=== PATIENT | female | born 1960 | race Caucasian/White ===

== ENCOUNTER → 2017-02-22 | Outpatient (CLI) | payer BC, OTHER ==
--- NOTE | 2017-02-22 11:42 | MR ---
MR brain HISTORY: Stroke Correlation to prior MRI brain 05/04/2016, 11 July 2016 Multiplanar multisequence imaging through the brain There is no restricted diffusion. The scattered and confluent periventricular white matter hyperinten sities on inversion recovery and T2-weighted sequences are again noted and are too numerous to count. There is no hemorrhage or hydrocephalus. There are normal vascular flow voids. Cerebellopontine angl es, corpus callosum, pituitary, cervical medullary junction are within normal limits. The karla shows multiple areas of probable encephalomalacia. The orbits show symmetric appearance. Focal encephalomal acia also present at the site of patient's prior infarct in the left parietal lobe. IMPRESSION: Findings may be due to chronic small vessel ischemia. Consider vasculitis, hypertension, migraine headaches, multiple sclerosis in the appropriate clinical setting.
== END | disposition home or self-care (01) ==
LOC: RADMRIMAIN 10:12
PROVIDERS: ATTEND Psychiatry & Neurology Neurology
DX: G81.91 Hemiplegia, unspecified affecting right dominant side (principal); Z86.73 Personal history of transient ischemic attack (TIA), and cerebral infarction without residual deficits
CPT/HCPCS: 70551

== ENCOUNTER 2018-11-10 18:10 | Emergency (ER) | payer BC, OTHER ==
--- NOTE | 2018-11-10 18:26 | ED ---
General Adult HPI - General Chief complaint: Recheck/Abnormal Lab/Rx Stated complaint: hypoglycemia Time Seen by Provider: 11/10/18 18:12 Source: patient, family, RN notes reviewed, old records reviewed Mode of arrival: EMS Limitations: no limitations - History of Present Illness Initial comments: 52 sexual female with history type 1 diabetes, currently on insulin pump presents for evaluation of hypoglycemia. Patient felt her blood sugar was dropping, attempted to consume oral glucose and a granola bar. Sugar persisted to drop and patient became quite symptomatically, diaphoretic, and altered. Her family members who are with her did stop at urgent care, they checked blood sugar at that time it was 38. EMS was called, IV was established and 1 amp of IV dextrose was administered. Patient's mental status improved, alert and oriented 4. She was transported to the emergency department for further evaluation. She has been dealing with episodes of hypoglycemia, her maintenance mechanic has been adjusting her insulin pump. Patient did eat today, no preceding symptoms, no nausea vomiting, no diarrhea. She does have history of renal failure status post transplant. She's had no known worsening kidney function. - Related Data Home Medications Medication Instructions Recorded Confirmed Metoprolol Succinate (ER) [Toprol 50 mg PO DAILY 12/12/14 11/10/18 XL] Mycophenolate Mofetil [Cellcept] 500 mg PO BID 12/12/14 11/10/18 amLODIPine [Norvasc] 10 mg PO DAILY 12/12/14 11/10/18 Gabapentin [Neurontin] 300 mg PO HS 10/23/15 11/10/18 Omeprazole [PriLOSEC] 40 mg PO AC-BRKFST 10/23/15 11/10/18 Tacrolimus [Prograf] 1 mg PO HS 06/06/16 11/10/18 Tacrolimus [Prograf] 2 mg PO QAM 06/06/16 11/10/18 DULoxetine HCL [Cymbalta] 20 mg PO DAILY 11/10/18 11/10/18 INSULIN LISPRO (For Pump) [humaLOG 0.01 units SQ-PUMP CONTINUOUS 11/10/18 (For Pump)] Previous Rx's Medication Instructions Recorded Atorvastatin [Lipitor] 80 mg PO HS #30 tab 12/15/14 Clopidogrel [Plavix] 75 mg PO DAILY #30 tab 12/15/14 Nitroglycerin Sl Tabs [Nitrostat] 0.4 mg SUBLINGUAL Q5M PRN #25 tab 12/15/14 Allergies Allergy/AdvReac Type Severity Reaction Status Date / Time Milk Containing Products Allergy Diarrhea Verified 11/10/18 18:40 [Dairy] Penicillins Allergy Rash/Hives Verified 11/10/18 18:40 trandolapril [From Tarka] Allergy SEVERE Verified 11/10/18 18:40 HYPOTENSION verapamil HCl [From Tarka] Allergy SEVERE Verified 11/10/18 18:40 HYPOTENSION Review of Systems ROS Statement: Those systems with pertinent positive or pertinent negative responses have been documented in the HPI. ROS Other: All systems not noted in ROS Statement are negative. Past Medical History Past Medical History: Blood Disorder, Cancer, CVA/TIA, Diabetes Mellitus, Dialysis, GERD/Reflux, Myocardial Infarction (non Q-wave), Pneumonia, Pulmonary Embolus (PE), Renal Disease, Sleep Apnea/CPAP/BIPAP, Thyroid Disorder Additional Past Medical History / Comment(s): SEE DR LONGO H&P, Leiden Factor V, basal cell carcinoma, Vulvar cancer,CVA 2015, CVA 2013, CVA approx 2011, DIAlysis 2001 for 2 months, enlarged thyroid with nodules Last Myocardial Infarction Date:: 2014 History of Any Multi-Drug Resistant Organisms: None Reported Past Surgical History: Section, Cholecystectomy, Heart Catheterization , Heart Catheterization With Stent, Tonsillectomy, Tubal Ligation Additional Past Surgical History / Comment(s): oophrectomy, kidney transplant, surgery to remove cancer Past Anesthesia/Blood Transfusion Reactions: No Reported Reaction Date of Last Stent Placement:: 2014 Past Psychological History: Depression Smoking Status: Former smoker - Past Family History Father Family Medical History: Myocardial Infarction ([place]) Mother Family Medical History: Pulmonary Embolus Additional Family Medical History / Comment(s): Occluded carotid artery, carotid endartectomy Son(s) Family Medical History: Diabetes Mellitus Additional Family Medical History / Comment(s): DM type 1 General Exam Limitations: no limitations General appearance: alert, in no apparent distress Head exam: Present: atraumatic, normocephalic Eye exam: Present: normal appearance, PERRL ENT exam: Present: normal exam Neck exam: Present: normal inspection. Absent: tenderness Respiratory exam: Present: normal lung sounds bilaterally. Absent: respiratory distress, wheezes Cardiovascular Exam: Present: regular rate, normal rhythm GI/Abdominal exam: Present: soft. Absent: distended, tenderness, guarding Extremities exam: Present: normal inspection, full ROM, normal capillary refill Neurological exam: Present: alert, oriented X3, CN II-XII intact. Absent: motor sensory deficit Psychiatric exam: Present: normal affect, normal mood Skin exam: Present: warm, dry, intact. Absent: cyanosis, diaphoretic Course Vital Signs 11/10/18 11/10/18 11/10/18 18:18 19:20 20:11 Temperature 97.6 F 98.1 F Pulse Rate 80 76 77 Respiratory 16 16 20 Rate Blood Pressure 170/90 148/81 149/65 O2 Sat by Pulse 99 97 100 Oximetry Medical Decision Making - Medical Decision Making 58-year-old female history of type 1 diabetes, history of renal failure status post transplant presents for evaluation of episode of hypoglycemia. Patient's blood sugar was 38 according to EMS. She was given both oral and IV glucose prior to arrival. Blood sugar remained stable, she is observed in the emergency department with mildly elevated blood sugars, no hypoglycemia, she is asymptomatic with stable vitals. Laboratory studies do reveal mild elevation in creatinine 1.41, patient is informed of this and will follow with her manager exchange. She will decrease dose of insulin infusion. She will closely monitor her blood glucose at home. - Lab Data Result diagrams: 11/10/18 18:37 11/10/18 18:37 Lab Results 11/10/18 11/10/18 11/10/18 Range/Units 18:30 18:37 18:37 WBC 7.5 (3.8-10.6) k/uL RBC 4.82 (3.80-5.40) m/uL Hgb 14.6 (11.4-16.0) gm/dL Hct 44.5 (34.0-46.0) % MCV 92.4 (80.0-100.0) fL MCH 30.3 (25.0-35.0) pg MCHC 32.8 (31.0-37.0) g/dL RDW 12.9 (11.5-15.5) % Plt Count 156 (150-450) k/uL Neutrophils % 70 % Lymphocytes % 20 % Monocytes % 5 % Eosinophils % 3 % Basophils % 1 % Neutrophils # 5.2 (1.3-7.7) k/uL Lymphocytes # 1.5 (1.0-4.8) k/uL Monocytes # 0.3 (0-1.0) k/uL Eosinophils # 0.3 (0-0.7) k/uL Basophils # 0.1 (0-0.2) k/uL Sodium 140 (137-145) mmol/L Potassium 4.5 (3.5-5.1) mmol/L Chloride 106 (98-107) mmol/L Carbon Dioxide 27 (22-30) mmol/L Anion Gap 7 mmol/L BUN 18 H (7-17) mg/dL Creatinine 1.41 H (0.52-1.04) mg/dL Est GFR (CKD-EPI)AfAm 48 (>60 ml/min/1.73 sqM) Est GFR (CKD-EPI)NonAf 42 (>60 ml/min/1.73 sqM) Glucose 254 H (74-99) mg/dL POC Glucose (mg/dL) 235 H (75-99) mg/dL POC Glu Dressmaker Or Tailor ID December Calcium 9.7 (8.4-10.2) mg/dL Total Bilirubin 1.6 H (0.2-1.3) mg/dL AST 28 (14-36) U/L ALT 40 (9-52) U/L Alkaline Phosphatase 99 (38-126) U/L Total Protein 6.9 (6.3-8.2) g/dL Albumin 3.8 (3.5-5.0) g/dL 11/10/18 11/10/18 Range/Units 19:25 20:10 WBC (3.8-10.6) k/uL RBC (3.80-5.40) m/uL Hgb (11.4-16.0) gm/dL Hct (34.0-46.0) % MCV (80.0-100.0) fL MCH (25.0-35.0) pg MCHC (31.0-37.0) g/dL RDW (11.5-15.5) % Plt Count (150-450) k/uL Neutrophils % % Lymphocytes % % Monocytes % % Eosinophils % % Basophils % % Neutrophils # (1.3-7.7) k/uL Lymphocytes # (1.0-4.8) k/uL Monocytes # (0-1.0) k/uL Eosinophils # (0-0.7) k/uL Basophils # (0-0.2) k/uL Sodium (137-145) mmol/L Potassium (3.5-5.1) mmol/L Chloride (98-107) mmol/L Carbon Dioxide (22-30) mmol/L Anion Gap mmol/L BUN (7-17) mg/dL Creatinine (0.52-1.04) mg/dL Est GFR (CKD-EPI)AfAm (>60 ml/min/1.73 sqM) Est GFR (CKD-EPI)NonAf (>60 ml/min/1.73 sqM) Glucose (74-99) mg/dL POC Glucose (mg/dL) 229 H 256 H (75-99) mg/dL POC Glu Dressmaker Or Tailor [place] Matthew Calcium (8.4-10.2) mg/dL Total Bilirubin (0.2-1.3) mg/dL AST (14-36) U/L ALT (9-52) U/L Alkaline Phosphatase (38-126) U/L Total Protein (6.3-8.2) g/dL Albumin (3.5-5.0) g/dL Disposition Clinical Impression: Hypoglycemia Disposition: HOME SELF-CARE Condition: Good Instructions (If sedation given, give patient instructions): Hypoglycemia in a Person with Diabetes (ED) Is patient prescribed a controlled substance at d/c from ED?: No Referrals: Katina Benson MD [Primary Care Provider] - 1-2 days Tracee Tilley MD [STAFF PHYSICIAN] - 1-2 days Time of Disposition: 20:47
[2018-11-10 18:36] LABS: Glucose,Whole Blood 235 mg/dL (75-99)
[2018-11-10 18:51] LABS: Basophils # (A) 0.1 k/uL (0-0.2); Basophils % (A) 1 %; Eosinophils # (A) 0.3 k/uL (0-0.7); Eosinophils % (A) 3 %; HCT 44.5 % (34.0-46.0); HGB 14.6 gm/dL (11.4-16.0); Lymphocytes # (A) 1.5 k/uL (1.0-4.8); Lymphocytes % (A) 20 %; MCH 30.3 pg (25.0-35.0); MCHC 32.8 g/dL (31.0-37.0); MCV 92.4 fL (80.0-100.0); Mean Platelet Volume 8.8; Monocytes # (A) 0.3 k/uL (0-1.0); Monocytes % (A) 5 %; Neutrophils # (A) 5.2 k/uL (1.3-7.7); Neutrophils % (A) 70 %; Platelet Count 156 k/uL (150-450); RBC 4.82 m/uL (3.80-5.40); RDW 12.9 % (11.5-15.5); WBC 7.5 k/uL (3.8-10.6)
[2018-11-10 19:00] LABS: Albumin 3.8 g/dL (3.5-5.0); Calcium 9.7 mg/dL (8.4-10.2); Potassium 4.5 mmol/L (3.5-5.1); Total Bilirubin 1.6 mg/dL (0.2-1.3); Total Protein 6.9 g/dL (6.3-8.2)
[2018-11-10 19:37] LABS: Glucose,Whole Blood 229 mg/dL (75-99)
[2018-11-10 20:12] LABS: Glucose,Whole Blood 256 mg/dL (75-99)
[2018-11-10 20:58] VITALS: BP 143/73; PULSE 76; RESP 18; TEMP 97
== END 2018-11-10 20:57 | disposition home or self-care (01) ==
LOC: EC 18:10
DX: E10.649 Type 1 diabetes mellitus with hypoglycemia without coma (principal); R79.89 Other specified abnormal findings of blood chemistry; N19 Unspecified kidney failure; K21.9 Gastro-esophageal reflux disease without esophagitis; G47.30 Sleep apnea, unspecified; I25.2 Old myocardial infarction; F32.9 Major depressive disorder, single episode, unspecified; Z87.891 Personal history of nicotine dependence; Z88.0 Allergy status to penicillin; Z88.8 Allergy status to other drugs, medicaments and biological substances; Z91.011 Allergy to milk products; Z79.4 Long term (current) use of insulin; Z79.899 Other long term (current) drug therapy; Z96.41 Presence of insulin pump (external) (internal); Z86.73 Personal history of transient ischemic attack (TIA), and cerebral infarction without residual deficits; Z86.711 Personal history of pulmonary embolism; Z85.828 Personal history of other malignant neoplasm of skin; Z85.44 Personal history of malignant neoplasm of other female genital organs; Z99.2 Dependence on renal dialysis; Z94.0 Kidney transplant status; Z99.89 Dependence on other enabling machines and devices; Z98.890 Other specified postprocedural states; Z95.5 Presence of coronary angioplasty implant and graft; Z83.3 Family history of diabetes mellitus
CPT/HCPCS: 36415; 80053; 85025; 99285

== ENCOUNTER 2019-09-05 18:00 | Emergency (ER) | payer MEDICARE ==
[2019-09-05 18:10] LABS: Glucose,Whole Blood 75 mg/dL (75-99)
[2019-09-05 18:25] LABS: Glucose,Whole Blood 111 mg/dL (75-99)
--- NOTE | 2019-09-05 18:39 | ED ---
General Adult HPI - General Chief complaint: Recheck/Abnormal Lab/Rx Stated complaint: Low blood sugar Time Seen by Provider: 09/05/19 18:11 Source: patient, RN notes reviewed, old records reviewed Mode of arrival: ambulatory Limitations: no limitations - History of Present Illness Initial comments: 58-year-old female patient past history significant for type 1 diabetes on insulin pump presents to ED for chief complaint of hypoglycemia. Patient reports that she ate a small meal approximately one hour ago. One piece of toast with butter on it. Patient reports that she then dosed herself 8 units of insulin. Afterward she became somewhat confused and disoriented. Patient was unable to check her blood sugar due to being at her mother's house not having her glucometer on her. Patient then took a few tabs of oral glucose and presented to the emergency department. Upon evaluation patient states that she is feeling much better. Denies any pain or discomfort, currently or when symptoms were being experienced. Denies any facial droop. Denies ever experiencing any pain. Denies any other complaints at this time. Systemic: Pt denies fatigue, fever/chills, rash. Pt denies weakness, night sweats, weight loss. Neuro: Pt denies headache, visual disturbances, syncope or pre-syncope. HEENT: Pt denies ocular discharge or irritation, otalgia, rhinorrhea, pharyngitis or notable lymphadenopathy. Cardiopulmonary: Pt denies chest pain, SOB, heart palpitations, dyspnea on exertion. Abdominal/GI: Pt denies abdominal pain, n/v/d. : Pt denies dysuria, burning w/ urination, frequency/urgency. Denies new onset urinary or bowel incontinence. MSK: Pt denies myalgia, loss of strength or function in extremities. Neuro: Pt denies new onset weakness, paresthesias. - Related Data Home Medications Medication Instructions Recorded Confirmed Metoprolol Succinate (ER) [Toprol 50 mg PO DAILY 12/12/14 11/10/18 XL] Mycophenolate Mofetil [Cellcept] 500 mg PO BID 12/12/14 11/10/18 amLODIPine [Norvasc] 10 mg PO DAILY 12/12/14 11/10/18 Gabapentin [Neurontin] 300 mg PO HS 10/23/15 11/10/18 Omeprazole [PriLOSEC] 40 mg PO AC-BRKFST 10/23/15 11/10/18 Tacrolimus [Prograf] 1 mg PO HS 06/06/16 11/10/18 Tacrolimus [Prograf] 2 mg PO QAM 06/06/16 11/10/18 DULoxetine HCL [Cymbalta] 20 mg PO DAILY 11/10/18 11/10/18 INSULIN LISPRO (For Pump) [humaLOG 0.01 units SQ-PUMP CONTINUOUS 11/10/18 11/10/18 (For Pump)] Previous Rx's Medication Instructions Recorded Atorvastatin [Lipitor] 80 mg PO HS #30 tab 12/15/14 Clopidogrel [Plavix] 75 mg PO DAILY #30 tab 12/15/14 Nitroglycerin Sl Tabs [Nitrostat] 0.4 mg SUBLINGUAL Q5M PRN #25 tab 12/15/14 Allergies Allergy/AdvReac Type Severity Reaction Status Date / Time Milk Containing Products Allergy Diarrhea Verified 09/05/19 18:09 [Dairy] Penicillins Allergy Rash/Hives Verified 09/05/19 18:09 trandolapril [From Tarka] Allergy SEVERE Verified 09/05/19 18:09 HYPOTENSION verapamil HCl [From Tarka] Allergy SEVERE Verified 09/05/19 18:09 HYPOTENSION Review of Systems ROS Statement: Those systems with pertinent positive or pertinent negative responses have been documented in the HPI. ROS Other: All systems not noted in ROS Statement are negative. Past Medical History Past Medical History: Blood Disorder, Cancer, CVA/TIA, Diabetes Mellitus, Dialysis, GERD/Reflux, Myocardial Infarction (non Q-wave), Pneumonia, Pulmonary Embolus (PE), Renal Disease, Sleep Apnea/CPAP/BIPAP, Thyroid Disorder Additional Past Medical History / Comment(s): SEE DR LONGO H&P, Leiden Factor V, basal cell carcinoma, Vulvar cancer,CVA 2015, CVA 2013, CVA approx 2011, DIAlysis 2001 for 2 months, enlarged thyroid with nodules Last Myocardial Infarction Date:: 2014 History of Any Multi-Drug Resistant Organisms: None Reported Past Surgical History: Section, Cholecystectomy, Heart Catheterization, Heart Catheterization With Stent, Tonsillectomy, Tubal Ligation Additional Past Surgical History / Comment(s): oophrectomy, kidney transplant, surgery to remove cancer Past Anesthesia/Blood Transfusion Reactions: No Reported Reaction Date of Last Stent Placement:: 2014 Past Psychological History: Depression Smoking Status: Former smoker Past Alcohol Use History: None Reported Past Drug Use History: None Reported - Past Family History Father Family Medical History: Myocardial Infarction ([place]) Mother Family Medical History: Pulmonary Embolus Additional Family Medical History / Comment(s): Occluded carotid artery, carotid endartectomy Son(s) Family Medical History: Diabetes Mellitus Additional Family Medical History / Comment(s): DM type 1 General Exam - General Exam Comments Initial Comments: Constitutional: NAD, AOX3, Pt has pleasant affect. HEENT: NC/AT, trachea midline, neck supple, no lymphadenopathy. Posterior pharynx non erythematous, without exudates. External ears appear normal, without discharge. Mucous membranes moist. Eyes PERRLA, EOM intact. There is no scleral icterus. No pallor noted. Cardiopulmonary: RRR, no murmurs, rubs or gallops, no JVD noted. Lungs CTAB in anterior and posterior corral. No peripheral edema. Abdominal exam: Abdomen soft and non-distended. Abdomen non-tender to palpation in all 4 quadrants. Bowel sounds active in LLQ. No hepatosplenomegaly. No ecchymosis Neuro: CN II-XII intact. No nuchal rigidity. No raccon eyes, no cardenas sign, no hemotympanum. No cervical spinal tenderness. MSK: No posterior calf tenderness bilaterally, homans sign negative bilaterally. Posterior tibialis and radial pulse +2 bilaterally. Sensation intact in upper and lower extremities. Full active ROM in upper and lower extremities, 5/5 stregnth. Limitations: no limitations Course Vital Signs 09/05/19 18:07 Temperature 96.8 F L Pulse Rate 81 Respiratory 20 Rate Blood Pressure 132/67 O2 Sat by Pulse 99 Oximetry Medical Decision Making - Medical Decision Making 58 old female patient type I diabetic presents to ED for chief complaint of likely hypoglycemia after dosing her insulin. Patient states that she had not eaten much all day in a small piece of toast, gave himself 8 units of insulin from her pump and then begin to feel strange, disoriented. Patient is given oral glucose tolerating oral intake here. Feeling much better. Patient drinking orange juice, turkey sandwich. Patient blood sugar 137 she was requesting discharge. Physical exam did not display acute pathology. Neurologic exam wnl. patient will monitor her sugar at home. Case discussed with Dr. Roskopp. - Lab Data Lab Results 09/05/19 09/05/19 09/05/19 Range/Units 18:09 18:24 19:02 POC Glucose (mg/dL) 75 111 H 90 (75-99) mg/dL POC Glu Sanitation Superintendent OLIVIA KevinMounaJo-AnnChantale Segura Brittany Disposition Clinical Impression: Hypoglycemia Disposition: HOME SELF-CARE Condition: Stable Instructions (If sedation given, give patient instructions): Hypoglycemia in a Person with Diabetes (ED) Additional Instructions: follow up with primary care provider tomorrow. Continue to closely monitor sugar at home. Return to ER if condition worsens in any way. Is patient prescribed a controlled substance at d/c from ED?: No Referrals: Katina Benson MD [Primary Care Provider] - 1-2 days
[2019-09-05 19:03] LABS: Glucose,Whole Blood 90 mg/dL (75-99)
[2019-09-05 19:46] LABS: Glucose,Whole Blood 137 mg/dL (75-99)
[2019-09-05 19:56] VITALS: BP 119/75; PULSE 78; RESP 18; TEMP 97.6
== END 2019-09-05 19:59 | disposition home or self-care (01) ==
LOC: EC 18:00
DX: E10.649 Type 1 diabetes mellitus with hypoglycemia without coma (principal); K21.9 Gastro-esophageal reflux disease without esophagitis; I25.2 Old myocardial infarction; G47.30 Sleep apnea, unspecified; F32.9 Major depressive disorder, single episode, unspecified; Z87.891 Personal history of nicotine dependence; Z88.0 Allergy status to penicillin; Z88.8 Allergy status to other drugs, medicaments and biological substances; Z91.011 Allergy to milk products; Z79.4 Long term (current) use of insulin; Z79.899 Other long term (current) drug therapy; Z85.828 Personal history of other malignant neoplasm of skin; Z85.44 Personal history of malignant neoplasm of other female genital organs; Z98.890 Other specified postprocedural states; Z96.41 Presence of insulin pump (external) (internal); Z94.0 Kidney transplant status; Z99.89 Dependence on other enabling machines and devices; Z83.3 Family history of diabetes mellitus
CPT/HCPCS: 36415; 99285

== ENCOUNTER → 2019-10-10 | Outpatient (CLI) | payer MEDICARE ==
[2019-10-10 16:10] VITALS: BP 137/84; PULSE 67; RESP 16; TEMP 98.7; BMI 40.9
[2019-10-10 18:03] LABS: HCT 45.4 % (34.0-46.0); HGB 14.5 gm/dL (11.4-16.0); MCV 93.7 fL (80.0-100.0); Platelet Count 152 k/uL (150-450); RBC 4.84 m/uL (3.80-5.40); RDW 12.5 % (11.5-15.5); WBC 7.7 k/uL (3.8-10.6)
--- NOTE | 2019-10-10 18:40 | P.HPBAR ---
Bariatric H&P - History & Physicial H&P Date: 10/10/19 History & Physicial: Visit/CC: Initial Patient initial contact: Initial weight: 90.407 kg Initial weight in pounds: 199.31 Height: 4 ft 10.5 in Initial BMI: 40.9 Last weight: Current weight: 90.407 kg Current weight in pounds: 199.31 Current BMI: 40.9 [place] body weight (based on NIH guidelines): 41.957 kg Excess body weight loss: 0.0% The patient is a 59 year-old F who presents for Bariatric Assessment. Patient here today for evaluation regarding bariatric surgical options. Patient has BMI of 40.9. Patient has multiple medical comorbidities. She is a history of previous kidney transplant. Her transplant was a living related from her sister. It is going on 17 years at this time. Maintained on Prograf and CellCept. History of ME, CVA, A. fib, hypertension, diabetes, PE, vulvar carcinoma, GERD, gastroparesis. Patient on Plavix and eloquis at this time. No recent EGD. History of laparoscopic cholecystectomy, transplant, tubal ligation. Denies dysphagia. Review of Systems The patient denies any acute changes in vision or hearing, no dysphagia or odynophagia, no chest pain or shortness of breath, no dysuria or hematuria, no headache, no runny nose, no rectal bleeding or melena, no unexplained weight loss Past Medical History Past Medical History: Blood Disorder, Cancer, CVA/TIA, Diabetes Mellitus, Dialysis, GERD/Reflux, Myocardial Infarction (non Q-wave), Pneumonia, Pulmonary Embolus ([place]), Renal Disease, Sleep Apnea/CPAP/BIPAP, Thyroid Disorder Additional Past Medical History / Comment(s): SEE DR LONGO H&P, Leiden Factor V, basal cell carcinoma, Vulvar cancer,CVA 2016, CVA 2014, CVA approx 2011, DI Alysis 2002 for 2 months, enlarged thyroid with nodules Last Myocardial Infarction Date:: 2014 History of Any Multi-Drug Resistant Organisms: None Reported Past Surgical History: Section, Cholecystectomy, Heart Catheterization, Heart Catheterization With Stent, Tonsillectomy, Tubal Ligation Additional Past Surgical History / Comment(s): oophrectomy, kidney transplant, surgery to remove cancer Past Anesthesia/Blood Transfusion Reactions: No Reported Reaction Date of Last Stent Placement:: 2014 Past Psychological History: Depression Smoking Status: Former smoker Past Alcohol Use History: None Reported Additional Past Alcohol Use History / Comment(s): QUIT SMOKING 1998, SMOKED FOR 15YRS 1PPD Past Drug Use History: None Reported - Past Family History Father Family Medical History: Myocardial Infarction ([place]) Mother Family Medical History: Pulmonary Embolus Additional Family Medical History / Comment(s): Occluded carotid artery, carotid endartectomy Son(s) Family Medical History: Diabetes Mellitus Additional Family Medical History / Comment(s): DM type 1 Surgical - Exam Vital Signs Temp Pulse Resp BP 98.7 F 67 16 137/84 10/10/19 16:07 10/10/19 16:07 10/10/19 16:07 10/10/19 16:07 Physical exam: General: Well-developed, well-nourished HEENT: Normocephalic, sclerae nonicteric Abdomen: Nontender, nondistended Extremities: No edema Neuro: Alert and oriented Results - Labs 10/10/19 17:39 Bariatric Assessment & Plan (1) Morbid obesity Narrative/Plan: 59-year-old female with morbid obesity and associated comorbidities. Bariatric surgical options and their risk benefit profile discussed in detail. Patient remains interested in sleeve gastrectomy at this time. We'll tentatively plan EGD in the near future. Await psychiatric, cardiac, nephrology and medical clearance. Status: Acute Bariatric Checklist Checklist: Plan: Checklist: EGD: 1. Hiatal hernia: 2. H. Pylori: HgbA1c: Vitamin D: Smoking: Former smoker Primary care physician referral: Kelley Psychiatry clearance: Cardiology clearance: Sleep study: Diet journal: VTE risk score: VTE risk level: Rehab needs at discharge:
[2019-10-11 00:09] LABS: African American GFR (CKD) 58.1 (60.0-200.0); Albumin/Globulin Ratio 1.82 (1.60-3.17); Anion Gap 10.7 mmol/L (4.00-12.00); BUN/Creat Ratio 16.67 Ratio (12.00-20.00); Calcium 9.4 mg/dL (8.7-10.3); Carbon Dioxide 25.3 mmol/L (21.6-31.8); Globulin 2.2 g/dL (1.6-3.3); Non-African American GFR(CKD) 50.1 (60.0-200.0); Potassium 4.5 mmol/L (3.5-5.5); Total Protein 6.2 g/dL (6.2-8.2)
[2019-10-11 00:35] LABS: Folate, Serum 15.5 ng/mL
== END | disposition home or self-care (01) ==
LOC: BARWHC3 15:04
PROVIDERS: ATTEND Surgery
DX: E66.01 Morbid (severe) obesity due to excess calories (principal); Z68.41 Body mass index [BMI] 40.0-44.9, adult; Z87.891 Personal history of nicotine dependence
CPT/HCPCS: 84425; 80053; 82607; 82746; 83540; 85027; 82306; 83036; G0463; 99211

== ENCOUNTER 2019-12-04 10:37 | Day surgery (SDC) | payer MEDICARE ==
[2019-11-04 12:06] VITALS: BMI 39.4
[~2019-12-04 10:37] MED LIST: LACTATED RINGERS 1,000 ML IV SCH; LIDOCAINE 1% (10MG/ML) FOR IV START INTRADERMA PRN
--- NOTE | 2019-12-04 11:17 | P.GSHP ---
History of Present Illness H&P Date: 12/04/19 Chief Complaint: GERD 59-year-old female here today for upper endoscopy. Patient recently seen in the bariatric center for sleeve gastrectomy. Patient with history of reflux. Denies dysphagia. Past Medical History Past Medical History: Blood Disorder, Cancer, CVA/TIA, Diabetes Mellitus, Dialysis, GERD/Reflux, Hypertension, Myocardial Infarction (non Q-wave), Pneumonia, Pulmonary Embolus ([place]), Renal Disease, Sleep Apnea/CPAP/BIPAP, Thyroid Disorder Additional Past Medical History / Comment(s): Leiden Factor V, basal cell carcinoma, Vulvar cancer, CVA 2015, CVA 2013, CVA 2017 est - sl weakness Lt side, Dialysis 2001 for 2 months, enlarged thyroid w/ nodules. PE 2011, Kidney transplant 2001. No tx for sleep apnea. Neuropathy in feet/legs. Last Myocardial Infarction Date:: 2014 History of Any Multi-Drug Resistant Organisms: None Reported Past Surgical History: Section, Cholecystectomy, Heart Catheterization, Heart Catheterization With Stent, Tonsillectomy, Tubal Ligation Additional Past Surgical History / Comment(s): jose oophrectomy, kidney transplant, surgery to remove CA. PTCA w/ Stent 2001, 2014. Colonoscopy, EGD. Past Anesthesia/Blood Transfusion Reactions: No Reported Reaction, Motion Sickness Date of Last Stent Placement:: 2014 Smoking Status: Former smoker - Past Family History Father Family Medical History: Myocardial Infarction ([place]) Mother Family Medical History: Pulmonary Embolus Additional Family Medical History / Comment(s): Occluded carotid artery, carotid endartectomy Son(s) Family Medical History: Diabetes Mellitus Additional Family Medical History / Comment(s): DM type 1 Medications and Allergies Home Medications Medication Instructions Recorded Confirmed Type Metoprolol Succinate (ER) [Toprol 50 mg PO HS 12/12/14 12/02/19 History XL] Mycophenolate Mofetil [Cellcept] 500 mg PO BID 12/12/14 12/02/19 History amLODIPine [Norvasc] 10 mg PO HS 12/12/14 12/02/19 History Atorvastatin [Lipitor] 80 mg PO HS #30 tab 12/15/14 12/02/19 Rx Nitroglycerin Sl Tabs [Nitrostat] 0.4 mg SUBLINGUAL Q5M PRN #25 tab 12/15/14 12/02/19 Rx Gabapentin [Neurontin] 300 mg PO HS 10/23/15 12/02/19 History Omeprazole [PriLOSEC] 40 mg PO HS 10/23/15 12/02/19 History Tacrolimus [Prograf] 1 mg PO BID 06/06/16 12/02/19 History DULoxetine HCL [Cymbalta] 20 mg PO HS 11/10/18 12/02/19 History INSULIN LISPRO (For Pump) [humaLOG 0.01 units SQ-PUMP CONTINUOUS 11/10/18 12/02/19 History (For Pump)] Apixaban [Eliquis] 5 mg PO BID 11/04/19 12/02/19 History Cholecalciferol [Vitamin D3 (25 2,000 unit PO DAILY 11/04/19 12/02/19 History Mcg = 1000 Iu)] Clopidogrel [Plavix] 75 mg PO HS 11/04/19 12/02/19 History Docusate Sodium [Dok] 200 mg PO DAILY 11/04/19 12/02/19 History Magnesium 250 mg PO DAILY 11/04/19 12/02/19 History Cannabidiol (Cbd) Extract 1 dose PO DAILY PRN 12/02/19 12/02/19 History [Epidiolex] Allergies Allergy/AdvReac Type Severity Reaction Status Date / Time Milk Containing Products Allergy Diarrhea Verified 12/04/19 11:09 [Dairy] Penicillins Allergy Rash/Hives Verified 12/04/19 11:09 trandolapril [From Tarka] Allergy SEVERE Verified 12/04/19 11:09 HYPOTENSION verapamil HCl [From Tarka] Allergy SEVERE Verified 12/04/19 11:09 HYPOTENSION Surgical - Exam Physical exam: General: Well-developed, well-nourished HEENT: Normocephalic, sclerae nonicteric Abdomen: Nontender, nondistended Extremities: No edema Neuro: Alert and oriented Assessment and Plan (1) GERD (gastroesophageal reflux disease) Narrative/Plan: Will proceed with upper endoscopy. Current Visit: Yes Status: Acute Code(s): K21.9 - GASTRO-ESOPHAGEAL REFLUX DISEASE WITHOUT ESOPHAGITIS SNOMED Code(s): 594477518
[2019-12-04 11:18] VITALS: RESP 16; TEMP 97.5
[2019-12-04 11:24] LABS: Glucose,Whole Blood 231 mg/dL (75-99)
[2019-12-04] MEDS ORDERED: PROPOFOL 10 MG/ML 20 ML VIAL IV ONE (11:25)
[2019-12-04] MEDS ORDERED: LIDOCAINE 1% INJ 10MG/ML (20 ML MDV) ONE (11:25)
--- NOTE | 2019-12-04 11:34 | P.PCN ---
Date of Procedure: 12/04/19 Procedure(s) Performed: Preoperative Dx: GERD, presurgical Postoperative Dx: Gastritis Procedure: EGD with Bx Anesthesia: Sedation Endoscopist: Dr. Crabtree Specimens: Antrum Endoscopic Procedure: The patient was on the endoscopy table in the left decubitus position. The Olympus gastroscope was inserted into the oropharynx and passed under direct visualization to the region of the third portion of the duodenum. From that point the scope was slowly withdrawn inspecting all surfaces carefully. There were no neoplastic inflammatory or polypoid lesions throughout the duodenum. The pylorus was widely patent. The stomach was carefully inspected. There was gastritis present. A biopsy of the antrum took place to rule out H. pylori. Retroflexion revealed a normal hiatus. The esophagus was then carefully examined. There were no neoplastic inflammatory or polypoid lesions throughout the visualized esophagus. The patient was then taken to the recovery room in stable condition per anesthesia guidelines. Recommendations: Await biopsy results. Patient notified me today that her recent cologuard was positive. Patient will require colonoscopy at some point prior to sleeve gastrectomy. She will contact me to schedule.
[2019-12-04 11:54] VITALS: BP 115/74; PULSE 62
== END 2019-12-04 12:11 | disposition home or self-care (01) ==
LOC: ORWHC2ENDO 10:37
PROVIDERS: ATTEND Surgery
DX: K29.50 Unspecified chronic gastritis without bleeding (principal); K21.9 Gastro-esophageal reflux disease without esophagitis; I10 Essential (primary) hypertension; I69.954 Hemiplegia and hemiparesis following unspecified cerebrovascular disease affecting left non-dominant side; I25.2 Old myocardial infarction; E11.42 Type 2 diabetes mellitus with diabetic polyneuropathy; G47.30 Sleep apnea, unspecified; E07.9 Disorder of thyroid, unspecified; D68.51 Activated protein C resistance; N19 Unspecified kidney failure; Z86.711 Personal history of pulmonary embolism; Z99.89 Dependence on other enabling machines and devices; Z85.828 Personal history of other malignant neoplasm of skin; Z85.44 Personal history of malignant neoplasm of other female genital organs; Z98.84 Bariatric surgery status; Z94.0 Kidney transplant status; Z90.49 Acquired absence of other specified parts of digestive tract; Z98.891 History of uterine scar from previous surgery; Z90.89 Acquired absence of other organs; Z98.51 Tubal ligation status; Z90.722 Acquired absence of ovaries, bilateral; Z95.5 Presence of coronary angioplasty implant and graft; Z98.890 Other specified postprocedural states; Z87.891 Personal history of nicotine dependence; Z82.49 Family history of ischemic heart disease and other diseases of the circulatory system; Z83.3 Family history of diabetes mellitus; Z79.01 Long term (current) use of anticoagulants; Z79.4 Long term (current) use of insulin; Z79.02 Long term (current) use of antithrombotics/antiplatelets; Z79.899 Other long term (current) drug therapy; Z88.0 Allergy status to penicillin; Z88.8 Allergy status to other drugs, medicaments and biological substances; Z91.011 Allergy to milk products; Z99.2 Dependence on renal dialysis; Z87.01 Personal history of pneumonia (recurrent)
CPT/HCPCS: 88305; 43239; J2001; J2704

== ENCOUNTER → 2020-03-02 | Outpatient (CLI) | payer MEDICARE ==
[2020-03-02 13:11] VITALS: BMI 41.9
== END | disposition home or self-care (01) ==
LOC: BARWHC3 08:40
PROVIDERS: ATTEND Surgery
DX: E66.01 Morbid (severe) obesity due to excess calories (principal); Z68.41 Body mass index [BMI] 40.0-44.9, adult
CPT/HCPCS: 97804

== ENCOUNTER → 2020-04-28 | Outpatient (CLI) | payer MEDICARE ==
[2020-04-28 12:32] VITALS: BP 127/65; PULSE 65; RESP 16; TEMP 98; BMI 41.1
--- NOTE | 2020-04-28 14:52 | P.BASOAP ---
Subjective Progress Note Date: 04/28/20 Principal diagnosis: Morbid obesity Patient here today for reevaluation after recent upper and lower endoscopy. Preoperatively being evaluated for sleeve gastrectomy. Patient remains interested in sleeve gastrectomy. She has obtained cardiac, nephrology, psych and primary care clearance for sleeve gastrectomy. No new changes to her previous history and physical. Objective - Vital Signs Vital signs: Vital Signs Temp 98 F 04/28/20 12:29 Pulse 65 04/28/20 12:29 Resp 16 04/28/20 12:29 BP 127/65 04/28/20 12:29 Pulse Ox Intake & Output 04/27/20 04/28/20 04/28/20 18:59 06:59 18:59 Weight 90.718 kg - Exam Abdomen: Soft, nontender, nondistended Assessment/Plan (1) Morbid obesity Narrative/Plan: Patient remains interested in sleeve gastrectomy. Our area trick quality and risk review results were reviewed with her. Risk of complication 12.6% and severe complication 5.6% with sleeve gastrectomy. These risks are even higher with gastric bypass. Her risk of VTE was 1.33%. Our surgical consent form and associated risks were again reviewed in detail. Patient remains interested in proceeding with surgery. I believe that the patient and we have done the best that we can in preparation for this procedure as it pertains to limiting risk. I am comfortable proceeding with sleeve gastrectomy. She will be maintained on anticoagulation postoperatively. Surgery is currently scheduled for 05/03. Patient will call me with any questions or concerns between now and then. Plan: Date: 04/28/20 Initial Weight: 90.407 kg Initial BMI: 40.9 Current Weight: 90.718 kg Current BMI: 41.1 Type of Surgery: Total Volume in Band: Previous Volume: Volume Removed: Volume Added: Band Size:
== END | disposition home or self-care (01) ==
LOC: BARWHC3 12:06
PROVIDERS: ATTEND Surgery
DX: E66.01 Morbid (severe) obesity due to excess calories (principal); Z68.41 Body mass index [BMI] 40.0-44.9, adult
CPT/HCPCS: 99211

== ENCOUNTER → 2020-04-28 | Outpatient (CLI) | payer MEDICARE ==
[2020-04-28 15:12] LABS: Basophils # (A) 0.1 k/uL (0-0.2); Basophils % (A) 1 %; Eosinophils # (A) 0.1 k/uL (0-0.7); Eosinophils % (A) 2 %; HCT 46.9 % (34.0-46.0); HGB 15.2 gm/dL (11.4-16.0); Lymphocytes # (A) 1.6 k/uL (1.0-4.8); Lymphocytes % (A) 19 %; MCH 29.6 pg (25.0-35.0); MCHC 32.4 g/dL (31.0-37.0); MCV 91.5 fL (80.0-100.0); Mean Platelet Volume 9.9; Monocytes # (A) 0.3 k/uL (0-1.0); Monocytes % (A) 4 %; Neutrophils # (A) 6.2 k/uL (1.3-7.7); Neutrophils % (A) 73 %; Platelet Count 158 k/uL (150-450); RBC 5.13 m/uL (3.80-5.40); RDW 12.8 % (11.5-15.5); WBC 8.4 k/uL (3.8-10.6)
[2020-04-28 15:20] LABS: Calcium 10.6 mg/dL (8.4-10.2); Potassium 4.4 mmol/L (3.5-5.1); Total Bilirubin 1.7 mg/dL (0.2-1.3); Total Protein 6.9 g/dL (6.3-8.2)
== END | disposition home or self-care (01) ==
LOC: LABPAT 13:25
PROVIDERS: ATTEND Surgery
DX: Z01.818 Encounter for other preprocedural examination (principal)
CPT/HCPCS: 80053; 85025

== ENCOUNTER 2020-05-04 07:45 | Inpatient (IN) | payer MEDICARE ==
[~2020-05-04 07:45] MED LIST changes: +DEXAMETHASONE SOD PHOSPHATE 10 MG/ML 1 ML VIAL IV ONE; -LACTATED RINGERS 1,000 ML IV SCH; +fentaNYL (PF) 50 MCG/ML 2 ML AMP IV PRN; +fentaNYL (PF) 50 MCG/ML 2 ML AMP IVP PRN
[2020-05-04] MEDS ORDERED: CHLORHEXIDINE GLUCONATE 15 ML CUP MUCOUS MEM ONE (10:29)
[2020-05-04] MEDS ORDERED: ENOXAPARIN 40 MG/0.4 ML SYRINGE SQ STA (10:29)
[2020-05-04] MEDS ORDERED: PANTOPRAZOLE 40 MG/10 ML VIAL IV STA (10:29)
[2020-05-04 10:38] LABS: Glucose,Whole Blood 172 mg/dL (75-99)
[2020-05-04] MEDS: LACTATED RINGERS 1,000 ML IV SCH ×2 (10:45→17:28)
[2020-05-04] MEDS ORDERED: ONDANSETRON 4 MG/2 ML VIAL ONE (10:46)
[2020-05-04] MEDS ORDERED: DEXAMETHASONE SOD PHOSPHATE 10 MG/ML 1 ML VIAL IV ONE (10:49)
[2020-05-04] MEDS ORDERED: SCOPOLAMINE 1.5MG/72HR PATCH TRANSDERM ONE (10:49)
--- NOTE | 2020-05-04 11:30 | P.GSHP ---
History of Present Illness H&P Date: 05/04/20 Chief Complaint: Morbid obesity 59-year-old female here today for elective sleeve gastrectomy. Patient has history of AL CVA A. fib hypertension diabetes PE vulvar carcinoma GERD gastroparesis. Patient underwent recent upper and lower endoscopy without any significant abnormalities found. Patient is maintained on anticoagulation in the form of Plavix and eloquis. Denies dysphagia. No changes since last seen 1 week ago. Past Medical History Past Medical History: Blood Disorder, Cancer, CVA/TIA, Diabetes Mellitus, Dialysis, GERD/Reflux, Hypertension, Myocardial Infarction (non Q-wave), Pneumonia, Pulmonary Embolus (PE), Renal Disease, Sleep Apnea/CPAP/BIPAP, Thyroid Disorder Additional Past Medical History / Comment(s): Leiden Factor V, basal cell carcinoma, Vulvar cancer, CVA 2015, CVA 2013, CVA 2016 est - sl weakness Lt side, Dialysis 2001 for 2 months, enlarged thyroid w/ nodules. PE 2011, Kidney transplant 2001. No tx for sleep apnea. Neuropathy in feet/legs. Last Myocardial Infarction Date:: 2014 History of Any Multi-Drug Resistant Organisms: None Reported Past Surgical History: Section, Cholecystectomy, Heart Catheterization, Heart Catheterization With Stent, Tonsillectomy, Tubal Ligation Additional Past Surgical History / Comment(s): jose oophrectomy, kidney transplant, surgery to remove CA. PTCA w/ Stent 2001, 2014. Colonoscopy, EGD. Past Anesthesia/Blood Transfusion Reactions: No Reported Reaction, Motion Sickness Additional Past Anesthesia/Blood Transfusion Reaction / Comment(s): no hx blood transfusion Date of Last Stent Placement:: 2014 Smoking Status: Former smoker - Past Family History Father Family Medical History: Myocardial Infarction ([place]) Mother Family Medical History: Pulmonary Embolus Additional Family Medical History / Comment(s): Occluded carotid artery, carotid endartectomy Son(s) Family Medical History: Diabetes Mellitus Additional Family Medical History / Comment(s): DM type 1 Medications and Allergies Home Medications Medication Instructions Recorded Confirmed Type Metoprolol Succinate (ER) [Toprol 50 mg PO HS 12/12/14 04/29/20 History XL] amLODIPine [Norvasc] 10 mg PO HS 12/12/14 04/29/20 History mycophenolate mofetiL [Cellcept] 500 mg PO BID 12/12/14 04/29/20 History Atorvastatin [Lipitor] 80 mg PO HS #30 tab 12/15/14 04/29/20 Rx Nitroglycerin Sl Tabs [Nitrostat] 0.4 mg SUBLINGUAL Q5M PRN #25 tab 12/15/14 04/29/20 Rx Gabapentin [Neurontin] 300 mg PO HS 10/23/15 04/29/20 History Omeprazole [PriLOSEC] 40 mg PO HS 10/23/15 04/29/20 History Tacrolimus [Prograf] 1 mg PO BID 06/06/16 04/29/20 History DULoxetine HCL [Cymbalta] 20 mg PO HS 11/10/18 04/29/20 History INSULIN LISPRO (For Pump) [humaLOG 0.01 units SQ-PUMP CONTINUOUS 11/10/18 04/29/20 History (For Pump)] Apixaban [Eliquis] 5 mg PO BID 11/04/19 04/29/20 History Cholecalciferol [Vitamin D3 (25 2,000 unit PO DAILY 11/04/19 04/29/20 History Mcg = 1000 Iu)] Clopidogrel [Plavix] 75 mg PO HS 11/04/19 04/29/20 History Docusate Sodium [Dok] 200 mg PO DAILY 11/04/19 04/29/20 History Magnesium 250 mg PO DAILY 11/04/19 04/29/20 History Cannabidiol (Cbd) [Epidiolex] 1 dose PO DAILY PRN 12/02/19 04/29/20 History Multivitamins, Thera [Multivitamin 1 tab PO DAILY 04/28/20 04/29/20 History (formulary)] Allergies Allergy/AdvReac Type Severity Reaction Status Date / Time Milk Containing Products Allergy Diarrhea Verified 05/04/20 10:30 [Dairy] Penicillins Allergy Rash/Hives Verified 05/04/20 10:30 trandolapril [From Tarka] Allergy SEVERE Verified 05/04/20 10:30 HYPOTENSION verapamil HCl [From Tarka] Allergy SEVERE Verified 05/04/20 10:30 HYPOTENSION Surgical - Exam Vital Signs Temp Pulse Resp BP Pulse Ox 98 F 74 16 134/64 97 05/04/20 10:38 05/04/20 10:38 05/04/20 10:38 05/04/20 10:38 05/04/20 10:38 Physical exam: General: Well-developed, well-nourished HEENT: Normocephalic, sclerae nonicteric Abdomen: Nontender, nondistended Extremities: No edema Neuro: Alert and oriented Results - Labs Abnormal Lab Results - Last 24 Hours (Table) 05/04/20 Range/Units 10:37 POC Glucose (mg/dL) 172 H (75-99) mg/dL Assessment and Plan (1) Morbid obesity Narrative/Plan: 59-year-old female here today for elective sleeve gastrectomy. Appropriate preoperative clearances have been obtained. Surgical risks have been reviewed in detail with the patient as recently as 1 week ago. The risks of bleeding, infection, stenosis, stricture, leak, abscess, fistula formation, peritonitis, poor weight loss, reflux, vomiting, conversion to an open procedure, aborting sleeve gastrectomy, AL, PE, DVT, and were discussed. The patient understands and wishes to proceed. Current Visit: No Status: Acute Code(s): E66.01 - MORBID (SEVERE) OBESITY DUE TO EXCESS CALORIES SNOMED Code(s): 192572072
[2020-05-04] MEDS ORDERED: NEOSTIGMINE 1 MG/ML 10 ML VIAL ONE (12:08)
[2020-05-04] MEDS ORDERED: HYDROmorphone (PF) 1 MG/ML ONE (12:08)
[2020-05-04] MEDS ORDERED: GLYCOPYRROLATE 0.2 MG/ML 2 ML VIAL ONE (12:08)
[2020-05-04] MEDS ORDERED: ROCURONIUM 10 MG/ML (5 ML VIAL) IV ONE (12:08)
[2020-05-04] MEDS ORDERED: SUCCINYLCHOLINE CHLORIDE 100 MG/5 ML SYR IV ONE (12:08)
[2020-05-04] MEDS ORDERED: MIDAZOLAM 2 MG/2 ML VIAL ONE (12:08)
[2020-05-04] MEDS ORDERED: LIDOCAINE 1% INJ 10MG/ML (20 ML MDV) ONE (12:08)
[2020-05-04] MEDS ORDERED: fentaNYL (PF) 50 MCG/ML 2 ML AMP ONE (12:08)
[2020-05-04] MEDS ORDERED: PROPOFOL 10 MG/ML 20 ML VIAL IV ONE (12:08)
[2020-05-04] MEDS ORDERED: BUPIVACAINE (PF) 0.25% 30 ML VIAL SQ ONE (13:11)
[2020-05-04] MEDS ORDERED: LACTATED RINGERS 1,000 ML IV ONE (13:54)
[2020-05-04] MEDS ORDERED: HYOSCYAMINE ORAL DROPS 1.875 MG/15 ML BOTTLE PO PRN (13:59)
[2020-05-04] MEDS ORDERED: SIMETHICONE 40 MG/0.6 ML DROPS 2,000 MG/30 ML BOTTLE PO PRN (13:59)
[2020-05-04] MEDS ORDERED: NALOXONE 0.4 MG/ML 1 ML VIAL IV PRN (13:59)
[2020-05-04] MEDS ORDERED: diphenhydrAMINE 50 MG/ML 1 ML VIAL IVP PRN (13:59)
--- NOTE | 2020-05-04 14:04 | P.OP ---
Date of Procedure: 05/04/20 Procedure(s) Performed: PREOPERATIVE DIAGNOSIS: Morbid obesity, hypertension, diabetes, coronary artery disease POSTOPERATIVE DIAGNOSIS: Same PROCEDURE: Laparoscopic sleeve gastrectomy SURGEON: Bro EBL: Minimal ANESTHESIA: General COMPLICATIONS: None OPERATIVE PROCEDURE: Patient was placed in the operating table in the supine position. She was placed under general anesthesia at that time. The abdomen was prepped and draped in sterile fashion after the patient was placed in lithotomy. A 5 mm optical trocar was used to enter the abdominal cavity in the left upper quadrant. Insufflation took place to 15 millimeters mercury. An additional right subxiphoid 5 mm trocar was then placed under direct visualization and then removed. 2 additional 5 mm trochars were placed in the right upper quadrant and left upper quadrant under direct visualization and a 15 mm trocar in the supraumbilical location. The liver was retracted using a medium Meredith liver retractor through the right subxiphoid trocar site. The hiatus was inspected. The patient had no visible hiatal hernia At that point I moved to the mid aspect of the greater curvature the stomach. The short gastric vasculature was divided using a LigaSure device proximally. I then switched and divided the short gastrics distally to a 3-4 cm from the pylorus. The dissection took place up to the left diaphragmatic crura at that point. The posterior short gastrics were likewise divided using the LigaSure device. Once the stomach was fully mobilized the blunt tipped 40-Cypriot bougie dilator was advanced into the stomach and advanced all the way to the prepyloric location. A black echelon 60 stapler was utilized and fired tangentially across the antrum taking care to avoid narrowing at the incisura angularis. Subsequent firings of the stapler took place. A total of 3 green echelon 60 staplers with seam guard took place proximally staying on the outer edge of our dilator. Once we reached the most proximal portion of the stomach a single firing of the gold echelon 60 stapler without seen guard took place. The oral gastric tube was reinserted. The stomach was insufflated with approximately 100 mL of methylene blue. No evidence of leak or obstruction was seen. The distal aspect of the sleeve was then reapproximated to the gastrosplenic and gastrocolic ligament using a short running 2-0 strata fix suture. This was done to prevent kinking or twisting of the sleeve. Tisseel fibrin glue was used along the length of the staple line at that time. The stomach remnant was removed from the 15 mm trocar site without difficulty. The fascia at the 15 more site was closed using interrupted 0 Vicryl sutures with the laparoscopic suture passer and Del Diogenes technique. The insufflation was evacuated. The skin at all 5 incisions were closed using 4-0 Monocryl sutures. Skin glue was then applied. DISPOSITION: Stable to recovery room
[2020-05-04] MEDS ORDERED: HYDROmorphone 1 MG/ML 1 ML SYRINGE IVP ONE ×2 (14:48→15:01)
[2020-05-04 16:52] LABS: Glucose,Whole Blood 296 mg/dL (75-99)
[2020-05-04] MEDS: 0.9% NACL WITH KCL 20 MEQ/L 1,000 ML IV SCH ×3 (17:28→23:14)
[2020-05-04] MEDS ORDERED: ACETAMINOPHEN IV (For NPO) 1,000 MG in EMPTY BAG 1 BAG IVPB ONE (17:30)
[2020-05-04] MEDS: ALBUTEROL NEBULIZED 2.5 MG/3 ML INHALATION SCH ×2 (19:37→20:04)
[2020-05-04] MEDS: HYDROmorphone 1 MG/ML 1 ML SYRINGE IVP PRN (20:08)
[2020-05-04 20:17] LABS: Glucose,Whole Blood 289 mg/dL (75-99)
[2020-05-04] MEDS: ENOXAPARIN 40 MG/0.4 ML SYRINGE SQ SCH (23:14)
[2020-05-05] MEDS: HYDROmorphone 1 MG/ML 1 ML SYRINGE IVP PRN ×4 (02:29→19:39)
[2020-05-05] MEDS: ONDANSETRON 4 MG/2 ML VIAL IVP PRN ×2 (02:33→19:43)
--- NOTE | 2020-05-05 03:18 | P.CONS ---
History of Present Illness - Reason for Consult Consult date: 05/04/20 Medical management Requesting physician: Gigi Crabtree - Chief Complaint Post sleeve gastrectomy. - History of Present Illness This is a 59 year old Cauc[place] female with a previous medical history significant for hypertension and hypertensive cardiovascular disease, hyperlipidemia, diabetes mellitus type 2 on insulin pump, CVA, CAd post PCI and stent placement, history of renal disease post renal transplant and also hitory of vulvar cancer post radiation treatment, patient has struggled with her weight for a long time and finally she decided to go for sleeve gastrectomy that was done successfully by and we were asked to see her for post operative medical management. Patient is lying down in bed in no acute distress, she denies any chest pain or shortness of breath, she has no abdominal pain, nausea or burping she has not passed any gas yet. Review of Systems Constitutional: Reports weakness, Denies anorexia, Denies chronic headaches, Denies lethargy Eyes: denies blurred vision, denies bulging eye, denies decreased vision Ears, nose, mouth and throat: Denies dysphagia, Denies sore throat Cardiovascular: Reports decreased exercise tolerance, Reports dyspnea on exertion, Denies chest pain, Denies lightheadedness, Denies rapid heart beat, Denies shortness of breath, Denies syncope Respiratory: Reports sleep apnea, Denies congestion, Denies cough, Denies cough with sputum, Denies home oxygen, Denies snoring, Denies wheezing Gastrointestinal: Reports abdominal pain, Denies bloating, Denies BRBPR, Denies excessive gas, Denies heartburn, Denies melena, Denies nausea, Denies vomiting Genitourinary: Denies dysuria, Denies nocturia Musculoskeletal: Denies myalgias Musculoskeletal: absent: ankle pain, ankle stiffness, ankle swelling, elbow pain, elbow stiffness, elbow swelling, foot pain, foot stiffness, foot swelling, hand pain, hand stiffness, hand swelling, hip pain, hip stiffness, hip swelling, knee pain, knee stiffness, knee swelling, shoulder pain, shoulder stiffness, shoulder swelling, wrist pain, wrist stiffness, wrist swelling Integumentary: Denies pruritus, Denies rash Neurological: Reports numbness, Denies weakness Psychiatric: Reports anxiety Endocrine: Denies fatigue, Denies weight change Past Medical History Past Medical History: Blood Disorder, Coronary Artery Disease (CAD), Cancer, CVA/TIA, Diabetes Mellitus, Dialysis, GERD/Reflux, Hyperlipidemia, Hypertension, Myocardial Infarction (non Q-wave), Osteoarthritis (OA), Pneumonia, Pulmonary Embolus (PE), Renal Disease, Sleep Apnea/CPAP/BIPAP, Thyroid Disorder Additional Past Medical History / Comment(s): Leiden Factor V, basal cell carcinoma, Vulvar cancer, CVA 2016, CVA 2014, CVA 2017 est - sl weakness Lt side, Dialysis 2001 for 2 months, enlarged thyroid w/ nodules. PE 2011, Kidney transplant 2001. No tx for sleep apnea. Neuropathy in feet/legs. Last Myocardial Infarction Date:: 2014 History of Any Multi-Drug Resistant Organisms: None Reported Past Surgical History: Section, Cholecystectomy, Heart Catheterization, Heart Catheterization With Stent, Tonsillectomy, Tubal Ligation Additional Past Surgical History / Comment(s): jose oophrectomy, kidney transplant, surgery to remove CA. PTCA w/ Stent 2001, 2014. Colonoscopy, EGD. Past Anesthesia/Blood Transfusion Reactions: No Reported Reaction, Motion Sickness Additional Past Anesthesia/Blood Transfusion Reaction / Comm: no hx blood tr ansfusion Date of Last Stent Placement:: 2014 Smoking Status: Former smoker - Past Family History Father Family Medical History: Myocardial Infarction ([place]) (Father from [place] Mother Family Medical History: Pulmonary Embolus (Mother is alive with history of pu lmonary embolism and hypercoagulable state, hypertension and hyperlipidemia and vascular dementia.) Additional Family Medical History / Comment(s): Occluded carotid artery, carotid endartectomy Son(s) Family Medical History: Diabetes Mellitus (one son with DM1.) Additional Family Medical History / Comment(s): DM type 1 Sister(s) Family Medical History: Hypertension (3 sisters one with hypertension and the othe one with hypertension and Fibromyalgia.) Medications and Allergies Home Medications Medication Instructions Recorded Confirmed Type Metoprolol Succinate (ER) [Toprol 50 mg PO HS 12/12/14 04/29/20 History XL] amLODIPine [Norvasc] 10 mg PO HS 12/12/14 04/29/20 History mycophenolate mofetiL [Cellcept] 500 mg PO BID 12/12/14 04/29/20 History Atorvastatin [Lipitor] 80 mg PO HS #30 tab 12/15/14 04/29/20 Rx Nitroglycerin Sl Tabs [Nitrostat] 0.4 mg SUBLINGUAL Q5M PRN #25 tab 12/15/14 04/29/20 Rx Gabapentin [Neurontin] 300 mg PO HS 10/23/15 04/29/20 History Omeprazole [PriLOSEC] 40 mg PO HS 10/23/15 04/29/20 History Tacrolimus [Prograf] 1 mg PO BID 06/06/16 04/29/20 History DULoxetine HCL [Cymbalta] 20 mg PO HS 11/10/18 04/29/20 History INSULIN LISPRO (For Pump) [humaLOG 0.01 units SQ-PUMP CONTINUOUS 11/10/18 05/04/20 History (For Pump)] Apixaban [Eliquis] 5 mg PO BID 11/04/19 04/29/20 History Cholecalciferol [Vitamin D3 (25 2,000 unit PO DAILY 11/04/19 04/29/20 History Mcg = 1000 Iu)] Clopidogrel [Plavix] 75 mg PO HS 11/04/19 04/29/20 History Docusate Sodium [Dok] 200 mg PO DAILY 11/04/19 04/29/20 History Magnesium 250 mg PO DAILY 11/04/19 04/29/20 History Cannabidiol (Cbd) [Epidiolex] 1 dose PO DAILY PRN 12/02/19 04/29/20 History Multivitamins, Thera [Multivitamin 1 tab PO DAILY 04/28/20 04/29/20 History (formulary)] Allergies Allergy/AdvReac Type Severity Reaction Status Date / Time Milk Containing Products Allergy Diarrhea Verified 05/04/20 10:30 [Dairy] Penicillins Allergy Rash/Hives Verified 05/04/20 10:30 trandolapril [From Tarka] Allergy SEVERE Verified 05/04/20 10:30 HYPOTENSION verapamil HCl [From Tarka] Allergy SEVERE Verified 05/04/20 10:30 HYPOTENSION Physical Exam Vitals: Vital Signs Temp Pulse Pulse Resp BP BP Pulse Ox 05/04/20 17:12 96 05/04/20 17:11 97.8 F 88 16 129/52 96 05/04/20 16:33 86 18 133/62 95 05/04/20 16:02 82 18 109/55 97 05/04/20 15:25 76 16 113/54 97 05/04/20 15:10 74 16 124/59 96 05/04/20 14:55 73 16 124/59 97 05/04/20 14:40 78 16 132/60 100 05/04/20 14:25 76 16 121/58 98 05/04/20 14:14 78 16 126/58 97 05/04/20 13:59 97.5 F L 91 14 133/58 94 L 05/04/20 10:38 98 F 74 16 134/64 97 Intake and Output 05/04/20 05/04/20 05/04/20 06:59 14:59 22:59 Intake Total 1550 Output Total 10 Balance 1540 Intake: IV 1550 Output: Estimated Blood Loss 10 Other: Weight 90.9 kg Physical examination: HEENT: head is atraumatic normocephalic pupils were equal round reactive to light and accommodations extra ocular muscle movements were intact, mucous membranes of the mouth are somewhat dry. Neck: supple no JVP. Chest: decrease breath sounds at the bases with no ronchi or expiratory wheezes. Heart : first heart sound is depressed, second heart sound is normal there is ISHA 2/6 located at the left sternal border. Abdomen: soft , mild tenderness, stab wounds appeared glued and there was no draiange or erythema, depressed bowel sounds. Extremities: there is no edema or calf tenderness, DP +1 bilaterally. Neurologic examinations; patient is awake alert and oriented X 3 CN II- XII are grossly intact muscle power 4/5 in upper and lower extremities bilaterally. Results Labs: Abnormal Lab Results - Last 24 Hours (Table) 05/04/20 05/04/20 Range/Units 10:37 16:51 POC Glucose (mg/dL) 172 H 296 H (75-99) mg/dL Assessment and Plan Assessment: Assessment and plan: 1. POD # 0 S/P Laparascopic Verical sleeve gastrectomy. we will continue with the use of incentive spirometer to reduce the incidence of atelectasis and health care associated pneumonia, we will continue with current pain management as outlined by general surgery, we will continue with DVT prophylaxis with Lovenox till she is able to transition to Xarelto, we will continue with NPO for now and we will reevaluate in the next 24 hours, we will continue with IVF . 2. Hypertension and hypertensive cardiovascular disease. we will continue with Metoprolol ER 50 mg orally at bedtime . 3. Mixed hyperlipidemia. we will continue with Lipitor 80 mg po daily. 4. Diabetes mellitus type 2 on insulin pump. we will contiue with same pump orders, we will check BGM more frequently. 5. history of CVA . she will need to go back on her plavix when OK with general surgery. 6. history of renal transplant. we will need to resume her Tacrolimus and cellcept. 7. Obstructive sleep apnea. we will continue with CPAP. 8. history of pulmonary embolism. we will need to transition into Xarelto 20 mg orally daily and off Lovenox in 24 hours. 9. History of CAD post PCI. we will continue with Metoprolol ER 50 mg orally daily and Lipitor 80 mg orally daily. 10. depressive disorder. we will continue with cynbalta 20 mg orally daily. 11. History of vulvar cancer post surgery. 12. diabetic polyneuropathy. we will continue with Gabapentin 300 mg orally at bedtime. 13. GERD with esophagitis. we will continue with PPI. 14. Thank you Dr. Crabtree for allowing me to participate in the care of your patient, we will follow along her medical care.
[2020-05-05] MEDS: 0.9% NACL WITH KCL 20 MEQ/L 1,000 ML IV SCH (06:17)
[2020-05-05 06:49] LABS: Glucose,Whole Blood 291 mg/dL (75-99)
[2020-05-05] MEDS: ALBUTEROL NEBULIZED 2.5 MG/3 ML INHALATION SCH ×4 (07:38→20:13)
--- NOTE | 2020-05-05 10:37 | FL ---
EXAMINATION TYPE: FL UGI DATE OF EXAM: 05/05/2020 COMPARISON: NONE HISTORY: Postop gastric sleeve TECHNIQUE: A single contrast UGI study is performed. 50 cc of Isovue-370. Fluoroscopy time of 0.22 m inutes and 6 images submitted. FINDINGS: Animal Care Attendant image of the abdomen shows no gross abnormality. The esophagus shows normal motility and emptying into the stomach. No evidence of obstruction or ext ravasation. Small amount of free intraperitoneal air likely postsurgical. Correlate clinically. There was moderate delay at the level of the GE junction. IMPRESSION: 1. Moderate delay at the GE junction with eventual complete passage of contrast. No evidence of extra vasation.
[2020-05-05 10:50] LABS: Basophils % (A) 0 %; Calcium 9.7 mg/dL (8.4-10.2); Eosinophils % (A) 0 %; HCT 43.5 % (34.0-46.0); HGB 13.7 gm/dL (11.4-16.0); Lymphocytes # (A) 1.4 k/uL (1.0-4.8); Lymphocytes % (A) 9 %; MCH 29.5 pg (25.0-35.0); MCHC 31.4 g/dL (31.0-37.0); MCV 93.8 fL (80.0-100.0); Magnesium 1.6 mg/dL (1.6-2.3); Mean Platelet Volume 10.7; Monocytes # (A) 0.7 k/uL (0-1.0); Monocytes % (A) 5 %; Neutrophils # (A) 13.1 k/uL (1.3-7.7); Neutrophils % (A) 85 %; Phosphorus 3.9 mg/dL (2.5-4.5); Platelet Count 166 k/uL (150-450); Potassium 5.2 mmol/L (3.5-5.1); RBC 4.63 m/uL (3.80-5.40); WBC 15.4 k/uL (3.8-10.6)
[2020-05-05] MEDS: PANTOPRAZOLE 40 MG/10 ML VIAL IV SCH (10:54)
[2020-05-05] MEDS: ENOXAPARIN 40 MG/0.4 ML SYRINGE SQ SCH ×2 (10:55→23:09)
[2020-05-05 11:10] VITALS: BMI 41.1
[2020-05-05 11:45] LABS: Glucose,Whole Blood 321 mg/dL (75-99)
[2020-05-05] MEDS ORDERED: NITROGLYCERIN SL TABS 0.4 MG TAB SUBLINGUAL PRN (12:55)
[2020-05-05] MEDS: TACROLIMUS 1 MG CAP PO SCH ×2 (13:35→20:00)
--- NOTE | 2020-05-05 13:43 | P.PN ---
Subjective Progress Note Date: 05/05/20 This is a 59 year old Cauc[place] female with a previous medical history significant for hypertension and hypertensive cardiovascular disease, hyperlipidemia, diabetes mellitus type 2 on insulin pump, CVA, CAd post PCI and stent placement, history of renal disease post renal transplant and also hitory of vulvar cancer post radiation treatment, patient has struggled with her weight for a long time and finally she decided to go for sleeve gastrectomy that was done successfully by and we were asked to see her for post operative medical management. Patient is lying down in bed in no acute distress, she denies any chest pain or shortness of breath, she has no abdominal pain, nausea or burping she has not passed any gas yet. 05/05: Patient is having difficulty managing her insulin pump as her took her glasses home and she is unable to read the pump. Dr. Benson assisted patient with her pump settings. Patient remains on Lovenox awaiting clearance from general surgery to resume eliquis and Plavix. Patient continues to have Hernandez catheter in place. She denies having any chest pain. She is complaining of abdominal discomfort. She is burping but no bowel movement. Patient complains of nausea intermittently without vomiting. She underwent upper GI this morning that showed moderate delay at the GE junction with eventual complete passage with contrast. No evidence of extravasation. Patient is been afebrile, heart rate 88, blood pressure 122/59, pulse ox 99% on 3 L nasal cannula. Patient was ambulated and ambulatory pulse ox was 95% on room air. No need for home oxygen therapy. 3 BC 15.4, hemoglobin 13.7. Potassium 5.2, BUN 27 and creatinine 1.17. Blood sugars are running between 52 and 321. She is currently on a bariatric clear diet. Discharge plan will be to home. Medication reconciliation reviewed. Patient has been resumed on her anti-rejection medications and etc. Objective - Vital Signs Vital signs: Vital Signs Temp 98.4 F 05/05/20 07:00 Pulse 88 05/05/20 11:24 Resp 17 05/05/20 07:45 BP 122/59 05/05/20 07:00 Pulse Ox 95 05/05/20 11:38 Intake & Output 05/04/20 05/05/20 05/05/20 18:59 06:59 18:59 Intake Total 1550 1650 Output Total 10 1020 510 Balance 1540 630 -510 Weight 90.9 kg 90.9 kg Intake: IV 1550 Intake, IV Titration 1650 Amount 0.9% NaCl with KCl 20 Meq 1650 /l 1,000 ml @ 150 mls/hr IV .Q6H40M [facility] Rx#: [id number] Output: Urine 1020 510 Uretheral (Hernandez) 510 Estimated Blood Loss 10 Other: # Voids 1 1 - Exam Review of Systems Constitutional: Reports weakness, Denies anorexia, Denies chronic headaches, Denies lethargy Eyes: denies blurred vision, denies bulging eye, denies decreased vision Ears, nose, mouth and throat: Denies dysphagia, Denies sore throat Cardiovascular: Reports decreased exercise tolerance, Reports dyspnea on exertion, Denies chest pain, Denies lightheadedness, Denies rapid heart beat, Denies shortness of breath, Denies syncope Respiratory: Reports sleep apnea, Denies congestion, Denies cough, Denies cough with sputum, Denies home oxygen, Denies snoring, Denies wheezing Gastrointestinal: Reports abdominal pain, Denies bloating, Denies BRBPR, Denies excessive gas, Denies heartburn, Denies melena, Denies nausea, Denies vomiting Genitourinary: Denies dysuria, Denies nocturia Musculoskeletal: Denies myalgias Musculoskeletal: absent: ankle pain, ankle stiffness, ankle swelling, elbow pain, elbow stiffness, elbow swelling, foot pain, foot stiffness, foot swelling, hand pain, hand stiffness, hand swelling, hip pain, hip stiffness, hip swelling, knee pain, knee stiffness, knee swelling, shoulder pain, shoulder stiffness, shoulder swelling, wrist pain, wrist stiffness, wrist swelling Integumentary: Denies pruritus, Denies rash Neurological: Reports numbness, Denies weakness Psychiatric: Reports anxiety Endocrine: Denies fatigue, Denies weight change, reports abnormal blood sugars Physical examination: GEN: This is a 59-year-old female. She is resting in recliner appears to be comfortable and in no acute distress. HEENT: head is atraumatic normocephalic pupils were equal round reactive to light and accommodations extra ocular muscle movements were intact, mucous membranes of the mouth are somewhat dry. Neck: supple no JVP. Chest: decrease breath sounds at the bases with no ronchi or expiratory wheezes. Heart : first heart sound is depressed, second heart sound is normal there is ISHA 2/6 located at the left sternal border. Abdomen: soft , mild tenderness, stab wounds appeared glued and there was no draiange or erythema, depressed bowel sounds. Extremities: there is no edema or calf tenderness, DP +1 bilaterally. Neurologic examinations; patient is awake alert and oriented X 3 CN II- XII are grossly intact muscle power 4/5 in upper and lower extremities bilaterally. - Labs CBC & Chem 7: 05/05/20 10:10 05/05/20 10:10 Labs: Abnormal Lab Results - Last 24 Hours (Table) 05/04/20 05/04/20 05/05/20 Range/Units 16:51 20:16 06:47 WBC (3.8-10.6) k/uL Neutrophils # (1.3-7.7) k/uL Potassium (3.5-5.1) mmol/L BUN (7-17) mg/dL Creatinine (0.52-1.04) mg/dL POC Glucose (mg/dL) 296 H 289 H 291 H (75-99) mg/dL 05/05/20 05/05/20 05/05/20 Range/Units 10:10 10:10 11:35 WBC 15.4 H (3.8-10.6) k/uL Neutrophils # 13.1 H (1.3-7.7) k/uL Potassium 5.2 H (3.5-5.1) mmol/L BUN 27 H (7-17) mg/dL Creatinine 1.17 H (0.52-1.04) mg/dL POC Glucose (mg/dL) 321 H (75-99) mg/dL Assessment and Plan Plan: 1. POD #1 S/P Laparascopic sleeve gastrectomy. Continue incentive spirometer to reduce the incidence of atelectasis and health care associated pneumonia, continue with current pain management as outlined by general surgery, we will continue with DVT prophylaxis with Lovenox till she is able to transition to Xarelto, patient is currently on a clear liquid bariatric diet. 2. Hypertension and hypertensive cardiovascular disease. we will continue with Metoprolol ER 50 mg orally at bedtime . 3. Mixed hyperlipidemia. Continue Lipitor 80 mg po daily. 4. Diabetes mellitus type 2 on insulin pump, uncontrolled with hyper and hypoglycemia. Adjustments made to pump settings. Check BGM more frequently. 5. history of CVA . she will need to go back on her plavix when OK with general surgery. 6. history of renal transplant. we will need to resume her Tacrolimus and cellcept. 7. Obstructive sleep apnea. we will continue with CPAP. 8. history of pulmonary embolism. we will need to transition into Xarelto 20 mg orally daily and off Lovenox in 24 hours. 9. History of CAD post PCI. we will continue with Metoprolol ER 50 mg orally daily and Lipitor 80 mg orally daily. 10. depressive disorder. we will continue with cynbalta 20 mg orally daily. 11. History of vulvar cancer post surgery. 12. diabetic polyneuropathy. we will continue with Gabapentin 300 mg orally at bedtime. 13. GERD with esophagitis. we will continue with PPI. 14. Thank you Dr. Crabtree for allowing me to participate in the care of your patient, we will follow along her medical care. Discharge plan: Home Impression and plan of care have been directed as dictated by the signing physician. Kamini Shay nurse practitioner acting as scribe for signing physician.
[2020-05-05] MEDS: LACTATED RINGERS 1,000 ML IV SCH (13:47)
[2020-05-05 17:06] LABS: Glucose,Whole Blood 335 mg/dL (75-99)
--- NOTE | 2020-05-05 18:35 | P.PN ---
Subjective Progress Note Date: 05/05/20 Principal diagnosis: Morbid obesity Patient doing fairly well today. She did require Hernandez catheter placement for urinary retention. Upper GI shows slight delay without obstruction. Patient tolerating liquids. No nausea or vomiting. Pain is fairly well controlled. White blood cell count slightly elevated. Objective - Vital Signs Vital signs: Vital Signs Temp 97.8 F 05/05/20 14:50 Pulse 86 05/05/20 15:56 Resp 20 05/05/20 14:50 BP 123/62 05/05/20 14:50 Pulse Ox 93 L 05/05/20 14:50 Intake & Output 05/04/20 05/05/20 05/05/20 18:59 06:59 18:59 Intake Total 1550 1650 925 Output Total 10 1020 1110 Balance 1540 630 -185 Weight 90.9 kg 90.9 kg Intake: IV 1550 Intake, IV Titration 1650 600 Amount 0.9% NaCl with KCl 20 Meq 600 /l 1,000 ml @ 100 mls/hr IV .BY DURATION [facility] Rx#: [id number] 0.9% NaCl with KCl 20 Meq 1650 /l 1,000 ml @ 150 mls/hr IV .Q6H40M [facility] Rx#: [id number] Oral 325 Output: Urine 1020 1110 Uretheral (Hernandez) 510 Estimated Blood Loss 10 Other: # Voids 1 1 - Exam Abdomen: Soft, nondistended, mild tenderness, incisions clean and dry - Labs CBC & Chem 7: 05/05/20 10:10 05/05/20 10:10 Labs: Abnormal Lab Results - Last 24 Hours (Table) 05/04/20 05/05/20 05/05/20 Range/Units 20:16 06:47 10:10 WBC 15.4 H (3.8-10.6) k/uL Neutrophils # 13.1 H (1.3-7.7) k/uL Potassium (3.5-5.1) mmol/L BUN (7-17) mg/dL Creatinine (0.52-1.04) mg/dL POC Glucose (mg/dL) 289 H 291 H (75-99) mg/dL 05/05/20 05/05/20 05/05/20 Range/Units 10:10 11:35 17:04 WBC (3.8-10.6) k/uL Neutrophils # (1.3-7.7) k/uL Potassium 5.2 H (3.5-5.1) mmol/L BUN 27 H (7-17) mg/dL Creatinine 1.17 H (0.52-1.04) mg/dL POC Glucose (mg/dL) 321 H 335 H (75-99) mg/dL Assessment and Plan (1) Morbid obesity Narrative/Plan: Patient overall doing fairly well. Begin bariatric clear liquids. Recheck CBC tomorrow. Ambulate. Remove Hernandez catheter tomorrow. Current Visit: No Status: Acute Code(s): E66.01 - MORBID (SEVERE) OBESITY DUE [facility]IES [facility] Code[facility]): 487262047
[2020-05-05] MEDS: DULoxetine HCL 20 MG CAPSULE.DR PO SCH (20:00)
[2020-05-05] MEDS: METOPROLOL SUCCINATE (ER) 50 MG TAB.ER.24H PO SCH (20:00)
[2020-05-05] MEDS: GABAPENTIN 300 MG CAP PO SCH (20:00)
[2020-05-05] MEDS: amLODIPine 10 MG TAB PO SCH (20:00)
[2020-05-05] MEDS: ATORVASTATIN 80 MG TAB PO SCH (20:00)
[2020-05-05 21:33] LABS: Glucose,Whole Blood 288 mg/dL (75-99)
[2020-05-06] MEDS: ALBUTEROL NEBULIZED 2.5 MG/3 ML INHALATION SCH ×4 (07:17→19:49)
[2020-05-06 07:28] LABS: Glucose,Whole Blood 187 mg/dL (75-99)
[2020-05-06] MEDS: INSULIN ASPART (NovoLOG) 100 UNIT/ML VIAL SQ SCH ×4 (07:30→21:03)
[2020-05-06] MEDS: TACROLIMUS 1 MG CAP PO SCH ×2 (08:36→21:03)
[2020-05-06] MEDS: PANTOPRAZOLE 40 MG/10 ML VIAL IV SCH (08:37)
[2020-05-06 11:37] LABS: Glucose,Whole Blood 194 mg/dL (75-99)
[2020-05-06 14:28] LABS: HCT 40.3 % (34.0-46.0); HGB 12.7 gm/dL (11.4-16.0); MCH 29.5 pg (25.0-35.0); MCHC 31.6 g/dL (31.0-37.0); MCV 93.4 fL (80.0-100.0); Mean Platelet Volume 10.7; Platelet Count 153 k/uL (150-450); RBC 4.32 m/uL (3.80-5.40); RDW 13.3 % (11.5-15.5); WBC 10.6 k/uL (3.8-10.6)
[2020-05-06 14:43] LABS: Albumin 3.4 g/dL (3.5-5.0); Calcium 9.1 mg/dL (8.4-10.2); Potassium 4.1 mmol/L (3.5-5.1); Total Bilirubin 1.1 mg/dL (0.2-1.3); Total Protein 6.2 g/dL (6.3-8.2)
--- NOTE | 2020-05-06 14:45 | XR ---
EXAMINATION TYPE: XR chest 1V portable DATE OF EXAM: 05/06/2020 Comparison: 11/06/2013 Clinical History: 59 year-old female shortness of breath, difficulty in breathing Findings: Loop recorder device projects over the base of the heart. Heart upper limits of normal in size. Patch y left basilar opacity. Mild interstitial prominence. Difficult to exclude trace effusions. Impression: 1. Interstitial density. Correlate for possible mild pulmonary vascular congestion, bronchitis, asthm a, or atypical pneumonias. 2. Difficult to exclude trace effusions. Some patchy atelectasis versus developing infiltrate at the left base.
[2020-05-06] MEDS: HYDROmorphone 1 MG/ML 1 ML SYRINGE IVP PRN ×2 (14:59→21:11)
[2020-05-06] MEDS: ENOXAPARIN 40 MG/0.4 ML SYRINGE SQ SCH ×2 (15:00→23:11)
--- NOTE | 2020-05-06 15:55 | P.PN ---
Subjective Progress Note Date: 05/06/20 This is a 59 year old Cauc[place] female with a previous medical history significant for hypertension and hypertensive cardiovascular disease, hyperlipidemia, diabetes mellitus type 2 on insulin pump, CVA, CAd post PCI and stent placement, history of renal disease post renal transplant and also hitory of vulvar cancer post radiation treatment, patient has struggled with her weight for a long time and finally she decided to go for sleeve gastrectomy that was done successfully by and we were asked to see her for post operative medical management. Patient is lying down in bed in no acute distress, she denies any chest pain or shortness of breath, she has no abdominal pain, nausea or burping she has not passed any gas yet. 05/05: Patient is having difficulty managing her insulin pump as her took her glasses home and she is unable to read the pump. Dr. Benson assisted patient with her pump settings. Patient remains on Lovenox awaiting clearance from general surgery to resume eliquis and Plavix. Patient continues to have Hernandez catheter in place. She denies having any chest pain. She is complaining of abdominal discomfort. She is burping but no bowel movement. Patient complains of nausea intermittently without vomiting. She underwent upper GI this morning that showed moderate delay at the GE junction with eventual complete passage with contrast. No evidence of extravasation. Patient is been afebrile, heart rate 88, blood pressure 122/59, pulse ox 99% on 3 L nasal cannula. Patient was ambulated and ambulatory pulse ox was 95% on room air. No need for home oxygen therapy. 3 BC 15.4, hemoglobin 13.7. Potassium 5.2, BUN 27 and creatinine 1.17. Blood sugars are running between 52 and 321. She is currently on a bariatric clear diet. Discharge plan will be to home. Medication reconciliation reviewed. Patient has been resumed on her anti-rejection medications and etc. 05/06: Patient is seen in follow-up today. She continued to have high blood sugars and insulin NovoLog scale added in addition to her pump. Plan was for Hernandez catheter to be removed today which is still in place. She is on a liquid diet only. She is complaining of left lateral abdominal pain. Pain is there when she deep breathes. She is currently on oxygen at 2 L. She denies any lower extremity edema or calf pain. She has been up been denies any dizziness. Heart rate 92, blood pressure 1 3479, pulse ox 95% on 2 L nasal cannula. Repeat blood work ordered which revealed a normal CBC, electrolytes and renal function normal. AST 53, ALT 61, alk phosphatase 98. Blood sugars are running today 180-194. Chest x-ray was also ordered for today which revealed interstitial de nsity. Correlate for possible mild pulmonary vascular congestion, bronchitis asthma or atypical pneumonias. Difficult to exclude trace effusions. Some patchy atelectasis versus developing infiltrate at the left base. Objective - Vital Signs Vital signs: Vital Signs Temp 98.0 F 05/06/20 02:55 Pulse 90 05/06/20 11:51 Resp 16 05/06/20 11:51 BP 146/61 05/06/20 02:55 Pulse Ox 95 05/06/20 07:18 Intake & Output 05/05/20 05/06/20 05/06/20 18:59 06:59 18:59 Intake Total 925 1311.2 Output Total 1110 475 800 Balance -185 836.2 -800 Weight 90.9 kg Intake: Intake, IV Titration 600 1311.2 Amount 0.9% NaCl with KCl 20 Meq 600 /l 1,000 ml @ 100 mls/hr IV .BY DURATION [facility] Rx#: [id number] Mvi, Adult No.4 with Vit 1311.2 K 10 ml Thiamine 100 mg Folic Acid 1 mg In 0.9% NaCl with KCl 20 Meq/l 1, 000 ml @ 100 mls/hr IV . BY DURATION [facility] Rx#: [id number] Oral 325 Output: Urine 1110 475 800 Other: Voiding Method Indwelling Catheter Indwelling Catheter Indwelling Catheter # Voids 1 - Exam Review of Systems Constitutional: Reports weakness, Denies anorexia, Denies chronic headaches, Denies lethargy. Denies fever, denies chills. Eyes: denies blurred vision, denies bulging eye, denies decreased vision Ears, nose, mouth and throat: Denies dysphagia, Denies sore throat Cardiovascular: Reports decreased exercise tolerance, Reports dyspnea on exertion, Denies chest pain, Denies lightheadedness, Denies rapid heart beat, Denies shortness of breath, Denies syncope Respiratory: Reports sleep apnea, Denies congestion, Denies cough, Denies cough with sputum, Denies home oxygen, Denies snoring, Denies wheezing Gastrointestinal: Reports abdominal pain, Denies bloating, Denies BRBPR, Denies excessive gas, Denies heartburn, Denies melena, Denies nausea, Denies vomiting Genitourinary: Denies dysuria, Denies nocturia Musculoskeletal: Denies myalgias Musculoskeletal: absent: ankle pain, ankle stiffness, ankle swelling, elbow pain, elbow stiffness, elbow swelling, foot pain, foot stiffness, foot swelling, hand pain, hand stiffness, hand swelling, hip pain, hip stiffness, hip swelling, knee pain, knee stiffness, knee swelling, shoulder pain, shoulder stiffness, shoulder swelling, wrist pain, wrist stiffness, wrist swelling Integumentary: Denies pruritus, Denies rash Neurological: Reports numbness, Denies weakness Psychiatric: Reports anxiety Endocrine: Denies fatigue, Denies weight change, reports abnormal blood sugars Physical examination: GEN: This is a 59-year-old female. She is resting in bed and in no acute distress. HEENT: head is atraumatic normocephalic pupils were equal round reactive to light and accommodations extra ocular muscle movements were intact, mucous membranes of the mouth are somewhat dry. Neck: supple no JVP. Chest: decrease breath sounds at the bases with no ronchi or expiratory wheezes. Heart : first heart sound is depressed, second heart sound is normal there is ISHA 2/6 located at the left sternal border. Abdomen: soft , left lateral tenderness tenderness, stab wounds appeared glued and there was no draiange or erythema, depressed bowel sounds. Hernandez catheter draining clear parker urine. Extremities: there is no edema or calf tenderness, DP +1 bilaterally. Neurologic examinations; patient is awake alert and oriented X 3 CN II- XII are grossly intact muscle power 4/5 in upper and lower extremities bilaterally. - Labs CBC & Chem 7: 05/06/20 14:05 05/06/20 14:05 Labs: Abnormal Lab Results - Last 24 Hours (Table) 05/05/20 05/05/20 05/06/20 Range/Units 17:04 21:30 07:27 POC Glucose (mg/dL) 335 H 288 H 187 H (75-99) mg/dL 05/06/20 Range/Units 11:35 POC Glucose (mg/dL) 194 H (75-99) mg/dL Assessment and Plan Plan: 1. POD #1 S/P Laparascopic sleeve gastrectomy. Continue incentive spirometer to reduce the incidence of atelectasis and health care associated pneumonia, contin ue with current pain management as outlined by general surgery, we will continue with DVT prophylaxis with Lovenox till she is able to transition to Xarelto, patient is currently on a clear liquid bariatric diet. Patient encouraged to use incentive spirometry and is sitting in a chair increase activity. 2. Hypertension and hypertensive cardiovascular disease. we will continue with Metoprolol ER 50 mg orally at bedtime . 3. Mixed hyperlipidemia. Continue Lipitor 80 mg po daily. 4. Diabetes mellitus type 2 on insulin pump, uncontrolled with hyper and hypoglycemia. Adjustments made to pump settings. Check BGM more frequently. 5. history of CVA . she will need to go back on her plavix when OK with general surgery. 6. history of renal transplant. we will need to resume her Tacrolimus and cellcept. 7. Obstructive sleep apnea. we will continue with CPAP. 8. history of pulmonary embolism. we will need to transition into Xarelto 20 mg orally daily and off Lovenox in 24 hours. Await clearance from surgery to his resume Xarelto. 9. History of CAD post PCI. we will continue with Metoprolol ER 50 mg orally daily and Lipitor 80 mg orally daily. 10. depressive disorder. we will continue with cynbalta 20 mg orally daily. 11. History of vulvar cancer post surgery. 12. diabetic polyneuropathy. we will continue with Gabapentin 300 mg orally at bedtime. 13. GERD with esophagitis. we will continue with PPI. 14. Thank you Dr. Crabtree for allowing me to participate in the care of your patient, we will follow along her medical care. Discharge plan: Home Impression and plan of care have been directed as dictated by the signing physician. Kamini Shay nurse practitioner acting as scribe for signing physician.
[2020-05-06] MEDS ORDERED: IPRATROPIUM-ALBUTEROL 3 ML NEB INHALATION PRN (15:57)
[2020-05-06] MEDS: IPRATROPIUM-ALBUTEROL 3 ML NEB INHALATION SCH ×2 (16:23→19:50)
[2020-05-06] MEDS ORDERED: AZTREONAM 1 GM in SODIUM CHLORIDE 0.9% 50 ML IVPB ONE (16:30)
[2020-05-06 16:45] LABS: Glucose,Whole Blood 151 mg/dL (75-99)
--- NOTE | 2020-05-06 19:53 | P.PN ---
Subjective Progress Note Date: 05/06/20 Principal diagnosis: Morbid obesity Patient still having left upper quadrant abdominal pain. She says it is about the same as yesterday. Pain was present evening of surgery she states. Tolerating about 20-25 ounces of liquids today. No nausea or vomiting. Labs reviewed. White blood cell count normalized. Hemoglobin is stable. She is afebrile with stable vitals. Objective - Vital Signs Vital signs: Vital Signs Temp 97.7 F 05/06/20 15:00 Pulse 82 05/06/20 19:51 Resp 18 05/06/20 16:00 BP 134/79 05/06/20 15:00 Pulse Ox 95 05/06/20 15:00 Intake & Output 05/06/20 05/06/20 05/07/20 06:59 18:59 06:59 Intake Total 1311.2 480 Output Total 475 800 Balance 836.2 -320 Intake: Intake, IV Titration 1311.2 Amount Mvi, Adult No.4 with Vit 1311.2 K 10 ml Thiamine 100 mg Folic Acid 1 mg In 0.9% NaCl with KCl 20 Meq/l 1, 000 ml @ 100 mls/hr IV . [facility] Rx#: [id number] Oral 480 Output: Urine 475 800 Other: Voiding Method Indwelling Catheter Indwelling Catheter # Voids 3 - Exam Abdomen: Soft, nondistended, mild left upper quadrant tenderness, no rebound or guarding, incisions clean and dry - Labs CBC & Chem 7: 05/06/20 14:05 05/06/20 14:05 Labs: Abnormal Lab Results - Last 24 Hours (Table) 05/05/20 05/06/20 05/06/20 Range/Units 21:30 07:27 11:35 Glucose (74-99) mg/dL POC Glucose (mg/dL) 288 H 187 H 194 H (75-99) mg/dL AST (14-36) U/L ALT (4-34) U/L Total Protein (6.3-8.2) g/dL Albumin (3.5-5.0) g/dL 05/06/20 05/06/20 Range/Units 14:05 16:43 Glucose 180 H (74-99) mg/dL POC Glucose (mg/dL) 151 H (75-99) mg/dL AST 53 H (14-36) U/L ALT 61 H (4-34) U/L Total Protein 6.2 L (6.3-8.2) g/dL Albumin 3.4 L (3.5-5.0) g/dL Assessment and Plan (1) Morbid obesity Narrative/Plan: Overall patient seems to be doing fairly well. Continue bariatric clear liquids. Remove Hernandez catheter. Ambulate. Monitor intake tomorrow possible discharge tomorrow if pain improved. Current Visit: No Status: Acute Code(s): E66.01 - MORBID (SEVERE) OBESITY DUE TO EXCESS CALORIES [facility] Code(s): 340106118
[2020-05-06 20:39] LABS: Glucose,Whole Blood 160 mg/dL (75-99)
[2020-05-06] MEDS: DULoxetine HCL 20 MG CAPSULE.DR PO SCH (21:03)
[2020-05-06] MEDS: LEVOFLOXACIN 250MG-D5W PMX 250 MG in DEXTROSE/WATER 1 50ML.BAG IVPB SCH (21:03)
[2020-05-06] MEDS: amLODIPine 10 MG TAB PO SCH (21:03)
[2020-05-06] MEDS: ATORVASTATIN 80 MG TAB PO SCH (21:03)
[2020-05-06] MEDS: GABAPENTIN 300 MG CAP PO SCH (21:05)
[2020-05-06] MEDS: METOPROLOL SUCCINATE (ER) 50 MG TAB.ER.24H PO SCH (21:05)
[2020-05-06] MEDS: LACTATED RINGERS 1,000 ML IV SCH (21:57)
[2020-05-07] MEDS: AZTREONAM 1 GM in SODIUM CHLORIDE 0.9% 50 ML IVPB SCH ×2 (03:10→15:26)
[2020-05-07 06:53] LABS: Glucose,Whole Blood 184 mg/dL (75-99)
[2020-05-07] MEDS: TACROLIMUS 1 MG CAP PO SCH ×2 (08:17→22:18)
[2020-05-07] MEDS: PANTOPRAZOLE 40 MG/10 ML VIAL IV SCH (08:18)
[2020-05-07] MEDS: INSULIN ASPART (NovoLOG) 100 UNIT/ML VIAL SQ SCH ×5 (08:18→20:40)
[2020-05-07] MEDS: HYDROmorphone 1 MG/ML 1 ML SYRINGE IVP PRN ×2 (08:27→19:33)
[2020-05-07] MEDS: IPRATROPIUM-ALBUTEROL 3 ML NEB INHALATION SCH ×4 (08:39→20:48)
[2020-05-07] MEDS: ALBUTEROL NEBULIZED 2.5 MG/3 ML INHALATION SCH ×2 (08:39→11:40)
[2020-05-07 08:58] LABS: Basophils % (A) 0 %; Eosinophils # (A) 0.2 k/uL (0-0.7); Eosinophils % (A) 1 %; HCT 41.8 % (34.0-46.0); HGB 13.6 gm/dL (11.4-16.0); Lymphocytes % (A) 9 %; MCH 29.6 pg (25.0-35.0); MCHC 32.5 g/dL (31.0-37.0); MCV 91.2 fL (80.0-100.0); Monocytes # (A) 0.5 k/uL (0-1.0); Monocytes % (A) 4 %; Neutrophils # (A) 10.1 k/uL (1.3-7.7); Neutrophils % (A) 85 %; Platelet Count 146 k/uL (150-450); RBC 4.59 m/uL (3.80-5.40); RDW 13.2 % (11.5-15.5); WBC 11.8 k/uL (3.8-10.6)
[2020-05-07 09:14] LABS: ALT 72 U/L (4-34); AST 55 U/L (14-36); African American GFR (CKD) >90 (>60 ml/min/1.73 sqM); Albumin 3.2 g/dL (3.5-5.0); Alkaline Phosphatase 105 U/L (38-126); Anion Gap 5 mmol/L; Blood Urea Nitrogen 13 mg/dL (7-17); Calcium 8.7 mg/dL (8.4-10.2); Carbon Dioxide 31 mmol/L (22-30); Chloride 103 mmol/L (98-107); Glucose 151 mg/dL (74-99); Non-African American GFR(CKD) 85 (>60 ml/min/1.73 sqM); Sodium 139 mmol/L (137-145); Total Bilirubin 1.5 mg/dL (0.2-1.3)
[2020-05-07 09:20] LABS: Potassium 4.3 mmol/L (3.5-5.1)
--- NOTE | 2020-05-07 11:45 | P.PN ---
Subjective Progress Note Date: 05/07/20 This is a 59 year old Caucasia female with a previous medical history significant for hypertension and hypertensive cardiovascular disease, hyperlipidemia, diabetes mellitus type 2 on insulin pump, CVA, CAd post PCI and stent placement, history of renal disease post renal transplant and also hitory of vulvar cancer post radiation treatment, patient has struggled with her weight for a long time and finally she decided to go for sleeve gastrectomy that was done successfully by and we were asked to see her for post operative medical management. Patient is lying down in bed in no acute distress, she denies any chest pain or shortness of breath, she has no abdominal pain, nausea or burping she has not passed any gas yet. 05/05: Patient is having difficulty managing her insulin pump as her took her glasses home and she is unable to read the pump. Dr. Benson assisted patient with her pump settings. Patient remains on Lovenox awaiting clearance from general surgery to resume eliquis and Plavix. Patient continues to have Hernandez catheter in place. She denies having any chest pain. She is complaining of abdominal discomfort. She is burping but no bowel movement. Patient complains of nausea intermittently without vomiting. She underwent upper GI this morning that showed moderate delay at the GE junction with eventual complete passage with contrast. No evidence of extravasation. Patient is been afebrile, heart rate 88, blood pressure 122/59, pulse ox 99% on 3 L nasal cannula. Patient was ambulated and ambulatory pulse ox was 95% on room air. No need for home oxygen therapy. 3 BC 15.4, hemoglobin 13.7. Potassium 5.2, BUN 27 and creatinine 1.17. Blood sugars are running between 52 and 321. She is currently on a bariatric clear diet. Discharge plan will be to home. Medication reconciliation reviewed. Patient has been resumed on her anti-rejection medications and etc. 05/06: Patient is seen in follow-up today. She continued to have high blood sugars and insulin NovoLog scale added in addition to her pump. Plan was for Hernandez catheter to be removed today which is still in place. She is on a liquid diet only. She is complaining of left lateral abdominal pain. Pain is there when she deep breathes. She is currently on oxygen at 2 L. She denies any lower extremity edema or calf pain. She has been up been denies any dizziness. Heart rate 92, blood pressure 1 3479, pulse ox 95% on 2 L nasal cannula. Repeat blood work ordered which revealed a normal CBC, electrolytes and renal function normal. AST 53, ALT 61, alk phosphatase 98. Blood sugars are running today 180-194. Chest x-ray was also ordered for today which revealed interstitial de nsity. Correlate for possible mild pulmonary vascular congestion, bronchitis asthma or atypical pneumonias. Difficult to exclude trace effusions. Some patchy atelectasis versus developing infiltrate at the left base. 05/07: Patient has been afebrile, heart rate 90, blood pressure 150/70, pulse ox 94% on room air. Repeat blood work reveals Carla BC 11.8, hemoglobin 13.6 and platelet count 146. CO2 31, creatinine 0.78. Blood sugar running between 85 and 184. Total bilirubin 1.5, AST 55, ALT 72, alkaline phosphatase 105. Pathology report reveals no H. pylori, benign gastric mucosa with minimal chronic gastritis. Pain is currently controlled. Patient has tolerated diet. She is currently on bariatric clear diet. Objective - Vital Signs Vital signs: Vital Signs Temp 98.3 F 05/07/20 07:00 Pulse 88 05/07/20 08:52 Resp 20 05/07/20 07:00 BP 158/78 05/07/20 07:00 Pulse Ox 95 05/07/20 08:39 Intake & Output 05/06/20 05/07/20 05/07/20 18:59 06:59 18:59 Intake Total 2491.2 1100 Output Total 800 1500 Balance 1691.2 -1500 1100 Intake: IV 100 Aztreonam 1 gm In Sodium 50 Chloride 0.9% 50 ml @ 16. 67 mls/hr IVPB Q12H [facility] Rx#:[id number] Levofloxacin 250Mg-D5w 50 Pmx 250 mg In Dextrose/ Water 1 50ml.bag @ 50 mls /hr IVPB Q24H [facility] Rx#: [id number] Intake, IV Titration 2010.2 1000 Amount 0.9% NaCl with KCl 20 Meq 1000 1000 /l 1,000 ml @ 100 mls/hr IV .BY DURATION [facility] Rx#: [id number] Mvi, Adult No.4 with Vit 1011.2 K 10 ml Thiamine 100 mg Folic Acid 1 mg In 0.9% NaCl with KCl 20 Meq/l 1, 000 ml @ 100 mls/hr IV . BY DURATION [facility] Rx#: [id number] Oral 480 Output: Urine 800 1500 Other: Voiding Method Indwelling Catheter Indwelling Catheter Indwelling Catheter # Voids 3 - Exam Review of Systems Constitutional: Denies weakness, Denies anorexia, Denies chronic headaches, Denies lethargy. Denies fever, denies chills. Eyes: denies blurred vision, denies bulging eye, denies decreased vision Ears, nose, mouth and throat: Denies dysphagia, Denies sore throat Cardiovascular: Reports decreased exercise tolerance, Reports dyspnea on exertion, Denies chest pain, Denies lightheadedness, Denies rapid heart beat, Denies shortness of breath, Denies syncope Respiratory: Reports sleep apnea, Denies congestion, Denies cough, Denies cough with sputum, Denies home oxygen, Denies snoring, Denies wheezing Gastrointestinal: Reports abdominal pain, Denies bloating, Denies BRBPR, Denies excessive gas, Denies heartburn, Denies melena, Denies nausea, Denies vomiting Genitourinary: Denies dysuria, Denies nocturia Musculoskeletal: Denies myalgias Musculoskeletal: absent: ankle pain, ankle stiffness, ankle swelling, elbow pain, elbow stiffness, elbow swelling, foot pain, foot stiffness, foot swelling, hand pain, hand stiffness, hand swelling, hip pain, hip stiffness, hip swelling, knee pain, knee stiffness, knee swelling, shoulder pain, shoulder stiffness, shoulder swelling, wrist pain, wrist stiffness, wrist swelling Integumentary: Denies pruritus, Denies rash Neurological: Reports numbness, Denies weakness Psychiatric: Reports anxiety Endocrine: Denies fatigue, Denies weight change, reports abnormal blood sugars Physical examination: GEN: This is a 59-year-old female. She is resting in bed. HEENT: head is atraumatic normocephalic pupils were equal round reactive to light and accommodations extra ocular muscle movements were intact, mucous membranes of the mouth are somewhat dry. Neck: supple no JVP. Chest: decrease breath sounds at the bases with no ronchi or expiratory wheezes. Heart : first heart sound is depressed, second heart sound is normal there is ISHA 2/6 located at the left sternal border. Abdomen: soft , left lateral tenderness tenderness, stab wounds appeared glued and there was no draiange or erythema, depressed bowel sounds. Hernandez catheter draining clear parker urine. Extremities: there is no edema or calf tenderness, DP +1 bilaterally. Neurologic examinations; patient is awake alert and oriented X 3 CN II- XII are grossly intact muscle power 4/5 in upper and lower extremities bilaterally. - Labs CBC & Chem 7: 05/07/20 08:23 05/07/20 08:23 Labs: Abnormal Lab Results - Last 24 Hours (Table) 05/06/20 05/06/20 05/06/20 Range/Units 14:05 16:43 20:35 WBC (3.8-10.6) k/uL Plt Count (150-450) k/uL Neutrophils # (1.3-7.7) k/uL Carbon Dioxide (22-30) mmol/L Glucose 180 H (74-99) mg/dL POC Glucose (mg/dL) 151 H 160 H (75-99) mg/dL Total Bilirubin (0.2-1.3) mg/dL AST 53 H (14-36) U/L ALT 61 H (4-34) U/L Total Protein 6.2 L (6.3-8.2) g/dL Albumin 3.4 L (3.5-5.0) g/dL 05/07/20 05/07/20 05/07/20 Range/Units 06:51 08:23 08:23 WBC 11.8 H (3.8-10.6) k/uL Plt Count 146 L (150-450) k/uL Neutrophils # 10.1 H (1.3-7.7) k/uL Carbon Dioxide 31 H (22-30) mmol/L Glucose 151 H (74-99) mg/dL POC Glucose (mg/dL) 184 H (75-99) mg/dL Total Bilirubin 1.5 H (0.2-1.3) mg/dL AST 55 H (14-36) U/L ALT 72 H (4-34) U/L Total Protein 6.0 L (6.3-8.2) g/dL Albumin 3.2 L (3.5-5.0) g/dL Assessment and Plan Plan: 1. POD #3 S/P Laparascopic sleeve gastrectomy. Continue incentive spirometer to reduce the incidence of atelectasis and health care associated pneumonia, continue with current pain management as outlined by general surgery, we will continue with DVT prophylaxis with Lovenox till she is able to transition to Xarelto, patient is currently on a clear liquid bariatric diet. Patient encouraged to use incentive spirometry and is sitting in a chair increase activity. 2. Hypertension and hypertensive cardiovascular disease. we will continue with Metoprolol ER 50 mg orally at bedtime . 3. Mixed hyperlipidemia. Continue Lipitor 80 mg po daily. 4. Diabetes mellitus type 2 on insulin pump, uncontrolled with hyper and hypoglycemia. Adjustments made to pump settings. Check BGM more frequently. NovoLog scale. 5. history of CVA . she will need to go back on her plavix when OK with general surgery. 6. history of renal transplant. we will need to resume her Tacrolimus and cellcept. 7. Obstructive sleep apnea. we will continue with CPAP. 8. history of pulmonary embolism. we will need to transition into Xarelto 20 mg orally daily and off Lovenox in 24 hours. Await clearance from surgery to his resume Xarelto. 9. History of CAD post PCI. we will continue with Metoprolol ER 50 mg orally daily and Lipitor 80 mg orally daily. 10. depressive disorder. we will continue with cynbalta 20 mg orally daily. 11. History of vulvar cancer post surgery. 12. diabetic polyneuropathy. we will continue with Gabapentin 300 mg orally at bedtime. 13. GERD with esophagitis. we will continue with PPI. 14. Thank you Dr. Crabtree for allowing me to participate in the care of your patient, we will follow along her medical care. Discharge plan: Home Impression and plan of care have been directed as dictated by the signing physician. Kamini Shay nurse practitioner acting as scribe for signing physician.
[2020-05-07 11:56] LABS: Glucose,Whole Blood 171 mg/dL (75-99)
[2020-05-07] MEDS: ENOXAPARIN 40 MG/0.4 ML SYRINGE SQ SCH ×2 (12:02→23:14)
[2020-05-07 17:00] LABS: Glucose,Whole Blood 141 mg/dL (75-99)
[2020-05-07] MEDS: LEVOFLOXACIN 250MG-D5W PMX 250 MG in DEXTROSE/WATER 1 50ML.BAG IVPB SCH (17:30)
[2020-05-07] MEDS ORDERED: IOPAMIDOL CONTRAST (ORAL USE) VIAL PO PRN (18:36)
--- NOTE | 2020-05-07 18:39 | P.PN ---
Subjective Progress Note Date: 05/07/20 Principal diagnosis: Morbid obesity Patient says her pain is improved. It does seem to come and go. When it is present it is as high as 7 out of 10. Tolerating some liquids. No dysphagia. No vomiting. White blood cell count normal. No fevers or tachycardia. Atelectasis versus pneumonia on recent chest x-ray. Objective - Vital Signs Vital signs: Vital Signs Temp 98.0 F 05/07/20 14:01 Pulse 98 05/07/20 17:02 Resp 16 05/07/20 14:01 BP 153/83 05/07/20 14:01 Pulse Ox 93 L 05/07/20 14:01 Intake & Output 05/06/20 05/07/20 05/07/20 18:59 06:59 18:59 Intake Total 2491.2 1100 Output Total 800 1500 250 Balance 1691.2 -1500 850 Intake: IV 100 Aztreonam 1 gm In Sodium 50 Chloride 0.9% 50 ml @ 16. 67 mls/hr IVPB Q12H [facility] Rx#:[id number] Levofloxacin 250Mg-D5w 50 Pmx 250 mg In Dextrose/ Water 1 50ml.bag @ 50 mls /hr IVPB Q24H [facility] Rx#: [id number] Intake, IV Titration 2010.2 1000 Amount 0.9% NaCl with KCl 20 Meq 1000 1000 /l 1,000 ml @ 100 mls/hr IV .BY DURATION [facility] Rx#: [id number] Mvi, Adult No.4 with Vit 1011.2 K 10 ml Thiamine 100 mg Folic Acid 1 mg In 0.9% NaCl with KCl 20 Meq/l 1, 000 ml @ 100 mls/hr IV . BY DURATION [facility] Rx#: [id number] Oral 480 Output: Urine 800 1500 250 Other: Voiding Method Indwelling Catheter Indwelling Catheter Indwelling Catheter # Voids 3 1 - Exam Abdomen: Soft, nondistended, mild to moderate left upper quadrant tenderness slightly increased from yesterday. Incisions clean and dry, no ecchymosis - Labs CBC & Chem 7: 05/07/20 08:23 05/07/20 08:23 Labs: Abnormal Lab Results - Last 24 Hours (Table) 05/06/20 05/07/20 05/07/20 Range/Units 20:35 06:51 08:23 WBC 11.8 H (3.8-10.6) k/uL Plt Count 146 L (150-450) k/uL Neutrophils # 10.1 H (1.3-7.7) k/uL Carbon Dioxide (22-30) mmol/L Glucose (74-99) mg/dL POC Glucose (mg/dL) 160 H 184 H (75-99) mg/dL Total Bilirubin (0.2-1.3) mg/dL AST (14-36) U/L ALT (4-34) U/L Total Protein (6.3-8.2) g/dL Albumin (3.5-5.0) g/dL 05/07/20 05/07/20 05/07/20 Range/Units 08:23 11:55 16:59 WBC (3.8-10.6) k/uL Plt Count (150-450) k/uL Neutrophils # (1.3-7.7) k/uL Carbon Dioxide 31 H (22-30) mmol/L Glucose 151 H (74-99) mg/dL POC Glucose (mg/dL) 171 H 141 H (75-99) mg/dL Total Bilirubin 1.5 H (0.2-1.3) mg/dL AST 55 H (14-36) U/L ALT 72 H (4-34) U/L Total Protein 6.0 L (6.3-8.2) g/dL Albumin 3.2 L (3.5-5.0) g/dL Assessment and Plan (1) Morbid obesity Narrative/Plan: Continue encouraging liquid intake. We'll order CT abdomen and pelvis given the patient's abdominal discomforts. She does states that it has improved gradually since yesterday and the day before. Recheck labs tomorrow. Ambulate. Continue incentive spirometry. Current Visit: No Status: Acute Code(s): E66.01 - MORBID (SEVERE) OBESITY DUE TO EXCESS CALORIES SNOMED Code(s): 591707271
[2020-05-07 20:34] LABS: Glucose,Whole Blood 155 mg/dL (75-99)
[2020-05-07] MEDS: DULoxetine HCL 20 MG CAPSULE.DR PO SCH (22:18)
[2020-05-07] MEDS: amLODIPine 10 MG TAB PO SCH (22:18)
[2020-05-07] MEDS: METOPROLOL SUCCINATE (ER) 50 MG TAB.ER.24H PO SCH (22:19)
[2020-05-07] MEDS: GABAPENTIN 300 MG CAP PO SCH (22:19)
[2020-05-07] MEDS: ATORVASTATIN 80 MG TAB PO SCH (22:19)
[2020-05-08] MEDS: AZTREONAM 1 GM in SODIUM CHLORIDE 0.9% 50 ML IVPB SCH ×2 (03:22→15:16)
[2020-05-08 06:47] LABS: Glucose,Whole Blood 189 mg/dL (75-99)
[2020-05-08] MEDS: IPRATROPIUM-ALBUTEROL 3 ML NEB INHALATION SCH ×4 (08:23→20:01)
[2020-05-08] MEDS: TACROLIMUS 1 MG CAP PO SCH ×2 (08:25→21:23)
[2020-05-08] MEDS: INSULIN ASPART (NovoLOG) 100 UNIT/ML VIAL SQ SCH ×4 (08:25→21:17)
[2020-05-08] MEDS: PANTOPRAZOLE 40 MG/10 ML VIAL IV SCH (08:26)
[2020-05-08 10:02] LABS: Basophils % (A) 1 %; Eosinophils # (A) 0.2 k/uL (0-0.7); Eosinophils % (A) 2 %; HCT 42.1 % (34.0-46.0); HGB 13.8 gm/dL (11.4-16.0); Lymphocytes # (A) 1.3 k/uL (1.0-4.8); Lymphocytes % (A) 15 %; MCH 29.8 pg (25.0-35.0); MCHC 32.7 g/dL (31.0-37.0); MCV 91.3 fL (80.0-100.0); Mean Platelet Volume 10.4; Monocytes # (A) 0.5 k/uL (0-1.0); Monocytes % (A) 5 %; Neutrophils # (A) 6.3 k/uL (1.3-7.7); Neutrophils % (A) 75 %; Platelet Count 132 k/uL (150-450); RBC 4.62 m/uL (3.80-5.40); RDW 13.2 % (11.5-15.5); WBC 8.4 k/uL (3.8-10.6)
[2020-05-08 10:15] LABS: African American GFR (CKD) >90 (>60 ml/min/1.73 sqM); Anion Gap 6 mmol/L; Blood Urea Nitrogen 13 mg/dL (7-17); Carbon Dioxide 29 mmol/L (22-30); Chloride 102 mmol/L (98-107); Glucose 166 mg/dL (74-99); Non-African American GFR(CKD) >90 (>60 ml/min/1.73 sqM); Potassium 4.2 mmol/L (3.5-5.1); Sodium 137 mmol/L (137-145)
[2020-05-08] MEDS: ENOXAPARIN 40 MG/0.4 ML SYRINGE SQ SCH (11:06)
[2020-05-08 11:10] LABS: Glucose,Whole Blood 212 mg/dL (75-99)
--- NOTE | 2020-05-08 12:57 | CT ---
EXAMINATION TYPE: CT abdomen pelvis wo con DATE OF EXAM: 05/08/2020 COMPARISON: Fluoroscopic upper GI examination 05/05/2020. HISTORY: Pain post gastric sleeve 05/04/2020 CT DLP: 988.7 mGycm Automated exposure control for dose reduction was used. TECHNIQUE: Helical acquisition of images was performed from the lung bases through the pelvis. CONTRAST: Performed with Oral Contrast and no intravenous contrast. FINDINGS: LUNG BASES: There is bibasilar atelectasis and trace left pleural effusion. A tiny area of tree-in-bu d like opacity within the right lower lobe is seen (204:8, 202:59). Cardiac size normal. Calcified co ronary artery disease. No pericardial effusion. LIVER: Normal attenuation and size. BILIARY SYSTEM: Status post cholecystectomy. No intrahepatic or extrahepatic biliary ductal dilatatio n. PANCREAS: No peripancreatic stranding. SPLEEN: Not enlarged. Calcified granuloma. ADRENALS: Normal. KIDNEYS: There is significant renal atrophy of the need of kidneys bilaterally. Left lower quadrant t ransplanted kidney demonstrates no evidence of hydronephrosis. BOWEL: Patient is status post gastric sleeve with no evidence of abnormal oral contrast extravasatio n. There is oral contrast seen within all of the visualized distal esophagus. There is mild haziness of the GE junction. A small hiatal hernia. No evidence of bowel obstruction. PERITONEUM: No free air is visualized. No free fluid. ADENOPATHY: No lymphadenopathy. PELVIS: Normal noncontrast examination. VASCULATURE: No abdominal aortic aneurysm. A Hernandez calcified atherosclerotic disease of the abdomina l aorta. MUSCULOSKELETAL: Subcutaneous emphysema of the anterior abdomen subcutaneous tissues and within the linear supraumbilical surgical site. Calcifications of the left buttock likely injection granulomas. No acute osseous abnormality. IMPRESSION: 1. No evidence of leak or perforation status post gastric sleeve surgery. There is oral contrast seen within all of the distal visualized esophagus, with mild haziness of the GE junction. Findings may r epresent residual postoperative edema. 2. Small hiatal hernia. 3. Small area of developing tree-in-bud airspace opacity versus atelectasis of the right lower lobe. Short-term follow-up CT chest can be considered for resolution.
--- NOTE | 2020-05-08 14:52 | P.PN ---
Subjective Progress Note Date: 05/08/20 This is a 59 year old Cauc[place] female with a previous medical history significant for hypertension and hypertensive cardiovascular disease, hyperlipidemia, diabetes mellitus type 2 on insulin pump, CVA, CAd post PCI and stent placement, history of renal disease post renal transplant and also hitory of vulvar cancer post radiation treatment, patient has struggled with her weight for a long time and finally she decided to go for sleeve gastrectomy that was done successfully by and we were asked to see her for post operative medical management. Patient is lying down in bed in no acute distress, she denies any chest pain or shortness of breath, she has no abdominal pain, nausea or burping she has not passed any gas yet. 05/05: Patient is having difficulty managing her insulin pump as her took her glasses home and she is unable to read the pump. Dr. Benson assisted patient with her pump settings. Patient remains on Lovenox awaiting clearance from general surgery to resume eliquis and Plavix. Patient continues to have Hernandez catheter in place. She denies having any chest pain. She is complaining of abdominal discomfort. She is burping but no bowel movement. Patient complains of nausea intermittently without vomiting. She underwent upper GI this morning that showed moderate delay at the GE junction with eventual complete passage with contrast. No evidence of extravasation. Patient is been afebrile, heart rate 88, blood pressure 122/59, pulse ox 99% on 3 L nasal cannula. Patient was ambulated and ambulatory pulse ox was 95% on room air. No need for home oxygen therapy. 3 BC 15.4, hemoglobin 13.7. Potassium 5.2, BUN 27 and creatinine 1.17. Blood sugars are running between 52 and 321. She is currently on a bariatric clear diet. Discharge plan will be to home. Medication reconciliation reviewed. Patient has been resumed on her anti-rejection medications and etc. 05/06: Patient is seen in follow-up today. She continued to have high blood sugars and insulin NovoLog scale added in addition to her pump. Plan was for Hernandez catheter to be removed today which is still in place. She is on a liquid diet only. She is complaining of left lateral abdominal pain. Pain is there when she deep breathes. She is currently on oxygen at 2 L. She denies any lower extremity edema or calf pain. She has been up been denies any dizziness. Heart rate 92, blood pressure 1 3479, pulse ox 95% on 2 L nasal cannula. Repeat blood work ordered which revealed a normal CBC, electrolytes and renal function normal. AST 53, ALT 61, alk phosphatase 98. Blood sugars are running today 180-194. Chest x-ray was also ordered for today which revealed interstitial de nsity. Correlate for possible mild pulmonary vascular congestion, bronchitis asthma or atypical pneumonias. Difficult to exclude trace effusions. Some patchy atelectasis versus developing infiltrate at the left base. 05/07: Patient has been afebrile, heart rate 90, blood pressure 150/70, pulse ox 94% on room air. Repeat blood work reveals Carla BC 11.8, hemoglobin 13.6 and platelet count 146. CO2 31, creatinine 0.78. Blood sugar running between 85 and 184. Total bilirubin 1.5, AST 55, ALT 72, alkaline phosphatase 105. Pathology report reveals no H. pylori, benign gastric mucosa with minimal chronic gastritis. Pain is currently controlled. Patient has tolerated diet. She is currently on bariatric clear diet. 05/08: CT of the abdomen and pelvis reveals no evidence of microperforation status post gastric sleeve surgery. There is oral contrast seen within all of the distal visualized esophagus with mild haziness of the GE junction. Findings may represent residual postop edema. Small hiatal hernia. Small area of developing tree-in-bud airspace opacities versus atelectasis of the right lung lobe. Short-term follow-up consideration. Patient states she is breathing much better today. Incentive spirometry was reaching 1500 mL. Pain is also improved today. We will resume patient on eliquis. Blood sugars are somewhat high with lunch at 212. Patient is doing self bolus on her insulin pump. PT and OT have evaluated and recommended home. Patient is currently on Levaquin and Azactam. Patient has been afebrile, heart rate 88, blood pressure 140/62, pulse ox 94% on room air. CBC reveals a 132, WBC 8.4, hemoglobin 13.8. Elective lites and renal function normal. Blood sugar running between 155 and 189. Anticipate possible discharge tomorrow. Objective - Vital Signs Vital signs: Vital Signs Temp 98.5 F 05/08/20 07:05 Pulse 88 05/08/20 08:36 Resp 16 05/08/20 07:05 BP 140/62 05/08/20 07:05 Pulse Ox 95 05/08/20 08:23 Intake & Output 05/07/20 05/08/20 05/08/20 18:59 06:59 18:59 Intake Total 3111.2 200 850 Output Total 250 Balance 2861.2 200 850 Intake: IV 100 850 0.9% NaCl with KCl 20 Meq 800 /l 1,000 ml @ 100 mls/hr IV .BY DURATION [facility] Rx#: [id number] Aztreonam 1 gm In Sodium 50 50 Chloride 0.9% 50 ml @ 16. 67 mls/hr IVPB Q12H [facility] Rx#:[id number] Levofloxacin 250Mg-D5w 50 Pmx 250 mg In Dextrose/ Water 1 50ml.bag @ 50 mls /hr IVPB Q24H [facility] Rx#: [id number] Intake, IV Titration 3011.2 Amount 0.9% NaCl with KCl 20 Meq 2000 /l 1,000 ml @ 100 mls/hr IV .BY DURATION [facility] Rx#: [id number] Mvi, Adult No.4 with Vit 1011.2 K 10 ml Thiamine 100 mg Folic Acid 1 mg In 0.9% NaCl with KCl 20 Meq/l 1, 000 ml @ 100 mls/hr IV . BY DURATION [facility] Rx#: [id number] Oral 200 Output: Urine 250 Other: Voiding Method Indwelling Catheter # Voids 1 2 - Exam Review of Systems Constitutional: Denies weakness, Denies anorexia, Denies chronic headaches, Maninder es lethargy. Denies fever, denies chills. Eyes: denies blurred vision, denies bulging eye, denies decreased vision Ears, nose, mouth and throat: Denies dysphagia, Denies sore throat Cardiovascular: Reports decreased exercise tolerance, denies dyspnea on exertion, Denies chest pain, Denies lightheadedness, Denies rapid heart beat, Denies shortness of breath, Denies syncope Respiratory: Reports sleep apnea, Denies congestion, Denies cough, Denies cough with sputum, Denies home oxygen, Denies snoring, Denies wheezing Gastrointestinal: Denies abdominal pain, Denies bloating, Denies BRBPR, Denies excessive gas, Denies heartburn, Denies melena, Denies nausea, Denies vomiting Genitourinary: Denies dysuria, Denies nocturia Musculoskeletal: Denies myalgias Musculoskeletal: absent: ankle pain, ankle stiffness, ankle swelling, elbow pain, elbow stiffness, elbow swelling, foot pain, foot stiffness, foot swelling, hand pain, hand stiffness, hand swelling, hip pain, hip stiffness, hip swelling, knee pain, knee stiffness, knee swelling, shoulder pain, shoulder stiffness, shoulder swelling, wrist pain, wrist stiffness, wrist swelling Integumentary: Denies pruritus, Denies rash Neurological: Reports numbness, Denies weakness Psychiatric: Reports anxiety Endocrine: Denies fatigue, Denies weight change, reports abnormal blood sugars Physical examination: GEN: This is a 59-year-old female. She is resting in bed. HEENT: head is atraumatic normocephalic pupils were equal round reactive to light and accommodations extra ocular muscle movements were intact, mucous membranes of the mouth are somewhat dry. Neck: supple no JVP. Chest: decrease breath sounds at the bases with no ronchi or expiratory wheezes. No egophony. Heart : first heart sound is depressed, second heart sound is normal there is ISHA 2/6 located at the left sternal border. Abdomen: soft , left lateral tenderness tenderness, stab wounds appeared glued and there was no draiange or erythema, depressed bowel sounds. Hernandez catheter draining clear parker urine. Extremities: there is no edema or calf tenderness, DP +1 bilaterally. Neurologic examinations; patient is awake alert and oriented X 3 CN II- XII are grossly intact muscle power 4/5 in upper and lower extremities bilaterally. - Labs CBC & Chem 7: 05/08/20 09:34 05/08/20 09:34 Labs: Abnormal Lab Results - Last 24 Hours (Table) 05/07/20 05/07/20 05/07/20 Range/Units 11:55 16:59 20:27 Plt Count (150-450) k/uL Glucose (74-99) mg/dL POC Glucose (mg/dL) 171 H 141 H 155 H (75-99) mg/dL 05/08/20 05/08/20 05/08/20 Range/Units 06:45 09:34 09:34 Plt Count 132 L (150-450) k/uL Glucose 166 H (74-99) mg/dL POC Glucose (mg/dL) 189 H (75-99) mg/dL Assessment and Plan Plan: 1. POD #3 S/P Laparascopic sleeve gastrectomy. Continue incentive spirometer to reduce the incidence of atelectasis and health care associated pneumonia, continue with current pain management as outlined by general surgery, we will continue with DVT prophylaxis with Lovenox which will be discontinued and patient started on eliquis, patient is currently on a clear liquid bariatric diet. Patient encouraged to use incentive spirometry and is sitting in a chair increase activity. 2. Hypertension and hypertensive cardiovascular disease. we will continue with Metoprolol ER 50 mg orally at bedtime . 3. Mixed hyperlipidemia. Continue Lipitor 80 mg po daily. 4. Diabetes mellitus type 2 on insulin pump, uncontrolled with hyper and hypoglycemia. Adjustments made to pump settings. Check BGM more frequently. 5. history of CVA . she will need to go back on her plavix when OK with general surgery. 6. history of renal transplant. we will need to resume her Tacrolimus and cellcept. 7. Obstructive sleep apnea. we will continue with CPAP. 8. history of pulmonary embolism. we will need to transition into Xarelto 20 mg orally daily and off Lovenox in 24 hours. Await clearance from surgery to his resume Xarelto. 9. History of CAD post PCI. we will continue with Metoprolol ER 50 mg orally daily and Lipitor 80 mg orally daily. 10. Recurrent depression. we will continue with cynbalta 20 mg orally daily. 11. History of vulvar cancer post surgery. 12. diabetic polyneuropathy. we will continue with Gabapentin 300 mg orally at bedtime. 13. GERD with esophagitis. we will continue with PPI. 14. Thank you Dr. Crabtree for allowing me to participate in the care of your patient, we will follow along her medical care. Discharge plan: Home on Monday Impression and plan of care have been directed as dictated by the signing physician. Kamini Shay nurse practitioner acting as scribe for signing physician.
--- NOTE | 2020-05-08 16:17 | P.PN ---
Subjective Progress Note Date: 05/08/20 Principal diagnosis: Morbid obesity Patient feeling better today. Pain is improved. CAT scan was reviewed. No evidence of postoperative bleeding or leak. Still not drinking much. Says she feels full at times. White blood cell count normal. Objective - Vital Signs Vital signs: Vital Signs Temp 98.0 F 05/08/20 14:18 Pulse 93 05/08/20 14:18 Resp 15 05/08/20 14:18 BP 150/80 05/08/20 14:18 Pulse Ox 96 05/08/20 14:18 Intake & Output 05/07/20 05/08/20 05/08/20 18:59 06:59 18:59 Intake Total 3111.2 200 850 Output Total 250 Balance 2861.2 200 850 Intake: IV 100 850 0.9% NaCl with KCl 20 Meq 800 /l 1,000 ml @ 100 mls/hr IV .BY DURATION [facility] Rx#: [id number] Aztreonam 1 gm In Sodium 50 50 Chloride 0.9% 50 ml @ 16. 67 mls/hr IVPB Q12H [facility] Rx#:[id number] Levofloxacin 250Mg-D5w 50 Pmx 250 mg In Dextrose/ Water 1 50ml.bag @ 50 mls /hr IVPB Q24H [facility] Rx#: [id number] Intake, IV Titration 3011.2 Amount 0.9% NaCl with KCl 20 Meq 2000 /l 1,000 ml @ 100 mls/hr IV .BY DURATION [facility] Rx#: [id number] Mvi, Adult No.4 with Vit 1011.2 K 10 ml Thiamine 100 mg Folic Acid 1 mg In 0.9% NaCl with KCl 20 Meq/l 1, 000 ml @ 100 mls/hr IV . BY DURATION [facility] Rx#: [id number] Oral 200 Output: Urine 250 Other: Voiding Method Indwelling Catheter # Voids 1 2 - Exam Abdomen: Soft, nondistended, incisions clean and dry, mild tenderness - Labs CBC & Chem 7: 05/08/20 09:34 05/08/20 09:34 Labs: Abnormal Lab Results - Last 24 Hours (Table) 05/07/20 05/07/20 05/08/20 Range/Units 16:59 20:27 06:45 Plt Count (150-450) k/uL Glucose (74-99) mg/dL POC Glucose (mg/dL) 141 H 155 H 189 H (75-99) mg/dL 05/08/20 05/08/20 05/08/20 Range/Units 09:34 09:34 11:08 Plt Count 132 L (150-450) k/uL Glucose 166 H (74-99) mg/dL POC Glucose (mg/dL) 212 H (75-99) mg/dL Assessment and Plan (1) Morbid obesity Narrative/Plan: Continue bariatric liquids. Once again encourage patient to monitor and record the amount of liquids that she is drinking. White anticipate discharge tomorrow if tolerating enough liquids. Current Visit: No Status: Acute Code(s): E66.01 - MORBID (SEVERE) OBESITY DUE TO EXCESS CALORIES OMED Code(s): 988034478
[2020-05-08 16:41] LABS: Glucose,Whole Blood 135 mg/dL (75-99)
[2020-05-08] MEDS: LEVOFLOXACIN 250MG-D5W PMX 250 MG in DEXTROSE/WATER 1 50ML.BAG IVPB SCH (17:48)
[2020-05-08] MEDS: ATORVASTATIN 80 MG TAB PO SCH (21:23)
[2020-05-08] MEDS: GABAPENTIN 300 MG CAP PO SCH (21:23)
[2020-05-08] MEDS: DULoxetine HCL 20 MG CAPSULE.DR PO SCH (21:23)
[2020-05-08] MEDS: amLODIPine 10 MG TAB PO SCH (21:23)
[2020-05-08] MEDS: APIXABAN 5 MG TAB PO SCH (21:23)
[2020-05-08] MEDS: METOPROLOL SUCCINATE (ER) 50 MG TAB.ER.24H PO SCH (21:25)
[2020-05-08 21:26] LABS: Glucose,Whole Blood 84 mg/dL (75-99)
[2020-05-08] MEDS: HYDROmorphone 1 MG/ML 1 ML SYRINGE IVP PRN (21:30)
[2020-05-08] MEDS: ONDANSETRON 4 MG/2 ML VIAL IVP PRN (21:30)
[2020-05-09] MEDS: AZTREONAM 1 GM in SODIUM CHLORIDE 0.9% 50 ML IVPB SCH ×2 (04:28→15:57)
[2020-05-09 07:26] LABS: Glucose,Whole Blood 87 mg/dL (75-99)
[2020-05-09] MEDS: INSULIN ASPART (NovoLOG) 100 UNIT/ML VIAL SQ SCH ×3 (07:27→16:46)
[2020-05-09] MEDS: PANTOPRAZOLE 40 MG/10 ML VIAL IV SCH (07:57)
[2020-05-09] MEDS: TACROLIMUS 1 MG CAP PO SCH ×2 (07:58→21:58)
[2020-05-09] MEDS: APIXABAN 5 MG TAB PO SCH ×2 (08:03→21:57)
[2020-05-09] MEDS: IPRATROPIUM-ALBUTEROL 3 ML NEB INHALATION SCH ×4 (08:10→18:54)
--- NOTE | 2020-05-09 09:50 | P.PN ---
Subjective Progress Note Date: 05/09/20 This is a 59 year old Cauc[place] female with a previous medical history significant for hypertension and hypertensive cardiovascular disease, hyperlipidemia, diabetes mellitus type 2 on insulin pump, CVA, CAd post PCI and stent placement, history of renal disease post renal transplant and also hitory of vulvar cancer post radiation treatment, patient has struggled with her weight for a long time and finally she decided to go for sleeve gastrectomy that was done successfully by and we were asked to see her for post operative medical management. Patient is lying down in bed in no acute distress, she denies any chest pain or shortness of breath, she has no abdominal pain, nausea or burping she has not passed any gas yet. 05/05: Patient is having difficulty managing her insulin pump as her took her glasses home and she is unable to read the pump. Dr. Benson assisted patient with her pump settings. Patient remains on Lovenox awaiting clearance from general surgery to resume eliquis and Plavix. Patient continues to have Hernandez catheter in place. She denies having any chest pain. She is complaining of abdominal discomfort. She is burping but no bowel movement. Patient complains of nausea intermittently without vomiting. She underwent upper GI this morning that showed moderate delay at the GE junction with eventual complete passage with contrast. No evidence of extravasation. Patient is been afebrile, heart rate 88, blood pressure 122/59, pulse ox 99% on 3 L nasal cannula. Patient was ambulated and ambulatory pulse ox was 95% on room air. No need for home oxygen therapy. 3 BC 15.4, hemoglobin 13.7. Potassium 5.2, BUN 27 and creatinine 1.17. Blood sugars are running between 52 and 321. She is currently on a bariatric clear diet. Discharge plan will be to home. Medication reconciliation reviewed. Patient has been resumed on her anti-rejection medications and etc. 05/06: Patient is seen in follow-up today. She continued to have high blood sugars and insulin NovoLog scale added in addition to her pump. Plan was for Hernandez catheter to be removed today which is still in place. She is on a liquid diet only. She is complaining of left lateral abdominal pain. Pain is there when she deep breathes. She is currently on oxygen at 2 L. She denies any lower extremity edema or calf pain. She has been up been denies any dizziness. Heart rate 92, blood pressure 1 3479, pulse ox 95% on 2 L nasal cannula. Repeat blood work ordered which revealed a normal CBC, electrolytes and renal function normal. AST 53, ALT 61, alk phosphatase 98. Blood sugars are running today 180-194. Chest x-ray was also ordered for today which revealed interstitial de nsity. Correlate for possible mild pulmonary vascular congestion, bronchitis asthma or atypical pneumonias. Difficult to exclude trace effusions. Some patchy atelectasis versus developing infiltrate at the left base. 05/07: Patient has been afebrile, heart rate 90, blood pressure 150/70, pulse ox 94% on room air. Repeat blood work reveals Carla BC 11.8, hemoglobin 13.6 and platelet count 146. CO2 31, creatinine 0.78. Blood sugar running between 85 and 184. Total bilirubin 1.5, AST 55, ALT 72, alkaline phosphatase 105. Pathology report reveals no H. pylori, benign gastric mucosa with minimal chronic gastritis. Pain is currently controlled. Patient has tolerated diet. She is currently on bariatric clear diet. 05/08: CT of the abdomen and pelvis reveals no evidence of microperforation status post gastric sleeve surgery. There is oral contrast seen within all of the distal visualized esophagus with mild haziness of the GE junction. Findings may represent residual postop edema. Small hiatal hernia. Small area of developing tree-in-bud airspace opacities versus atelectasis of the right lung lobe. Short-term follow-up consideration. Patient states she is breathing much better today. Incentive spirometry was reaching 1500 mL. Pain is also improved today. We will resume patient on eliquis. Blood sugars are somewhat high with lunch at 212. Patient is doing self bolus on her insulin pump. PT and OT have evaluated and recommended home. Patient is currently on Levaquin and Azactam. Patient has been afebrile, heart rate 88, blood pressure 140/62, pulse ox 94% on room air. CBC reveals a 132, WBC 8.4, hemoglobin 13.8. Elective lites and renal function normal. Blood sugar running between 155 and 189. Anticipate possible discharge tomorrow. 05/09: Patient is sitting up in bed in no apparent distress she denies any chest pain, shortness breath, she is using her incentive spirometer about her weight, she has no abdominal pain, no nausea or vomiting, reviewed her computed tomography scan yesterday and talked to her about staying in the hospital for another day for IV antibiotic and if she looked as good tomorrow she will be going home tomorrow morning. Patient denies any fever or chills at this time, she is ambulating very well using her walker and she is sitting up in a recliner. Objective - Vital Signs Vital signs: Vital Signs Temp 98.1 F 05/09/20 00:00 Pulse 76 05/09/20 08:21 Resp 18 05/09/20 00:00 BP 93/57 05/09/20 00:00 Pulse Ox 94 L 05/09/20 00:00 Intake & Output 05/08/20 05/09/20 05/09/20 18:59 06:59 18:59 Intake Total 1850 Balance 1850 Intake: IV 850 0.9% NaCl with KCl 20 Meq 800 /l 1,000 ml @ 100 mls/hr IV .[facility] Rx#: [id number] Aztreonam 1 gm In Sodium 50 Chloride 0.9% 50 ml @ 16. 67 mls/hr IVPB Q12H [facility] Rx#:[id number] Intake, IV Titration 1000 Amount 0.9% NaCl with KCl 20 Meq 1000 /l 1,000 ml @ 100 mls/hr IV [facility] Rx#: [id number] - Exam - Exam Review of Systems Constitutional: Denies weakness, Denies anorexia, Denies chronic headaches, Denies lethargy. Denies fever, denies chills. Eyes: denies blurred vision, denies bulging eye, denies decreased vision Ears, nose, mouth and throat: Denies dysphagia, Denies sore throat Cardiovascular: Reports decreased exercise tolerance, denies dyspnea on exertion, Denies chest pain, Denies lightheadedness, Denies rapid heart beat, Denies shortness of breath, Denies syncope Respiratory: Reports sleep apnea, Denies congestion, Denies cough, Denies cough with sputum, Denies home oxygen, Denies snoring, Denies wheezing Gastrointestinal: Denies abdominal pain, Denies bloating, Denies BRBPR, Denies excessive gas, Denies heartburn, Denies melena, Denies nausea, Denies vomiting Genitourinary: Denies dysuria, Denies nocturia Musculoskeletal: Denies myalgias Musculoskeletal: absent: ankle pain, ankle stiffness, ankle swelling, elbow pain, elbow stiffness, elbow swelling, foot pain, foot stiffness, foot swelling, hand pain, hand stiffness, hand swelling, hip pain, hip stiffness, hip swelling, knee pain, knee stiffness, knee swelling, shoulder pain, shoulder stiffness, shoulder swelling, wrist pain, wrist stiffness, wrist swelling Integumentary: Denies pruritus, Denies rash Neurological: Reports numbness, Denies weakness Psychiatric: Reports anxiety Endocrine: Denies fatigue, Denies weight change, reports abnormal blood sugars Physical examination: GEN: This is a 59-year-old female. She is resting in bed. HEENT: head is atraumatic normocephalic pupils were equal round reactive to light and accommodations extra ocular muscle movements were intact, mucous membranes of the mouth are somewhat dry. Neck: supple no JVP. Chest: decrease breath sounds at the bases with no ronchi or expiratory wheezes. No egophony. Heart : first heart sound is depressed, second heart sound is normal there is ISHA 2/6 located at the left sternal border. Abdomen: soft , left lateral tenderness tenderness, stab wounds appeared glued and there was no draiange or erythema, depressed bowel sounds. Hernandez catheter draining clear parker urine. Extremities: there is no edema or calf tenderness, DP +1 bilaterally. Neurologic examinations; patient is awake alert and oriented X 3 CN II- XII are grossly intact muscle power 4/5 in upper and lower extremities bilaterally. - Labs CBC & Chem 7: 05/08/20 09:34 05/08/20 09:34 Labs: Abnormal Lab Results - Last 24 Hours (Table) 05/08/20 05/08/20 05/08/20 Range/Units 09:34 09:34 11:08 Plt Count 132 L (150-450) k/uL Glucose 166 H (74-99) mg/dL POC Glucose (mg/dL) 212 H (75-99) mg/dL 05/08/20 Range/Units 16:41 Plt Count (150-450) k/uL Glucose (74-99) mg/dL POC Glucose (mg/dL) 135 H (75-99) mg/dL Assessment and Plan Assessment: Assessment and Plan Plan: 1. POD #4 S/P Laparascopic sleeve gastrectomy. Continue incentive spirometer to reduce the incidence of atelectasis and health care associated pneumonia, continue with current pain management as outlined by general surgery, we will continue with DVT prophylaxis with eliquis, patient is currently on a clear liquid bariatric diet. Patient encouraged to use incentive spirometry and is sitting in a chair increase activity. 2. Hypertension and hypertensive cardiovascular disease. we will continue with Metoprolol ER 50 mg orally at bedtime . 3. Mixed hyperlipidemia. Continue Lipitor 80 mg po daily. 4. Diabetes mellitus type 2 on insulin pump, uncontrolled with hyper and hypoglycemia. Adjustments made to pump settings. Check BGM more frequently. 5. history of CVA . she will need to go back on her plavix when OK with general surgery. 6. history of renal transplant. we will need to resume her Tacrolimus and ce llcept. 7. Obstructive sleep apnea. we will continue with CPAP. 8. history of pulmonary embolism. we will need to transition into Xarelto 20 mg orally daily and off Lovenox in 24 hours. Await clearance from surgery to his resume Xarelto. 9. History of CAD post PCI. we will continue with Metoprolol ER 50 mg orally daily and Lipitor 80 mg orally daily. 10. Recurrent depression. we will continue with cynbalta 20 mg orally daily. 11. History of vulvar cancer post surgery. 12. diabetic polyneuropathy. we will continue with Gabapentin 300 mg orally at bedtime. 13. GERD with esophagitis. we will continue with PPI. 14. Bibasilar infiltrate likely related to early pneumonia. Continue patient on Levaquin and Azactam, continue nebulization treatment, continue incentive spirometer, hopefully we will switch her antibiotic to or tomorrow morning and she can go home tomorrow.
--- NOTE | 2020-05-09 11:08 | P.PN ---
Progress Note - Text Progress Note Date: 05/09/20 The patient states she feels better. The patient states that Dr. Benson once her stay another day for IV antibiotics. On exam vital signs are stable. Abdomen soft. Incisions is clean and intact. Status post sleeve gastrectomy. Patient will receive IV antibiotics. Weight is a discharge home tomorrow.
--- NOTE | 2020-05-09 12:02 | XR ---
EXAMINATION TYPE: XR chest 2V DATE OF EXAM: 05/09/2020 COMPARISON: Chest x-ray 3 days ago. HISTORY: Abnormal x-ray progress study. TECHNIQUE: Frontal and lateral views of the chest are obtained. FINDINGS: There is chronic parenchymal change with persistent bibasilar opacities. The cardiac silh ouette size is stable and mildly enlarged with persistent small bilateral pleural effusions seen on l ateral view. Overlying loop recorder. The osseous structures are demineralized. IMPRESSION: Cardiomegaly with small bilateral pleural effusions, correlate for CHF exacerbation.. Th ere is associated by basilar opacity favoring atelectasis and/or scarring, this is correlated with ab dominal CT from yesterday.
[2020-05-09 12:05] LABS: Glucose,Whole Blood 126 mg/dL (75-99)
[2020-05-09 16:28] LABS: Glucose,Whole Blood 109 mg/dL (75-99)
[2020-05-09 20:51] LABS: Glucose,Whole Blood 120 mg/dL (75-99)
[2020-05-09] MEDS: LEVOFLOXACIN 250MG-D5W PMX 250 MG in DEXTROSE/WATER 1 50ML.BAG IVPB SCH (21:55)
[2020-05-09] MEDS: GABAPENTIN 300 MG CAP PO SCH (21:57)
[2020-05-09] MEDS: METOPROLOL SUCCINATE (ER) 50 MG TAB.ER.24H PO SCH (21:57)
[2020-05-09] MEDS: ATORVASTATIN 80 MG TAB PO SCH (21:57)
[2020-05-09] MEDS: amLODIPine 10 MG TAB PO SCH (21:57)
[2020-05-09] MEDS: DULoxetine HCL 20 MG CAPSULE.DR PO SCH (21:58)
[2020-05-09] MEDS: HYDROmorphone 1 MG/ML 1 ML SYRINGE IVP PRN (21:59)
[2020-05-10] MEDS: INSULIN ASPART (NovoLOG) 100 UNIT/ML VIAL SQ SCH ×5 (02:08→21:07)
[2020-05-10] MEDS: AZTREONAM 1 GM in SODIUM CHLORIDE 0.9% 50 ML IVPB SCH (04:11)
[2020-05-10 07:24] LABS: Basophils % (A) 1 %; Eosinophils # (A) 0.5 k/uL (0-0.7); Eosinophils % (A) 8 %; HGB 12.4 gm/dL (11.4-16.0); Lymphocytes # (A) 1.5 k/uL (1.0-4.8); Lymphocytes % (A) 23 %; MCH 29.1 pg (25.0-35.0); MCHC 31.8 g/dL (31.0-37.0); MCV 91.4 fL (80.0-100.0); Mean Platelet Volume 9.7; Monocytes # (A) 0.5 k/uL (0-1.0); Monocytes % (A) 8 %; Neutrophils # (A) 3.8 k/uL (1.3-7.7); Neutrophils % (A) 58 %; Platelet Count 154 k/uL (150-450); RBC 4.27 m/uL (3.80-5.40); RDW 13.2 % (11.5-15.5); WBC 6.5 k/uL (3.8-10.6)
[2020-05-10 07:33] LABS: ALT 48 U/L (4-34); AST 51 U/L (14-36); African American GFR (CKD) >90 (>60 ml/min/1.73 sqM); Albumin 2.7 g/dL (3.5-5.0); Alkaline Phosphatase 86 U/L (38-126); Anion Gap 3 mmol/L; Blood Urea Nitrogen 10 mg/dL (7-17); Calcium 8.6 mg/dL (8.4-10.2); Carbon Dioxide 29 mmol/L (22-30); Chloride 107 mmol/L (98-107); Non-African American GFR(CKD) 81 (>60 ml/min/1.73 sqM); Potassium 3.8 mmol/L (3.5-5.1); Sodium 139 mmol/L (137-145); Total Bilirubin 1.2 mg/dL (0.2-1.3); Total Protein 5.4 g/dL (6.3-8.2)
[2020-05-10 07:41] LABS: Glucose,Whole Blood 56 mg/dL (75-99)
[2020-05-10 07:54] LABS: Glucose 46 mg/dL (74-99)
[2020-05-10 08:00] LABS: Glucose,Whole Blood 74 mg/dL (75-99)
[2020-05-10] MEDS: PANTOPRAZOLE 40 MG/10 ML VIAL IV SCH (08:18)
[2020-05-10] MEDS: APIXABAN 5 MG TAB PO SCH ×2 (08:18→21:26)
[2020-05-10] MEDS: TACROLIMUS 1 MG CAP PO SCH ×2 (08:18→21:27)
[2020-05-10] MEDS: IPRATROPIUM-ALBUTEROL 3 ML NEB INHALATION SCH ×4 (08:26→20:07)
[2020-05-10] MEDS ORDERED: ACETAMINOPHEN TAB 325 MG TAB PO PRN (09:38)
--- NOTE | 2020-05-10 09:49 | P.PN ---
Subjective Progress Note Date: 05/10/20 This is a 59 year old Caucasia female with a previous medical history significant for hypertension and hypertensive cardiovascular disease, hyperlipidemia, diabetes mellitus type 2 on insulin pump, CVA, CAd post PCI and stent placement, history of renal disease post renal transplant and also hitory of vulvar cancer post radiation treatment, patient has struggled with her weight for a long time and finally she decided to go for sleeve gastrectomy that was done successfully by and we were asked to see her for post operative medical management. Patient is lying down in bed in no acute distress, she denies any chest pain or shortness of breath, she has no abdominal pain, nausea or burping she has not passed any gas yet. 05/05: Patient is having difficulty managing her insulin pump as her took her glasses home and she is unable to read the pump. Dr. Benson assisted patient with her pump settings. Patient remains on Lovenox awaiting clearance from general surgery to resume eliquis and Plavix. Patient continues to have Hernandez catheter in place. She denies having any chest pain. She is complaining of abdominal discomfort. She is burping but no bowel movement. Patient complains of nausea intermittently without vomiting. She underwent upper GI this morning that showed moderate delay at the GE junction with eventual complete passage with contrast. No evidence of extravasation. Patient is been afebrile, heart rate 88, blood pressure 122/59, pulse ox 99% on 3 L nasal cannula. Patient was ambulated and ambulatory pulse ox was 95% on room air. No need for home oxygen therapy. 3 BC 15.4, hemoglobin 13.7. Potassium 5.2, BUN 27 and creatinine 1.17. Blood sugars are running between 52 and 321. She is currently on a bariatric clear diet. Discharge plan will be to home. Medication reconciliation reviewed. Patient has been resumed on her anti-rejection medications and etc. 05/06: Patient is seen in follow-up today. She continued to have high blood sugars and insulin NovoLog scale added in addition to her pump. Plan was for Hernandez catheter to be removed today which is still in place. She is on a liquid diet only. She is complaining of left lateral abdominal pain. Pain is there when she deep breathes. She is currently on oxygen at 2 L. She denies any lower extremity edema or calf pain. She has been up been denies any dizziness. Heart rate 92, blood pressure 1 3479, pulse ox 95% on 2 L nasal cannula. Repeat blood work ordered which revealed a normal CBC, electrolytes and renal function normal. AST 53, ALT 61, alk phosphatase 98. Blood sugars are running today 180-194. Chest x-ray was also ordered for today which revealed interstitial de nsity. Correlate for possible mild pulmonary vascular congestion, bronchitis asthma or atypical pneumonias. Difficult to exclude trace effusions. Some patchy atelectasis versus developing infiltrate at the left base. 05/07: Patient has been afebrile, heart rate 90, blood pressure 150/70, pulse ox 94% on room air. Repeat blood work reveals Carla BC 11.8, hemoglobin 13.6 and platelet count 146. CO2 31, creatinine 0.78. Blood sugar running between 85 and 184. Total bilirubin 1.5, AST 55, ALT 72, alkaline phosphatase 105. Pathology report reveals no H. pylori, benign gastric mucosa with minimal chronic gastritis. Pain is currently controlled. Patient has tolerated diet. She is currently on bariatric clear diet. 05/08: CT of the abdomen and pelvis reveals no evidence of microperforation status post gastric sleeve surgery. There is oral contrast seen within all of the distal visualized esophagus with mild haziness of the GE junction. Findings may represent residual postop edema. Small hiatal hernia. Small area of developing tree-in-bud airspace opacities versus atelectasis of the right lung lobe. Short-term follow-up consideration. Patient states she is breathing much better today. Incentive spirometry was reaching 1500 mL. Pain is also improved today. We will resume patient on eliquis. Blood sugars are somewhat high with lunch at 212. Patient is doing self bolus on her insulin pump. PT and OT have evaluated and recommended home. Patient is currently on Levaquin and Azactam. Patient has been afebrile, heart rate 88, blood pressure 140/62, pulse ox 94% on room air. CBC reveals a 132, WBC 8.4, hemoglobin 13.8. Elective lites and renal function normal. Blood sugar running between 155 and 189. Anticipate possible discharge tomorrow. 05/09: Patient is sitting up in bed in no apparent distress she denies any chest pain, shortness breath, she is using her incentive spirometer about her weight, she has no abdominal pain, no nausea or vomiting, reviewed her computed tomography scan yesterday and talked to her about staying in the hospital for another day for IV antibiotic and if she looked as good tomorrow she will be going home tomorrow morning. Patient denies any fever or chills at this time, she is ambulating very well using her walker and she is sitting up in a recliner. 05/10: Patient sitting up in the chair she appears a bit short of breath, her chest x-ray from yesterday showed cardiomegaly with bilateral small pleural effusions, we'll Hep-Lock her IV, start the patient on Lasix 20 mg IV push every 24 hours along with potassium supplement, we will keep her in the hospital for another 24 hours hopefully she will be able to get out of here tomorrow morning I'll switch her IV antibiotic to oral Levaquin at this point in time. Objective - Vital Signs Vital signs: Vital Signs Temp 97.9 F 05/10/20 07:00 Pulse 88 05/10/20 08:37 Resp 16 05/10/20 08:37 BP 104/56 05/10/20 07:00 Pulse Ox 91 L 05/10/20 07:00 Intake & Output 05/09/20 05/10/20 05/10/20 18:59 06:59 18:59 Other: Voiding Method Indwelling Catheter # Voids 2 1 - Exam - Exam Review of Systems Constitutional: Denies weakness, Denies anorexia, Denies chronic headaches, Denies lethargy. Denies fever, denies chills. Eyes: denies blurred vision, denies bulging eye, denies decreased vision Ears, nose, mouth and throat: Denies dysphagia, Denies sore throat Cardiovascular: Reports decreased exercise tolerance, denies dyspnea on exertion, Denies chest pain, Denies lightheadedness, Denies rapid heart beat, Denies shortness of breath, Denies syncope Respiratory: Reports sleep apnea, Denies congestion, Denies cough, Denies cough with sputum, Denies home oxygen, Denies snoring, Denies wheezing Gastrointestinal: Denies abdominal pain, Denies bloating, Denies BRBPR, Denies excessive gas, Denies heartburn, Denies melena, Denies nausea, Denies vomiting Genitourinary: Denies dysuria, Denies nocturia Musculoskeletal: Denies myalgias Musculoskeletal: absent: ankle pain, ankle stiffness, ankle swelling, elbow pain, elbow stiffness, elbow swelling, foot pain, foot stiffness, foot swelling, hand pain, hand stiffness, hand swelling, hip pain, hip stiffness, hip swelling, knee pain, knee stiffness, knee swelling, shoulder pain, shoulder stiffness, shoulder swelling, wrist pain, wrist stiffness, wrist swelling Integumentary: Denies pruritus, Denies rash Neurological: Reports numbness, Denies weakness Psychiatric: Reports anxiety Endocrine: Denies fatigue, Denies weight change, reports abnormal blood sugars Physical examination: GEN: This is a 59-year-old female. She is resting in bed. HEENT: head is atraumatic normocephalic pupils were equal round reactive to light and accommodations extra ocular muscle movements were intact, mucous membr anes of the mouth are somewhat dry. Neck: supple no JVP. Chest: decrease breath sounds at the bases with no ronchi or expiratory wheezes. No egophony. Heart : first heart sound is depressed, second heart sound is normal there is ISHA 2/6 located at the left sternal border. Abdomen: soft , left lateral tenderness tenderness, stab wounds appeared glued and there was no draiange or erythema, depressed bowel sounds. Hernandez catheter draining clear parker urine. Extremities: there is no edema or calf tenderness, DP +1 bilaterally. Neurologic examinations; patient is awake alert and oriented X 3 CN II- XII are grossly intact muscle power 4/5 in upper and lower extremities bilaterally. - Labs CBC & Chem 7: 05/10/20 06:58 05/10/20 06:58 Labs: Abnormal Lab Results - Last 24 Hours (Table) 05/09/20 05/09/20 05/09/20 Range/Units 11:44 16:27 20:50 Glucose (74-99) mg/dL POC Glucose (mg/dL) 126 H 109 H 120 H (75-99) mg/dL AST (14-36) U/L ALT (4-34) U/L Total Protein (6.3-8.2) g/dL Albumin (3.5-5.0) g/dL 05/10/20 05/10/20 05/10/20 Range/Units 06:58 07:40 07:58 Glucose 46 L* (74-99) mg/dL POC Glucose (mg/dL) 56 L 74 L (75-99) mg/dL AST 51 H (14-36) U/L ALT 48 H (4-34) U/L Total Protein 5.4 L (6.3-8.2) g/dL Albumin 2.7 L (3.5-5.0) g/dL Assessment and Plan Assessment: Assessment and Plan Plan: 1. POD #5 S/P Laparascopic sleeve gastrectomy. Continue incentive spirometer to reduce the incidence of atelectasis and health care associated pneumonia, continue with current pain management as outlined by general surgery, we will continue with DVT prophylaxis with eliquis, patient is currently on a clear liquid bariatric diet. Patient encouraged to use incentive spirometry and is sitting in a chair increase activity. 2. Hypertension and hypertensive cardiovascular disease. we will continue with Metoprolol ER 50 mg orally at bedtime . 3. Mixed hyperlipidemia. Continue Lipitor 80 mg po daily. 4. Diabetes mellitus type 2 on insulin pump, uncontrolled with hyper and hypoglycemia. Adjustments made to pump settings. Check BGM more frequently. 5. history of CVA . she will need to go back on her plavix when OK with general surgery. 6. history of renal transplant. we will need to resume her Tacrolimus and cellcept. 7. Obstructive sleep apnea. we will continue with CPAP. 8. history of pulmonary embolism. we will need to transition into Xarelto 20 mg orally daily and off Lovenox in 24 hours. Await clearance from surgery to his resume Xarelto. 9. History of CAD post PCI. we will continue with Metoprolol ER 50 mg orally daily and Lipitor 80 mg orally daily. 10. Recurrent depression. we will continue with cynbalta 20 mg orally daily. 11. History of vulvar cancer post surgery. 12. diabetic polyneuropathy. we will continue with Gabapentin 300 mg orally at bedtime. 13. GERD with esophagitis. we will continue with PPI. 14. Bibasilar infiltrate likely related to early pneumonia. Continue patient on Levaquin and Azactam, continue nebulization treatment, continue incentive spirometer, hopefully we will switch her antibiotic to or tomorrow morning and she can go home tomorrow. 14. Mild diastolic heart failure with bilateral pleural effusion. Hep-Lock IV start Lasix 20 mg IV push every 24 hours along with potassium supplement. 15. Keep in hospital for another day.
[2020-05-10] MEDS: FUROSEMIDE 10 MG/ML 2 ML VIAL IV SCH (10:23)
[2020-05-10] MEDS: LEVOFLOXACIN 250 MG TAB PO SCH (10:23)
[2020-05-10] MEDS: POTASSIUM CHLORIDE ER 20 MEQ TAB.ER PO SCH (10:23)
[2020-05-10 11:36] LABS: Glucose,Whole Blood 139 mg/dL (75-99)
--- NOTE | 2020-05-10 11:58 | P.PN ---
Progress Note - Text Progress Note Date: 05/10/20 The patient feels better. She states she is not ready go home. On exam vital signs appear stable. Abdomen soft. Incision sites and intact. Patient will continue receive IV antibiotics. She'll be reevaluated in the a.m.
[2020-05-10 16:49] LABS: Glucose,Whole Blood 101 mg/dL (75-99)
[2020-05-10 20:50] LABS: Glucose,Whole Blood 66 mg/dL (75-99)
[2020-05-10 21:18] LABS: Glucose,Whole Blood 72 mg/dL (75-99)
[2020-05-10] MEDS: ATORVASTATIN 80 MG TAB PO SCH (21:27)
[2020-05-10] MEDS: METOPROLOL SUCCINATE (ER) 50 MG TAB.ER.24H PO SCH (21:27)
[2020-05-10] MEDS: GABAPENTIN 300 MG CAP PO SCH (21:27)
[2020-05-10] MEDS: amLODIPine 10 MG TAB PO SCH (21:27)
[2020-05-10] MEDS: DULoxetine HCL 20 MG CAPSULE.DR PO SCH (21:27)
[2020-05-11 00:50] LABS: Glucose,Whole Blood 66 mg/dL (75-99)
[2020-05-11 01:28] LABS: Glucose,Whole Blood 66 mg/dL (75-99)
[2020-05-11] MEDS ORDERED: DEXTROSE 50% SYRINGE 50 ML IVP STA (01:35)
[2020-05-11 03:30] LABS: Glucose,Whole Blood 153 mg/dL (75-99)
[2020-05-11 07:00] LABS: Glucose,Whole Blood 185 mg/dL (75-99)
[2020-05-11] MEDS: INSULIN ASPART (NovoLOG) 100 UNIT/ML VIAL SQ SCH ×2 (07:27→14:36)
[2020-05-11] MEDS: IPRATROPIUM-ALBUTEROL 3 ML NEB INHALATION SCH ×3 (08:42→15:55)
[2020-05-11] MEDS: LEVOFLOXACIN 250 MG TAB PO SCH (09:27)
[2020-05-11] MEDS: TACROLIMUS 1 MG CAP PO SCH (09:27)
[2020-05-11] MEDS: FUROSEMIDE 10 MG/ML 2 ML VIAL IV SCH (09:27)
[2020-05-11] MEDS: PANTOPRAZOLE 40 MG/10 ML VIAL IV SCH (09:27)
[2020-05-11] MEDS: APIXABAN 5 MG TAB PO SCH (09:27)
[2020-05-11] MEDS: POTASSIUM CHLORIDE ER 20 MEQ TAB.ER PO SCH (09:27)
[2020-05-11 11:34] LABS: Glucose,Whole Blood 169 mg/dL (75-99)
[2020-05-11 14:49] VITALS: BP 168/76; PULSE 69; RESP 16; TEMP 98.6
--- NOTE | 2020-05-11 14:50 | P.PN ---
Subjective Progress Note Date: 05/11/20 This is a 59 year old Cauc[place] female with a previous medical history significant for hypertension and hypertensive cardiovascular disease, hyperlipidemia, diabetes mellitus type 2 on insulin pump, CVA, CAd post PCI and stent placement, history of renal disease post renal transplant and also hitory of vulvar cancer post radiation treatment, patient has struggled with her weight for a long time and finally she decided to go for sleeve gastrectomy that was done successfully by and we were asked to see her for post operative medical management. Patient is lying down in bed in no acute distress, she denies any chest pain or shortness of breath, she has no abdominal pain, nausea or burping she has not passed any gas yet. 05/05: Patient is having difficulty managing her insulin pump as her took her glasses home and she is unable to read the pump. Dr. Benson assisted patient with her pump settings. Patient remains on Lovenox awaiting clearance from general surgery to resume eliquis and Plavix. Patient continues to have Hernandez catheter in place. She denies having any chest pain. She is complaining of abdominal discomfort. She is burping but no bowel movement. Patient complains of nausea intermittently without vomiting. She underwent upper GI this morning that showed moderate delay at the GE junction with eventual complete passage with contrast. No evidence of extravasation. Patient is been afebrile, heart rate 88, blood pressure 122/59, pulse ox 99% on 3 L nasal cannula. Patient was ambulated and ambulatory pulse ox was 95% on room air. No need for home oxygen therapy. 3 BC 15.4, hemoglobin 13.7. Potassium 5.2, BUN 27 and creatinine 1.17. Blood sugars are running between 52 and 321. She is currently on a bariatric clear diet. Discharge plan will be to home. Medication reconciliation reviewed. Patient has been resumed on her anti-rejection medications and etc. 05/06: Patient is seen in follow-up today. She continued to have high blood sugars and insulin NovoLog scale added in addition to her pump. Plan was for Hernandez catheter to be removed today which is still in place. She is on a liquid diet only. She is complaining of left lateral abdominal pain. Pain is there when she deep breathes. She is currently on oxygen at 2 L. She denies any lower extremity edema or calf pain. She has been up been denies any dizziness. Heart rate 92, blood pressure 1 3479, pulse ox 95% on 2 L nasal cannula. Repeat blood work ordered which revealed a normal CBC, electrolytes and renal function normal. AST 53, ALT 61, alk phosphatase 98. Blood sugars are running today 180-194. Chest x-ray was also ordered for today which revealed interstitial de nsity. Correlate for possible mild pulmonary vascular congestion, bronchitis asthma or atypical pneumonias. Difficult to exclude trace effusions. Some patchy atelectasis versus developing infiltrate at the left base. 05/07: Patient has been afebrile, heart rate 90, blood pressure 150/70, pulse ox 94% on room air. Repeat blood work reveals Carla BC 11.8, hemoglobin 13.6 and platelet count 146. CO2 31, creatinine 0.78. Blood sugar running between 85 and 184. Total bilirubin 1.5, AST 55, ALT 72, alkaline phosphatase 105. Pathology report reveals no H. pylori, benign gastric mucosa with minimal chronic gastritis. Pain is currently controlled. Patient has tolerated diet. She is currently on bariatric clear diet. 05/08: CT of the abdomen and pelvis reveals no evidence of microperforation status post gastric sleeve surgery. There is oral contrast seen within all of the distal visualized esophagus with mild haziness of the GE junction. Findings may represent residual postop edema. Small hiatal hernia. Small area of developing tree-in-bud airspace opacities versus atelectasis of the right lung lobe. Short-term follow-up consideration. Patient states she is breathing much better today. Incentive spirometry was reaching 1500 mL. Pain is also improved today. We will resume patient on eliquis. Blood sugars are somewhat high with lunch at 212. Patient is doing self bolus on her insulin pump. PT and OT have evaluated and recommended home. Patient is currently on Levaquin and Azactam. Patient has been afebrile, heart rate 88, blood pressure 140/62, pulse ox 94% on room air. CBC reveals a 132, WBC 8.4, hemoglobin 13.8. Elective lites and renal function normal. Blood sugar running between 155 and 189. Anticipate possible discharge tomorrow. 05/09: Patient is sitting up in bed in no apparent distress she denies any chest pain, shortness breath, she is using her incentive spirometer about her weight, she has no abdominal pain, no nausea or vomiting, reviewed her computed tomography scan yesterday and talked to her about staying in the hospital for another day for IV antibiotic and if she looked as good tomorrow she will be going home tomorrow morning. Patient denies any fever or chills at this time, she is ambulating very well using her walker and she is sitting up in a recliner. 05/10: Patient sitting up in the chair she appears a bit short of breath, her chest x-ray from yesterday showed cardiomegaly with bilateral small pleural effusions, we'll Hep-Lock her IV, start the patient on Lasix 20 mg IV push every 24 hours along with potassium supplement, we will keep her in the hospital for another 24 hours hopefully she will be able to get out of here tomorrow morning I'll switch her IV antibiotic to oral Levaquin at this point in time. 05/11: Patient has been afebrile, heart rate 83, blood pressure 137/69, pulse ox 93% on room air. Patient had a low blood sugar of 66 last night. Breakfast 185 and lunch 169. Patient is managing her own blood sugars on her insulin pump. Patient is feeling better in general. She denies any chest pain or shortness of breath. She is utilizing incentive spirometry. Lasix will be discontinued and patient will be discharged on Levaquin for 7 day course. Patient is cleared for medicine for discharge home today. Objective - Vital Signs Vital signs: Vital Signs Temp 98.5 F 05/11/20 07:00 Pulse 84 05/11/20 08:55 Resp 18 05/11/20 07:00 BP 137/69 05/11/20 07:00 Pulse Ox 93 L 05/11/20 07:00 Intake & Output 05/10/20 05/11/20 05/11/20 18:59 06:59 18:59 Other: Voiding Method Indwelling Catheter Indwelling Catheter # Voids 3 3 - Exam Review of Systems Constitutional: Denies weakness, Denies anorexia, Denies chronic headaches, Denies lethargy. Denies fever, denies chills. Eyes: denies blurred vision, denies bulging eye, denies decreased vision Ears, nose, mouth and throat: Denies dysphagia, Denies sore throat Cardiovascular: Reports decreased exercise tolerance, denies dyspnea on exertion, Denies chest pain, Denies lightheadedness, Denies rapid heart beat, Denies shortness of breath, Denies syncope Respiratory: Reports sleep apnea, Denies congestion, Denies cough, Denies cough with sputum, Denies home oxygen, Denies snoring, Denies wheezing Gastrointestinal: Denies abdominal pain, Denies bloating, Denies BRBPR, Denies excessive gas, Denies heartburn, Denies melena, Denies nausea, Denies vomiting Genitourinary: Denies dysuria, Denies nocturia Musculoskeletal: Denies myalgias Musculoskeletal: absent: ankle pain, ankle stiffness, ankle swelling, elbow pain, elbow stiffness, elbow swelling, foot pain, foot stiffness, foot swelling, hand pain, hand stiffness, hand swelling, hip pain, hip stiffness, hip swelling, knee pain, knee stiffness, knee swelling, shoulder pain, shoulder stiffness, shoulder swelling, wrist pain, wrist stiffness, wrist swelling Integumentary: Denies pruritus, Denies rash Neurological: Reports numbness, Denies weakness Psychiatric: Reports anxiety Endocrine: Denies fatigue, Denies weight change, reports low blood sugars Physical examination: GEN: This is a 59-year-old female. She is resting in bed and appears to be comfortable and in no acute distress. HEENT: head is atraumatic normocephalic pupils were equal round reactive to light and accommodations extra ocular muscle movements were intact, mucous membranes of the mouth are somewhat dry. Neck: supple no JVP. Chest: decrease breath sounds at the bases with no ronchi or expiratory wheezes. No egophony. Heart : first heart sound is depressed, second heart sound is normal there is ISHA 2/6 located at the left sternal border. Abdomen: soft , left lateral tenderness tenderness, stab wounds appeared glued and there was no draiange or erythema, depressed bowel sounds. Hernandez catheter draining clear parker urine. Extremities: there is no edema or calf tenderness, DP +1 bilaterally. Neurologic examinations; patient is awake alert and oriented X 3 CN II- XII are grossly intact muscle power 4/5 in upper and lower extremities bilaterally. - Labs CBC & Chem 7: 05/10/20 06:58 05/10/20 06:58 Labs: Abnormal Lab Results - Last 24 Hours (Table) 08/16/20 08/16/20 08/16/20 Range/Units 16:47 20:48 21:15 POC Glucose (mg/dL) 101 H 66 L 72 L (75-99) mg/dL 05/11/20 05/11/20 05/11/20 Range/Units 00:49 01:25 03:26 POC Glucose (mg/dL) 66 L 66 L 153 H (75-99) mg/dL 05/11/20 05/11/20 Range/Units 06:58 11:32 POC Glucose (mg/dL) 185 H 169 H (75-99) mg/dL Assessment and Plan Plan: 1. S/P Laparascopic sleeve gastrectomy. Continue incentive spirometer to reduce the incidence of atelectasis and health care associated pneumonia, continue with current pain management as outlined by general surgery, we will continue with DVT prophylaxis with eliquis, patient is currently on a clear liquid bariatric diet. Patient encouraged to use incentive spirometry and is sitting in a chair increase activity. 2. Hypertension and hypertensive cardiovascular disease. we will continue with Metoprolol ER 50 mg orally at bedtime . 3. Mixed hyperlipidemia. Continue Lipitor 80 mg po daily. 4. Diabetes mellitus type 2 on insulin pump, uncontrolled with hyper and hypoglycemia. Adjustments made to pump settings. Check BGM more frequently. 5. history of CVA . she will need to go back on her plavix when OK with general surgery. 6. history of renal transplant. we will need to resume her Tacrolimus and cellcept. 7. Obstructive sleep apnea. we will continue with CPAP. 8. history of pulmonary embolism. we will need to transition into Xarelto 20 mg orally daily and off Lovenox in 24 hours. Await clearance from surgery to his resume Xarelto. 9. History of CAD post PCI. we will continue with Metoprolol ER 50 mg orally daily and Lipitor 80 mg orally daily. 10. Recurrent depression. we will continue with cynbalta 20 mg orally daily. 11. History of vulvar cancer post surgery. 12. diabetic polyneuropathy. we will continue with Gabapentin 300 mg orally at bedtime. 13. GERD with esophagitis. we will continue with PPI. 14. Bibasilar infiltrate likely related to early pneumonia. Prescription for Levaquin sent to her pharmacy for seven-day course. 15. Mild diastolic heart failure with bilateral pleural effusion. Hep-Lock IV start Lasix 20 mg IV push every 24 hours along with potassium supplement. Subsequently, Lasix discontinued. No need for Lasix at home. Discharge plan: Home today. Patient is cleared medically for discharge home. Impression and plan of care have been directed as dictated by the signing physician. Kamini Shay nurse practitioner acting as scribe for signing physician.
--- NOTE | 2020-05-11 15:10 | P.DS ---
Providers Date of admission: 05/04/20 10:02 Expected date of discharge: 05/11/20 Attending physician: Gigi Crabtree Consults: 05/04/20 13:59 Consult Physician Routine Consulting Provider: Katina Benson Consult Reason/Comments: Medical management Do you want consulting provider notified?: Yes Primary care physician: Katina Kelley - Discharge Diagnosis(es) (1) Morbid obesity Patient underwent elective sleeve gastrectomy last Monday. Postoperatively the patient was having some shortness of breath. Chest x-ray showed atelectasis versus infiltrate. Patient was started on antibiotics per the hospitalist for a diagnosis of early pneumonia. Patient was having some abdominal pain. CAT scan performed which showed no evidence of leak or hematoma formation. Patient was then started on her home anticoagulation regimen. Remains on clear liquids. Tolerating 60-70 ounces of liquids per day currently. She would like to go home. We'll discharge home with plans for outpatient follow-up later this week. She will also need to follow-up with her primary care physician postdischarge. Current Visit: No Status: Acute Plan - Discharge Summary Discharge Rx Participant: No New Discharge Prescriptions: New bisacodyL [Dulcolax] 5 mg PO DAILY PRN #10 tablet.dr PRN Reason: Constipation Simethicone 40 mg/0.6 ml Drops [Mylicon Drops] 40 mg PO PCHS PRN #30 ml PRN Reason: Gas Hydrocodone/Acetaminophen [[place] 5-325] 1 tab PO Q6HR PRN 3 Days #10 tab PRN Reason: Pain Ondansetron Odt [Zofran Odt] 4 mg PO Q8HR PRN #9 tab PRN Reason: Nausea Levofloxacin [Levaquin] 250 mg PO DAILY #7 tab Continue amLODIPine [Norvasc] 10 mg PO HS Metoprolol Succinate (ER) [Toprol XL] 50 mg PO HS mycophenolate mofetiL [Cellcept] 500 mg PO BID Atorvastatin [Lipitor] 80 mg PO HS #30 tab Nitroglycerin Sl Tabs [Nitrostat] 0.4 mg SUBLINGUAL Q5M PRN #25 tab PRN Reason: Chest Pain Omeprazole [PriLOSEC] 40 mg PO HS Gabapentin [Neurontin] 300 mg PO HS Tacrolimus [Prograf] 1 mg PO BID DULoxetine HCL [Cymbalta] 20 mg PO HS INSULIN LISPRO (For Pump) [humaLOG (For Pump)] 0.01 units SQ-PUMP CONTINUOUS Magnesium 250 mg PO DAILY Cholecalciferol [Vitamin D3 (25 Mcg = 1000 Iu)] 2,000 unit PO DAILY Apixaban [Eliquis] 5 mg PO BID Docusate Sodium [Dok] 200 mg PO DAILY Clopidogrel [Plavix] 75 mg PO HS Cannabidiol (Cbd) [Epidiolex] 1 dose PO DAILY PRN PRN Reason: Pain Multivitamins, Thera [Multivitamin (formulary)] 1 tab PO DAILY Discharge Medication List Metoprolol Succinate (ER) [Toprol XL] 50 mg PO HS 12/12/14 [History] amLODIPine [Norvasc] 10 mg PO HS 12/12/14 [History] mycophenolate mofetiL [Cellcept] 500 mg PO BID 12/12/14 [History] Atorvastatin [Lipitor] 80 mg PO HS #30 tab 12/15/14 [Rx] Nitroglycerin Sl Tabs [Nitrostat] 0.4 mg SUBLINGUAL Q5M PRN #25 tab 12/15/14 [Rx] Gabapentin [Neurontin] 300 mg PO HS 10/23/15 [History] Omeprazole [PriLOSEC] 40 mg PO HS 10/23/15 [History] Tacrolimus [Prograf] 1 mg PO BID 06/06/16 [History] DULoxetine HCL [Cymbalta] 20 mg PO HS 11/10/18 [History] INSULIN LISPRO (For Pump) [humaLOG (For Pump)] 0.01 units SQ-PUMP CONTINUOUS 11/10/18 [History] Apixaban [Eliquis] 5 mg PO BID 11/04/19 [History] Cholecalciferol [Vitamin D3 (25 Mcg = 1000 Iu)] 2,000 unit PO DAILY 11/04/19 [History] Clopidogrel [Plavix] 75 mg PO HS 11/04/19 [History] Docusate Sodium [Dok] 200 mg PO DAILY 11/04/19 [History] Magnesium 250 mg PO DAILY 11/04/19 [History] Cannabidiol (Cbd) [Epidiolex] 1 dose PO DAILY PRN 12/02/19 [History] Multivitamins, Thera [Multivitamin (formulary)] 1 tab PO DAILY 04/28/20 [Hist ory] Hydrocodone/Acetaminophen [[place] 5-325] 1 tab PO Q6HR PRN 3 Days #10 tab 05/08/20 [Rx] Ondansetron Odt [Zofran Odt] 4 mg PO Q8HR PRN #9 tab 05/08/20 [Rx] Simethicone 40 mg/0.6 ml Drops [Mylicon Drops] 40 mg PO PCHS PRN #30 ml 05/08/20 [Rx] bisacodyL [Dulcolax] 5 mg PO DAILY PRN #10 tablet.dr 05/08/20 [Rx] Levofloxacin [Levaquin] 250 mg PO DAILY #7 tab 05/11/20 [Rx] Follow up Appointment(s)/Referral(s): Katina Benson MD [Primary Care Provider[facility] [place] - 05/12/20 Discharge Disposition: HOME SELF-CARE
== END 2020-05-11 16:51 | disposition home or self-care (01) | DRG 619 ==
LOC: 2ORMAIN 10:02 → 4SSUR 16:33
PROVIDERS: ADMIT Surgery; ATTEND Surgery
PROC: 0DB64Z3 Excision of Stomach, Percutaneous Endoscopic Approach, Vertical (ICD-10-PCS; principal; 2020-05-04 11:30)
DX: E66.01 Morbid (severe) obesity due to excess calories (principal); J18.9 Pneumonia, unspecified organism; F33.9 Major depressive disorder, recurrent, unspecified; Z94.0 Kidney transplant status; I50.30 Unspecified diastolic (congestive) heart failure; Z96.41 Presence of insulin pump (external) (internal); I25.10 Atherosclerotic heart disease of native coronary artery without angina pectoris; G47.33 Obstructive sleep apnea (adult) (pediatric); E78.2 Mixed hyperlipidemia; K21.9 Gastro-esophageal reflux disease without esophagitis; E11.42 Type 2 diabetes mellitus with diabetic polyneuropathy; K21.0 Gastro-esophageal reflux disease with esophagitis; Z79.4 Long term (current) use of insulin; E11.43 Type 2 diabetes mellitus with diabetic autonomic (poly)neuropathy; I48.91 Unspecified atrial fibrillation; K44.9 Diaphragmatic hernia without obstruction or gangrene; K31.84 Gastroparesis; I11.0 Hypertensive heart disease with heart failure; Z87.891 Personal history of nicotine dependence; Z95.5 Presence of coronary angioplasty implant and graft; Z99.81 Dependence on supplemental oxygen; Z86.73 Personal history of transient ischemic attack (TIA), and cerebral infarction without residual deficits; Z86.711 Personal history of pulmonary embolism; Z85.828 Personal history of other malignant neoplasm of skin; Z85.44 Personal history of malignant neoplasm of other female genital organs; Z83.3 Family history of diabetes mellitus; Z82.49 Family history of ischemic heart disease and other diseases of the circulatory system; Z79.899 Other long term (current) drug therapy; Z79.01 Long term (current) use of anticoagulants; I25.2 Old myocardial infarction; Z90.49 Acquired absence of other specified parts of digestive tract; Z98.891 History of uterine scar from previous surgery; Z98.51 Tubal ligation status; Z88.0 Allergy status to penicillin; Z88.8 Allergy status to other drugs, medicaments and biological substances; Z91.011 Allergy to milk products; Z87.01 Personal history of pneumonia (recurrent)
CPT/HCPCS: 71045; 71046; 74176; 74240; 80048; 80051; 80053; 82310; 82565; 83735; 84100; 84520; 85025; 85027; 88307; 94640; 94760; 94762

== ENCOUNTER → 2020-05-15 | Outpatient (CLI) | payer MEDICARE ==
[2020-05-15 10:23] VITALS: BP 108/73; PULSE 76; RESP 16; TEMP 97.7; BMI 39.0
--- NOTE | 2020-06-02 14:04 | P.BASOAP ---
Subjective Progress Note Date: 06/02/20 Principal diagnosis: Morbid obesity Patient returns after recent sleeve gastrectomy. Patient complaining of mild nausea. Tolerating liquids. No significant vomiting. No significant pain currently. Weight and vital signs reviewed. Objective - Vital Signs Vital signs: Vital Signs Temp 97.7 F 05/15/20 10:20 Pulse 76 05/15/20 10:20 Resp 16 05/15/20 10:20 BP 108/73 05/15/20 10:20 Pulse Ox - Exam Abdomen: Soft, nondistended, incisions clean and dry Assessment/Plan (1) Morbid obesity Narrative/Plan: Patient doing fairly well after recent sleep gastrectomy. Continues to monitor her fluid intake. Gradually increase activity level. Return visit 1-2 weeks. Plan: Date: 05/15/20 Initial Weight: 90.407 kg Initial BMI: 40.9 Current Weight: 86.183 kg Current BMI: 39.0 Type of Surgery: Total Volume in Band: Previous Volume: Volume Removed: Volume Added: Band Size:
== END | disposition home or self-care (01) ==
LOC: BARWHC3 10:04
PROVIDERS: ATTEND Surgery
DX: E66.01 Morbid (severe) obesity due to excess calories (principal); Z68.39 Body mass index [BMI] 39.0-39.9, adult; Z98.84 Bariatric surgery status
CPT/HCPCS: 99211

== ENCOUNTER → 2020-05-26 | Outpatient (CLI) | payer MEDICARE ==
[~2020-05-26] MED LIST changes: -DEXAMETHASONE SOD PHOSPHATE 10 MG/ML 1 ML VIAL IV ONE; -LIDOCAINE 1% (10MG/ML) FOR IV START INTRADERMA PRN; +SODIUM CHLORIDE 0.9% 1,000 ML IV ONE; -fentaNYL (PF) 50 MCG/ML 2 ML AMP IV PRN; -fentaNYL (PF) 50 MCG/ML 2 ML AMP IVP PRN
--- NOTE | 2020-05-26 16:06 | P.BASOAP ---
Subjective Progress Note Date: 05/26/20 Principal diagnosis: Morbid obesity Patient returns today for reevaluation. She feels weak at this time. She says she has been having intermittent problems getting enough liquids and protein in. Today she says she has had less than 10 ounces. Patient does have a history of kidney transplantation. Remains on her antihypertensives. Systolic blood pressure in the 1 teens today. Some fatigue. Urine was somewhat darker today. Feels nauseous and full after small amounts of liquids. Says she had outpatient labs 1 week ago. Objective - Exam Abdomen: Soft, nontender, nondistended, incisions clean and dry Assessment/Plan (1) Morbid obesity Narrative/Plan: Patient once again having issues with adequate self hydration. Patient seems to be somewhat confused about the amount of liquid she should be drinking and states she was still holding off on drinking after her meal time despite inadequate fluid intake. This was once again discussed in detail with the federico ramirez. At this time we'll send to our procedures for fluid hydration. 2 L will be provided. We'll check CBC and BMP. I encouraged the patient to contact her primary care physician to discuss decreasing her antihypertensive medications. We will also return to their office. Continue antiacid therapy. Follow-up 3 weeks. Plan: Date: Initial Weight: 90.407 kg Initial BMI: Current Weight: Current BMI: Type of Surgery: Total Volume in Band: Previous Volume: Volume Removed: Volume Added: Band Size:
[2020-05-26 16:31] VITALS: BP 116/79; PULSE 63; RESP 16; TEMP 97.7; BMI 38.2
[2020-05-26 17:10] LABS: Basophils # (A) 0.1 k/uL (0-0.2); Basophils % (A) 2 %; Eosinophils # (A) 0.2 k/uL (0-0.7); Eosinophils % (A) 4 %; HCT 49.1 % (34.0-46.0); HGB 15.3 gm/dL (11.4-16.0); Hypochromasia Slight; Lymphocytes # (A) 1.3 k/uL (1.0-4.8); Lymphocytes % (A) 26 %; MCH 28.9 pg (25.0-35.0); MCHC 31.1 g/dL (31.0-37.0); Mean Platelet Volume 10.3; Monocytes # (A) 0.3 k/uL (0-1.0); Monocytes % (A) 6 %; Neutrophils # (A) 2.9 k/uL (1.3-7.7); Neutrophils % (A) 60 %; Platelet Count 156 k/uL (150-450); RBC 5.28 m/uL (3.80-5.40); RDW 13.7 % (11.5-15.5); WBC 4.9 k/uL (3.8-10.6)
[2020-05-26 17:17] LABS: Calcium 9.6 mg/dL (8.4-10.2); Potassium 4.1 mmol/L (3.5-5.1)
== END | disposition home or self-care (01) ==
LOC: BARWHC3 15:05
PROVIDERS: ATTEND Surgery
DX: E86.0 Dehydration (principal); E66.01 Morbid (severe) obesity due to excess calories
CPT/HCPCS: 96360; 96361; 80048; 85025; G0463; 99211

== ENCOUNTER → 2020-06-10 | Outpatient (CLI) | payer MEDICARE ==
--- NOTE | 2020-06-10 13:52 | FL ---
EXAMINATION TYPE: FL barium swallow DATE OF EXAM: 06/10/2020 COMPARISON: 08/14/2020 HISTORY: Status post gastric sleeve, continued dysphasia TECHNIQUE: Single contrast technique is utilized to evaluate the distal esophagus and the stomach. FINDINGS: Esophagus dilates to normal caliber has normal contour to the gastroesophageal junction. Ga stroesophageal junction opens to normal caliber. Tertiary contractions are evident. There is slight h esitancy for complete passage of contrast. No extravasation of contrast is evident. Stomach appears well visualized. Significant hesitancy of dr rojas into the stomach is not evident. Ligament of Treitz is in normal position. Duodenum dilates to no rmal caliber. IMPRESSION: 1. Presbyesophagus with slight hesitancy of complete emptying of the distal esophagus and stomach.
== END | disposition home or self-care (01) ==
LOC: RADUSWWP 10:01
PROVIDERS: ATTEND Surgery
DX: K22.8 Other specified diseases of esophagus (principal); Z88.0 Allergy status to penicillin; Z91.011 Allergy to milk products
CPT/HCPCS: 74220

== ENCOUNTER → 2020-06-12 | Outpatient (CLI) | payer MEDICARE ==
[2020-06-12 12:25] LABS: Basophils # (A) 0.1 k/uL (0-0.2); Basophils % (A) 1 %; Eosinophils # (A) 0.2 k/uL (0-0.7); Eosinophils % (A) 4 %; HCT 47.1 % (34.0-46.0); HGB 14.7 gm/dL (11.4-16.0); Lymphocytes # (A) 1.1 k/uL (1.0-4.8); Lymphocytes % (A) 24 %; MCH 28.9 pg (25.0-35.0); MCHC 31.3 g/dL (31.0-37.0); MCV 92.5 fL (80.0-100.0); Mean Platelet Volume 10.1; Monocytes # (A) 0.3 k/uL (0-1.0); Monocytes % (A) 7 %; Neutrophils # (A) 2.8 k/uL (1.3-7.7); Neutrophils % (A) 62 %; Platelet Count 143 k/uL (150-450); RDW 13.7 % (11.5-15.5); WBC 4.5 k/uL (3.8-10.6)
[2020-06-12 12:33] LABS: Appearance,Urine Clear (Clear); Bilirubin,Urine Negative (Negative); Blood,Urine Negative (Negative); Color,Urine Yellow; Glucose,Urine (UA) 4+ (Negative); Ketones,Urine 1+ (Negative); Leukocyte Esterase,Urine Negative (Negative); Nitrite,Urine Negative (Negative); Protein,Urine Negative (Negative); Specific Gravity,Urine 1.021 (1.001-1.035); Urobilinogen,Urine <2.0 mg/dL (<2.0)
[2020-06-12 13:22] LABS: Protein/Creatinine Ratio,Urine 0.115
[2020-06-12 20:32] LABS: % Iron Saturation 30.13 (12.00-45.00); African American GFR (CKD) 64.5 (60.0-200.0); Albumin 3.2 g/dL (3.80-4.90); Calcium 9.1 mg/dL (8.7-10.3); Magnesium 1.5 mg/dL (1.5-2.4); Non-African American GFR(CKD) 55.7 (60.0-200.0); Phosphorus 2.7 mg/dL (2.4-5.1); Potassium 4.4 mmol/L (3.5-5.5); Uric Acid 6.1 mg/dL (2.9-7.7)
[2020-06-12 20:42] LABS: Ferritin 158.6 ng/mL (10.0-291.0)
== END | disposition home or self-care (01) ==
LOC: LABWHC1 10:49
PROVIDERS: ATTEND Nurse Practitioner Family
DX: E55.9 Vitamin D deficiency, unspecified (principal); N25.81 Secondary hyperparathyroidism of renal origin; Z94.0 Kidney transplant status; R80.9 Proteinuria, unspecified; N18.3 Chronic kidney disease, stage 3 (moderate); D63.1 Anemia in chronic kidney disease; N39.0 Urinary tract infection, site not specified; M10.9 Gout, unspecified
CPT/HCPCS: 36415; 80048; 80197; 81003; 82040; 82306; 82570; 82728; 83540; 83550; 83735; 83970; 84100; 84156; 84550; 85025

== ENCOUNTER → 2020-06-16 | Outpatient (CLI) | payer MEDICARE ==
[2020-06-16 15:36] VITALS: BP 113/77; PULSE 84; RESP 16; TEMP 97.7; BMI 37.8
--- NOTE | 2020-06-16 17:29 | P.BASOAP ---
Subjective Progress Note Date: 06/16/20 Principal diagnosis: Morbid obesity Patient returns to the clinic today. Her dysphagia, nausea, vomiting, reflux has improved. She did have an esophagram showing presbyesophagus without definite obstruction. Weight has stayed about the same. Taking an approximately 30 ounces of liquids per day and about 20 g of protein per day. She has been taking Reglan intermittently. Recent labs from her primary care physician reviewed. Objective - Vital Signs Vital signs: Vital Signs Temp 97.7 F 06/16/20 15:33 Pulse 84 06/16/20 15:33 Resp 16 06/16/20 15:33 BP 113/77 06/16/20 15:33 Pulse Ox Intake & Output 06/15/20 06/16/20 06/16/20 18:59 06:59 18:59 Weight 83.461 kg - Exam Abdomen: Soft, nontender, nondistended, incisions clean dry Assessment/Plan (1) Morbid obesity Narrative/Plan: Overall patient slowly improving. Continue to encourage increasing liquid and protein intake. Increase physical activity at this time as well. Plan recheck 4 weeks. Plan: Date: 06/16/20 Initial Weight: 90.407 kg Initial BMI: 40.9 Current Weight: 83.461 kg Current BMI: 37.8 Type of Surgery: Vertical Sleeve Gastrectomy Total Volume in Band: Previous Volume: Volume Removed: Volume Added: Band Size:
== END | disposition home or self-care (01) ==
LOC: BARWHC3 14:56
PROVIDERS: ATTEND Surgery
DX: E66.01 Morbid (severe) obesity due to excess calories (principal); Z68.37 Body mass index [BMI] 37.0-37.9, adult
CPT/HCPCS: 97803; G0463; 99211

== ENCOUNTER → 2020-08-04 | Outpatient (CLI) | payer MEDICARE ==
--- NOTE | 2020-08-04 15:44 | P.BASOAP ---
Subjective Progress Note Date: 08/04/20 Principal diagnosis: Morbid obesity Patient returns for reevaluation. Last seen 06/16. Doing better with her intake. 75-100 ounces of liquids. Approximately 50 g of protein per day. Still with intermittent episodes of nausea. Last episode of vomiting 2 weeks ago. Still taking Reglan once daily prior to dinner. States she used to take this for her gastroparesis. Still taking Prilosec and some [id number] Tums. She is here today with her sister. She has lost 7 pounds since her last visit. Her sister states her mobility has been somewhat decreased since her sleeve gastrectomy and some noticeable difference in her gait. Patient has seen a neurologist before for her previous CVAs. No recent neuro eval. Objective - Exam Abdomen: Soft, nontender, nondistended Assessment/Plan (1) Morbid obesity Narrative/Plan: Patient gradually improving from a sleeve gastrectomy point of view. Her protein and liquid intake Definitely improved. She still is fatigued. Per the sister there has been some noticeable gait issues. She would like to hold off on seeing neurology again at this time but is willing to see the neurologist if there is no improvement in the next several weeks. We will check three-month labs at this time. Follow-up 4-6 weeks. Patient declines dietary evaluation. Plan: Date: Initial Weight: 90.407 kg Initial BMI: Current Weight: Current BMI: Type of Surgery: Total Volume in Band: Previous Volume: Volume Removed: Volume Added: Band Size:
[2020-08-04 15:52] VITALS: BP 118/78; PULSE 79; TEMP 98; BMI 36.3
[2020-08-04 16:33] LABS: HCT 42.1 % (34.0-46.0); MCHC 33.2 g/dL (31.0-37.0); MCV 93.3 fL (80.0-100.0); Mean Platelet Volume 9.8; Platelet Count 136 k/uL (150-450); RBC 4.51 m/uL (3.80-5.40); RDW 13.5 % (11.5-15.5); WBC 4.8 k/uL (3.8-10.6)
[2020-08-05 02:54] LABS: African American GFR (CKD) 58.1 (60.0-200.0); Albumin 3.2 g/dL (3.80-4.90); Albumin/Globulin Ratio 1.39 (1.60-3.17); Anion Gap 7.8 mmol/L (4.00-12.00); BUN/Creat Ratio 13.33 Ratio (12.00-20.00); Calcium 9.3 mg/dL (8.7-10.3); Carbon Dioxide 28.2 mmol/L (21.6-31.8); Globulin 2.3 g/dL (1.6-3.3); Non-African American GFR(CKD) 50.1 (60.0-200.0); Potassium 3.9 mmol/L (3.5-5.5); Total Bilirubin 1.1 mg/dL (0.2-1.2); Total Protein 5.5 g/dL (6.2-8.2)
[2020-08-05 08:44] LABS: Folate, Serum 7.2 ng/mL
== END | disposition home or self-care (01) ==
LOC: BARWHC3 14:57
PROVIDERS: ATTEND Surgery
DX: E66.01 Morbid (severe) obesity due to excess calories (principal); Z68.36 Body mass index [BMI] 36.0-36.9, adult
CPT/HCPCS: 84425; 80053; 82607; 82746; 83540; 85027; 82306; G0463; 99211

== ENCOUNTER → 2020-09-15 | Outpatient (CLI) | payer MEDICARE ==
[2020-09-15 15:16] VITALS: PULSE 85; TEMP 98.2; BMI 34.9
[2020-09-15 15:20] VITALS: BP 129/84
--- NOTE | 2020-09-15 16:33 | P.BASOAP ---
Subjective Progress Note Date: 09/15/20 Principal diagnosis: Morbid obesity Patient returns today for recheck. Her sister was not able to make it today. She was last seen 08/04. Patient had lab work done at that time. Still having some issues with her gait. Had 1 episode of near syncope with a fall associated with dizziness a few weeks ago. Symptoms improved recently. She did stop one of her blood pressure medications recently. Patient is using a cane often now. Recent labs look good. Still has mild dysphagia at times. Mild retrosternal burning at times but frequency is decreasing. Objective - Vital Signs Vital signs: Vital Signs Temp 98.2 F 09/15/20 15:13 Pulse 85 09/15/20 15:13 Resp BP 129/84 09/15/20 15:13 Pulse Ox Intake & Output 09/14/20 09/15/20 09/15/20 18:59 06:59 18:59 Weight 75.75 kg - Exam Abdomen: Soft, nontender, nondistended Assessment/Plan (1) Morbid obesity Narrative/Plan: Patient overall doing well. Continue dietary and exercise regimen. Return visit 4-6 weeks. Continue to monitor mobility. Patient will reconsider appointment with neurology since her recent labs were normal including thiamine. Plan: Date: 09/15/20 Initial Weight: 90.407 kg Initial BMI: 41.6 Current Weight: 75.75 kg Current BMI: 34.9 Type of Surgery: Total Volume in Band: Previous Volume: Volume Removed: Volume Added: Band Size:
== END | disposition home or self-care (01) ==
LOC: BARWHC3 14:53
PROVIDERS: ATTEND Surgery
DX: E66.01 Morbid (severe) obesity due to excess calories (principal); Z68.34 Body mass index [BMI] 34.0-34.9, adult
CPT/HCPCS: 99211

== ENCOUNTER → 2020-10-01 | Outpatient (CLI) | payer MEDICARE ==
--- NOTE | 2020-10-05 09:30 | MM ---
Reason for exam: screening (asymptomatic). Last mammogram was performed 2 years and 10 months ago. History: Patient is postmenopausal and has history of other cancer at age 51. Family history of breast cancer in 4 paternal cousins. Physical Findings: A clinical breast exam by your physician is recommended on an annual basis and results should be correlated with mammographic findings. MG 3D Screening Mammo W/Cad Bilateral CC and MLO view(s) were taken. Prior study comparison: November 24, 2017, mammogram, performed at [facility]. The breast tissue is heterogeneously dense. This may lower the sensitivity of mammography. There are benign appearing round, linear, vascular calcifications bilaterally. There is no discrete abnormality. ASSESSMENT: Benign, BI-RAD 2 RECOMMENDATION: Routine screening mammogram of both breasts in 1 year.
== END | disposition home or self-care (01) ==
LOC: RADMAMWWP 15:19
PROVIDERS: ATTEND Internal Medicine Nephrology
DX: Z12.31 Encounter for screening mammogram for malignant neoplasm of breast (principal)
CPT/HCPCS: 77063; 77067

== ENCOUNTER → 2020-10-27 | Outpatient (CLI) | payer MEDICARE ==
--- NOTE | 2020-10-27 15:48 | P.BASOAP ---
Subjective Progress Note Date: 10/27/20 Principal diagnosis: Morbid obesity Patient returns for recheck. Has lost 8 pounds since August. Did not see her neurologist. Also hasn't seen her primary care physician for the last few months. Gait is stable. Still using a cane. Lately he has had some increased diarrhea. Still taking stool softeners intermittently however. No abdominal pain. No nausea or vomiting. Still taking antiacids. No reflux. Objective - Exam Abdomen: Soft, nontender, nondistended Assessment/Plan (1) Morbid obesity Narrative/Plan: Patient doing well at this time. Check 6 month labs. Continue antiacid therapy. Monitor stool habits. Consider intermittent Imodium use. Patient agrees that she will follow-up with her primary care physician to discuss her recent gait issues further. Follow-up 8 weeks. Plan: Date: Initial Weight: 90.407 kg Initial BMI: Current Weight: Current BMI: Type of Surgery: Total Volume in Band: Previous Volume: Volume Removed: Volume Added: Band Size:
[2020-10-27 15:52] VITALS: BP 164/97; PULSE 109; RESP 16; TEMP 98.4; BMI 32.6
== END | disposition home or self-care (01) ==
LOC: BARWHC3 15:02
PROVIDERS: ATTEND Surgery
DX: Z48.815 Encounter for surgical aftercare following surgery on the digestive system (principal); E66.01 Morbid (severe) obesity due to excess calories; Z68.32 Body mass index [BMI] 32.0-32.9, adult; Z98.84 Bariatric surgery status
CPT/HCPCS: 99211

== ENCOUNTER → 2021-01-05 | Outpatient (CLI) | payer MEDICARE ==
[2021-01-05 15:46] VITALS: BP 154/76; PULSE 70; TEMP 97.6; BMI 30.8
--- NOTE | 2021-01-05 16:24 | P.BASOAP ---
Subjective Progress Note Date: 01/05/21 Principal diagnosis: Morbid obesity Patient returns today. Was last seen in October. Has done well. She finally did see neurology. She is undergoing workup for her gait disturbance. She is now using a walker but states there has been no worsening of her symptoms. She has lost 9 pounds since her last visit. No significant diarrhea currently. Remains on antiacids. No reflux. She had her labs checked at [facility]. Objective - Vital Signs Vital signs: Vital Signs Temp 97.6 F 01/05/21 15:44 Pulse 70 01/05/21 15:44 Resp BP 154/76 01/05/21 15:44 Pulse Ox Intake & Output 01/04/21 01/05/21 01/05/21 18:59 06:59 18:59 Weight 68.039 kg - Exam Abdomen: Soft, nontender, nondistended Assessment/Plan (1) Morbid obesity Narrative/Plan: Patient overall doing well. Continue antiacid therapy. Continue neurology workup. We'll try to obtain labs from [facility]. Follow-up 3 months. Plan: Date: 01/05/21 Initial Weight: 90.407 kg Initial BMI: 40.9 Current Weight: 68.039 kg Current BMI: 30.8 Type of Surgery: Total Volume in Band: Previous Volume: Volume Removed: Volume Added: Band Size:
== END ==
LOC: BARWHC3 15:03
PROVIDERS: ATTEND Surgery
DX: E66.01 Morbid (severe) obesity due to excess calories (principal); Z68.30 Body mass index [BMI] 30.0-30.9, adult
CPT/HCPCS: 99211

== ENCOUNTER → 2021-06-01 | Outpatient (CLI) | payer MEDICARE ==
--- NOTE | 2021-06-02 07:25 | XR ---
EXAMINATION TYPE: XR lumbar spine 2 or 3V DATE OF EXAM: 06/01/2021 CLINICAL HISTORY: pain TECHNIQUE: Three views of the lumbar spine are submitted. COMPARISON: None. FINDINGS: There are 5 lumbar type vertebral bodies identified. There is mild loss of height involving the super ior endplate of L2 which is of uncertain age and/or etiology. Please note there appears to be a trans itional S1 vertebral segment. Mild scattered degenerative disc space narrowing and spondylosis. Facet joint arthropathy lower lumbar spine. The overlying soft tissue appears unremarkable. IMPRESSION: There is mild loss of height involving the superior endplate of L2 which is of uncertain age and/or e tiology.
== END | disposition home or self-care (01) ==
LOC: RADXRMAIN 17:26
PROVIDERS: ATTEND Internal Medicine
DX: M51.36 Other intervertebral disc degeneration, lumbar region (principal)
CPT/HCPCS: 72100

== ENCOUNTER → 2021-07-06 | Outpatient (CLI) | payer MEDICARE ==
[2021-07-06 15:42] VITALS: BP 112/73; PULSE 80; RESP 16; TEMP 97.5; BMI 26.4
--- NOTE | 2021-07-06 16:06 | P.BASOAP ---
Subjective Progress Note Date: 07/06/21 Principal diagnosis: Morbid obesity Patient returns for evaluation. Still having gait-related issues. Neurology apparently believes this is related to neuropathy causing an imbalance issue. Unfortunately the symptoms have progressed slightly. She is walking with a walker at this time. She has done well with her weight loss. She is due for 1 labs. Weight is down to 129 at this time. She has lost 21 pound since her last visit in December. Minimal reflux symptoms remains on antiacids. Patient does have some intermittent fecal incontinence with diarrhea at times. Objective - Vital Signs Vital signs: Vital Signs Temp 97.5 F L 07/06/21 15:38 Pulse 80 07/06/21 15:38 Resp 16 07/06/21 15:38 BP 112/73 07/06/21 15:38 Pulse Ox Intake & Output 07/05/21 07/06/21 07/06/21 18:59 06:59 18:59 Weight 58.513 kg - Exam Abdomen: Soft, nontender, nondistended Assessment/Plan (1) Morbid obesity Narrative/Plan: Overall patient is doing fairly well. Unfortunately her ambulation is inhibited by her balance issues. We'll check 1 labs at this time. Follow-up 6 months. Encourage patient's family to accompany her to her next urology appointment. Plan: Date: 07/06/21 Initial Weight: 90.407 kg Initial BMI: 40.9 Current Weight: 58.513 kg Current BMI: 26.4 Type of Surgery: Total Volume in Band: Previous Volume: Volume Removed: Volume Added: Band Size:
== END ==
LOC: BARWHC3 15:06
PROVIDERS: ATTEND Surgery
DX: E66.01 Morbid (severe) obesity due to excess calories (principal); R26.9 Unspecified abnormalities of gait and mobility; Z68.26 Body mass index [BMI] 26.0-26.9, adult; Z88.0 Allergy status to penicillin; Z88.1 Allergy status to other antibiotic agents; Z88.8 Allergy status to other drugs, medicaments and biological substances; Z91.011 Allergy to milk products; Z87.891 Personal history of nicotine dependence
CPT/HCPCS: 99211

== ENCOUNTER 2021-09-10 15:15 | Inpatient (IN) | payer MEDICARE ==
[2021-09-10] MEDS ORDERED: SODIUM CHLORIDE 0.9% 1,000 ML IV STA (15:20)
[2021-09-10] MEDS ORDERED: NALOXONE 0.4 MG/ML 1 ML VIAL IVP STA (15:22)
--- NOTE | 2021-09-10 15:32 | ED ---
General Adult HPI - General Chief complaint: Altered Mental Status Stated complaint: Unresponsive Time Seen by Provider: 09/10/21 15:19 Source: EMS Mode of arrival: EMS Limitations: altered mental status - History of Present Illness Initial comments: Patient brought to the ED by EMS for evaluation. Per EMS, the patient's found the patient unresponsive this afternoon. Per EMS, the patient's felt that the patient's blood sugar may have been low, so he gave the patient a dose of glucagon, but the patient's condition did not improve, so he called 911. Per EMS, the patient's blood glucose was in the 500s on their check. Per EMS, the patient was last seen normal at some point last night, but they are unaware of an exact time. Per EMS, the patient has been opening her eyes and moving her extremities, but she has not been verbally responsive. Patient is not responding to any of my questions at this time. No other history is available at this time. Code stroke was activated on the patient's arrival to the ED. - Related Data Home Medications Medication Instructions Recorded Confirmed amLODIPine [Norvasc] 10 mg PO DAILY 12/12/14 09/10/21 mycophenolate mofetiL [Cellcept] 500 mg PO BID 12/12/14 09/10/21 Gabapentin [Neurontin] 300 mg PO HS 10/23/15 09/10/21 Omeprazole [PriLOSEC] 40 mg PO AC-BRKFST 10/23/15 09/10/21 Tacrolimus [Prograf] 1 mg PO BID 06/06/16 09/10/21 DULoxetine HCL [Cymbalta] 20 mg PO DAILY 11/10/18 09/10/21 Apixaban [Eliquis] 5 mg PO BID 11/04/19 09/10/21 Clopidogrel [Plavix] 75 mg PO DAILY 11/04/19 09/10/21 Atorvastatin [Lipitor] 80 mg PO DAILY 09/10/21 09/10/21 Metoclopramide [Reglan] 5 mg PO DAILY 09/10/21 09/10/21 Metoprolol Succinate (ER) [Toprol 25 mg PO DAILY 09/10/21 09/10/21 Xl] Unknown Insulin (For Pump) 0.01 units SQ-PUMP CONTINUOUS 09/10/21 09/10/21 calcitrioL [Calcitriol] 0.5 mcg PO [facility] 09/10/21 09/10/21 calcitrioL [Calcitriol] 1 mcg PO MOWEFR 09/10/21 09/10/21 Previous Rx's Medication Instructions Recorded Nitroglycerin Sl Tabs [Nitrostat] 0.4 mg SUBLINGUAL Q5M PRN #25 tab 12/15/14 Allergies Allergy/AdvReac Type Severity Reaction Status Date / Time Milk Containing Products Allergy Diarrhea Verified 09/10/21 15:54 [Dairy] Penicillins Allergy Rash/Hives Verified 09/10/21 15:54 trandolapril [From [facility]] Allergy SEVERE Verified 09/10/21 15:54 HYPOTENSION verapamil HCl [From [facility]] Allergy SEVERE Verified 09/10/21 15:54 HYPOTENSION Review of Systems ROS Statement: Those systems with pertinent positive or pertinent negative responses have been documented in the HPI. ROS Other: All systems not noted in ROS Statement are negative. Limitations: ROS unobtainable due to patients medical condition Past Medical History Past Medical History: Blood Disorder, Coronary Artery Disease (CAD), Cancer, CVA/TIA, Diabetes Mellitus, Dialysis, GERD/Reflux, Hyperlipidemia, Hypertension, Myocardial Infarction (non Q-wave), Osteoarthritis (OA), Pneumonia, Pulmonary Embolus (PE), Renal Disease, Sleep Apnea/CPAP/BIPAP, Thyroid Disorder Additional Past Medical History / Comment(s): Leiden Factor V, basal cell carcinoma, Vulvar cancer, CVA 2016, CVA 2014, CVA 2017 est - sl weakness Lt side, Dialysis 2001 for 2 months, enlarged thyroid w/ nodules. PE 2011, Kidney transplant 2001. No tx for sleep apnea. Neuropathy in feet/legs. Last Myocardial Infarction Date:: 2014 History of Any Multi-Drug Resistant Organisms: None Reported Past Surgical History: Bariatric Surgery, Section, Cholecystectomy, Heart Catheterization, Heart Catheterization With Stent, Tonsillectomy, Tubal Ligation Additional Past Surgical History / Comment(s): jose oophrectomy, kidney transplant, surgery to remove CA. PTCA w/ Stent 2001, 2014. Colonoscopy, EGD.Gastric Sleeve 05/04/20. Past Anesthesia/Blood Transfusion Reactions: No Reported Reaction, Motion Sickness Additional Past Anesthesia/Blood Transfusion Reaction / Comment(s): no hx blood transfusion Date of Last Stent Placement:: 2014 Past Psychological History: Depression Smoking Status: Never smoker Past Alcohol Use History: None Reported Past Drug Use History: None Reported - Past Family History Sister(s) Family Medical History: Hypertension Father Family Medical History: Myocardial Infarction ([place]) Mother Family Medical History: Pulmonary Embolus Additional Family Medical History / Comment(s): Occluded carotid artery, carotid endartectomy Son(s) Family Medical History: Diabetes Mellitus Additional Family Medical History / Comment(s): DM type 1 General Exam Limitations: altered mental status General appearance: other (Patient's eyes are open, patient is moving all 4 extremities spontaneously, patient has no verbal response, GCS = 10) Head exam: Present: atraumatic, normocephalic Eye exam: Present: normal appearance, PERRL, other (Pupils are sluggishly reactive bilaterally) ENT exam: Present: mucous membranes dry, TM's normal bilaterally Neck exam: Present: other (Trachea is in midline). Absent: meningismus Respiratory exam: Present: normal lung sounds bilaterally. Absent: respiratory distress, wheezes, rales, rhonchi, stridor Cardiovascular Exam: Present: regular rate, normal rhythm, normal heart sounds, other (Normal radial pulses bilaterally) GI/Abdominal exam: Present: soft. Absent: distended, tenderness, guarding Extremities exam: Absent: pedal edema Back exam: Present: normal inspection Neurological exam: Present: other (Patient's eyes are open; patient is moving all 4 extremities spontaneously; patient localizes to pain in all 4 extremity; GCS = 10) Skin exam: Present: warm, dry, intact, normal color Course Vital Signs 09/10/21 09/10/21 09/10/21 15:20 15:25 15:30 Temperature Pulse Rate 98 98 100 Respiratory 18 18 16 Rate Blood Pressure 103/43 103/43 100/53 O2 Sat by Pulse 100 100 100 Oximetry 09/10/21 09/10/21 09/10/21 15:33 15:45 16:00 Temperature Pulse Rate 97 99 97 Respiratory 16 16 17 Rate Blood Pressure 103/53 114/44 85/35 O2 Sat by Pulse 99 100 100 Oximetry 09/10/21 09/10/21 09/10/21 16:15 16:38 16:45 Temperature 92.8 F L Pulse Rate 98 Respiratory 16 18 Rate Blood Pressure 92/64 91/37 O2 Sat by Pulse 100 100 Oximetry 09/10/21 09/10/21 09/10/21 16:46 17:00 17:15 Temperature 93.0 F L 93.0 F L Pulse Rate 98 98 99 Respiratory 16 18 17 Rate Blood Pressure 91/37 105/55 95/46 O2 Sat by Pulse 98 99 100 Oximetry 09/10/21 09/10/21 17:30 18:05 Temperature 93.7 F L Pulse Rate 100 98 Respiratory 17 15 Rate Blood Pressure 92/51 111/54 O2 Sat by Pulse 100 100 Oximetry - Reevaluation(s) Reevaluation #1: 09/10/21 15:28 Case, H&P and pending (code stroke) ED workup were discussed with Dr. Fry (neurointensivist). He states that he will follow-up on the patient's imaging studies. He agrees with ordering a CT angiogram head/neck given the patient's clinical findings/condition despite her history of renal transplantation. He has no further recommendations at this time. 09/10/21 18:01 Case, H&P, test results and ED management were discussed with Dr. Tapia (stone chimney mason). He agrees with ICU admission and agrees to see the patient in consultation. He has no further recommendations at this time. 09/10/21 18:25 Patient continues to have altered mental status and continues to be nonverbal. Family is aware the patient's test results and my discussion with Dr. Tapia as above, and they agree with hospital admission at this time. 09/10/21 18:46 Case, H&P, test results, ED management thus far and my discussion with Dr. Tapia as above were discussed with Dr. Benson. He accepts hospital admission. He recommends nephrology and cardiology consultations. He has no further recommendations at this time. EKG Findings - EKG Comments: EKG Findings:: Normal sinus rhythm, ventricular rate of 98 bpm, no ectopy, normal NM and QRS intervals, prolonged QTc interval of 510 ms, normal axis, no ST or T-wave abnormality Medical Decision Making - Medical Decision Making Patient has a nonfocal neurological exam. Patient's noncontrast head CT and CT angiogram head/neck are fairly unremarkable. I suspect that the patient's altered mental status is likely secondary to her hyperglycemia/DKA/renal i nsufficiency, and I do not think are secondary to CVA/TIA. Patient has been treated with IV fluids and an IV insulin drip in the ED. Given the patient's leukocytosis and mild hypothermia, patient was also empirically treated with 2 g of IV Rocephin, although I think that meningitis or another infectious etiology is much less likely given the other explanations for the patient's altered mental status (I do not think that a lumbar puncture is indicated at this time, particularly given the patient's current clinical condition). Patient is being externally warmed in the ED and her hypothermia is improving. Patient has a history of a renal transplantation a long time ago, and this was discussed with Dr. Tapia. Dr. Tapia feels that the patient can be admitted and treated here in our hospital. Will place nephrology and cardiology on consultation. Dr. Benson has accepted hospital admission. - Lab Data Result diagrams: 09/10/21 15:27 09/10/21 15:27 Lab Results 09/10/21 09/10/21 09/10/21 Range/Units 15:21 15:27 15:27 WBC 17.3 H (3.8-10.6) k/uL RBC 3.49 L (3.80-5.40) m/uL Hgb 11.2 L (11.4-16.0) gm/dL Hct 36.4 (34.0-46.0) % MCV 104.1 H (80.0-100.0) fL MCH 32.1 (25.0-35.0) pg MCHC 30.9 L (31.0-37.0) g/dL RDW 13.1 (11.5-15.5) % Plt Count 174 (150-450) k/uL MPV 10.8 Neutrophils % 87 % Lymphocytes % 9 % Monocytes % 3 % Eosinophils % 0 % Basophils % 0 % Neutrophils # 15.1 H (1.3-7.7) k/uL Lymphocytes # 1.6 (1.0-4.8) k/uL Monocytes # 0.5 (0-1.0) k/uL Eosinophils # 0.0 (0-0.7) k/uL Basophils # 0.0 (0-0.2) k/uL Hypochromasia Marked Macrocytosis Slight PT 12.2 H (9.0-12.0) sec INR 1.2 H (<1.2) APTT 22.0 (22.0-30.0) sec VBG pH (7.31-7.41) VBG pCO2 (37-51) mmHg VBG HCO3 (24-28) mmol/L Sodium (137-145) mmol/L Potassium (3.5-5.1) mmol/L Chloride (98-107) mmol/L Carbon Dioxide (22-30) mmol/L Anion Gap mmol/L BUN (7-17) mg/dL Creatinine (0.52-1.04) mg/dL Est GFR (CKD-EPI)AfAm (>60 ml/min/1.73 sqM) Est GFR (CKD-EPI)NonAf (>60 ml/min/1.73 sqM) Glucose (74-99) mg/dL POC Glucose (mg/dL) >600 H (75-99) mg/dL POC Glu Supervisor Prepress ID Indio Ferrari Lactic Ac Sepsis Rflx Plasma Lactic Acid Abel (0.7-2.0) mmol/L Calcium (8.4-10.2) mg/dL Magnesium (1.6-2.3) mg/dL Total Bilirubin (0.2-1.3) mg/dL AST (14-36) U/L ALT (4-34) U/L Alkaline Phosphatase (38-126) U/L Ammonia (<30) umol/L Troponin I (0.000-0.034) ng/mL NT-Pro-B Natriuret Pep pg/mL Total Protein (6.3-8.2) g/dL Albumin (3.5-5.0) g/dL TSH (0.465-4.680) mIU/L Urine Color Urine Appearance (Clear) Urine pH (5.0-8.0) Ur Specific [place] (1.001-1.035) Urine Protein (Negative) Urine Glucose (UA) (Negative) Urine Ketones (Negative) Urine Blood (Negative) Urine Nitrite (Negative) Urine Bilirubin (Negative) Urine Urobilinogen (<2.0) mg/dL Ur Leukocyte Esterase (Negative) Urine Opiates Screen (NotDetected) Ur Oxycodone Screen (NotDetected) Urine Methadone Screen (NotDetected) Ur Propoxyphene Screen (NotDetected) Ur Barbiturates Screen (NotDetected) U Tricyclic Antidepress (NotDetected) Ur Phencyclidine Scrn (NotDetected) Ur Amphetamines Screen (NotDetected) U Methamphetamines Scrn (NotDetected) U Benzodiazepines Scrn (NotDetected) Urine Cocaine Screen (NotDetected) U Marijuana (THC) Screen (NotDetected) Serum Alcohol mg/dL Acetone, Qual (Negative) Coronavirus (PCR) (Not Detectd) 09/10/21 09/10/21 09/10/21 Range/Units 15:27 15:27 15:27 WBC (3.8-10.6) k/uL RBC (3.80-5.40) m/uL Hgb (11.4-16.0) gm/dL Hct (34.0-46.0) % MCV (80.0-100.0) fL MCH (25.0-35.0) pg MCHC (31.0-37.0) g/dL RDW (11.5-15.5) % Plt Count (150-450) k/uL MPV Neutrophils % % Lymphocytes % % Monocytes % % Eosinophils % % Basophils % % Neutrophils # (1.3-7.7) k/uL Lymphocytes # (1.0-4.8) k/uL Monocytes # (0-1.0) k/uL Eosinophils # (0-0.7) k/uL Basophils # (0-0.2) k/uL Hypochromasia Macrocytosis PT (9.0-12.0) sec INR (<1.2) APTT (22.0-30.0) sec VBG pH (7.31-7.41) VBG pCO2 (37-51) mmHg VBG HCO3 (24-28) mmol/L Sodium 132 L (137-145) mmol/L Potassium 5.3 H (3.5-5.1) mmol/L Chloride 96 L (98-107) mmol/L Carbon Dioxide 8 L* (22-30) mmol/L Anion Gap 28 mmol/L BUN 44 H (7-17) mg/dL Creatinine 1.84 H (0.52-1.04) mg/dL Est GFR (CKD-EPI)AfAm 34 (>60 ml/min/1.73 sqM) Est GFR (CKD-EPI)NonAf 30 (>60 ml/min/1.73 sqM) Glucose 870 H* (74-99) mg/dL POC Glucose (mg/dL) (75-99) mg/dL POC Glu Supervisor Prepress ID Lactic Ac Sepsis Rflx Plasma Lactic Acid Abel 6.6 H* (0.7-2.0) mmol/L Calcium 9.1 (8.4-10.2) mg/dL Magnesium 2.2 (1.6-2.3) mg/dL Total Bilirubin 1.1 (0.2-1.3) mg/dL AST 34 (14-36) U/L ALT 51 H (4-34) U/L Alkaline Phosphatase 94 (38-126) U/L Ammonia 23 (<30) umol/L Troponin I 0.042 H* (0.000-0.034) ng/mL NT-Pro-B Natriuret Pep pg/mL Total Protein 5.0 L (6.3-8.2) g/dL Albumin 2.7 L (3.5-5.0) g/dL TSH 0.472 (0.465-4.680) mIU/L Urine Color Urine Appearance (Clear) Urine pH (5.0-8.0) Ur Specific [place] (1.001-1.035) Urine Protein (Negative) Urine Glucose (UA) (Negative) Urine Ketones (Negative) Urine Blood (Negative) Urine Nitrite (Negative) Urine Bilirubin (Negative) Urine Urobilinogen (<2.0) mg/dL Ur Leukocyte Esterase (Negative) Urine Opiates Screen (NotDetected) Ur Oxycodone Screen (NotDetected) Urine Methadone Screen (NotDetected) Ur Propoxyphene Screen (NotDetected) Ur Barbiturates Screen (NotDetected) U Tricyclic Antidepress (NotDetected) Ur Phencyclidine Scrn (NotDetected) Ur Amphetamines Screen (NotDetected) U Methamphetamines Scrn (NotDetected) U Benzodiazepines Scrn (NotDetected) Urine Cocaine Screen (NotDetected) U Marijuana (THC) Screen (NotDetected) Serum Alcohol <10 mg/dL Acetone, Qual (Negative) Coronavirus (PCR) (Not Detectd) 09/10/21 09/10/21 09/10/21 Range/Units 15:27 15:27 15:27 WBC (3.8-10.6) k/uL RBC (3.80-5.40) m/uL Hgb (11.4-16.0) gm/dL Hct (34.0-46.0) % MCV (80.0-100.0) fL MCH (25.0-35.0) pg MCHC (31.0-37.0) g/dL RDW (11.5-15.5) % Plt Count (150-450) k/uL MPV Neutrophils % % Lymphocytes % % Monocytes % % Eosinophils % % Basophils % % Neutrophils # (1.3-7.7) k/uL Lymphocytes # (1.0-4.8) k/uL Monocytes # (0-1.0) k/uL Eosinophils # (0-0.7) k/uL Basophils # (0-0.2) k/uL Hypochromasia Macrocytosis PT (9.0-12.0) sec INR (<1.2) APTT (22.0-30.0) sec VBG pH 7.22 L (7.31-7.41) VBG pCO2 21 L (37-51) mmHg VBG HCO3 8 L* (24-28) mmol/L Sodium (137-145) mmol/L Potassium (3.5-5.1) mmol/L Chloride (98-107) mmol/L Carbon Dioxide (22-30) mmol/L Anion Gap mmol/L BUN (7-17) mg/dL Creatinine (0.52-1.04) mg/dL Est GFR (CKD-EPI)AfAm (>60 ml/min/1.73 sqM) Est GFR (CKD-EPI)NonAf (>60 ml/min/1.73 sqM) Glucose (74-99) mg/dL POC Glucose (mg/dL) (75-99) mg/dL POC Glu Supervisor Prepress ID Lactic Ac Sepsis Rflx Plasma Lactic Acid Abel (0.7-2.0) mmol/L Calcium (8.4-10.2) mg/dL Magnesium (1.6-2.3) mg/dL Total Bilirubin (0.2-1.3) mg/dL AST (14-36) U/L ALT (4-34) U/L Alkaline Phosphatase (38-126) U/L Ammonia (<30) umol/L Troponin I (0.000-0.034) ng/mL NT-Pro-B Natriuret Pep 4130 pg/mL Total Protein (6.3-8.2) g/dL Albumin (3.5-5.0) g/dL TSH (0.465-4.680) mIU/L Urine Color Urine Appearance (Clear) Urine pH (5.0-8.0) Ur Specific [place] (1.001-1.035) Urine Protein (Negative) Urine Glucose (UA) (Negative) Urine Ketones (Negative) Urine Blood (Negative) Urine Nitrite (Negative) Urine Bilirubin (Negative) Urine Urobilinogen (<2.0) mg/dL Ur Leukocyte Esterase (Negative) Urine Opiates Screen (NotDetected) Ur Oxycodone Screen (NotDetected) Urine Methadone Screen (NotDetected) Ur Propoxyphene Screen (NotDetected) Ur Barbiturates Screen (NotDetected) U Tricyclic Antidepress (NotDetected) Ur Phencyclidine Scrn (NotDetected) Ur Amphetamines Screen (NotDetected) U Methamphetamines Scrn (NotDetected) U Benzodiazepines Scrn (NotDetected) Urine Cocaine Screen (NotDetected) U Marijuana (THC) Screen (NotDetected) Serum Alcohol mg/dL Acetone, Qual Positive (Negative) Coronavirus (PCR) (Not Detectd) 09/10/21 09/10/21 09/10/21 Range/Units 15:49 16:35 16:40 WBC (3.8-10.6) k/uL RBC (3.80-5.40) m/uL Hgb (11.4-16.0) gm/dL Hct (34.0-46.0) % MCV (80.0-100.0) fL MCH (25.0-35.0) pg MCHC (31.0-37.0) g/dL RDW (11.5-15.5) % Plt Count (150-450) k/uL MPV Neutrophils % % Lymphocytes % % Monocytes % % Eosinophils % % Basophils % % Neutrophils # (1.3-7.7) k/uL Lymphocytes # (1.0-4.8) k/uL Monocytes # (0-1.0) k/uL Eosinophils # (0-0.7) k/uL Basophils # (0-0.2) k/uL Hypochromasia Macrocytosis PT (9.0-12.0) sec INR (<1.2) APTT (22.0-30.0) sec VBG pH (7.31-7.41) VBG pCO2 (37-51) mmHg VBG HCO3 (24-28) mmol/L Sodium (137-145) mmol/L Potassium (3.5-5.1) mmol/L Chloride (98-107) mmol/L Carbon Dioxide (22-30) mmol/L Anion Gap mmol/L BUN (7-17) mg/dL Creatinine (0.52-1.04) mg/dL Est GFR (CKD-EPI)AfAm (>60 ml/min/1.73 sqM) Est GFR (CKD-EPI)NonAf (>60 ml/min/1.73 sqM) Glucose (74-99) mg/dL POC Glucose (mg/dL) >600 H (75-99) mg/dL POC Glu Supervisor Prepress ID Xiomara Reddy Lactic Ac Sepsis Rflx Y Plasma Lactic Acid Abel (0.7-2.0) mmol/L Calcium (8.4-10.2) mg/dL Magnesium (1.6-2.3) mg/dL Total Bilirubin (0.2-1.3) mg/dL AST (14-36) U/L ALT (4-34) U/L Alkaline Phosphatase (38-126) U/L Ammonia (<30) umol/L Troponin I (0.000-0.034) ng/mL NT-Pro-B Natriuret Pep pg/mL Total Protein (6.3-8.2) g/dL Albumin (3.5-5.0) g/dL TSH (0.465-4.680) mIU/L Urine Color Light Yellow Urine Appearance Clear (Clear) Urine pH 5.0 (5.0-8.0) Ur Specific [place] 1.018 (1.001-1.035) Urine Protein Negative (Negative) Urine Glucose (UA) 4+ H (Negative) Urine Ketones 2+ H (Negative) Urine Blood Negative (Negative) Urine Nitrite Negative (Negative) Urine Bilirubin Negative (Negative) Urine Urobilinogen <2.0 (<2.0) mg/dL Ur Leukocyte Esterase Negative (Negative) Urine Opiates Screen Not Detected (NotDetected) Ur Oxycodone Screen Not Detected (NotDetected) Urine Methadone Screen Not Detected (NotDetected) Ur Propoxyphene Screen Not Detected (NotDetected) Ur Barbiturates Screen Not Detected (NotDetected) U Tricyclic Antidepress Not Detected (NotDetected) Ur Phencyclidine Scrn Not Detected (NotDetected) Ur Amphetamines Screen Not Detected (NotDetected) U Methamphetamines Scrn Not Detected (NotDetected) U Benzodiazepines Scrn Not Detected (NotDetected) Urine Cocaine Screen Not Detected (NotDetected) U Marijuana (THC) Screen Not Detected (NotDetected) Serum Alcohol mg/dL Acetone, Qual (Negative) Coronavirus (PCR) (Not Detectd) 09/10/21 09/10/21 Range/Units 17:43 17:47 WBC (3.8-10.6) k/uL RBC (3.80-5.40) m/uL Hgb (11.4-16.0) gm/dL Hct (34.0-46.0) % MCV (80.0-100.0) fL MCH (25.0-35.0) pg MCHC (31.0-37.0) g/dL RDW (11.5-15.5) % Plt Count (150-450) k/uL MPV Neutrophils % % Lymphocytes % % Monocytes % % Eosinophils % % Basophils % % Neutrophils # (1.3-7.7) k/uL Lymphocytes # (1.0-4.8) k/uL Monocytes # (0-1.0) k/uL Eosinophils # (0-0.7) k/uL Basophils # (0-0.2) k/uL Hypochromasia Macrocytosis PT (9.0-12.0) sec INR (<1.2) APTT (22.0-30.0) sec VBG pH (7.31-7.41) VBG pCO2 (37-51) mmHg VBG HCO3 (24-28) mmol/L Sodium (137-145) mmol/L Potassium (3.5-5.1) mmol/L Chloride (98-107) mmol/L Carbon Dioxide (22-30) mmol/L Anion Gap mmol/L BUN (7-17) mg/dL Creatinine (0.52-1.04) mg/dL Est GFR (CKD-EPI)AfAm (>60 ml/min/1.73 sqM) Est GFR (CKD-EPI)NonAf (>60 ml/min/1.73 sqM) Glucose (74-99) mg/dL POC Glucose (mg/dL) >600 H (75-99) mg/dL POC Glu Supervisor Prepress ID Xiomara Reddy Lactic Ac Sepsis Rflx Plasma Lactic Acid Abel (0.7-2.0) mmol/L Calcium (8.4-10.2) mg/dL Magnesium (1.6-2.3) mg/dL Total Bilirubin (0.2-1.3) mg/dL AST (14-36) U/L ALT (4-34) U/L Alkaline Phosphatase (38-126) U/L Ammonia (<30) umol/L Troponin I (0.000-0.034) ng/mL NT-Pro-B Natriuret Pep pg/mL Total Protein (6.3-8.2) g/dL Albumin (3.5-5.0) g/dL TSH (0.465-4.680) mIU/L Urine Color Urine Appearance (Clear) Urine pH (5.0-8.0) Ur Specific [place] (1.001-1.035) Urine Protein (Negative) Urine Glucose (UA) (Negative) Urine Ketones (Negative) Urine Blood (Negative) Urine Nitrite (Negative) Urine Bilirubin (Negative) Urine Urobilinogen (<2.0) mg/dL Ur Leukocyte Esterase (Negative) Urine Opiates Screen (NotDetected) Ur Oxycodone Screen (NotDetected) Urine Methadone Screen (NotDetected) Ur Propoxyphene Screen (NotDetected) Ur Barbiturates Screen (NotDetected) U Tricyclic Antidepress (NotDetected) Ur Phencyclidine Scrn (NotDetected) Ur Amphetamines Screen (NotDetected) U Methamphetamines Scrn (NotDetected) U Benzodiazepines Scrn (NotDetected) Urine Cocaine Screen (NotDetected) U Marijuana (THC) Screen (NotDetected) Serum Alcohol mg/dL Acetone, Qual (Negative) Coronavirus (PCR) Not Detected (Not Detectd) - Radiology Data Radiology results: report reviewed (Chest x-ray: Congestive heart failure changes with cardiomegaly and mild pulmonary vascular congestion. Correlate with BNP.) Noncontrast head CT: No acute intracranial hemorrhage or midline shift. There is mild diffuse age- related cerebral atrophy and moderate to severe chronic small vessel ischemic change redemonstrated. Cannot exclude underlying normal pressure hydrocephalus however no significant change from [address] angiogram head/neck: No significant abnormality is seen within the cerebral or neck vasculature. Critical Care Time Critical Care Time: Yes Total Critical Care Time: 90 Disposition Clinical Impression: Altered mental status, Diabetic ketoacidosis, Elevated troponin, Hypothermia, CHF (congestive heart failure), Renal insufficiency Disposition: ADMITTED IP TO THIS HOSP Condition: Stable Is patient prescribed a controlled substance at d/c from ED?: No Time of Disposition: 18:52
[2021-09-10 15:37] LABS: Basophils % (A) 0 %; Eosinophils % (A) 0 %; HCT 36.4 % (34.0-46.0); HGB 11.2 gm/dL (11.4-16.0); Hypochromasia Marked; Lymphocytes # (A) 1.6 k/uL (1.0-4.8); Lymphocytes % (A) 9 %; MCH 32.1 pg (25.0-35.0); MCHC 30.9 g/dL (31.0-37.0); MCV 104.1 fL (80.0-100.0); Macrocytosis Slight; Mean Platelet Volume 10.8; Monocytes # (A) 0.5 k/uL (0-1.0); Monocytes % (A) 3 %; Neutrophils # (A) 15.1 k/uL (1.3-7.7); Neutrophils % (A) 87 %; Platelet Count 174 k/uL (150-450); RBC 3.49 m/uL (3.80-5.40); RDW 13.1 % (11.5-15.5); VBG PH 7.22 (7.31-7.41); WBC 17.3 k/uL (3.8-10.6)
[2021-09-10 15:42] LABS: Glucose,Whole Blood >600 mg/dL (75-99)
[2021-09-10 15:55] LABS: ALT 51 U/L (4-34); AST 34 U/L (14-36); African American GFR (CKD) 34 (>60 ml/min/1.73 sqM); Albumin 2.7 g/dL (3.5-5.0); Alcohol <10 mg/dL; Alkaline Phosphatase 94 U/L (38-126); Anion Gap 28 mmol/L; Blood Urea Nitrogen 44 mg/dL (7-17); Calcium 9.1 mg/dL (8.4-10.2); Chloride 96 mmol/L (98-107); Magnesium 2.2 mg/dL (1.6-2.3); Non-African American GFR(CKD) 30 (>60 ml/min/1.73 sqM); Potassium 5.3 mmol/L (3.5-5.1); Sodium 132 mmol/L (137-145); Total Bilirubin 1.1 mg/dL (0.2-1.3)
[2021-09-10 15:58] LABS: INR 1.2 (<1.2); Prothrombin Time 12.2 sec (9.0-12.0)
[2021-09-10 15:59] LABS: Glucose,Whole Blood >600 mg/dL (75-99)
--- NOTE | 2021-09-10 16:02 | CT ---
EXAMINATION TYPE: CT brain wo con DATE OF EXAM: 09/10/2021 HISTORY: Found unresponsive. Acute onset neuro deficit. CT DLP: 1110.8 mGycm. Automated Exposure Control for Dose Reduction was Utilized. TECHNIQUE: CT scan of the head is performed without contrast. COMPARISON: MRI brain February 22, 2017. FINDINGS: There is no acute intracranial hemorrhage or midline shift identified. There is mild diff use ventricular and sulcal prominence consistent with diffuse age-related cerebral atrophy. Degree of ventricular dilatation slightly out of proportion to degree of sulcal effacement but not significant ly changed from 2017 MRI. No fourth ventricular dilatation seen. There is moderate to severe low-atte nuation in the periventricular white matter favoring product of chronic small vessel ischemic change in patient of this age. The globes are intact and the visualized sinuses are clear. IMPRESSION: No acute intracranial hemorrhage or midline shift. There is mild diffuse age-related ce rebral atrophy and moderate to severe chronic small vessel ischemic change redemonstrated. Cannot ex clude underlying normal pressure hydrocephalus however no significant change from 2017 MRI.
--- NOTE | 2021-09-10 16:24 | CT ---
EXAMINATION TYPE: CT angio head neck DATE OF EXAM: 09/10/2021 HISTORY: Found unresponsive, altered mental status. COMPARISON: CT brain same date CT DLP: mGycm. Automated Exposure Control for Dose Reduction was Utilized. TECHNIQUE: CTA scan of the head and neck is performed with IV Contrast, patient injected with 65 mL of Isovue 370, axial images are obtained, coronal and sagittal reformatted images are reviewed. 3D re constructed images are created on an independent workstation and reviewed. FINDINGS: Carotid/Vascular Structures: The thoracic aorta, innominate, left and right common carotid, left and right vertebral, left and right subclavian arteries are patent. Internal and external carotid arterie s are patent, there is no evident dissection, vertebral arteries also patent. [place] anterior and posterior circulation is intact. There is no evidence of aneurysm, diss ection, stenosis, or embolus. There are cerebrovascular calcifications present. Other: Some anasarca changes are suspected. Lung apices are within normal limits. I question some eso phageal thickening. IMPRESSION: No significant abnormality is seen within the cerebral or neck vasculature. NASCET criteria was used in interpretation of this exam?
[2021-09-10 16:34] LABS: Carbon Dioxide 8 mmol/L (22-30); Glucose 870 mg/dL (74-99)
[2021-09-10 16:35] LABS: Lactic Acid, Venous 6.6 mmol/L (0.7-2.0)
[2021-09-10] MEDS ORDERED: INSULIN REGULAR BOLUS (FROM DRIP BAG) IV ONE (16:36)
[2021-09-10] MEDS ORDERED: Potassium Replacement Protocol 1 EACH MISC MISCELLANE PRN (16:36)
[2021-09-10] MEDS ORDERED: Magnesium Replacement Protocol 1 EACH MISC MISCELLANE PRN (16:36)
[2021-09-10] MEDS ORDERED: SODIUM CHLORIDE 0.9% 1,000 ML IV ONE (16:39)
[2021-09-10] MEDS ORDERED: ASPIRIN 300 MG SUPP RECTAL STA (16:46)
[2021-09-10 16:52] LABS: Appearance,Urine Clear (Clear); Bilirubin,Urine Negative (Negative); Blood,Urine Negative (Negative); Color,Urine Light Yellow; Glucose,Urine (UA) 4+ (Negative); Leukocyte Esterase,Urine Negative (Negative); Nitrite,Urine Negative (Negative); Protein,Urine Negative (Negative); Specific Gravity,Urine 1.018 (1.001-1.035); Urobilinogen,Urine <2.0 mg/dL (<2.0)
[2021-09-10 17:19] LABS: Amphetamine Screen,Urine Not Detected (NotDetected); Barbiturate Screen,Urine Not Detected (NotDetected); Benzodiazepines Screen,Urine Not Detected (NotDetected); Cocaine Screen,Urine Not Detected (NotDetected); Methadone Screen, Urine Not Detected (NotDetected); Opiate Screen,Urine Not Detected (NotDetected); Oxycodone Screen, Urine Not Detected (NotDetected); Phencyclidine Screen,Urine Not Detected (NotDetected); Tricyclic Antidepressant,Urine Not Detected (NotDetected); Urn Cannabinoid Scrn Not Detected (NotDetected)
[2021-09-10 17:31] LABS: Ketones,Urine 2+ (Negative)
--- NOTE | 2021-09-10 17:38 | XR ---
EXAMINATION TYPE: XR chest 1V portable DATE OF EXAM: 09/10/2021 5:11 PM COMPARISON:Chest radiographs from 2019 CLINICAL INDICATION:Female, 60 years old with history of altered mental status; TECHNIQUE: Frontal view of the chest. FINDINGS: Lungs/Pleura: There is no evidence of pleural effusion, focal consolidation, or pneumothorax. Pulmonary vascularity: Pulmonary vascular congestion. Heart/mediastinum: Cardiomediastinal silhouette is enlarged and stable. Musculoskeletal: No acute osseous pathology. Other findings: Loop recorder noted. IMPRESSION: Congestive heart failure changes with cardiomegaly and mild pulmonary vascular congestion. Correlate with BNP.
[2021-09-10 17:55] LABS: Glucose,Whole Blood >600 mg/dL (75-99)
[2021-09-10] MEDS: INSULIN REGULAR 100 UNIT in SODIUM CHLORIDE 0.9% 100 ML IV SCH (17:56)
[2021-09-10] MEDS: SODIUM CHLORIDE 0.9% 1,000 ML IV SCH ×2 (18:21→23:24)
[2021-09-10 19:09] LABS: Glucose,Whole Blood >600 mg/dL (75-99)
[2021-09-10 20:02] LABS: Glucose,Whole Blood >600 mg/dL (75-99)
[2021-09-10 20:13] LABS: African American GFR (CKD) 35 (>60 ml/min/1.73 sqM); Blood Urea Nitrogen 45 mg/dL (7-17); Chloride 105 mmol/L (98-107); Non-African American GFR(CKD) 30 (>60 ml/min/1.73 sqM); Potassium 4.7 mmol/L (3.5-5.1); Sodium 137 mmol/L (137-145)
[2021-09-10 20:36] LABS: Carbon Dioxide <5 mmol/L (22-30); Glucose 693 mg/dL (74-99)
[2021-09-10 21:08] LABS: Glucose,Whole Blood 577 mg/dL (75-99)
[2021-09-10 22:13] LABS: Glucose,Whole Blood 551 mg/dL (75-99)
[2021-09-10 23:44] LABS: Glucose,Whole Blood 512 mg/dL (75-99)
[2021-09-11 01:03] LABS: Glucose,Whole Blood 500 mg/dL (75-99)
[2021-09-11 02:04] LABS: Phosphorus 2.4 mg/dL (2.5-4.5); Potassium 3.7 mmol/L (3.5-5.1)
[2021-09-11 03:09] LABS: Glucose,Whole Blood 433 mg/dL (75-99)
[2021-09-11] MEDS: SODIUM CHLORIDE 0.9% 1,000 ML IV SCH ×4 (04:13→21:46)
[2021-09-11 05:19] LABS: Glucose,Whole Blood 322 mg/dL (75-99)
[2021-09-11 06:07] LABS: Glucose,Whole Blood 316 mg/dL (75-99)
[2021-09-11] MEDS: INSULIN REGULAR 100 UNIT in SODIUM CHLORIDE 0.9% 100 ML IV SCH (06:07)
[2021-09-11 06:08] LABS: Basophils % (A) 0 %; Eosinophils % (A) 0 %; HCT 33.4 % (34.0-46.0); HGB 10.9 gm/dL (11.4-16.0); Lymphocytes # (A) 1.7 k/uL (1.0-4.8); Lymphocytes % (A) 9 %; MCH 31.7 pg (25.0-35.0); MCHC 32.5 g/dL (31.0-37.0); Mean Platelet Volume 9.9; Monocytes # (A) 0.8 k/uL (0-1.0); Monocytes % (A) 4 %; Neutrophils # (A) 15.6 k/uL (1.3-7.7); Neutrophils % (A) 86 %; Platelet Count 151 k/uL (150-450); RBC 3.43 m/uL (3.80-5.40); RDW 14.1 % (11.5-15.5); WBC 18.2 k/uL (3.8-10.6)
[2021-09-11 06:19] LABS: Albumin 2.5 g/dL (3.5-5.0); Calcium 8.4 mg/dL (8.4-10.2); MCV 97.5 fL (80.0-100.0); Potassium 3.7 mmol/L (3.5-5.1); Total Bilirubin 0.4 mg/dL (0.2-1.3)
[2021-09-11 07:36] LABS: Glucose,Whole Blood 265 mg/dL (75-99)
[2021-09-11 09:21] LABS: Glucose,Whole Blood 227 mg/dL (75-99)
--- NOTE | 2021-09-11 09:59 | P.NPCON ---
History of Present Illness - Reason for Consult acute renal failure, chronic renal failure - History of Present Illness Reason for consultation: Acute kidney injury on chronic kidney disease; renal transplant management History of present illness: Patient is a 60-year-old female seen in consultation for renal fossa and management and acute allograft dysfunction. Patient has chronic kidney disease stage III with baseline creatinine near 1.1. Creatinine on admission was 1.84 and is 1.75 today. Patient has history of living related renal transplant performed in 2001. She is maintained on Prograf and CellCept outpatient. She presented to the hospital due to decreased responsiveness. Initially she was given glucagon as family thought her blood sugar was low. However on admission her blood glucose was 870. She's currently receiving normal saline as well as insulin drip. No edema. She's not responding to verbal commands. She also underwent CT angiogram on 09/10/2021 that showed no acute disease. She has a Hernandez catheter and is nonoliguric. Blood pressure stable. Vital signs are stable. General: Resting in bed. HEENT: Head exam is unremarkable. heart: Rate and Rhythm are regular. ABDOMEN: Soft, no distention. EXTREMITITES: No edema. Past Medical History Past Medical History: Blood Disorder, Coronary Artery Disease (CAD), Cancer, CVA/TIA, Diabetes Mellitus, Dialysis, GERD/Reflux, Hyperlipidemia, Hypertension, Myocardial Infarction (non Q-wave), Osteoarthritis (OA), Pneumonia, Pulmonary Embolus (PE), Renal Disease, Sleep Apnea/CPAP/BIPAP, Thyroid Disorder Additional Past Medical History / Comment(s): Leiden Factor V, basal cell carcinoma, Vulvar cancer, CVA 2015, CVA 2013, CVA 2017 est - sl weakness Lt si de, Dialysis 2001 for 2 months, enlarged thyroid w/ nodules. PE 2011, Kidney transplant 2001. No tx for sleep apnea. Neuropathy in feet/legs. Last Myocardial Infarction Date:: 2014 History of Any Multi-Drug Resistant Organisms: None Reported Past Surgical History: Bariatric Surgery, Section, Cholecystectomy, Heart Catheterization, Heart Catheterization With Stent, Tonsillectomy, Tubal Ligation Additional Past Surgical History / Comment(s): jose oophrectomy, kidney transplant, surgery to remove CA. PTCA w/ Stent 2001, 2014. Colonoscopy, EGD.Gastric Sleeve 05/04/20. Past Anesthesia/Blood Transfusion Reactions: No Reported Reaction, Motion Sickness Additional Past Anesthesia/Blood Transfusion Reaction / Comment(s): no hx blood transfusion Date of Last Stent Placement:: 2014 Past Psychological History: Depression Smoking Status: Never smoker Past Alcohol Use History: None Reported Past Drug Use History: None Reported - Past Family History Sister(s) Family Medical History: Hypertension Father Family Medical History: Myocardial Infarction ([place]) Mother Family Medical History: Pulmonary Embolus Additional Family Medical History / Comment(s): Occluded carotid artery, carotid endartectomy Son(s) Family Medical History: Diabetes Mellitus Additional Family Medical History / Comment(s): DM type 1 Medications and Allergies Home Medications Medication Instructions Recorded Confirmed Type amLODIPine [Norvasc] 10 mg PO DAILY 12/12/14 09/10/21 History mycophenolate mofetiL [Cellcept] 500 mg PO BID 12/12/14 09/10/21 History Nitroglycerin Sl Tabs [Nitrostat] 0.4 mg SUBLINGUAL Q5M PRN #25 tab 12/15/14 09/10/21 Rx Gabapentin [Neurontin] 300 mg PO HS 10/23/15 09/10/21 History Omeprazole [PriLOSEC] 40 mg PO AC-BRKFST 10/23/15 09/10/21 History Tacrolimus [Prograf] 1 mg PO BID 06/06/16 09/10/21 History DULoxetine HCL [Cymbalta] 20 mg PO DAILY 11/10/18 09/10/21 History Apixaban [Eliquis] 5 mg PO BID 11/04/19 09/10/21 History Clopidogrel [Plavix] 75 mg PO DAILY 11/04/19 09/10/21 History Atorvastatin [Lipitor] 80 mg PO DAILY 09/10/21 09/10/21 History Metoclopramide [Reglan] 5 mg PO DAILY 09/10/21 09/10/21 History Metoprolol Succinate (ER) [Toprol 25 mg PO DAILY 09/10/21 09/10/21 History Xl] Unknown Insulin (For Pump) 0.01 units SQ-PUMP CONTINUOUS 09/10/21 09/10/21 History calcitrioL [Calcitriol] 0.5 mcg PO SUTUTHSA 09/10/21 09/10/21 History calcitrioL [Calcitriol] 1 mcg PO MOWEFR 09/10/21 09/10/21 History Allergies Allergy/AdvReac Type Severity Reaction Status Date / Time Milk Containing Products Allergy Diarrhea Verified 09/10/21 15:54 [Dairy] Penicillins Allergy Rash/Hives Verified 09/10/21 15:54 trandolapril [From Tarka] Allergy SEVERE Verified 09/10/21 15:54 HYPOTENSION verapamil HCl [From Tarka] Allergy SEVERE Verified 09/10/21 15:54 HYPOTENSION Physical Exam Vitals: Vital Signs Temp Pulse Resp BP Pulse Ox 09/11/21 09:17 87 16 142/79 99 09/11/21 07:34 87 16 109/55 96 09/11/21 05:56 97.9 F 91 16 132/65 97 09/11/21 03:10 97.9 F 93 19 123/61 99 09/11/21 01:03 98.6 F 93 18 127/59 100 09/10/21 23:00 98.9 F 97 18 106/55 100 09/10/21 22:12 98.4 F 99 19 107/56 100 09/10/21 21:02 98 16 115/58 100 09/10/21 19:00 96.3 F L 104 H 16 119/63 100 09/10/21 18:30 95.2 F L 106 H 17 88/63 100 09/10/21 18:05 98 15 111/54 100 09/10/21 17:30 93.7 F L 100 17 92/51 100 09/10/21 17:15 99 17 95/46 100 09/10/21 17:00 93.0 F L 98 18 105/55 99 09/10/21 16:46 93.0 F L 98 16 91/37 98 09/10/21 16:45 18 91/37 100 09/10/21 16:38 16 09/10/21 16:15 92.8 F L 98 92/64 100 09/10/21 16:00 97 17 85/35 100 09/10/21 15:45 99 16 114/44 100 09/10/21 15:33 97 16 103/53 99 09/10/21 15:30 100 16 100/53 100 09/10/21 15:25 98 18 103/43 100 09/10/21 15:20 98 18 103/43 100 Intake and Output 09/10/21 09/11/21 09/11/21 22:59 06:59 14:59 Intake Total 66.984 Output Total 400 250 Balance -400 -183.016 Intake: Intake, IV Titration 66.984 Amount Insulin Regular 100 unit 66.984 In Sodium Chloride 0.9% 100 ml @ 0.1 UNITS/KG/HR 5.498 mls/hr IV .[id number] [facility] Rx#:[id number] Output: Urine 400 250 Other: Weight 54.431 kg Results - Lab Results Most recent lab results Calcium 8.4 mg/dL (8.4-10.2) 09/11/21 05:30 Phosphorus 2.4 mg/dL (2.5-4.5) L 09/11/21 01:34 Magnesium 2.2 mg/dL (1.6-2.3) 09/10/21 15:27 09/11/21 05:30 09/11/21 05:30 Assessment and Plan Plan: Assessment: 1. Acute allograft dysfunction secondary to ATN from hypovolemia due to DKA. Creatinine 1.84 on admission and is 1.75 today. Also received IV contrast dye on 09/10/2021. 2. Chronic kidney disease stage III with baseline creatinine near 1.1. 3. Status post living related renal allograft in 2001. 4. DKA maintained on IV fluids and insulin drip. 5. Metabolic acidosis secondary to DKA and acute kidney injury. Plan: Decrease rate of IV fluids to 150 mL an hour. Check Prograf level. CellCept and Prograf to be resumed once tolerating oral meds. Continue to monitor renal function and urine output. Monitor for contrast- induced acute kidney injury. Thank you for the consultation. I will continue to follow the patient with you during her hospital stay.
[2021-09-11 11:03] LABS: Glucose,Whole Blood 153 mg/dL (75-99)
--- NOTE | 2021-09-11 11:35 | P.CNPUL ---
History of Present Illness Consult date: 09/11/21 Requesting physician: Katina Benson Chief complaint: Mental status changes, DKA. History of present illness: Pulmonary/critical care consult dated 09/11/2021. 60-year-old female who presents to the emergency department on September 10, brought in by EMS, for mental status changes. She was apparently found by her to have acute mental status changes. The patient apparently received glucagon from her , and was sent to the emergency room to be further evaluated. Apparently EMS found her blood sugars to be in the 500s, and there were actually higher in the emergency department. I was called by the emergency room physician last night. The patient is seen this morning in the emergency department, room 5. She's on 2 L nasal cannula. The patient's getting an insulin drip at 5.5 units an hour, and saline at 200 mL an hour. Her most recent laboratory includes a sodium 136, potassium 3.7, chlorides 108, CO2 16, sugar of 342, and anion gap of 12. She apparently has a history of diabetes, hypertension, hyperlipidemia, CVA, CAD, and a prior kidney transplant. Today, when we are evaluating her, she was very lethargic and somnolent, and could barely open her eyes. She could not really answer questions at this time. The brain CT did not show anything acute suggest intracranial hemorrhage or midline shift. Angiography CT was also unremarkable. Chest x-ray showed some mild increased vascular changes. Review of Systems REVIEW OF SYSTEMS: CONSTITUTIONAL: Very somnolent/lethargic. NEUROLOGIC: Acute mental status changes. HEENT: [ Negative.] CARDIAC: [Negative.] PULMONARY: [Negative.] GI: [Negative.] : [Negative.] RHEUMATOLOGIC: [ Negative.] IMMUNOLOGIC: [ Negative.] ENDOCRINE: [Negative. ] DERMATOLOGIC: [Negative.] Past Medical History Past Medical History: Blood Disorder, Coronary Artery Disease (CAD), Cancer, CVA/TIA, Diabetes Mellitus, Dialysis, GERD/Reflux, Hyperlipidemia, Hypertension, Myocardial Infarction (non Q-wave), Osteoarthritis (OA), Pneumonia, Pulmonary Embolus (PE), Renal Disease, Sleep Apnea/CPAP/BIPAP, Thyroid Disorder Additional Past Medical History / Comment(s): Leiden Factor V, basal cell carcinoma, Vulvar cancer, CVA 2016, CVA 2013, CVA 2016 est - sl weakness Lt side, Dialysis 2001 for 2 months, enlarged thyroid w/ nodules. PE 2011, Kidney transplant 2001. No tx for sleep apnea. Neuropathy in feet/legs. Last Myocardial Infarction Date:: 2014 History of Any Multi-Drug Resistant Organisms: None Reported Past Surgical History: Bariatric Surgery, Section, Cholecystectomy, Heart Catheterization, Heart Catheterization With Stent, Tonsillectomy, Tubal Ligation Additional Past Surgical History / Comment(s): jose oophrectomy, kidney transpla nt, surgery to remove CA. PTCA w/ Stent 2001, 2014. Colonoscopy, EGD.Gastric Sleeve 05/04/20. Past Anesthesia/Blood Transfusion Reactions: No Reported Reaction, Motion Sickne ss Additional Past Anesthesia/Blood Transfusion Reaction / Comment(s): no hx blood transfusion Date of Last Stent Placement:: 2014 Past Psychological History: Depression Smoking Status: Never smoker Past Alcohol Use History: None Reported Past Drug Use History: None Reported - Past Family History Sister(s) Family Medical History: Hypertension Father Family Medical History: Myocardial Infarction ([place]) Mother Family Medical History: Pulmonary Embolus Additional Family Medical History / Comment(s): Occluded carotid artery, carotid endartectomy Son(s) Family Medical History: Diabetes Mellitus Additional Family Medical History / Comment(s): DM type 1 Medications and Allergies Home Medications Medication Instructions Recorded Confirmed Type amLODIPine [Norvasc] 10 mg PO DAILY 12/12/14 09/10/21 History mycophenolate mofetiL [Cellcept] 500 mg PO BID 12/12/14 09/10/21 History Nitroglycerin Sl Tabs [Nitrostat] 0.4 mg SUBLINGUAL Q5M PRN #25 tab 12/15/14 09/10/21 Rx Gabapentin [Neurontin] 300 mg PO HS 10/23/15 09/10/21 History Omeprazole [PriLOSEC] 40 mg PO AC-BRKFST 10/23/15 09/10/21 History Tacrolimus [Prograf] 1 mg PO BID 06/06/16 09/10/21 History DULoxetine HCL [Cymbalta] 20 mg PO DAILY 11/10/18 09/10/21 History Apixaban [Eliquis] 5 mg PO BID 11/04/19 09/10/21 History Clopidogrel [Plavix] 75 mg PO DAILY 11/04/19 09/10/21 History Atorvastatin [Lipitor] 80 mg PO DAILY 09/10/21 09/10/21 History Metoclopramide [Reglan] 5 mg PO DAILY 09/10/21 09/10/21 History Metoprolol Succinate (ER) [Toprol 25 mg PO DAILY 09/10/21 09/10/21 History Xl] Unknown Insulin (For Pump) 0.01 units SQ-PUMP CONTINUOUS 09/10/21 09/10/21 History calcitrioL [Calcitriol] 0.5 mcg PO SUTUTHSA 09/10/21 09/10/21 History calcitrioL [Calcitriol] 1 mcg PO MOWEFR 09/10/21 09/10/21 History Allergies Allergy/AdvReac Type Severity Reaction Status Date / Time Milk Containing Products Allergy Diarrhea Verified 09/10/21 15:54 [Dairy] Penicillins Allergy Rash/Hives Verified 09/10/21 15:54 trandolapril [From Tarka] Allergy SEVERE Verified 09/10/21 15:54 HYPOTENSION verapamil HCl [From Tarka] Allergy SEVERE Verified 09/10/21 15:54 HYPOTENSION Physical Exam Osteopathic Statement: *. No significant issues noted on an osteopathic structural exam other than those noted in the History and Physical/Consult. Vitals: Vital Signs Temp Pulse Resp BP Pulse Ox 09/11/21 11:00 90 16 165/81 99 09/11/21 09:17 87 16 142/79 99 09/11/21 07:34 87 16 109/55 96 09/11/21 05:56 97.9 F 91 16 132/65 97 09/11/21 03:10 97.9 F 93 19 123/61 99 09/11/21 01:03 98.6 F 93 18 127/59 100 09/10/21 23:00 98.9 F 97 18 106/55 100 09/10/21 22:12 98.4 F 99 19 107/56 100 09/10/21 21:02 98 16 115/58 100 09/10/21 19:00 96.3 F L 104 H 16 119/63 100 09/10/21 18:30 95.2 F L 106 H 17 88/63 100 09/10/21 18:05 98 15 111/54 100 09/10/21 17:30 93.7 F L 100 17 92/51 100 09/10/21 17:15 99 17 95/46 100 09/10/21 17:00 93.0 F L 98 18 105/55 99 09/10/21 16:46 93.0 F L 98 16 91/37 98 09/10/21 16:45 18 91/37 100 09/10/21 16:38 16 09/10/21 16:15 92.8 F L 98 92/64 100 09/10/21 16:00 97 17 85/35 100 09/10/21 15:45 99 16 114/44 100 09/10/21 15:33 97 16 103/53 99 09/10/21 15:30 100 16 100/53 100 09/10/21 15:25 98 18 103/43 100 09/10/21 15:20 98 18 103/43 100 Intake and Output 09/10/21 09/11/21 09/11/21 22:59 06:59 14:59 Intake Total 66.984 Output Total 400 250 Balance -400 -183.016 Intake: Intake, IV Titration 66.984 Amount Insulin Regular 100 unit 66.984 In Sodium Chloride 0.9% 100 ml @ 0.1 UNITS/KG/HR 5.498 mls/hr IV .[id number] [facility] Rx#:[id number] Output: Urine 400 250 Other: Weight 54.431 kg No acute distress, very somnolent/lethargic. Barely can open her eyes. Could not answer basic questions. HEENT examination is grossly unremarkable. Neck supple. Full range of motion. No adenopathy thyromegaly or neck vein distention. Cardiovascular examination reveals regular rhythm rate. S1-S2 normal. No S3 or S4. No discernible murmur noted. Heart rate 90 bpm. Lungs reveal mostly clear breath sounds. Mild scattered rhonchi. No wheezes or crackles. 2 L saturations are 99%. Abdomen soft bowel sounds are heard. No masses or tenderness. Extremities are intact. No cyanosis clubbing or edema. Skin is without rash or lesion. Neurologic examination was difficult to assess because the patient is to lethargic. Results - Laboratory Findings CBC and BMP: 09/11/21 05:30 09/11/21 05:30 PT/INR, D-dimer PT 12.2 sec (9.0-12.0) H 09/10/21 15:27 INR 1.2 (<1.2) H 09/10/21 15:27 Abnormal lab findings: Abnormal Labs 09/10/21 09/10/21 09/10/21 15:21 15:27 15:27 WBC 17.3 H RBC 3.49 L Hgb 11.2 L Hct MCV 104.1 H MCHC 30.9 L Neutrophils # 15.1 H PT 12.2 H INR 1.2 H VBG pH VBG pCO2 VBG HCO3 Sodium Potassium Chloride Carbon Dioxide BUN Creatinine Glucose POC Glucose (mg/dL) >600 H Plasma Lactic Acid Abel Phosphorus AST ALT Troponin I Total Protein Albumin Procalcitonin Urine Glucose (UA) Urine Ketones 09/10/21 09/10/21 09/10/21 15:27 15:27 15:27 WBC RBC Hgb Hct MCV MCHC Neutrophils # PT INR VBG pH VBG pCO2 VBG HCO3 Sodium 132 L Potassium 5.3 H Chloride 96 L Carbon Dioxide 8 L* BUN 44 H Creatinine 1.84 H Glucose 870 H* POC Glucose (mg/dL) Plasma Lactic Acid Abel 6.6 H* Phosphorus AST ALT 51 H Troponin I 0.042 H* Total Protein 5.0 L Albumin 2.7 L Procalcitonin Urine Glucose (UA) Urine Ketones 09/10/21 09/10/21 09/10/21 15:27 15:27 15:49 WBC RBC Hgb Hct MCV MCHC Neutrophils # PT INR VBG pH 7.22 L VBG pCO2 21 L VBG HCO3 8 L* Sodium Potassium Chloride Carbon Dioxide BUN Creatinine Glucose POC Glucose (mg/dL) >600 H Plasma Lactic Acid Abel Phosphorus AST ALT Troponin I Total Protein Albumin Procalcitonin 1.28 H Urine Glucose (UA) Urine Ketones 09/10/21 09/10/21 09/10/21 16:40 17:43 18:57 WBC RBC Hgb Hct MCV MCHC Neutrophils # PT INR VBG pH VBG pCO2 VBG HCO3 Sodium Potassium Chloride Carbon Dioxide BUN Creatinine Glucose POC Glucose (mg/dL) >600 H >600 H Plasma Lactic Acid Abel Phosphorus AST ALT Troponin I Total Protein Albumin Procalcitonin Urine Glucose (UA) 4+ H Urine Ketones 2+ H 09/10/21 09/10/21 09/10/21 19:39 19:39 19:39 WBC RBC Hgb Hct MCV MCHC Neutrophils # PT INR VBG pH VBG pCO2 VBG HCO3 Sodium Potassium Chloride Carbon Dioxide <5 L* BUN 45 H Creatinine 1.83 H Glucose 693 H* POC Glucose (mg/dL) Plasma Lactic Acid Abel 5.9 H* Phosphorus AST ALT Troponin I 0.231 H* Total Protein Albumin Procalcitonin Urine Glucose (UA) Urine Ketones 09/10/21 09/10/21 09/10/21 20:00 21:06 22:11 WBC RBC Hgb Hct MCV MCHC Neutrophils # PT INR VBG pH VBG pCO2 VBG HCO3 Sodium Potassium Chloride Carbon Dioxide BUN Creatinine Glucose POC Glucose (mg/dL) >600 H 577 H Plasma Lactic Acid Abel Phosphorus AST ALT Troponin I 0.902 H* Total Protein Albumin Procalcitonin Urine Glucose (UA) Urine Ketones 09/10/21 09/10/21 09/10/21 22:11 22:48 23:43 WBC RBC Hgb Hct MCV MCHC Neutrophils # PT INR VBG pH VBG pCO2 VBG HCO3 Sodium Potassium Chloride Carbon Dioxide BUN Creatinine Glucose POC Glucose (mg/dL) 551 H 512 H Plasma Lactic Acid Abel 3.3 H* Phosphorus AST ALT Troponin I Total Protein Albumin Procalcitonin Urine Glucose (UA) Urine Ketones 09/11/21 09/11/21 09/11/21 01:02 01:34 03:08 WBC RBC Hgb Hct MCV MCHC Neutrophils # PT INR VBG pH VBG pCO2 VBG HCO3 Sodium Potassium Chloride 108 H Carbon Dioxide 16 L BUN 49 H Creatinine 1.89 H Glucose 492 H POC Glucose (mg/dL) 500 H 433 H Plasma Lactic Acid Abel Phosphorus 2.4 L AST ALT Troponin I Total Protein Albumin Procalcitonin Urine Glucose (UA) Urine Ketones 09/11/21 09/11/21 09/11/21 05:18 05:30 05:30 WBC 18.2 H RBC 3.43 L Hgb 10.9 L Hct 33.4 L MCV MCHC Neutrophils # 15.6 H PT INR VBG pH VBG pCO2 VBG HCO3 Sodium 136 L Potassium Chloride 108 H Carbon Dioxide 16 L BUN 53 H Creatinine 1.75 H Glucose 342 H POC Glucose (mg/dL) 322 H Plasma Lactic Acid Abel Phosphorus AST 45 H ALT 48 H Troponin I Total Protein 5.0 L Albumin 2.5 L Procalcitonin Urine Glucose (UA) Urine Ketones 09/11/21 09/11/21 09/11/21 06:06 07:33 09:12 WBC RBC Hgb Hct MCV MCHC Neutrophils # PT INR VBG pH VBG pCO2 VBG HCO3 Sodium Potassium Chloride Carbon Dioxide BUN Creatinine Glucose POC Glucose (mg/dL) 316 H 265 H 227 H Plasma Lactic Acid Abel Phosphorus AST ALT Troponin I Total Protein Albumin Procalcitonin Urine Glucose (UA) Urine Ketones 09/11/21 11:00 WBC RBC Hgb Hct MCV MCHC Neutrophils # PT INR VBG pH VBG pCO2 VBG HCO3 Sodium Potassium Chloride Carbon Dioxide BUN Creatinine Glucose POC Glucose (mg/dL) 153 H Plasma Lactic Acid Abel Phosphorus AST ALT Troponin I Total Protein Albumin Procalcitonin Urine Glucose (UA) Urine Ketones - Diagnostic Findings Chest x-ray: image reviewed Assessment and Plan Assessment: Acute diabetic ketoacidosis. Acute mental status changes, with normal head CT and CT angiography. History of kidney transplant, 2001. History of CAD, with prior history of myocardial infarction. History of diabetes mellitus. Gastroesophageal reflux disease. History of hyperlipidemia. History of hypertension. History of sleep apnea syndrome. History of vulvar cancer. Plan: Plan dated 09/11/2021. Initially, I was called because the physician in the emergency room thought the patient needed an ICU bed. She still may. She is very lethargic and sleepy. We are hoping with some additional volume, insulin, and so forth, she can be downgraded to the general medical floor, or the telemetry floor. We will continue to follow make recommendations were appropriate. Prognosis is guarded. Labs, x-rays, and medications are reviewed. She was seen by nephrology. Her respiratory status is currently stable. Time with Patient: Greater than 30
[2021-09-11 11:54] LABS: Glucose,Whole Blood 113 mg/dL (75-99)
[2021-09-11] MEDS: D5-0.45% NACL WITH KCL 20MEQ/L 1,000 ML IV SCH ×2 (12:38→21:46)
[2021-09-11 13:07] LABS: Glucose,Whole Blood 168 mg/dL (75-99)
[2021-09-11 14:05] LABS: Glucose,Whole Blood 186 mg/dL (75-99)
[2021-09-11 14:22] LABS: Glucose,Whole Blood 175 mg/dL (75-99)
[2021-09-11 15:15] LABS: Glucose,Whole Blood 127 mg/dL (75-99)
--- NOTE | 2021-09-11 15:52 | CONS ---
CONSULTATION Mrs. Hoffman is a 60-year-old female who presented to the emergency room with change in mental status. She was noted to be in DKA. She is not able to answer questions at this time. According to the records, patient has a history of diabetes, hypertension, hyperlipidemia, history of stroke, CAD and renal transplant. She had diabetic ketoacidosis on presentation with acute change in mental status. Reviewing the old records, the patient underwent cardiac catheterization in 2015 and at that time had a patent stent of the mid LAD, mild disease in the RCA and the left circumflex. She underwent the stenting of the LAD in November of 2014 and received at that time a 2.5 x 23 mm stent. No other history could be obtained from the patient. Her medication at the time of admission included Eliquis 5 mg twice a day, Lipitor 80 mg daily, Plavix 75 mg daily, Celexa 10, Neurontin, Norvasc 10 mg daily, metoprolol succinate 25 mg daily, omeprazole, Prograf, CellCept, calcitriol and the insulin. Review of systems is not obtainable. PHYSICAL EXAMINATION: She is a 60-year-old female, not answering questions, opening eyes to verbal stimulation. Blood pressure running in the 150s with a heart rate in the 90s. HEAD: Normocephalic. EYES: Sclerae anicteric. NECK: Good carotid upstroke. No bruit. LUNGS: Clear to auscultation. HEART: Regular rate and rhythm. S1, S2. No S3, with a systolic murmur at the base. No diastolic murmur. ABDOMEN: Soft, nontender. EXTREMITIES: No edema. LAB DATA: On admission her white blood cell count was 17.3, hemoglobin of 11.2. Her bicarb was 8, potassium 5.3, BUN and creatinine 44 and 1.84, and her glucose was 870. Her troponin was 0.042 and NT proBNP of 4130. Her troponin is up to 0.9. Her creatinine this morning is 1.75 and her BUN is 53. Her bicarb has been corrected to 16. Her EKG shows a sinus mechanism, rate of 98, normal axis and intervals, poor R-wave progression. Her chest x-ray shows findings suggestive of fluid overload and congestion. Her brain CT revealed no acute bleeding. IMPRESSION: 1. Diabetic ketoacidosis. 2. Change in mental status, most likely due to the diabetic ketoacidosis. 3. Troponin elevation, most likely related to her presenting diabetic ketoacidosis. 4. Hypertension. 5. History of hyperlipidemia. 6. History of coronary artery disease with stenting of the LAD in 2015. 7. Elevated NT proBNP. 8. Renal failure. 9. Renal transplant. RECOMMENDATIONS: From the cardiac standpoint, I will resume her beta xiomara and her statin. It is unclear why the patient is on Eliquis. I will try to obtain those records. She is also maintained on Plavix, and if it is related to her prior stenting, she does not require it at this time unless she had further intervention since that time. Will obtain echocardiogram with Doppler to evaluate her left ventricular systolic function. Depending on her progress, further recommendations will be made. Thank you for this consult. Will follow with you. MARIBELL / SAL: [id number] /
[2021-09-11 16:04] LABS: Glucose,Whole Blood 151 mg/dL (75-99)
[2021-09-11] MEDS: METOPROLOL SUCCINATE (ER) 25 MG TAB.ER.24H PO SCH (16:30)
[2021-09-11] MEDS: ASPIRIN 81 MG PO SCH (16:30)
[2021-09-11 17:24] LABS: Glucose,Whole Blood 146 mg/dL (75-99)
--- NOTE | 2021-09-11 17:56 | HP ---
HISTORY AND PHYSICAL I am covering for Dr. Benson. CHIEF COMPLAINT: Change in mental status and EKG. HISTORY OF PRESENT ILLNESS: This 60-year-old woman with past medical history of CAD, history of CVA, TIA, diabetes, hemodialysis, GERD, hypertension, hyperlipidemia, being followed by Dr. Benson in the outpatient setting was found to be unresponsive. The found the patient unresponsive and blood sugars were more than 500. The patient had acute diabetic ketoacidosis. Insulin drip was initiated. Sensorium slightly improved, but the patient still continues to be acidotic and his creatinine was 1.75, and the patient is being closely monitored at this time. There is no history of fever, rigors. No history of headache, loss of consciousness, seizures and most of the history taken from my discussion with the and review of the chart at this time. Troponins found to be 0.092 and multiple consultants are following the patient closely. Covid [address] brain was done at the time of admission, which I reviewed personally which showed no acute abnormality. Mild diffuse age-related atrophy and chronic small skin ischemia and as well as underlying hydrocephalus not cannot be excluded was also part of the report. Neurology evaluation in progress. Multiple consultants are following the patient closely. PAST MEDICAL HISTORY: History of CAD, history of diabetes type 2, history hemodialysis, GERD, hypertension, hyperlipidemia, history of DJD. MEDICATIONS: Home medications are: Insulin, Reglan, calcitriol, CellCept, Prograf, Prilosec, Nitrostat, Norvasc, Neurontin, Cymbalta, other medications and doses reviewed. ALLERGIES: MILK CONTAINING PRODUCTS, PENICILLIN, TARKA. Family history, social history and review of systems could not be taken because the patient's change in mental status. History of myocardial infarction per chart. Vascular disease. PHYSICAL EXAMINATION: Patient is stuporous, barely arousable. Pulse 92, blood pressure 140/71, respiration 18, temperature 97 degrees, pulse ox 100 percent on 2 L. HEENT is conjunctivae normal. Oral mucosa moist. NECK is no jugular venous distention. No neck stiffness. CARDIOVASCULAR system: S1, S2. RESPIRATION: Breath sounds diminished in the bases. Few rhonchi. No crackles. ABDOMEN: Soft, nontender. No mass palpable. LEGS are no edema. No swelling. NERVOUS SYSTEM: The patient is unresponsive. SKIN no ulcer. No rash and no bleeding. JOINTS: No active deforming arthropathy. LABS: WBC 17.3, hemoglobin 11.2, 12.2, and VBG is 7.22, sodium 130, potassium 4.7. Glucose was 693 and troponin 0.192. ALT was 48. Procalcitonin 1.28. ASSESSMENT: 1. Acute diabetic ketosis, diabetes type 2 with hyperglycemia. 2. Change in mental status acute metabolic encephalopathy. 3. Rule out sepsis. 4. Increased WBC. 5. Anemia. 6. Acute metabolic acidosis secondary to diabetic ketoacidosis. 7. Increased creatinine with acute on chronic kidney disease with acute tubular necrosis. 8. History of chronic renal hemodialysis and living renal transplant 2001. 9. History of coronary artery disease. 10.History of cerebrovascular accident, transient ischemic attack. 11.Diabetes mellitus, type 2. 12.Gastroesophageal reflux disease. 13.Hypertension. 14.Hyperlipidemia. 15.History of myocardial infarction. 16.Degenerative joint disease. 17.History of pneumonia. 18.History of pulmonary embolism. 19.History of sleep apnea. 20.History of factor 5 Leiden. 21.History of basal cell carcinoma. 23.History of cerebrovascular accident. 24.Rule out hydrocephalus. 25.History of bariatric surgery. 26.History of section. 27.History of cholecystectomy. 28.History of coronary artery disease, stent. 29.History of bilateral oophorectomy. 30.Depression. 31.FULL CODE. RECOMMENDATIONS AND DISCUSSION: This 60-year-old woman who presented with multiple medical issues, at this time, I recommend to continue the current medications, symptomatic treatment. Otherwise at this time I would recommend monitor the blood sugars closely, DKA protocol. Closely follow with multiple consultants including Nephrology, monitor fluid and electrolytes balance closely. Otherwise, I would also recommend DVT prophylaxis, beta blockers have been initiated. I would also recommend empiric antibiotics and we will also obtain cultures and Infectious Disease evaluation. The CT has been noted and overall prognosis guarded because of multiple complex medical issues and further recommendations to follow. Discussed with the family who understands and agrees. A copy of this dictation being forwarded to Dr. Benson who is the primary physician. MMODL / TABATHAN: [id number] / RAMY
[2021-09-11 18:10] LABS: Glucose,Whole Blood 111 mg/dL (75-99)
[2021-09-11 19:27] LABS: Glucose,Whole Blood 127 mg/dL (75-99)
[2021-09-11 20:23] LABS: Glucose,Whole Blood 164 mg/dL (75-99)
[2021-09-11 21:27] LABS: Glucose,Whole Blood 164 mg/dL (75-99)
[2021-09-11 22:37] LABS: Glucose,Whole Blood 201 mg/dL (75-99)
[2021-09-11 23:34] LABS: Glucose,Whole Blood 225 mg/dL (75-99)
[2021-09-12 00:19] LABS: Glucose,Whole Blood 238 mg/dL (75-99)
[2021-09-12 01:25] LABS: Glucose,Whole Blood 230 mg/dL (75-99)
[2021-09-12 02:35] LABS: Glucose,Whole Blood 240 mg/dL (75-99)
[2021-09-12] MEDS: D5-0.45% NACL WITH KCL 20MEQ/L 1,000 ML IV SCH ×3 (03:39→19:46)
[2021-09-12] MEDS: SODIUM CHLORIDE 0.9% 1,000 ML IV SCH ×5 (03:40→23:05)
[2021-09-12 03:41] LABS: Glucose,Whole Blood 250 mg/dL (75-99)
[2021-09-12 03:49] LABS: Basophils % (A) 0 %; Eosinophils % (A) 0 %; HCT 33.3 % (34.0-46.0); HGB 10.7 gm/dL (11.4-16.0); Lymphocytes # (A) 0.8 k/uL (1.0-4.8); Lymphocytes % (A) 5 %; MCH 31.3 pg (25.0-35.0); MCHC 32.2 g/dL (31.0-37.0); MCV 97.2 fL (80.0-100.0); Mean Platelet Volume 11.3; Monocytes # (A) 0.6 k/uL (0-1.0); Monocytes % (A) 4 %; Neutrophils # (A) 13.3 k/uL (1.3-7.7); Neutrophils % (A) 90 %; Platelet Count 114 k/uL (150-450); RBC 3.42 m/uL (3.80-5.40); RDW 13.8 % (11.5-15.5); WBC 14.8 k/uL (3.8-10.6)
[2021-09-12 04:08] LABS: Albumin 2.4 g/dL (3.5-5.0); Calcium 9.1 mg/dL (8.4-10.2); Magnesium 1.9 mg/dL (1.6-2.3); Potassium 4.1 mmol/L (3.5-5.1); Total Bilirubin 0.4 mg/dL (0.2-1.3)
[2021-09-12 04:37] LABS: Glucose,Whole Blood 281 mg/dL (75-99)
[2021-09-12 05:43] LABS: Glucose,Whole Blood 317 mg/dL (75-99)
[2021-09-12 06:24] LABS: Glucose,Whole Blood 317 mg/dL (75-99)
[2021-09-12 07:48] LABS: Glucose,Whole Blood 323 mg/dL (75-99)
[2021-09-12 08:19] LABS: Glucose,Whole Blood 370 mg/dL (75-99)
[2021-09-12] MEDS: ATORVASTATIN 80 MG TAB PO SCH (08:46)
[2021-09-12] MEDS: METOPROLOL SUCCINATE (ER) 25 MG TAB.ER.24H PO SCH (08:46)
[2021-09-12] MEDS: ASPIRIN 81 MG PO SCH (08:46)
--- NOTE | 2021-09-12 09:07 | P.PN ---
Subjective Patient is seen in follow-up for acute allograft function. Renal function improving. More awake today. Currently on half-normal saline as well as insulin drip. Nonoliguric. Vital signs are stable. General: The patient appeared well nourished and normally developed. HEENT: Head exam is unremarkable. LUNGS: Breath sounds decreased. HEART: Rate and Rhythm are regular. ABDOMEN: Soft, no distention. EXTREMITITES: No edema. Objective - Vital Signs Vital signs: Vital Signs Temp 97.9 F 09/12/21 07:26 Pulse 80 09/12/21 08:19 Resp 16 09/12/21 08:19 BP 165/80 09/12/21 08:19 Pulse Ox 97 09/12/21 08:19 Intake & Output 09/11/21 09/12/21 09/12/21 18:59 06:59 18:59 Intake Total 64.241 11.793 8.013 Output Total 1100 1100 Balance 64.241 -1088.207 -1091.987 Intake: Intake, IV Titration 64.241 11.793 8.013 Amount Insulin Regular 100 unit 64.241 11.793 8.013 In Sodium Chloride 0.9% 100 ml @ 0.1 UNITS/KG/HR 5.498 mls/hr IV .[id number] [facility] Rx#:[id number] Output: Urine 1100 1100 - Labs CBC & Chem 7: 09/12/21 03:37 09/12/21 03:37 Labs: Abnormal Lab Results - Last 24 Hours (Table) 09/10/21 09/11/21 09/11/21 Range/Units 15:28 09:12 11:00 WBC (3.8-10.6) k/uL RBC (3.80-5.40) m/uL Hgb (11.4-16.0) gm/dL Hct (34.0-46.0) % Plt Count (150-450) k/uL Neutrophils # (1.3-7.7) k/uL Lymphocytes # (1.0-4.8) k/uL Chloride (98-107) mmol/L Carbon Dioxide (22-30) mmol/L BUN (7-17) mg/dL Creatinine (0.52-1.04) mg/dL Glucose (74-99) mg/dL POC Glucose (mg/dL) 227 H 153 H (75-99) mg/dL AST (14-36) U/L ALT (4-34) U/L Total Protein (6.3-8.2) g/dL Albumin (3.5-5.0) g/dL Tacrolimus 2.3 L (5.0-20.0) ng/mL 09/11/21 09/11/21 09/11/21 Range/Units 11:47 13:04 14:03 WBC (3.8-10.6) k/uL RBC (3.80-5.40) m/uL Hgb (11.4-16.0) gm/dL Hct (34.0-46.0) % Plt Count (150-450) k/uL Neutrophils # (1.3-7.7) k/uL Lymphocytes # (1.0-4.8) k/uL Chloride (98-107) mmol/L Carbon Dioxide (22-30) mmol/L BUN (7-17) mg/dL Creatinine (0.52-1.04) mg/dL Glucose (74-99) mg/dL POC Glucose (mg/dL) 113 H 168 H 186 H (75-99) mg/dL AST (14-36) U/L ALT (4-34) U/L Total Protein (6.3-8.2) g/dL Albumin (3.5-5.0) g/dL Tacrolimus (5.0-20.0) ng/mL 09/11/21 09/11/21 09/11/21 Range/Units 14:18 15:14 16:02 WBC (3.8-10.6) k/uL RBC (3.80-5.40) m/uL Hgb (11.4-16.0) gm/dL Hct (34.0-46.0) % Plt Count (150-450) k/uL Neutrophils # (1.3-7.7) k/uL Lymphocytes # (1.0-4.8) k/uL Chloride (98-107) mmol/L Carbon Dioxide (22-30) mmol/L BUN (7-17) mg/dL Creatinine (0.52-1.04) mg/dL Glucose (74-99) mg/dL POC Glucose (mg/dL) 175 H 127 H 151 H (75-99) mg/dL AST (14-36) U/L ALT (4-34) U/L Total Protein (6.3-8.2) g/dL Albumin (3.5-5.0) g/dL Tacrolimus (5.0-20.0) ng/mL 09/11/21 09/11/21 09/11/21 Range/Units 17:22 18:08 19:14 WBC (3.8-10.6) k/uL RBC (3.80-5.40) m/uL Hgb (11.4-16.0) gm/dL Hct (34.0-46.0) % Plt Count (150-450) k/uL Neutrophils # (1.3-7.7) k/uL Lymphocytes # (1.0-4.8) k/uL Chloride (98-107) mmol/L Carbon Dioxide (22-30) mmol/L BUN (7-17) mg/dL Creatinine (0.52-1.04) mg/dL Glucose (74-99) mg/dL POC Glucose (mg/dL) 146 H 111 H 127 H (75-99) mg/dL AST (14-36) U/L ALT (4-34) U/L Total Protein (6.3-8.2) g/dL Albumin (3.5-5.0) g/dL Tacrolimus (5.0-20.0) ng/mL 09/11/21 09/11/21 09/11/21 Range/Units 20:20 21:25 22:35 WBC (3.8-10.6) k/uL RBC (3.80-5.40) m/uL Hgb (11.4-16.0) gm/dL Hct (34.0-46.0) % Plt Count (150-450) k/uL Neutrophils # (1.3-7.7) k/uL Lymphocytes # (1.0-4.8) k/uL Chloride (98-107) mmol/L Carbon Dioxide (22-30) mmol/L BUN (7-17) mg/dL Creatinine (0.52-1.04) mg/dL Glucose (74-99) mg/dL POC Glucose (mg/dL) 164 H 164 H 201 H (75-99) mg/dL AST (14-36) U/L ALT (4-34) U/L Total Protein (6.3-8.2) g/dL Albumin (3.5-5.0) g/dL Tacrolimus (5.0-20.0) ng/mL 09/11/21 09/12/21 09/12/21 Range/Units 23:32 00:06 01:14 WBC (3.8-10.6) k/uL RBC (3.80-5.40) m/uL Hgb (11.4-16.0) gm/dL Hct (34.0-46.0) % Plt Count (150-450) k/uL Neutrophils # (1.3-7.7) k/uL Lymphocytes # (1.0-4.8) k/uL Chloride (98-107) mmol/L Carbon Dioxide (22-30) mmol/L BUN (7-17) mg/dL Creatinine (0.52-1.04) mg/dL Glucose (74-99) mg/dL POC Glucose (mg/dL) 225 H 238 H 230 H (75-99) mg/dL AST (14-36) U/L ALT (4-34) U/L Total Protein (6.3-8.2) g/dL Albumin (3.5-5.0) g/dL Tacrolimus (5.0-20.0) ng/mL 09/12/21 09/12/21 09/12/21 Range/Units 02:24 03:15 03:37 WBC (3.8-10.6) k/uL RBC (3.80-5.40) m/uL Hgb (11.4-16.0) gm/dL Hct (34.0-46.0) % Plt Count (150-450) k/uL Neutrophils # (1.3-7.7) k/uL Lymphocytes # (1.0-4.8) k/uL Chloride 113 H (98-107) mmol/L Carbon Dioxide 17 L (22-30) mmol/L BUN 39 H (7-17) mg/dL Creatinine 1.44 H (0.52-1.04) mg/dL Glucose 291 H (74-99) mg/dL POC Glucose (mg/dL) 240 H 250 H (75-99) mg/dL AST 149 H (14-36) U/L ALT 77 H (4-34) U/L Total Protein 5.0 L (6.3-8.2) g/dL Albumin 2.4 L (3.5-5.0) g/dL Tacrolimus (5.0-20.0) ng/mL 09/12/21 09/12/21 09/12/21 Range/Units 03:37 04:12 05:18 WBC 14.8 H (3.8-10.6) k/uL RBC 3.42 L (3.80-5.40) m/uL Hgb 10.7 L (11.4-16.0) gm/dL Hct 33.3 L (34.0-46.0) % Plt Count 114 L (150-450) k/uL Neutrophils # 13.3 H (1.3-7.7) k/uL Lymphocytes # 0.8 L (1.0-4.8) k/uL Chloride (98-107) mmol/L Carbon Dioxide (22-30) mmol/L BUN (7-17) mg/dL Creatinine (0.52-1.04) mg/dL Glucose (74-99) mg/dL POC Glucose (mg/dL) 281 H 317 H (75-99) mg/dL AST (14-36) U/L ALT (4-34) U/L Total Protein (6.3-8.2) g/dL Albumin (3.5-5.0) g/dL Tacrolimus (5.0-20.0) ng/mL 09/12/21 09/12/21 09/12/21 Range/Units 06:21 07:25 08:18 WBC (3.8-10.6) k/uL RBC (3.80-5.40) m/uL Hgb (11.4-16.0) gm/dL Hct (34.0-46.0) % Plt Count (150-450) k/uL Neutrophils # (1.3-7.7) k/uL Lymphocytes # (1.0-4.8) k/uL Chloride (98-107) mmol/L Carbon Dioxide (22-30) mmol/L BUN (7-17) mg/dL Creatinine (0.52-1.04) mg/dL Glucose (74-99) mg/dL POC Glucose (mg/dL) 317 H 323 H 370 H (75-99) mg/dL AST (14-36) U/L ALT (4-34) U/L Total Protein (6.3-8.2) g/dL Albumin (3.5-5.0) g/dL Tacrolimus (5.0-20.0) ng/mL Microbiology - Last 24 Hours (Table) 09/10/21 16:25 Blood Culture - Preliminary Blood No Growth after 24 hours Assessment and Plan Plan: Assessment: 1. Acute allograft dysfunction secondary to ATN from hypovolemia due to DKA. Creatinine 1.84 on admission and is 1.44 today. Also received IV contrast dye on 09/10/2021. 2. Chronic kidney disease stage III with baseline creatinine near 1.1. 3. Status post living related renal allograft in 2001. 4. DKA maintained on IV fluids and insulin drip. 5. Metabolic acidosis secondary to DKA and acute kidney injury. Improving. Plan: Maintain IV fluids. Prograf level 2.3 dated 09/10/2021. Trough level pending. CellCept and Prograf will be resumed. Continue to monitor renal function and urine output. Monitor for contrast- induced acute kidney injury.
[2021-09-12] MEDS: INSULIN REGULAR 100 UNIT in SODIUM CHLORIDE 0.9% 100 ML IV SCH (09:11)
[2021-09-12 09:19] LABS: Glucose,Whole Blood 361 mg/dL (75-99)
[2021-09-12 10:28] LABS: Glucose,Whole Blood 291 mg/dL (75-99)
--- NOTE | 2021-09-12 10:30 | P.PN ---
Subjective Progress Note Date: 09/12/21 Principal diagnosis: DKA Pulmonary/critical care consult dated 09/11/2021. 60-year-old female who presents to the emergency department on September 10, brought in by EMS, for mental status changes. She was apparently found by her to have acute mental status changes. The patient apparently received glucagon from her , and was sent to the emergency room to be further evaluated. Apparently EMS found her blood sugars to be in the 500s, and there were actually higher in the emergency department. I was called by the emergency room physician last night. The patient is seen this morning in the emergency department, room 5. She's on 2 L nasal cannula. The patient's getting an insulin drip at 5.5 units an hour, and saline at 200 mL an hour. Her most recent laboratory includes a sodium 136, potassium 3.7, chlorides 108, CO2 16, sugar of 342, and anion gap of 12. She apparently has a history of diabetes, hypertension, hyperlipidemia, CVA, CAD, and a prior kidney transplant. Today, when we are evaluating her, she was very lethargic and somnolent, and could barely open her eyes. She could not really answer questions at this time. The brain CT did not show anything acute suggest intracranial hemorrhage or midline shift. Angiography CT was also unremarkable. Chest x-ray showed some mild increased vascular changes. Progress note dated 09/12/2021. 60-year-old female seen yesterday in the emergency department. She was brought in because of mental status changes. The patient was found to have diabetic ketoacidosis. The patient is on insulin at 4.67 units an hour. She's getting D5 half-normal saline with 20 mg a potassium at 150 mL an hour, and she is on 2 L nasal cannula. The patient is much more awake and alert today than she was ye day. The CAT scan of the brain was negative. The CT angiogram was unremarkable. White count 14.8, heme him 10.7, hematocrit 33.3, platelet count 114,000. Sodium 138, potassium 4.1, chlorides 113, CO2 17, anion gap 8, BUN 39, with a creatinine of 1.44. Testing for grajeda virus was negative. Objective - Vital Signs Vital signs: Vital Signs Temp 97.9 F 09/12/21 07:26 Pulse 76 09/12/21 10:18 Resp 16 09/12/21 10:18 BP 160/88 09/12/21 10:18 Pulse Ox 99 09/12/21 10:18 Intake & Output 09/11/21 09/12/21 09/12/21 18:59 06:59 18:59 Intake Total 64.241 11.793 13.494 Output Total 1100 1440 Balance 64.241 -1088.207 -1426.506 Intake: Intake, IV Titration 64.241 11.793 13.494 Amount Insulin Regular 100 unit 64.241 11.793 13.494 In Sodium Chloride 0.9% 100 ml @ 0.1 UNITS/KG/HR 5.498 mls/hr IV .[id number] Rx#:[id number] Output: Urine 1100 1440 - Exam No acute distress, much more awake and alert today. Currently on 2 L nasal cannula. HEENT examination is grossly unremarkable. Neck supple. Full range of motion. No adenopathy thyromegaly or neck vein distention. Cardiovascular examination reveals regular rhythm rate. S1-S2 normal. No S3 or S4. No discernible murmur noted. Heart rate 76 bpm. Lungs reveal mostly clear breath sounds. Mild scattered rhonchi. No wheezes or crackles. 2 L saturations are 99%. Abdomen soft bowel sounds are heard. No masses or tenderness. Extremities are intact. No cyanosis clubbing or edema. Skin is without rash or lesion. Neurologic examination was brief but nonfocal. - Labs CBC & Chem 7: 09/12/21 03:37 09/12/21 03:37 Labs: Abnormal Lab Results - Last 24 Hours (Table) 09/10/21 09/11/21 09/11/21 Range/Units 15:28 11:00 11:47 WBC (3.8-10.6) k/uL RBC (3.80-5.40) m/uL Hgb (11.4-16.0) gm/dL Hct (34.0-46.0) % Plt Count (150-450) k/uL Neutrophils # (1.3-7.7) k/uL Lymphocytes # (1.0-4.8) k/uL Chloride (98-107) mmol/L Carbon Dioxide (22-30) mmol/L BUN (7-17) mg/dL Creatinine (0.52-1.04) mg/dL Glucose (74-99) mg/dL POC Glucose (mg/dL) 153 H 113 H (75-99) mg/dL AST (14-36) U/L ALT (4-34) U/L Total Protein (6.3-8.2) g/dL Albumin (3.5-5.0) g/dL Tacrolimus 2.3 L (5.0-20.0) ng/mL 09/11/21 09/11/21 09/11/21 Range/Units 13:04 14:03 14:18 WBC (3.8-10.6) k/uL RBC (3.80-5.40) m/uL Hgb (11.4-16.0) gm/dL Hct (34.0-46.0) % Plt Count (150-450) k/uL Neutrophils # (1.3-7.7) k/uL Lymphocytes # (1.0-4.8) k/uL Chloride (98-107) mmol/L Carbon Dioxide (22-30) mmol/L BUN (7-17) mg/dL Creatinine (0.52-1.04) mg/dL Glucose (74-99) mg/dL POC Glucose (mg/dL) 168 H 186 H 175 H (75-99) mg/dL AST (14-36) U/L ALT (4-34) U/L Total Protein (6.3-8.2) g/dL Albumin (3.5-5.0) g/dL Tacrolimus (5.0-20.0) ng/mL 09/11/21 09/11/21 09/11/21 Range/Units 15:14 16:02 17:22 WBC (3.8-10.6) k/uL RBC (3.80-5.40) m/uL Hgb (11.4-16.0) gm/dL Hct (34.0-46.0) % Plt Count (150-450) k/uL Neutrophils # (1.3-7.7) k/uL Lymphocytes # (1.0-4.8) k/uL Chloride (98-107) mmol/L Carbon Dioxide (22-30) mmol/L BUN (7-17) mg/dL Creatinine (0.52-1.04) mg/dL Glucose (74-99) mg/dL POC Glucose (mg/dL) 127 H 151 H 146 H (75-99) mg/dL AST (14-36) U/L ALT (4-34) U/L Total Protein (6.3-8.2) g/dL Albumin (3.5-5.0) g/dL Tacrolimus (5.0-20.0) ng/mL 09/11/21 09/11/21 09/11/21 Range/Units 18:08 19:14 20:20 WBC (3.8-10.6) k/uL RBC (3.80-5.40) m/uL Hgb (11.4-16.0) gm/dL Hct (34.0-46.0) % Plt Count (150-450) k/uL Neutrophils # (1.3-7.7) k/uL Lymphocytes # (1.0-4.8) k/uL Chloride (98-107) mmol/L Carbon Dioxide (22-30) mmol/L BUN (7-17) mg/dL Creatinine (0.52-1.04) mg/dL Glucose (74-99) mg/dL POC Glucose (mg/dL) 111 H 127 H 164 H (75-99) mg/dL AST (14-36) U/L ALT (4-34) U/L Total Protein (6.3-8.2) g/dL Albumin (3.5-5.0) g/dL Tacrolimus (5.0-20.0) ng/mL 09/11/21 09/11/21 09/11/21 Range/Units 21:25 22:35 23:32 WBC (3.8-10.6) k/uL RBC (3.80-5.40) m/uL Hgb (11.4-16.0) gm/dL Hct (34.0-46.0) % Plt Count (150-450) k/uL Neutrophils # (1.3-7.7) k/uL Lymphocytes # (1.0-4.8) k/uL Chloride (98-107) mmol/L Carbon Dioxide (22-30) mmol/L BUN (7-17) mg/dL Creatinine (0.52-1.04) mg/dL Glucose (74-99) mg/dL POC Glucose (mg/dL) 164 H 201 H 225 H (75-99) mg/dL AST (14-36) U/L ALT (4-34) U/L Total Protein (6.3-8.2) g/dL Albumin (3.5-5.0) g/dL Tacrolimus (5.0-20.0) ng/mL 09/12/21 09/12/21 09/12/21 Range/Units 00:06 01:14 02:24 WBC (3.8-10.6) k/uL RBC (3.80-5.40) m/uL Hgb (11.4-16.0) gm/dL Hct (34.0-46.0) % Plt Count (150-450) k/uL Neutrophils # (1.3-7.7) k/uL Lymphocytes # (1.0-4.8) k/uL Chloride (98-107) mmol/L Carbon Dioxide (22-30) mmol/L BUN (7-17) mg/dL Creatinine (0.52-1.04) mg/dL Glucose (74-99) mg/dL POC Glucose (mg/dL) 238 H 230 H 240 H (75-99) mg/dL AST (14-36) U/L ALT (4-34) U/L Total Protein (6.3-8.2) g/dL Albumin (3.5-5.0) g/dL Tacrolimus (5.0-20.0) ng/mL 09/12/21 09/12/21 09/12/21 Range/Units 03:15 03:37 03:37 WBC 14.8 H (3.8-10.6) k/uL RBC 3.42 L (3.80-5.40) m/uL Hgb 10.7 L (11.4-16.0) gm/dL Hct 33.3 L (34.0-46.0) % Plt Count 114 L (150-450) k/uL Neutrophils # 13.3 H (1.3-7.7) k/uL Lymphocytes # 0.8 L (1.0-4.8) k/uL Chloride 113 H (98-107) mmol/L Carbon Dioxide 17 L (22-30) mmol/L BUN 39 H (7-17) mg/dL Creatinine 1.44 H (0.52-1.04) mg/dL Glucose 291 H (74-99) mg/dL POC Glucose (mg/dL) 250 H (75-99) mg/dL AST 149 H (14-36) U/L ALT 77 H (4-34) U/L Total Protein 5.0 L (6.3-8.2) g/dL Albumin 2.4 L (3.5-5.0) g/dL Tacrolimus (5.0-20.0) ng/mL 09/12/21 09/12/21 09/12/21 Range/Units 04:12 05:18 06:21 WBC (3.8-10.6) k/uL RBC (3.80-5.40) m/uL Hgb (11.4-16.0) gm/dL Hct (34.0-46.0) % Plt Count (150-450) k/uL Neutrophils # (1.3-7.7) k/uL Lymphocytes # (1.0-4.8) k/uL Chloride (98-107) mmol/L Carbon Dioxide (22-30) mmol/L BUN (7-17) mg/dL Creatinine (0.52-1.04) mg/dL Glucose (74-99) mg/dL POC Glucose (mg/dL) 281 H 317 H 317 H (75-99) mg/dL AST (14-36) U/L ALT (4-34) U/L Total Protein (6.3-8.2) g/dL Albumin (3.5-5.0) g/dL Tacrolimus (5.0-20.0) ng/mL 09/12/21 09/12/21 09/12/21 Range/Units 07:25 08:18 09:18 WBC (3.8-10.6) k/uL RBC (3.80-5.40) m/uL Hgb (11.4-16.0) gm/dL Hct (34.0-46.0) % Plt Count (150-450) k/uL Neutrophils # (1.3-7.7) k/uL Lymphocytes # (1.0-4.8) k/uL Chloride (98-107) mmol/L Carbon Dioxide (22-30) mmol/L BUN (7-17) mg/dL Creatinine (0.52-1.04) mg/dL Glucose (74-99) mg/dL POC Glucose (mg/dL) 323 H 370 H 361 H (75-99) mg/dL AST (14-36) U/L ALT (4-34) U/L Total Protein (6.3-8.2) g/dL Albumin (3.5-5.0) g/dL Tacrolimus (5.0-20.0) ng/mL Microbiology - Last 24 Hours (Table) 09/10/21 16:25 Blood Culture - Preliminary Blood No Growth after 24 hours Assessment and Plan Assessment: Acute diabetic ketoacidosis. Acute mental status changes, with normal head CT and CT angiography. History of kidney transplant, 2001. History of CAD, with prior history of myocardial infarction. History of diabetes mellitus. Gastroesophageal reflux disease. History of hyperlipidemia. History of hypertension. History of sleep apnea syndrome. History of vulvar cancer. Plan: Plan dated 09/11/2021. Initially, I was called because the physician in the emergency room thought the patient needed an ICU bed. She still may. She is very lethargic and sleepy. We are hoping with some additional volume, insulin, and so forth, she can be downgraded to the general medical floor, or the telemetry floor. We will continue to follow make recommendations were appropriate. Prognosis is guarded. Labs, x-rays, and medications are reviewed. She was seen by nephrology. Her respiratory status is currently stable. Plan dated 09/12/2021. The patient remains on insulin at 4.67 units per hour. She's getting D5 half- normal saline with 20 mg a potassium at 150 mL an hour. Her saturations are 99% on 2 L. The patient's getting Rocephin, empirically. Her mental status is much improved. We will continue to follow make recommendations where appropriate. She is being followed by nephrology. Prognosis is guarded. I'm hoping that we can transition her to longer acting insulin, and down grade her. We currently do not have any beds available in the intensive care unit. Time with Patient: Greater than 30
[2021-09-12 11:40] LABS: Glucose,Whole Blood 275 mg/dL (75-99)
[2021-09-12 12:29] LABS: Glucose,Whole Blood 232 mg/dL (75-99)
[2021-09-12] MEDS: TACROLIMUS 1 MG CAP PO SCH ×2 (14:05→21:52)
[2021-09-12] MEDS: hydrALAZINE HCL 25 MG TAB PO SCH ×2 (14:06→21:53)
[2021-09-12 14:11] LABS: Glucose,Whole Blood 192 mg/dL (75-99)
--- NOTE | 2021-09-12 14:30 | P.CNNES ---
History of Present Illness Consult date: 09/12/21 Requesting physician: Martha Gonzalez Reason for Consult: Altered mental status History of Present Illness: This is a telemedicine neurology consultation performed today on 09/12/2021. Patient is a 60-year-old female came to the hospital by ambulance at 3:15 PM on 09/10/2021. Patient not able to provide any history. Family members were not available. As per EMS flow sheet when they arrived, patient was laying in bed. Patient's has mentioned that he checked on her around 12:30 PM and found her unresponsive in bed, but figured she was sleeping. checked on the patient again about one hour from 911 call and noticed she was still sleeping but he felt her blood sugar was low so he administered 1 unit of glucagon without checking her blood sugar. He then called 911 when she did not wake up after 1 hour. Patient was unresponsive, and is looking around the room but not purposeful looks. Patient's pupils were equal, but very sluggish. Patient's blood pressure was 110/50, pulse rate 104, respirations 16, her blood sugar 575. Vital signs on arrival blood pressure 103/43, pulse rate 98. Blood test shows WBC 17.3 hemoglobin 11.2, with elevated MCV 104.1. Platelets 174. PT/PTT normal. Sodium 132 potassium 5.3, BUN 44, creatinine 1.84. Her blood glucose was was 870, lactate 6.6 AST 34, ALT 51, ammonia 23. TSH normal. Troponin borderline 0.042. UA negative except for 4+ glucose and 2+ ketones. Urine drug screen negative. Acetone positive. Booker virus PCR negative. Patient was severely acidotic. Her most recent BUN 39, creatinine 1.44. Most recent blood sugar 370. Her last hemoglobin A1c 5.9 on 03/08/2021. Computed tomography scan of the head showed no acute intracranial hemorrhage or midline shift. There is mild diffuse age-related cerebral atrophy and moderate to severe chronic small vessel ischemic change. Cannot exclude underlying normal pressure hydrocephalus, however no significant change from 2017 MRI. CTA of head and neck showed no significant abnormality seen within the cerebral or neck vasculature. Chest x-ray shows congestive heart failure changes with cardiomegaly and mild pulmonary vascular congestion. EKG with normal sinus rhythm, prolonged QT. Patient had multiple MRI of the brain in the past. Patient has history of an acute stroke involving the left centrum semiovale near the frontoparietal junction on 05/04/2016. Patient at present continues to be encephalopathic, continues to keep her eyes closed. Patient has a fake eyelashes as well. Patient does open her eyes on repeated instructions, sometimes answers, slightly follows commands intermittently and then closes her eyes again. Patient admits to having no headache, or no pain anywhere. Patient's home medications include amlodipine, CellCept, gabapentin, tacrolimus, Cymbalta 20 mg, Eliquis 5 mg twice a day, Plavix 75 mg, metoprolol, Reglan, Lipitor 80 mg. Review of Systems Patient denies headache or any pain anywhere else. Rest could not be obtained. ROS unobtainable: due to mental status Past Medical History Past Medical History: Blood Disorder, Coronary Artery Disease (CAD), Cancer, CVA/TIA, Diabetes Mellitus, Dialysis, GERD/Reflux, Hyperlipidemia, Hypertension, Myocardial Infarction (non Q-wave), Osteoarthritis (OA), Pneumonia, Pulmonary Embolus (PE), Renal Disease, Sleep Apnea/CPAP/BIPAP, Thyroid Disorder Additional Past Medical History / Comment(s): Leiden Factor V, basal cell carcinoma, Vulvar cancer, CVA 2016, CVA 2013, CVA 2017 est - sl weakness Lt side, Dialysis 2001 for 2 months, enlarged thyroid w/ nodules. PE 2011, Kidney transplant 2001. No tx for sleep apnea. Neuropathy in feet/legs. Last Myocardial Infarction Date:: 2014 History of Any Multi-Drug Resistant Organisms: None Reported Past Surgical History: Bariatric Surgery, Section, Cholecystectomy, Heart Catheterization, Heart Catheterization With Stent, Tonsillectomy, Tubal L igation Additional Past Surgical History / Comment(s): jose oophrectomy, kidney transplant, surgery to remove CA. PTCA w/ Stent 2001, 2014. Colonoscopy, EGD.Gastric Sleeve 05/04/20. Past Anesthesia/Blood Transfusion Reactions: No Reported Reaction, Motion Sickness Additional Past Anesthesia/Blood Transfusion Reaction / Comment(s): no hx blood transfusion Date of Last Stent Placement:: 2014 Past Psychological History: Depression Smoking Status: Never smoker Past Alcohol Use History: None Reported Past Drug Use History: None Reported - Past Family History Sister(s) Family Medical History: Hypertension Father Family Medical History: Myocardial Infarction (GA) Mother Family Medical History: Pulmonary Embolus Additional Family Medical History / Comment(s): Occluded carotid artery, carotid endartectomy Son(s) Family Medical History: Diabetes Mellitus Additional Family Medical History / Comment(s): DM type 1 Medications and Allergies Home Medications Medication Instructions Recorded Confirmed Type amLODIPine [Norvasc] 10 mg PO DAILY 12/12/14 09/10/21 History mycophenolate mofetiL [Cellcept] 500 mg PO BID 12/12/14 09/10/21 History Nitroglycerin Sl Tabs [Nitrostat] 0.4 mg SUBLINGUAL Q5M PRN #25 tab 12/15/14 09/10/21 Rx Omeprazole [PriLOSEC] 40 mg PO AC-BRKFST 10/23/15 09/10/21 History Tacrolimus [Prograf] 1 mg PO BID 06/06/16 09/10/21 History DULoxetine HCL [Cymbalta] 20 mg PO DAILY 11/10/18 09/10/21 History Apixaban [Eliquis] 5 mg PO BID 11/04/19 09/10/21 History Clopidogrel [Plavix] 75 mg PO DAILY 11/04/19 09/10/21 History Atorvastatin [Lipitor] 80 mg PO DAILY 09/10/21 09/10/21 History Metoclopramide [Reglan] 5 mg PO DAILY 09/10/21 09/10/21 History Metoprolol Succinate (ER) [Toprol 25 mg PO DAILY 09/10/21 09/10/21 History XL] calcitrioL [Calcitriol] 0.5 mcg PO SUTUTHSA 09/10/21 09/10/21 History calcitrioL [Calcitriol] 1 mcg PO MOWEFR 09/10/21 09/10/21 History INSULIN LISPRO (For Pump) [humaLOG 0.01 units SQ-PUMP CONTINUOUS 09/13/21 09/13/21 History (For Pump)] Aspirin 81 mg PO DAILY tab 09/14/21 Rx Gabapentin [Neurontin] 300 mg PO HS #3 cap 09/14/21 Rx hydrALAZINE HCL [Apresoline] 50 mg PO TID #90 tab 09/14/21 Rx Allergies Allergy/AdvReac Type Severity Reaction Status Date / Time Milk Containing Products Allergy Diarrhea Verified 09/10/21 15:54 [Dairy] Penicillins Allergy Rash/Hives Verified 09/10/21 15:54 trandolapril [From [facility] [place]] Allergy SEVERE Verified 09/10/21 15:54 HYPOTENSION verapamil HCl [From [facility] [place]] Allergy SEVERE Verified 09/10/21 15:54 HYPOTENSION Physical Examination - Vital Signs Vital Signs: Vital Signs Temp Pulse Resp BP Pulse Ox 09/12/21 08:19 80 16 165/80 97 09/12/21 07:26 97.9 F 80 18 165/93 97 09/12/21 06:21 76 18 176/112 98 09/12/21 05:19 75 18 159/72 98 09/12/21 04:13 98.0 F 82 18 168/86 98 09/12/21 03:12 79 18 164/96 99 09/12/21 02:15 81 18 163/88 99 09/12/21 01:00 80 16 132/100 100 09/12/21 00:00 82 18 168/90 100 09/11/21 23:00 83 16 154/75 100 09/11/21 22:00 97.3 F L 88 18 135/64 99 09/11/21 20:00 149/73 09/11/21 19:00 82 16 156/86 100 09/11/21 18:00 86 18 145/73 100 09/11/21 17:00 85 18 160/84 100 09/11/21 16:00 93 16 150/81 100 09/11/21 15:00 92 18 145/71 100 09/11/21 14:00 93 15 155/82 98 09/11/21 13:00 95 14 156/65 100 09/11/21 12:00 97.0 F L 94 15 153/76 100 09/11/21 11:00 92 15 142/73 100 09/11/21 10:00 89 17 150/73 09/11/21 09:17 87 16 142/79 99 09/11/21 09:00 93 12 149/74 100 Intake and Output 09/11/21 09/12/21 09/12/21 22:59 06:59 14:59 Intake Total 65.636 10.398 8.013 Output Total 1100 Balance 65.636 -1089.602 8.013 Intake: Intake, IV Titration 65.636 10.398 8.013 Amount Insulin Regular 100 unit 65.636 10.398 8.013 In Sodium Chloride 0.9% 100 ml @ 0.1 UNITS/KG/HR 5.498 mls/hr IV .[id number] [facility] Rx#:[id number] Output: Urine 1100 Patient is a middle aged female, who appears older than her stated age. Patient is lethargic, groggy, keeps her eyes closed. She does open her eyes to calling her name repeatedly, follows some commands, but then closes it again. Patient not naming objects like when, but did name cup, and then would perseverate on the same word over and over for any other question asked. Patient able to tell her name, age 60 years, and that she is in [facility]. She could not tell the current month. She would not repeat phrases to check for repetition. Attention, concentration severely limited and fund of knowledge cannot be assessed. On cranial examination, pupils are round and reacting to light, gaze is in the midline. Patient does move her eyes to the sides inconsistently. Her visual corral could not be tested. Face is symmetric, she did protrude tongue to some extent, and was midline. No obvious signs of oral trauma noted on the tongue. Although she has questionable dried up blood on the left angle of the mouth. Palate and shoulders could not be tested. Hearing cannot be assessed reliably. On muscle strength testing, there is no obvious drift. Patient was able to lightly squeeze both hands equally. She did not cooperate with testing of upper extremities. She was able to wiggle her feet bilaterally. She was noted to move her both legs equally, flex her knees when she wanted to turn. She was t rying to pull herself up. Patient was noted to near constantly having repetitive left hand movement with flexion at the wrist and some rubbing movements of the thumb and forefinger of the left hand. Patient would stop this activity at times, but then continued most of the time of encounter. Does not appear ictal, but cannot entirely rule out based upon clinical examination. Deep tendon reflexes are 2 in the right upper limb, 2+ in the left upper limb. Knees are 3 and plantars are possibly upgoing bilaterally. Sensory to touch cannot be assessed although she does move to painful similar b ilaterally. Cerebellar function showed no ataxia for [id number] testing although she did not cooperate the best. Tone and bulk of muscles normal. Gait not able to be checked. On general examination, there is no carotid bruit or murmur, S1-S2 audible. Neck appears slightly stiff. Abdomen is soft nontender. Chest is clear. Peripheral pulses are present. No rash. Results - Laboratory Findings CBC and BMP: 09/14/21 07:29 09/14/21 07:29 Abnormal Lab Findings: Abnormal Labs 09/10/21 09/10/21 09/10/21 15:21 15:27 15:27 WBC 17.3 H RBC 3.49 L Hgb 11.2 L Hct MCV 104.1 H MCHC 30.9 L Plt Count Neutrophils # 15.1 H Lymphocytes # PT 12.2 H INR 1.2 H VBG pH VBG pCO2 VBG HCO3 Sodium Potassium Chloride Carbon Dioxide BUN Creatinine Glucose POC Glucose (mg/dL) >600 H Plasma Lactic Acid Abel Phosphorus AST ALT Troponin I Total Protein Albumin Procalcitonin Urine Glucose (UA) Urine Ketones Tacrolimus 09/10/21 09/10/21 09/10/21 15:27 15:27 15:27 WBC RBC Hgb Hct MCV MCHC Plt Count Neutrophils # Lymphocytes # PT INR VBG pH VBG pCO2 VBG HCO3 Sodium 132 L Potassium 5.3 H Chloride 96 L Carbon Dioxide 8 L* BUN 44 H Creatinine 1.84 H Glucose 870 H* POC Glucose (mg/dL) Plasma Lactic Acid Abel 6.6 H* Phosphorus AST ALT 51 H Troponin I 0.042 H* Total Protein 5.0 L Albumin 2.7 L Procalcitonin Urine Glucose (UA) Urine Ketones Tacrolimus 09/10/21 09/10/21 09/10/21 15:27 15:27 15:28 WBC RBC Hgb Hct MCV MCHC Plt Count Neutrophils # Lymphocytes # PT INR VBG pH 7.22 L VBG pCO2 21 L VBG HCO3 8 L* Sodium Potassium Chloride Carbon Dioxide BUN Creatinine Glucose POC Glucose (mg/dL) Plasma Lactic Acid Abel Phosphorus AST ALT Troponin I Total Protein Albumin Procalcitonin 1.28 H Urine Glucose (UA) Urine Ketones Tacrolimus 2.3 L 09/10/21 09/10/21 09/10/21 15:49 16:40 17:43 WBC RBC Hgb Hct MCV MCHC Plt Count Neutrophils # Lymphocytes # PT INR VBG pH VBG pCO2 VBG HCO3 Sodium Potassium Chloride Carbon Dioxide BUN Creatinine Glucose POC Glucose (mg/dL) >600 H >600 H Plasma Lactic Acid Abel Phosphorus AST ALT Troponin I Total Protein Albumin Procalcitonin Urine Glucose (UA) 4+ H Urine Ketones 2+ H Tacrolimus 09/10/21 09/10/21 09/10/21 18:57 19:39 19:39 WBC RBC Hgb Hct MCV MCHC Plt Count Neutrophils # Lymphocytes # PT INR VBG pH VBG pCO2 VBG HCO3 Sodium Potassium Chloride Carbon Dioxide <5 L* BUN 45 H Creatinine 1.83 H Glucose 693 H* POC Glucose (mg/dL) >600 H Plasma Lactic Acid Abel 5.9 H* Phosphorus AST ALT Troponin I Total Protein Albumin Procalcitonin Urine Glucose (UA) Urine Ketones Tacrolimus 09/10/21 09/10/21 09/10/21 19:39 20:00 21:06 WBC RBC Hgb Hct MCV MCHC Plt Count Neutrophils # Lymphocytes # PT INR VBG pH VBG pCO2 VBG HCO3 Sodium Potassium Chloride Carbon Dioxide BUN Creatinine Glucose POC Glucose (mg/dL) >600 H 577 H Plasma Lactic Acid Abel Phosphorus AST ALT Troponin I 0.231 H* Total Protein Albumin Procalcitonin Urine Glucose (UA) Urine Ketones Tacrolimus 09/10/21 09/10/21 09/10/21 22:11 22:11 22:48 WBC RBC Hgb Hct MCV MCHC Plt Count Neutrophils # Lymphocytes # PT INR VBG pH VBG pCO2 VBG HCO3 Sodium Potassium Chloride Carbon Dioxide BUN Creatinine Glucose POC Glucose (mg/dL) 551 H Plasma Lactic Acid Abel 3.3 H* Phosphorus AST ALT Troponin I 0.902 H* Total Protein Albumin Procalcitonin Urine Glucose (UA) Urine Ketones Tacrolimus 09/10/21 09/11/21 09/11/21 23:43 01:02 01:34 WBC RBC Hgb Hct MCV MCHC Plt Count Neutrophils # Lymphocytes # PT INR VBG pH VBG pCO2 VBG HCO3 Sodium Potassium Chloride 108 H Carbon Dioxide 16 L BUN 49 H Creatinine 1.89 H Glucose 492 H POC Glucose (mg/dL) 512 H 500 H Plasma Lactic Acid Abel Phosphorus 2.4 L AST ALT Troponin I Total Protein Albumin Procalcitonin Urine Glucose (UA) Urine Ketones Tacrolimus 09/11/21 09/11/21 09/11/21 03:08 05:18 05:30 WBC 18.2 H RBC 3.43 L Hgb 10.9 L Hct 33.4 L MCV MCHC Plt Count Neutrophils # 15.6 H Lymphocytes # PT INR VBG pH VBG pCO2 VBG HCO3 Sodium Potassium Chloride Carbon Dioxide BUN Creatinine Glucose POC Glucose (mg/dL) 433 H 322 H Plasma Lactic Acid Abel Phosphorus AST ALT Troponin I Total Protein Albumin Procalcitonin Urine Glucose (UA) Urine Ketones Tacrolimus 09/11/21 09/11/21 09/11/21 05:30 06:06 07:33 WBC RBC Hgb Hct MCV MCHC Plt Count Neutrophils # Lymphocytes # PT INR VBG pH VBG pCO2 VBG HCO3 Sodium 136 L Potassium Chloride 108 H Carbon Dioxide 16 L BUN 53 H Creatinine 1.75 H Glucose 342 H POC Glucose (mg/dL) 316 H 265 H Plasma Lactic Acid Abel Phosphorus AST 45 H ALT 48 H Troponin I Total Protein 5.0 L Albumin 2.5 L Procalcitonin Urine Glucose (UA) Urine Ketones Tacrolimus 09/11/21 09/11/21 09/11/21 09:12 11:00 11:47 WBC RBC Hgb Hct MCV MCHC Plt Count Neutrophils # Lymphocytes # PT INR VBG pH VBG pCO2 VBG HCO3 Sodium Potassium Chloride Carbon Dioxide BUN Creatinine Glucose POC Glucose (mg/dL) 227 H 153 H 113 H Plasma Lactic Acid Abel Phosphorus AST ALT Troponin I Total Protein Albumin Procalcitonin Urine Glucose (UA) Urine Ketones Tacrolimus 09/11/21 09/11/21 09/11/21 13:04 14:03 14:18 WBC RBC Hgb Hct MCV MCHC Plt Count Neutrophils # Lymphocytes # PT INR VBG pH VBG pCO2 VBG HCO3 Sodium Potassium Chloride Carbon Dioxide BUN Creatinine Glucose POC Glucose (mg/dL) 168 H 186 H 175 H Plasma Lactic Acid Abel Phosphorus AST ALT Troponin I Total Protein Albumin Procalcitonin Urine Glucose (UA) Urine Ketones Tacrolimus 09/11/21 09/11/21 09/11/21 15:14 16:02 17:22 WBC RBC Hgb Hct MCV MCHC Plt Count Neutrophils # Lymphocytes # PT INR VBG pH VBG pCO2 VBG HCO3 Sodium Potassium Chloride Carbon Dioxide BUN Creatinine Glucose POC Glucose (mg/dL) 127 H 151 H 146 H Plasma Lactic Acid Abel Phosphorus AST ALT Troponin I Total Protein Albumin Procalcitonin Urine Glucose (UA) Urine Ketones Tacrolimus 09/11/21 09/11/21 09/11/21 18:08 19:14 20:20 WBC RBC Hgb Hct MCV MCHC Plt Count Neutrophils # Lymphocytes # PT INR VBG pH VBG pCO2 VBG HCO3 Sodium Potassium Chloride Carbon Dioxide BUN Creatinine Glucose POC Glucose (mg/dL) 111 H 127 H 164 H Plasma Lactic Acid Abel Phosphorus AST ALT Troponin I Total Protein Albumin Procalcitonin Urine Glucose (UA) Urine Ketones Tacrolimus 09/11/21 09/11/21 09/11/21 21:25 22:35 23:32 WBC RBC Hgb Hct MCV MCHC Plt Count Neutrophils # Lymphocytes # PT INR VBG pH VBG pCO2 VBG HCO3 Sodium Potassium Chloride Carbon Dioxide BUN Creatinine Glucose POC Glucose (mg/dL) 164 H 201 H 225 H Plasma Lactic Acid Abel Phosphorus AST ALT Troponin I Total Protein Albumin Procalcitonin Urine Glucose (UA) Urine Ketones Tacrolimus 09/12/21 09/12/21 09/12/21 00:06 01:14 02:24 WBC RBC Hgb Hct MCV MCHC Plt Count Neutrophils # Lymphocytes # PT INR VBG pH VBG pCO2 VBG HCO3 Sodium Potassium Chloride Carbon Dioxide BUN Creatinine Glucose POC Glucose (mg/dL) 238 H 230 H 240 H Plasma Lactic Acid Abel Phosphorus AST ALT Troponin I Total Protein Albumin Procalcitonin Urine Glucose (UA) Urine Ketones Tacrolimus 09/12/21 09/12/21 09/12/21 03:15 03:37 03:37 WBC 14.8 H RBC 3.42 L Hgb 10.7 L Hct 33.3 L MCV MCHC Plt Count 114 L Neutrophils # 13.3 H Lymphocytes # 0.8 L PT INR VBG pH VBG pCO2 VBG HCO3 Sodium Potassium Chloride 113 H Carbon Dioxide 17 L BUN 39 H Creatinine 1.44 H Glucose 291 H POC Glucose (mg/dL) 250 H Plasma Lactic Acid Abel Phosphorus AST 149 H ALT 77 H Troponin I Total Protein 5.0 L Albumin 2.4 L Procalcitonin Urine Glucose (UA) Urine Ketones Tacrolimus 09/12/21 09/12/21 09/12/21 04:12 05:18 06:21 WBC RBC Hgb Hct MCV MCHC Plt Count Neutrophils # Lymphocytes # PT INR VBG pH VBG pCO2 VBG HCO3 Sodium Potassium Chloride Carbon Dioxide BUN Creatinine Glucose POC Glucose (mg/dL) 281 H 317 H 317 H Plasma Lactic Acid Abel Phosphorus AST ALT Troponin I Total Protein Albumin Procalcitonin Urine Glucose (UA) Urine Ketones Tacrolimus 09/12/21 09/12/21 07:25 08:18 WBC RBC Hgb Hct MCV MCHC Plt Count Neutrophils # Lymphocytes # PT INR VBG pH VBG pCO2 VBG HCO3 Sodium Potassium Chloride Carbon Dioxide BUN Creatinine Glucose POC Glucose (mg/dL) 323 H 370 H Plasma Lactic Acid Abel Phosphorus AST ALT Troponin I Total Protein Albumin Procalcitonin Urine Glucose (UA) Urine Ketones Tacrolimus Assessment and Plan Assessment: * Altered mental status, likely due to toxic metabolic encephalopathy. * Acute diabetic ketoacidosis. * History of kidney transplant 2001, on immune suppressive medication. * CAD, history of GA * History of diabetes * Hyperlipidemia * Hypertension Plan: * Stat EEG was ordered to rule out status epilepticus. It revealed background slowing of moderate to severe degree, with intermittent periods of generalized suppression for about 1 second. Some triphasic waves were seen. No epileptiform activity was seen. Overall, this pattern is consistent with severe toxic metabolic encephalopathy. * Treatment of DKA as per IM, critical care. * CTA of head and neck shows no significant intracranial or extracranial vascular stenosis, occlusion or aneurysm. * Patient's white cells are mildly elevated, but patient is afebrile. Patient is on ceftriaxone non-meningeal dose. * Follow clinically. If the mental status does not improve, consider lumbar puncture. * Dr. Stevie Tapia Will resume neurology service from the morning. Time with Patient: Greater than 30
[2021-09-12 15:28] LABS: Glucose,Whole Blood 192 mg/dL (75-99)
--- NOTE | 2021-09-12 16:09 | EEG ---
ELECTROENCEPHALOGRAM REPORT DATE OF SERVICE: 09/12/2021. PREAMBLE: This is a 60-year-old female with altered mental status. This study is performed to evaluate for any epileptiform activity. EEG FINDINGS: This is a 21-channel digital EEG recorded with video competent, utilizing 10/20 international system with referential and bipolar montages. Background consists of moderately well-developed, poorly regulated, mixed frequencies of moderate to high amplitude 2-3 hertz delta, with theta activity in 5-6 hertz seen in bihemispheric region. Intermittent periods of generalized suppression for one second were also seen periodically. Some eye blink artifact was frequently seen. Frontally predominant higher amplitude triphasic waves were also seen during this study. Different stages of sleep were not seen. Photic stimulation was not performed. No focal or generalized epileptiform activity was seen. EKG channel showed no arrhythmia. IMPRESSION: This is an abnormal EEG due to background slowing of moderate to severe degree, with periods of intermittent suppression lasting for one second and associated with some triphasic activity. This is suggestive of generalized cerebral dysfunction as can be seen with toxic metabolic encephalopathy or related to diffuse structural brain abnormality. No epileptiform activity was seen. MMODL / IJN: [id number] /
[2021-09-12 16:21] LABS: Glucose,Whole Blood 191 mg/dL (75-99)
--- NOTE | 2021-09-12 16:40 | US ---
EXAMINATION TYPE: US abdomen complete DATE OF EXAM: 09/12/2021 COMPARISON: CT CLINICAL HISTORY: elevated LFT. EC patient with alertness and awaiting ICU admission; histor y of renal transplant left pelvis; cholecystectomy EXAM MEASUREMENTS: Liver Length: 11.3 cm Gallbladder Wall: surgically removed per CT CBD: 0.86cm Spleen: not seen Right Kidney: not seen (atrophied kidneys per CT) Left Kidney: not seen Left renal transplant seen = 9.1 x 6.1 x 4.5cm Pancreas: tail obscured by bowel gas Liver: mildly heterogeneous Gallbladder: surgically removed Evidence for sonographic Carter's sign: no CBD: size wnl post cholecystectomy Spleen: not seen and may be due to limited body range of motion Right Kidney: not seen Left Kidney: not seen, transplant kidney seen in left lower abdomen: patent left renal artery and ve in with renal color flow seen to periphery and RI at arcuate artery = 0.76 (wnl). Upper IVC: wnl Abd Aorta: size is wnl IMPRESSION: Transplant kidney appears within normal limits. No dilated ducts. No focal liver defect.
[2021-09-12 17:21] LABS: Glucose,Whole Blood 170 mg/dL (75-99)
--- NOTE | 2021-09-12 17:24 | PN ---
PROGRESS NOTE Mrs. Hoffman is a 60-year-old female known history of diabetes, history of renal transplant, history of CAD and prior stenting in 2015 who presented with change in mental status was found to have DKA. She had, on presentation, elevation of the troponin. She appears to be a little bit more awake today. Her blood sugar is under better control. She denies any chest pain. She continues to be in sinus mechanism. No dizziness or palpitations. She is scheduled to undergo an EEG. She continues to be at this time on aspirin, Lipitor 80 mg daily, IV fluids, metoprolol succinate 25 mg daily. PHYSICAL EXAMINATION: Blood pressure running in the 150s to 170s with a heart rate in the 80s. LUNGS: Clear. HEART: Regular rate and rhythm S1, S2. No S3, with a systolic murmur. No diastolic murmur. ABDOMEN: Soft, nontender. EXTREMITIES: No edema. LAB DATA: Lab data revealed a BUN and creatinine of 39, 1.44, improved compared to yesterday. Her bicarb is 17. Hemoglobin of 10.7. Her ALT is 77. IMPRESSION: 1. Diabetic ketoacidosis with change in mental status improving. 2. Worsening renal function and renal transplant, stabilizing. 3. History of coronary artery disease with mild troponin elevation most likely related to the diabetic ketoacidosis and renal failure. 4. History of hypertension. 5. Hyperlipidemia. RECOMMENDATIONS: I would recommend to add hydralazine 25 mg twice a day to optimize her blood pressure control. She is scheduled to undergo an echocardiogram tomorrow. We will follow her renal function and her overall status and depending on that, further recommendations will be made. MMODL / IJN: [id number] /
--- NOTE | 2021-09-12 17:36 | PN ---
PROGRESS NOTE DATE OF SERVICE: 09/12/2021 REASON FOR FOLLOWUP: /sepsis. INTERVAL HISTORY: The patient is afebrile. The patient is more awake and alert today. The patient is aware that she is at [facility]. The patient denies having any headache. No URI symptoms. No chest pain, shortness of breath or cough. Currently on room air. No abdominal pain or diarrhea. PHYSICAL EXAMINATION: Blood pressure 102/74 with a pulse of 78, temperature 98. She is 94% on room air. General description is a middle-aged female lying in bed in no distress. Respiratory system: Unlabored breathing, decreased breath sounds at the base. No wheeze. Heart S1, S2. Regular rate and rhythm. Abdomen soft, no tenderness. Extremities no edema of the feet. LABS: BUN of 39, creatinine 1.44. Liver enzymes are mildly elevated. Procalcitonin is 1.28. Urine is negative. DIAGNOSTIC IMPRESSION AND PLAN: Patient presented to the hospital with an episode of unresponsiveness. Patient did have DKA. Patient was hypothermic. Did have elevated white count. Workup so far includes chest x-ray which has been congestive heart failure. Patient's UA has been negative. Liver enzymes are mildly elevated; could be related to her DKA. However, underlying abdomen source not entirely excluded. We will go ahead and check an ultrasound of the abdomen and pelvis. Continue with empiric Unasyn and monitor her clinical course closely. MMODL / IJN: [id number] /
[2021-09-12 17:46] LABS: Basophils % (A) 0 %; Eosinophils % (A) 0 %; HCT 32.7 % (34.0-46.0); HGB 10.9 gm/dL (11.4-16.0); Lymphocytes # (A) 0.9 k/uL (1.0-4.8); Lymphocytes % (A) 8 %; MCHC 33.4 g/dL (31.0-37.0); MCV 95.8 fL (80.0-100.0); Mean Platelet Volume 10.2; Monocytes # (A) 0.3 k/uL (0-1.0); Monocytes % (A) 3 %; Neutrophils # (A) 10.4 k/uL (1.3-7.7); Neutrophils % (A) 89 %; Platelet Count 110 k/uL (150-450); RBC 3.41 m/uL (3.80-5.40); RDW 13.9 % (11.5-15.5); WBC 11.7 k/uL (3.8-10.6)
[2021-09-12 17:55] LABS: Albumin 2.4 g/dL (3.5-5.0); Calcium 9.3 mg/dL (8.4-10.2); Potassium 3.4 mmol/L (3.5-5.1); Total Bilirubin 0.5 mg/dL (0.2-1.3); Total Protein 5.1 g/dL (6.3-8.2)
[2021-09-12 18:30] LABS: Glucose,Whole Blood 139 mg/dL (75-99)
--- NOTE | 2021-09-12 19:00 | PN ---
PROGRESS NOTE I am covering for Dr. Benson. DATE OF SERVICE: 09/12/2021. HISTORY OF PRESENT ILLNESS: This 60-year-old woman with a past medical history of multiple medical problems was admitted with acute diabetic ketoacidosis and change in mental status. The patient was barely responsive yesterday. The patient had extensive neurologic workup and diabetes better controlled. Today sugars are in the high 100s. The gap has been improving. Patient is still mildly acidotic as per the latest labs available. PAST MEDICAL HISTORY: Reviewed. REVIEW OF SYSTEMS: Cardiovascular: No angina. Respiration as mentioned earlier. GI as mentioned earlier. no dysuria. Nervous system: No numbness or weakness. CURRENT MEDICATIONS: Reviewed and include: Aspirin, Lipitor, Rocephin, Apresoline, Toprol-XL, magnesium oxide, CellCept. PHYSICAL EXAMINATION: Patient is alert, oriented x3. Pulse 78, blood pressure 150/70, respirations 16, temperature is normal. Pulse ox 94% on room air. HEENT: Conjunctivae normal. NECK: No JVD. CARDIOVASCULAR: S1, S2. RESPIRATION: Breath sounds diminished in the bases. A few scattered rhonchi and crackles. ABDOMEN: Soft, nontender. LEGS are no edema. No swelling. NERVOUS SYSTEM: Diffusely weak. LAB STUDIES: WBC 14.8, hemoglobin 10.2, platelets 114, and creatinine is 1.44. ASSESSMENT: 1. Acute diabetic ketosis with diabetes type 2, uncontrolled with hyperglycemia. 2. Change in mental status acute metabolic encephalopathy multifactorial. 3. Rule out sepsis. 4. Increased WBC. 5. Anemia. 6. Acute metabolic acidosis secondary to diabetic ketoacidosis. 7. Increased creatinine with acute on chronic kidney disease with acute tubular necrosis. 8. History of chronic renal hemodialysis and living renal transplant 2001. 9. History of coronary artery disease. 10.Immunosuppressed. 11.History of cerebrovascular accident/ transient ischemic attack. 12.Diabetes type 2. 13.Gastroesophageal reflux disease. 14.Hypertension. 15.History of myocardial infarction. 16.History of degenerative joint disease,. 17.History of pneumonia. 18.History of pulmonary embolism. 19.History of sleep apnea. 20.History of factor 5 Leiden deficiency. 21.History of basal cell carcinoma. 22.History of CVI. 23.Rule out hydrocephalus. 24.History of bariatric surgery. 25.History of section. 26.History of cholecystectomy. 27.History of coronary artery disease, stent. 28.History of bilateral oophorectomy. 29.Depression. 30.FULL CODE. RECOMMENDATIONS AND DISCUSSION: Recommend to continue current medications, management and symptomatic treatment. Recommend repeat labs and if labs are normalized, transition orders for insulin may be ordered. Otherwise, we will continue the current medications. The cultures are negative so far. I would recommend continue the empiric antibiotics and rest of the home medications and multiple consultants are following the patient closely. The patient also had abdominal ultrasound which showed normal transplanted kidney and prognosis guarded. Further recommendations to follow. MMODL / IJN: [id number] /
[2021-09-12 19:12] LABS: Glucose,Whole Blood 98 mg/dL (75-99)
[2021-09-12 21:06] LABS: Glucose,Whole Blood 103 mg/dL (75-99)
[2021-09-12] MEDS ORDERED: INSULIN DETEMIR (LEVEMIR) 100 UNIT/ML SYR SQ STA (21:23)
[2021-09-12 21:41] LABS: Glucose,Whole Blood 117 mg/dL (75-99)
[2021-09-13 01:54] LABS: Glucose,Whole Blood 86 mg/dL (75-99)
[2021-09-13] MEDS: hydrALAZINE HCL 25 MG TAB PO SCH ×4 (02:55→20:14)
[2021-09-13 04:55] LABS: Glucose,Whole Blood 42 mg/dL (75-99)
[2021-09-13 05:07] LABS: Basophils % (A) 0 %; Eosinophils # (A) 0.1 k/uL (0-0.7); Eosinophils % (A) 1 %; HCT 36.8 % (34.0-46.0); HGB 12.5 gm/dL (11.4-16.0); Lymphocytes # (A) 1.9 k/uL (1.0-4.8); Lymphocytes % (A) 19 %; MCH 31.7 pg (25.0-35.0); MCV 93.2 fL (80.0-100.0); Mean Platelet Volume 9.8; Monocytes # (A) 0.4 k/uL (0-1.0); Monocytes % (A) 4 %; Neutrophils # (A) 7.6 k/uL (1.3-7.7); Neutrophils % (A) 75 %; Platelet Count 108 k/uL (150-450); RBC 3.94 m/uL (3.80-5.40); RDW 13.7 % (11.5-15.5)
[2021-09-13 05:15] LABS: Glucose,Whole Blood 73 mg/dL (75-99)
[2021-09-13 05:21] LABS: Calcium 8.9 mg/dL (8.4-10.2); Magnesium 1.6 mg/dL (1.6-2.3); Potassium 3.2 mmol/L (3.5-5.1)
[2021-09-13] MEDS ORDERED: Potassium Replacement Protocol 1 EACH MISC MISCELLANE PRN (05:34)
[2021-09-13 06:16] LABS: Glucose,Whole Blood 142 mg/dL (75-99)
[2021-09-13 07:40] LABS: Glucose,Whole Blood 95 mg/dL (75-99)
[2021-09-13] MEDS: POTASSIUM CHLORIDE ER 20 MEQ TAB.ER PO SCH ×3 (07:51→10:11)
[2021-09-13] MEDS: MAGNESIUM SULFATE-D5W PMX 1 GM in DEXTROSE/WATER 1 100ML.BAG IVPB SCH ×2 (07:52→10:14)
[2021-09-13] MEDS ORDERED: NITROGLYCERIN SL TABS 0.4 MG TAB SUBLINGUAL PRN (07:59)
[2021-09-13] MEDS: INSULIN ASPART (NovoLOG) 100 UNIT/ML VIAL SQ SCH ×3 (08:22→17:35)
--- NOTE | 2021-09-13 08:47 | P.PN ---
Subjective Progress Note Date: 09/13/21 HISTORY OF PRESENT ILLNESS This is a 60-year-old Cauc[place] female with a previous medical history significa nt for hypertension and hypertensive cardiovascular disease, hyperlipidemia, diabetes mellitus type 2 on insulin pump, CVA, CAD post PCI and stent placement, history of renal disease post renal transplant, hitory of vulvar cancer post radiation treatment, obesity status post sleeve gastrectomy. Patient was admitted on September 10 due to mental status changes and found to have a blood sugar of 870. Patient remains in the emergency center waiting for a bed in the ICU on the DKA protocol and subsequently transitioned to Levemir 15 units at bedtime and NovoLog 5 units with meals. Patient has been seen and followed by overcoiler, cardiology, neurology and nephrology. Patient is seen today in the emergency center. She is awake and alert and oriented. She does not remember what happened that brought her into the hospital. Her blood pressure is high at 174/111. She's been afebrile, heart rate 70s, pulse ox 97% on room air. Blood sugar this morning was 42 and she is status post [place] juice and crackers, and now having breakfast. We will plan to discontinue Hernandez catheter and downgrade patient to cardiac stepdown unit. Levemir decreased to 10 units at bedtime. We will resume patient on her home medications including eliquis, Plavix, amlodipine. color television console monitor is a sinus rhythm. Echocardiogram is pending. Consults with PT and OT added EEG showed slowing of moderate to severe degree with periods of intermittent suppression lasting for one second associated with some triphasic activity suggestive generalized cerebral dysfunction seen with toxic metabolic encephalopathy. CTA of the head and neck showed no significant intracranial or extracranial vascular stenosis, occlusion or aneurysm. REVIEW OF SYSTEMS Constitutional: No fever, no chills, no night sweats. No weight change. Noted weakness, noted fatigue. No daytime sleepiness. EENT: No headache. No blurred vision or double vision, no loss of vision. No loss of Hearing, no ringing in the ears, no dizziness. No nasal drainage or congestion. No epistaxis. No sore throat. Lungs: No shortness of breath, cough, no sputum production. No wheezing. Cardiovascular: No chest pain, no lower extremity edema. No palpitations. No paroxysmal nocturnal dyspnea. No orthopnea. No lightheadedness or dizziness. No syncopal episodes. Abdominal: No abdominal pain. No nausea, vomiting. No diarrhea. No consti pation. No bloody or tarry stools. No loss of appetite. Genitourinary: No dysuria, increased frequency, urgency. No urinary retention. Musculoskeletal: No myalgias. No muscle weakness, no gait dysfunction, no frequent falls. No back pain. No neck pain. Integumentary: No wounds, no lesions. No rash or pruritus. No unusual bruising. No change in hair or nails. Neurologic: No aphasia. No facial droop. Mild change in mentation. No head injury. No headache. No paralysis. No paresthesia. Psychiatric: No depression. No anxiety. No mood swings. Endocrine: Noted abnormal blood sugars. No weight change. PHYSICAL EXAMINATION Gen: This is a 60-year-old thin female. She is resting on the ER bed and appears to be comfortable and in no acute distress. HEENT: Head is atraumatic, normocephalic. Pupils equal, round. Sclerae is anicteric. NECK: Supple. No JVD. No lymphadenopathy. No thyromegaly. LUNGS: Clear to auscultation. No wheezes or rhonchi. No intercostal retraction s. HEART: first heart sound is depressed, second heart sound is normal there is ISHA 2/6 located at the left sternal border.. ABDOMEN: Soft. Bowel sounds are present. No masses. No tenderness. EXTREMITIES: No pedal edema. No calf tenderness. NEUROLOGICAL: Patient is awake, alert and oriented x3, noted short-term memory deficit. Cranial nerves 2 through 12 are grossly intact. ASSESSMENT AND PLAN 1. Acute diabetic ketoacidosis. Patient is off insulin drip and transition to Levemir which will be decreased to 10 units at bedtime, NovoLog 5 units 3 times daily with meals 2. Toxid metabolic encephalopathy secondary to diabetic ketoacidosis. 3. Hypertension and hypertensive cardiovascular disease. Continue Metoprolol ER 25 mg orally at bedtime, hydralazine 25 mg twice daily, resume amlodipine 10 mg daily starting now. 3. Mixed hyperlipidemia. Continue Lipitor 80 mg po daily. 4. Diabetes mellitus type 2 on insulin pump. Continue as in #1 5. History of CVA. Plavix 75 mg daily will be resumed, continue Lipitor. 6. History of renal transplant. we will need to resume her Tacrolimus and cellcept, nephrology consult appreciated. 7. Obstructive sleep apnea. we will continue with CPAP. 8. History of pulmonary embolism. We will resume patient on eliquis 5 mg twice daily. 9. History of CAD post PCI. Continue Metoprolol ER 25 mg orally daily and Lipitor 80 mg orally daily. 10. Recurrent depression. Continue Cymbalta 20 mg orally daily. 11. History of vulvar cancer post surgery. 12. Diabetic polyneuropathy. We will resumerally at bedtime. 13. GERD with esophagitis. we will continue with PPI. 12. COVID-19 testing negative. Patient has been hospitalized during a pandemic. DISCHARGE PLAN Return home. PT and OT added. Impression and plan of care have been directed as dictated by the signing physician. Kamini Shay nurse practitioner acting as scribe for signing physician. Objective - Vital Signs Vital signs: Vital Signs Temp 98.0 F 09/12/21 21:51 Pulse 77 09/13/21 04:57 Resp 18 09/13/21 07:34 BP 174/96 09/13/21 04:57 Pulse Ox 95 09/13/21 04:57 Intake & Output 09/12/21 09/13/21 09/13/21 18:59 06:59 18:59 Intake Total 87.007 4.412 Output Total 2640 3000 Balance -2552.993 -2995.588 Intake: Intake, IV Titration 87.007 4.412 Amount Insulin Regular 100 unit 87.007 4.412 In Sodium Chloride 0.9% 100 ml @ 0.1 UNITS/KG/HR 5.498 mls/hr IV .[id number] [facility] Rx#:[id number] Output: Urine 2640 3000 - Labs CBC & Chem 7: 09/13/21 04:47 09/13/21 04:47 Labs: Abnormal Lab Results - Last 24 Hours (Table) 09/12/21 09/12/21 09/12/21 Range/Units 03:37 07:25 08:18 WBC (3.8-10.6) k/uL RBC (3.80-5.40) m/uL Hgb (11.4-16.0) gm/dL Hct (34.0-46.0) % Plt Count (150-450) k/uL Neutrophils # (1.3-7.7) k/uL Lymphocytes # (1.0-4.8) k/uL Potassium (3.5-5.1) mmol/L Chloride (98-107) mmol/L Carbon Dioxide (22-30) mmol/L BUN (7-17) mg/dL Creatinine (0.52-1.04) mg/dL Glucose (74-99) mg/dL POC Glucose (mg/dL) 323 H 370 H (75-99) mg/dL C-Peptide 0.03 L (0.81-3.85) ng/mL AST (14-36) U/L ALT (4-34) U/L Total Protein (6.3-8.2) g/dL Albumin (3.5-5.0) g/dL 09/12/21 09/12/21 09/12/21 Range/Units 09:18 10:16 11:30 WBC (3.8-10.6) k/uL RBC (3.80-5.40) m/uL Hgb (11.4-16.0) gm/dL Hct (34.0-46.0) % Plt Count (150-450) k/uL Neutrophils # (1.3-7.7) k/uL Lymphocytes # (1.0-4.8) k/uL Potassium (3.5-5.1) mmol/L Chloride (98-107) mmol/L Carbon Dioxide (22-30) mmol/L BUN (7-17) mg/dL Creatinine (0.52-1.04) mg/dL Glucose (74-99) mg/dL POC Glucose (mg/dL) 361 H 291 H 275 H (75-99) mg/dL C-Peptide (0.81-3.85) ng/mL AST (14-36) U/L ALT (4-34) U/L Total Protein (6.3-8.2) g/dL Albumin (3.5-5.0) g/dL 09/12/21 09/12/21 09/12/21 Range/Units 12:19 14:00 15:08 WBC (3.8-10.6) k/uL RBC (3.80-5.40) m/uL Hgb (11.4-16.0) gm/dL Hct (34.0-46.0) % Plt Count (150-450) k/uL Neutrophils # (1.3-7.7) k/uL Lymphocytes # (1.0-4.8) k/uL Potassium (3.5-5.1) mmol/L Chloride (98-107) mmol/L Carbon Dioxide (22-30) mmol/L BUN (7-17) mg/dL Creatinine (0.52-1.04) mg/dL Glucose (74-99) mg/dL POC Glucose (mg/dL) 232 H 192 H 192 H (75-99) mg/dL C-Peptide (0.81-3.85) ng/mL AST (14-36) U/L ALT (4-34) U/L Total Protein (6.3-8.2) g/dL Albumin (3.5-5.0) g/dL 09/12/21 09/12/21 09/12/21 Range/Units 16:10 17:09 17:19 WBC 11.7 H (3.8-10.6) k/uL RBC 3.41 L (3.80-5.40) m/uL Hgb 10.9 L (11.4-16.0) gm/dL Hct 32.7 L (34.0-46.0) % Plt Count 110 L (150-450) k/uL Neutrophils # 10.4 H (1.3-7.7) k/uL Lymphocytes # 0.9 L (1.0-4.8) k/uL Potassium (3.5-5.1) mmol/L Chloride (98-107) mmol/L Carbon Dioxide (22-30) mmol/L BUN (7-17) mg/dL Creatinine (0.52-1.04) mg/dL Glucose (74-99) mg/dL POC Glucose (mg/dL) 191 H 170 H (75-99) mg/dL C-Peptide (0.81-3.85) ng/mL AST (14-36) U/L ALT (4-34) U/L Total Protein (6.3-8.2) g/dL Albumin (3.5-5.0) g/dL 09/12/21 09/12/21 09/12/21 Range/Units 17:19 18:09 20:58 WBC (3.8-10.6) k/uL RBC (3.80-5.40) m/uL Hgb (11.4-16.0) gm/dL Hct (34.0-46.0) % Plt Count (150-450) k/uL Neutrophils # (1.3-7.7) k/uL Lymphocytes # (1.0-4.8) k/uL Potassium 3.4 L (3.5-5.1) mmol/L Chloride 110 H (98-107) mmol/L Carbon Dioxide 21 L (22-30) mmol/L BUN 29 H (7-17) mg/dL Creatinine 1.08 H (0.52-1.04) mg/dL Glucose 141 H (74-99) mg/dL POC Glucose (mg/dL) 139 H 103 H (75-99) mg/dL C-Peptide (0.81-3.85) ng/mL AST 201 H (14-36) U/L ALT 101 H (4-34) U/L Total Protein 5.1 L (6.3-8.2) g/dL Albumin 2.4 L (3.5-5.0) g/dL 09/12/21 09/13/21 09/13/21 Range/Units 21:39 04:47 04:47 WBC (3.8-10.6) k/uL RBC (3.80-5.40) m/uL Hgb (11.4-16.0) gm/dL Hct (34.0-46.0) % Plt Count 108 L (150-450) k/uL Neutrophils # (1.3-7.7) k/uL Lymphocytes # (1.0-4.8) k/uL Potassium 3.2 L (3.5-5.1) mmol/L Chloride (98-107) mmol/L Carbon Dioxide (22-30) mmol/L BUN 21 H (7-17) mg/dL Creatinine (0.52-1.04) mg/dL Glucose 42 L* (74-99) mg/dL POC Glucose (mg/dL) 117 H (75-99) mg/dL C-Peptide (0.81-3.85) ng/mL AST (14-36) U/L ALT (4-34) U/L Total Protein (6.3-8.2) g/dL Albumin (3.5-5.0) g/dL 09/13/21 09/13/21 09/13/21 Range/Units 04:49 05:14 06:14 WBC (3.8-10.6) k/uL RBC (3.80-5.40) m/uL Hgb (11.4-16.0) gm/dL Hct (34.0-46.0) % Plt Count (150-450) k/uL Neutrophils # (1.3-7.7) k/uL Lymphocytes # (1.0-4.8) k/uL Potassium (3.5-5.1) mmol/L Chloride (98-107) mmol/L Carbon Dioxide (22-30) mmol/L BUN (7-17) mg/dL Creatinine (0.52-1.04) mg/dL Glucose (74-99) mg/dL POC Glucose (mg/dL) 42 L 73 L 142 H (75-99) mg/dL C-Peptide (0.81-3.85) ng/mL AST (14-36) U/L ALT (4-34) U/L Total Protein (6.3-8.2) g/dL Albumin (3.5-5.0) g/dL Microbiology - Last 24 Hours (Table) 09/10/21 16:25 Blood Culture - Preliminary Blood No Growth after 48 hours
[2021-09-13] MEDS ORDERED: hydrALAZINE HCL 20 MG/ML 1 ML VIAL IVP PRN (09:01)
--- NOTE | 2021-09-13 09:02 | P.PN ---
Subjective Patient is seen in follow-up for acute allograft function. Renal function back to baseline. Denies chest pain or shortness of breath. Now on oral diet. Vital signs are stable. General: The patient appeared well nourished and normally developed. HEENT: Head exam is unremarkable. LUNGS: Breath sounds decreased. HEART: Rate and Rhythm are regular. ABDOMEN: Soft, no distention. EXTREMITITES: No edema. Objective - Vital Signs Vital signs: Vital Signs Temp 98.4 F 09/13/21 07:43 Pulse 74 09/13/21 07:43 Resp 18 09/13/21 07:43 BP 174/111 09/13/21 07:43 Pulse Ox 97 09/13/21 07:43 Intake & Output 09/12/21 09/13/21 09/13/21 18:59 06:59 18:59 Intake Total 87.007 4.412 Output Total 2640 3000 Balance -2552.993 -2995.588 Intake: Intake, IV Titration 87.007 4.412 Amount Insulin Regular 100 unit 87.007 4.412 In Sodium Chloride 0.9% 100 ml @ 0.1 UNITS/KG/HR 5.498 mls/hr IV .[id number] [facility] Rx#:[id number] Output: Urine 2640 3000 - Labs CBC & Chem 7: 09/13/21 04:47 09/13/21 04:47 Labs: Abnormal Lab Results - Last 24 Hours (Table) 09/12/21 09/12/21 09/12/21 Range/Units 03:37 03:37 09:18 WBC (3.8-10.6) k/uL RBC (3.80-5.40) m/uL Hgb (11.4-16.0) gm/dL Hct (34.0-46.0) % Plt Count (150-450) k/uL Neutrophils # (1.3-7.7) k/uL Lymphocytes # (1.0-4.8) k/uL Potassium (3.5-5.1) mmol/L Chloride (98-107) mmol/L Carbon Dioxide (22-30) mmol/L BUN (7-17) mg/dL Creatinine (0.52-1.04) mg/dL Glucose (74-99) mg/dL POC Glucose (mg/dL) 361 H (75-99) mg/dL C-Peptide 0.03 L (0.81-3.85) ng/mL AST (14-36) U/L ALT (4-34) U/L Total Protein (6.3-8.2) g/dL Albumin (3.5-5.0) g/dL Tacrolimus <1.5 L (5.0-20.0) ng/mL 09/12/21 09/12/21 09/12/21 Range/Units 10:16 11:30 12:19 WBC (3.8-10.6) k/uL RBC (3.80-5.40) m/uL Hgb (11.4-16.0) gm/dL Hct (34.0-46.0) % Plt Count (150-450) k/uL Neutrophils # (1.3-7.7) k/uL Lymphocytes # (1.0-4.8) k/uL Potassium (3.5-5.1) mmol/L Chloride (98-107) mmol/L Carbon Dioxide (22-30) mmol/L BUN (7-17) mg/dL Creatinine (0.52-1.04) mg/dL Glucose (74-99) mg/dL POC Glucose (mg/dL) 291 H 275 H 232 H (75-99) mg/dL C-Peptide (0.81-3.85) ng/mL AST (14-36) U/L ALT (4-34) U/L Total Protein (6.3-8.2) g/dL Albumin (3.5-5.0) g/dL Tacrolimus (5.0-20.0) ng/mL 09/12/21 09/12/21 09/12/21 Range/Units 14:00 15:08 16:10 WBC (3.8-10.6) k/uL RBC (3.80-5.40) m/uL Hgb (11.4-16.0) gm/dL Hct (34.0-46.0) % Plt Count (150-450) k/uL Neutrophils # (1.3-7.7) k/uL Lymphocytes # (1.0-4.8) k/uL Potassium (3.5-5.1) mmol/L Chloride (98-107) mmol/L Carbon Dioxide (22-30) mmol/L BUN (7-17) mg/dL Creatinine (0.52-1.04) mg/dL Glucose (74-99) mg/dL POC Glucose (mg/dL) 192 H 192 H 191 H (75-99) mg/dL C-Peptide (0.81-3.85) ng/mL AST (14-36) U/L ALT (4-34) U/L Total Protein (6.3-8.2) g/dL Albumin (3.5-5.0) g/dL Tacrolimus (5.0-20.0) ng/mL 09/12/21 09/12/21 09/12/21 Range/Units 17:09 17:19 17:19 WBC 11.7 H (3.8-10.6) k/uL RBC 3.41 L (3.80-5.40) m/uL Hgb 10.9 L (11.4-16.0) gm/dL Hct 32.7 L (34.0-46.0) % Plt Count 110 L (150-450) k/uL Neutrophils # 10.4 H (1.3-7.7) k/uL Lymphocytes # 0.9 L (1.0-4.8) k/uL Potassium 3.4 L (3.5-5.1) mmol/L Chloride 110 H (98-107) mmol/L Carbon Dioxide 21 L (22-30) mmol/L BUN 29 H (7-17) mg/dL Creatinine 1.08 H (0.52-1.04) mg/dL Glucose 141 H (74-99) mg/dL POC Glucose (mg/dL) 170 H (75-99) mg/dL C-Peptide (0.81-3.85) ng/mL AST 201 H (14-36) U/L ALT 101 H (4-34) U/L Total Protein 5.1 L (6.3-8.2) g/dL Albumin 2.4 L (3.5-5.0) g/dL Tacrolimus (5.0-20.0) ng/mL 09/12/21 09/12/21 09/12/21 Range/Units 18:09 20:58 21:39 WBC (3.8-10.6) k/uL RBC (3.80-5.40) m/uL Hgb (11.4-16.0) gm/dL Hct (34.0-46.0) % Plt Count (150-450) k/uL Neutrophils # (1.3-7.7) k/uL Lymphocytes # (1.0-4.8) k/uL Potassium (3.5-5.1) mmol/L Chloride (98-107) mmol/L Carbon Dioxide (22-30) mmol/L BUN (7-17) mg/dL Creatinine (0.52-1.04) mg/dL Glucose (74-99) mg/dL POC Glucose (mg/dL) 139 H 103 H 117 H (75-99) mg/dL C-Peptide (0.81-3.85) ng/mL AST (14-36) U/L ALT (4-34) U/L Total Protein (6.3-8.2) g/dL Albumin (3.5-5.0) g/dL Tacrolimus (5.0-20.0) ng/mL 09/13/21 09/13/21 09/13/21 Range/Units 04:47 04:47 04:49 WBC (3.8-10.6) k/uL RBC (3.80-5.40) m/uL Hgb (11.4-16.0) gm/dL Hct (34.0-46.0) % Plt Count 108 L (150-450) k/uL Neutrophils # (1.3-7.7) k/uL Lymphocytes # (1.0-4.8) k/uL Potassium 3.2 L (3.5-5.1) mmol/L Chloride (98-107) mmol/L Carbon Dioxide (22-30) mmol/L BUN 21 H (7-17) mg/dL Creatinine (0.52-1.04) mg/dL Glucose 42 L* (74-99) mg/dL POC Glucose (mg/dL) 42 L (75-99) mg/dL C-Peptide (0.81-3.85) ng/mL AST (14-36) U/L ALT (4-34) U/L Total Protein (6.3-8.2) g/dL Albumin (3.5-5.0) g/dL Tacrolimus (5.0-20.0) ng/mL 09/13/21 09/13/21 Range/Units 05:14 06:14 WBC (3.8-10.6) k/uL RBC (3.80-5.40) m/uL Hgb (11.4-16.0) gm/dL Hct (34.0-46.0) % Plt Count (150-450) k/uL Neutrophils # (1.3-7.7) k/uL Lymphocytes # (1.0-4.8) k/uL Potassium (3.5-5.1) mmol/L Chloride (98-107) mmol/L Carbon Dioxide (22-30) mmol/L BUN (7-17) mg/dL Creatinine (0.52-1.04) mg/dL Glucose (74-99) mg/dL POC Glucose (mg/dL) 73 L 142 H (75-99) mg/dL C-Peptide (0.81-3.85) ng/mL AST (14-36) U/L ALT (4-34) U/L Total Protein (6.3-8.2) g/dL Albumin (3.5-5.0) g/dL Tacrolimus (5.0-20.0) ng/mL Microbiology - Last 24 Hours (Table) 09/10/21 16:25 Blood Culture - Preliminary Blood No Growth after 48 hours Assessment and Plan Plan: Assessment: 1. Acute allograft dysfunction secondary to ATN from hypovolemia due to DKA. Creatinine 1.84 on admission and is 0.89 today. Also received IV contrast dye on 09/10/2021. 2. Chronic kidney disease stage III with baseline creatinine near 1-1.1. 3. Status post living related renal allograft in 2001. 4. DKA status post insulin drip. 5. Metabolic acidosis secondary to DKA and acute kidney injury. Improved. 6. Hypomagnesemia from poor intake. 7. Hypokalemia from poor intake and saline diuresis. 8. Chronic kidney disease mineral bone disease maintained on calcitriol. 9. Hypertension with chronic kidney disease. Blood pressure high. Plan: Maintain IV fluids - Hep-Lock later this evening if oral intake is good. Prograf level 2.3 dated 09/10/2021. Trough level less than 1.5 - patient was not able to take medications prior to admission due to vomiting and diarrhea. Home dose has been resumed. Maintain CellCept and Prograf. Replace potassium and magnesium. Repeat Prograf level tomorrow morning. Increase hydralazine to 25 mg 3 times daily. To be held for systolic blood p ressure less than 120.
[2021-09-13 10:07] LABS: Glucose,Whole Blood 113 mg/dL (75-99)
[2021-09-13] MEDS: amLODIPine 10 MG TAB PO SCH (10:09)
[2021-09-13] MEDS: CLOPIDOGREL 75 MG TAB PO SCH (10:09)
[2021-09-13] MEDS: APIXABAN 5 MG TAB PO SCH ×2 (10:09→20:15)
[2021-09-13] MEDS: PANTOPRAZOLE 40 MG TABLET PO SCH (10:09)
[2021-09-13] MEDS: ASPIRIN 81 MG PO SCH (10:09)
[2021-09-13] MEDS: METOPROLOL SUCCINATE (ER) 25 MG TAB.ER.24H PO SCH (10:10)
[2021-09-13] MEDS: ATORVASTATIN 80 MG TAB PO SCH (10:10)
--- NOTE | 2021-09-13 10:50 | ECHOF ---
Referral Reason:cad MEASUREMENTS -------- HEIGHT: 157.5 cm WEIGHT: 54.4 kg BP: IVSd: 1.1 cm (0.6 - 1.1) LVIDd: 4.3 cm (3.9 - 5.3) LVPWd: 1.4 cm (0.6 - 1.1) IVSs: 1.2 cm LVIDs: 3.2 cm LVPWs: 1.7 cm Ao Diam: 2.6 cm (2.0 - 3.7) AV Cusp: 1.7 cm (1.5 - 2.6) LA Diam: 3.5 cm (2.7 - 3.8) MV EXCURSION: 15.271 mm (> 18.000) MV EF SLOPE: 44 mm/s (70 - 150) EPSS: 0.8 cm MV E Alphonso: 0.51 m/s MV DecT: 290 ms MV A Alphonso: 0.79 m/s MV E/A Ratio: 0.65 RAP: 5.00 mmHg RVSP: 22.37 mmHg FINDINGS -------- Sinus rhythm. This was a technically adequate study. LV size, wall thickness and systolic function are normal, with an EF greater than 55%. The left mary jo tricular size is normal. The right ventricle is normal in size. The left atrial size is normal. The right atrial size is normal. The aortic valve is trileaflet, and appears structurally normal. No aortic stenosis or regurgitation. Mild mitral regurgitation is present. Mild tricuspid regurgitation present. Right ventricular systolic pressure is normal at < 35 mmHg. The pulmonic valve was not well visualized. There is a trivial pericardial effusion present. CONCLUSIONS -------- 1. LV size, wall thickness and systolic function are normal, with an EF greater than 55%. 2. The left ventricular size is normal. 3. The right ventricle is normal in size. 4. The left atrial size is normal. 5. The right atrial size is normal. 6. The aortic valve is trileaflet, and appears structurally normal. No aortic stenosis or regurgitati on. 7. Mild mitral regurgitation is present. 8. Mild tricuspid regurgitation present. 9. The pulmonic valve was not well visualized. 10. There is a trivial pericardial effusion present. MOLD DRESSER: Tanika Smith RDCS
[2021-09-13] MEDS: METOCLOPRAMIDE 5 MG TAB PO SCH (11:09)
[2021-09-13] MEDS: DULoxetine HCL 20 MG CAPSULE.DR PO SCH (11:10)
[2021-09-13] MEDS: TACROLIMUS 1 MG CAP PO SCH ×2 (11:10→20:14)
[2021-09-13 12:14] LABS: Glucose,Whole Blood 137 mg/dL (75-99)
[2021-09-13 15:01] VITALS: BMI 21.9
[2021-09-13 16:54] LABS: Glucose,Whole Blood 271 mg/dL (75-99)
[2021-09-13] MEDS: SODIUM CHLORIDE 0.9% 1,000 ML IV SCH (17:36)
[2021-09-13] MEDS ORDERED: POTASSIUM CHLORIDE ER 20 MEQ TAB.ER PO STA ×2 (18:14→19:37)
--- NOTE | 2021-09-13 18:24 | P.PN ---
Subjective Progress Note Date: 09/13/21 The patient is seen at bedside for first time during this admission. Please refer to Dr. Shrestha's note for further details. She feels she is doing drastically better. She was having her dinner upon seeing her. She denies of any headache, focal weakness, numbness, visual disturbance. Objective - Vital Signs Vital signs: Vital Signs Temp 98.1 F 09/13/21 16:34 Pulse 78 09/13/21 16:28 Resp 18 09/13/21 16:28 BP 178/101 09/13/21 16:28 Pulse Ox 99 09/13/21 16:28 Intake & Output 09/12/21 09/13/21 09/13/21 18:59 06:59 18:59 Intake Total 87.007 4.412 Output Total 2640 3000 Balance -2552.993 -2995.588 Weight 54.431 kg Intake: Intake, IV Titration 87.007 4.412 Amount Insulin Regular 100 unit 87.007 4.412 In Sodium Chloride 0.9% 100 ml @ 0.1 UNITS/KG/HR 5.498 mls/hr IV .[id number] [facility] Rx#:[id number] Output: Urine 2640 3000 - Exam GENERAL: The patient is lying in bed and is not in acute distress. NEUROLOGICAL: Higher mental function: The patient is awake, alert, oriented to self, place and time. Patient is following commands. No aphasia and no neglect. Cranial nerves: The pupils are round, equal and reactive to light and accommodation. Visual corral are full to confrontation throughout. Extraocular movement is intact no nystagmus is noted. Facial sensation is normal to touch throughout. The facial strength is normal throughout. Hearing is normal bilaterally to hand rub. Tongue is midline and moved [id number] without any difficulty. No dysarthria is noted. Shoulder shrug is normal bilaterally. Motor: The strength is moving bilateral upper and lower extremity above gravity. Normal tone and bulk. Cerebellum: Normal finger to nose bilaterally. Sensation: Sensation is normal to touch throughout. work-up: * Wbc 17.3--->10.0 * TSH: 0.472 * On presentation has serum glucose of 870 and had episode of glucose of 42 today. * Stat EEG was ordered to rule out status epilepticus. It revealed background slowing of moderate to severe degree, with intermittent periods of generalized suppression for about 1 second. Some triphasic waves were seen. No epilepti form activity was seen. Overall, this pattern is consistent with severe toxic metabolic encephalopathy. * CTA of head and neck shows no significant intracranial or extracranial vascular stenosis, occlusion or aneurysm. * Computed tomography scan of the head showed no acute intracranial hemorrhage or midline shift. There is mild diffuse age-related cerebral atrophy and moderate to severe chronic small vessel ischemic change. Cannot exclude underlying normal pressure hydrocephalus, however no significant change from 2017 MRI. - Labs CBC & Chem 7: 09/13/21 04:47 09/13/21 04:47 Labs: Abnormal Lab Results - Last 24 Hours (Table) 09/12/21 09/12/21 09/12/21 Range/Units 03:37 03:37 18:09 Plt Count (150-450) k/uL Potassium (3.5-5.1) mmol/L BUN (7-17) mg/dL Glucose (74-99) mg/dL POC Glucose (mg/dL) 139 H (75-99) mg/dL C-Peptide 0.03 L (0.81-3.85) ng/mL Tacrolimus <1.5 L (5.0-20.0) ng/mL 09/12/21 09/12/21 09/13/21 Range/Units 20:58 21:39 04:47 Plt Count 108 L (150-450) k/uL Potassium (3.5-5.1) mmol/L BUN (7-17) mg/dL Glucose (74-99) mg/dL POC Glucose (mg/dL) 103 H 117 H (75-99) mg/dL C-Peptide (0.81-3.85) ng/mL Tacrolimus (5.0-20.0) ng/mL 09/13/21 09/13/21 09/13/21 Range/Units 04:47 04:49 05:14 Plt Count (150-450) k/uL Potassium 3.2 L (3.5-5.1) mmol/L BUN 21 H (7-17) mg/dL Glucose 42 L* (74-99) mg/dL POC Glucose (mg/dL) 42 L 73 L (75-99) mg/dL C-Peptide (0.81-3.85) ng/mL Tacrolimus (5.0-20.0) ng/mL 09/13/21 09/13/21 09/13/21 Range/Units 06:14 10:05 12:06 Plt Count (150-450) k/uL Potassium (3.5-5.1) mmol/L BUN (7-17) mg/dL Glucose (74-99) mg/dL POC Glucose (mg/dL) 142 H 113 H 137 H (75-99) mg/dL C-Peptide (0.81-3.85) ng/mL Tacrolimus (5.0-20.0) ng/mL 09/13/21 Range/Units 16:53 Plt Count (150-450) k/uL Potassium (3.5-5.1) mmol/L BUN (7-17) mg/dL Glucose (74-99) mg/dL POC Glucose (mg/dL) 271 H (75-99) mg/dL C-Peptide (0.81-3.85) ng/mL Tacrolimus (5.0-20.0) ng/mL Microbiology - Last 24 Hours (Table) 09/10/21 16:25 Blood Culture - Preliminary Blood No Growth after 48 hours Assessment and Plan Assessment: * Altered mental status, likely due to toxic metabolic encephalopathy---improved * Acute diabetic ketoacidosis--resolved * Episode of hypoglycemia 42 (on 09/13/21) * History of kidney transplant 2001, on immune suppressive medication. * CAD, history of OR * History of diabetes * Hyperlipidemia * Hypertension Plan: * No further workup is needed from a neurological standpoint. A lumbar puncture is not needed since the patient's mentation is improved at. * We'll defer the rest of the medical management to the primary team. Please notify neurology if any further concerns. Stevie Tapia M.D. Neuro-hospitalist Time with Patient: Less than 30
--- NOTE | 2021-09-13 18:36 | P.PN ---
Subjective Progress Note Date: 09/13/21 On today's evaluation of 09/13/2021, the patient is being seen for a follow-up. The patient was initially hospitalized for DKA and subsequently the patient was treated for DKA and transitioned to Levemir insulin 15 units at bedtime and 5 units with meals. The patient was seen by several consultants during her current hospital stay. Earlier this morning, the patient had a bout of hypoglycemia and this was managed by the medical team and the Levemir insulin was decreased the dose of 10 units at bedtime. Otherwise, all of her outpatient medications have been resumed. The EEG was consistent with metabolic encephalopathy. CAT scan of the head and the neck showed no acute abnormalities. The patient is not having any significant respiratory distress at this point in time. The patient is afebrile. The patient is hemodynamically stable. Blood work from today shows a BUN of 21 with a creatinine of 0.8 and acute kidney injury has recovered. Anion gap results of 4 and a serum bicarbs of the 28th. Lactic acid level is also normalized. No active pulmonary critical care issue on this patient for the time being. Objective - Vital Signs Vital signs: Vital Signs Temp 98.1 F 09/13/21 16:34 Pulse 78 09/13/21 16:28 Resp 18 09/13/21 16:28 BP 178/101 09/13/21 16:28 Pulse Ox 99 09/13/21 16:28 Intake & Output 09/12/21 09/13/21 09/13/21 18:59 06:59 18:59 Intake Total 87.007 4.412 Output Total 2640 3000 Balance -2552.993 -2995.588 Weight 54.431 kg Intake: Intake, IV Titration 87.007 4.412 Amount Insulin Regular 100 unit 87.007 4.412 In Sodium Chloride 0.9% 100 ml @ 0.1 UNITS/KG/HR 5.498 mls/hr IV .[id number] [facility] Rx#:[id number] Output: Urine 2640 3000 - Exam Gen: This is a 60-year-old thin female. She is resting on the bed and appears to be comfortable and in no acute distress. HEENT: Head is atraumatic, normocephalic. Pupils equal, round. Sclerae is anicteric. NECK: Supple. No JVD. No lymphadenopathy. No thyromegaly. LUNGS: Clear to auscultation. No wheezes or rhonchi. No intercostal retractions. HEART: first heart sound is depressed, second heart sound is normal there is ISHA 2/6 located at the left sternal border.. ABDOMEN: Soft. Bowel sounds are present. No masses. No tenderness. EXTREMITIES: No pedal edema. No calf tenderness. NEUROLOGICAL: Patient is awake, alert and oriented x3, noted short-term memory deficit. Cranial nerves 2 through 12 are grossly intact. - Labs CBC & Chem 7: 09/13/21 04:47 09/13/21 04:47 Labs: Abnormal Lab Results - Last 24 Hours (Table) 09/12/21 09/12/21 09/12/21 Range/Units 03:37 20:58 21:39 Plt Count (150-450) k/uL Potassium (3.5-5.1) mmol/L BUN (7-17) mg/dL Glucose (74-99) mg/dL POC Glucose (mg/dL) 103 H 117 H (75-99) mg/dL Tacrolimus <1.5 L (5.0-20.0) ng/mL 09/13/21 09/13/21 09/13/21 Range/Units 04:47 04:47 04:49 Plt Count 108 L (150-450) k/uL Potassium 3.2 L (3.5-5.1) mmol/L BUN 21 H (7-17) mg/dL Glucose 42 L* (74-99) mg/dL POC Glucose (mg/dL) 42 L (75-99) mg/dL Tacrolimus (5.0-20.0) ng/mL 09/13/21 09/13/21 09/13/21 Range/Units 05:14 06:14 10:05 Plt Count (150-450) k/uL Potassium (3.5-5.1) mmol/L BUN (7-17) mg/dL Glucose (74-99) mg/dL POC Glucose (mg/dL) 73 L 142 H 113 H (75-99) mg/dL Tacrolimus (5.0-20.0) ng/mL 09/13/21 09/13/21 Range/Units 12:06 16:53 Plt Count (150-450) k/uL Potassium (3.5-5.1) mmol/L BUN (7-17) mg/dL Glucose (74-99) mg/dL POC Glucose (mg/dL) 137 H 271 H (75-99) mg/dL Tacrolimus (5.0-20.0) ng/mL Microbiology - Last 24 Hours (Table) 09/10/21 16:25 Blood Culture - Preliminary Blood No Growth after 48 hours Assessment and Plan Plan: Acute diabetic ketoacidosis recovered and the patient is transitioned to long-a cting insulin with Levemir 10 units along with a sinus Coverage.. Note that the patient has been on an insulin pump on outpatient basis. Acute kidney injury, recovered Acute mental status changes, with normal head CT and CT angiography. History of kidney transplant, 2001. History of CAD, with prior history of myocardial infarction. History of diabetes mellitus. Gastroesophageal reflux disease. History of hyperlipidemia. History of hypertension. History of sleep apnea syndrome. History of vulvar cancer. Plan: The patient has been downgraded to medical floor. No need for ICU admission at this point in time. Anion gap metabolic acidosis recovered and the patient's blood sugars being monitored by the medical team. Acute kidney injury is recovered. The patient is improving in terms of her mentation. Outpatient medication of been all resumed including her immunosuppressive medications. Pulmonary critical care services we'll sign off the case.
[2021-09-13 19:56] LABS: Glucose,Whole Blood 273 mg/dL (75-99)
[2021-09-13] MEDS ORDERED: GABAPENTIN 300 MG CAP PO SCH (21:00)
[2021-09-13] MEDS ORDERED: INSULIN DETEMIR (LEVEMIR) 100 UNIT/ML SYR SQ SCH ×2 (21:00)
--- NOTE | 2021-09-13 23:10 | PN ---
PROGRESS NOTE DATE OF SERVICE: 09/13/2021 REASON FOR FOLLOWUP: Leukocytosis and possible infection. INTERVAL HISTORY: The patient is afebrile. The patient is more awake and alert. The patient is breathing comfortably on room air. Denies having any chest pain, shortness of breath or cough. Some nausea. No vomiting. No abdominal pain or diarrhea. PHYSICAL EXAMINATION: Blood pressure 178/100 with a pulse of 78, temperature 96.5. She is 99% on room air. General description is a middle-aged female lying in bed in no distress. Respiratory system: Unlabored breathing, decreased intensity of breath sounds. No wheeze. Heart S1, S2. Regular rate and rhythm. Abdomen soft, no tenderness. No guarding or rigidity. Extremities no edema of the feet. LABS: Hemoglobin is 12.5, white count 10.0. Creatinine 0.89. Blood culture has been negative. Ultrasound of abdomen: No structural abnormality. DIAGNOSTIC IMPRESSION AND PLAN: Patient with in this patient who did have hypothermia, elevated white count; could be more likely related to the DKA. As far as infectious etiology, no obvious focus, and culture remains negative. Patient's white count has normalized on empiric Rocephin has been discontinued. Will monitor the patient closely off antibiotic therapy. negative cultures and continue with supportive care. MMODL / IJN: [id number] / RAMY
[2021-09-14 06:22] LABS: Glucose,Whole Blood 252 mg/dL (75-99)
[2021-09-14] MEDS: INSULIN ASPART (NovoLOG) 100 UNIT/ML VIAL SQ SCH ×4 (07:00→13:01)
[2021-09-14] MEDS: PANTOPRAZOLE 40 MG TABLET PO SCH (07:00)
[2021-09-14] MEDS: ATORVASTATIN 80 MG TAB PO SCH (08:00)
[2021-09-14] MEDS: METOPROLOL SUCCINATE (ER) 25 MG TAB.ER.24H PO SCH (08:00)
[2021-09-14] MEDS: APIXABAN 5 MG TAB PO SCH (08:01)
[2021-09-14] MEDS: DULoxetine HCL 20 MG CAPSULE.DR PO SCH (08:01)
[2021-09-14] MEDS: ASPIRIN 81 MG PO SCH (08:01)
[2021-09-14] MEDS: METOCLOPRAMIDE 5 MG TAB PO SCH (08:01)
[2021-09-14] MEDS: amLODIPine 10 MG TAB PO SCH (08:01)
[2021-09-14] MEDS: CLOPIDOGREL 75 MG TAB PO SCH (08:01)
[2021-09-14] MEDS: TACROLIMUS 1 MG CAP PO SCH (08:02)
[2021-09-14] MEDS: SODIUM CHLORIDE 0.9% 1,000 ML IV SCH (08:02)
[2021-09-14 08:04] LABS: Glucose,Whole Blood 218 mg/dL (75-99)
[2021-09-14 08:45] LABS: Basophils % (A) 0 %; Eosinophils # (A) 0.2 k/uL (0-0.7); Eosinophils % (A) 3 %; HCT 43.1 % (34.0-46.0); HGB 14.3 gm/dL (11.4-16.0); Lymphocytes # (A) 2.1 k/uL (1.0-4.8); Lymphocytes % (A) 34 %; MCH 31.3 pg (25.0-35.0); MCHC 33.2 g/dL (31.0-37.0); MCV 94.4 fL (80.0-100.0); Mean Platelet Volume 10.1; Monocytes # (A) 0.2 k/uL (0-1.0); Monocytes % (A) 4 %; Neutrophils # (A) 3.5 k/uL (1.3-7.7); Neutrophils % (A) 58 %; Platelet Count 119 k/uL (150-450); RBC 4.57 m/uL (3.80-5.40); RDW 13.6 % (11.5-15.5)
--- NOTE | 2021-09-14 08:53 | P.PN ---
Subjective Patient is seen in follow-up for acute allograft function. Renal function back to baseline. Denies chest pain or shortness of breath. Now on oral diet. No active complaints. Vital signs are stable. General: The patient appeared well nourished and normally developed. HEENT: Head exam is unremarkable. LUNGS: Breath sounds decreased. HEART: Rate and Rhythm are regular. ABDOMEN: Soft, no distention. EXTREMITITES: No edema. Objective - Vital Signs Vital signs: Vital Signs Temp 97.6 F 09/14/21 07:58 Pulse 85 09/14/21 07:58 Resp 16 09/14/21 07:58 BP 168/93 09/14/21 07:58 Pulse Ox 100 09/14/21 07:58 Intake & Output 09/13/21 09/14/21 09/14/21 18:59 06:59 18:59 Intake Total 180 Balance 180 Weight 54.431 kg 54.7 kg Intake: Oral 180 Other: Voiding Method External Catheter # Voids 2 - Labs CBC & Chem 7: 09/14/21 07:29 09/13/21 04:47 Labs: Abnormal Lab Results - Last 24 Hours (Table) 09/13/21 09/13/21 09/13/21 Range/Units 10:05 12:06 16:53 Plt Count (150-450) k/uL POC Glucose (mg/dL) 113 H 137 H 271 H (75-99) mg/dL 09/13/21 09/14/21 09/14/21 Range/Units 19:55 06:20 07:29 Plt Count 119 L (150-450) k/uL POC Glucose (mg/dL) 273 H 252 H (75-99) mg/dL 09/14/21 Range/Units 08:02 Plt Count (150-450) k/uL POC Glucose (mg/dL) 218 H (75-99) mg/dL Microbiology - Last 24 Hours (Table) 09/10/21 16:25 Blood Culture - Preliminary Blood No Growth after 72 hours Assessment and Plan Plan: Assessment: 1. Acute allograft dysfunction secondary to ATN from hypovolemia due to DKA. Creatinine 1.84 on admission and is 0.89 yesterday. Also received IV contrast dye on 09/10/2021. 2. Chronic kidney disease stage III with baseline creatinine near 1-1.1. 3. Status post living related renal allograft in 2001. 4. DKA status post insulin drip. 5. Metabolic acidosis secondary to DKA and acute kidney injury. Resolved. 6. Hypomagnesemia from poor intake. Replace. 7. Hypokalemia from poor intake and saline diuresis. Replace. 8. Chronic kidney disease mineral bone disease maintained on calcitriol. 9. Hypertension with chronic kidney disease. Blood pressure on the higher side. Plan: Hep-Lock IV fluids. Prograf level 2.3 dated 09/10/2021. Trough level less than 1.5 - patient was not able to take medications prior to admission due to vomiting and diarrhea. Home dose has been resumed. I will give her an extra 1 mg dose of Prograf today. Maintain CellCept and Prograf. Replace potassium and magnesium. Dose of hydralazine increased to 50 mg 3 times daily. To be held for systolic blood pressure less than 120. Follow-up repeat Prograf level.
[2021-09-14] MEDS ORDERED: hydrALAZINE HCL 50 MG TAB PO SCH (09:00)
[2021-09-14] MEDS ORDERED: TACROLIMUS 1 MG CAP PO ONE (09:00)
[2021-09-14 09:20] LABS: Calcium 8.9 mg/dL (8.4-10.2); Magnesium 1.9 mg/dL (1.6-2.3); Potassium 3.4 mmol/L (3.5-5.1); Total Bilirubin 1.3 mg/dL (0.2-1.3); Total Protein 6.1 g/dL (6.3-8.2)
[2021-09-14 11:54] LABS: Glucose,Whole Blood 181 mg/dL (75-99)
--- NOTE | 2021-09-14 11:57 | P.PN ---
Subjective Progress Note Date: 09/14/21 HISTORY OF PRESENT ILLNESS This is a 60-year-old Cauc[place] female with a previous medical history significa nt for hypertension and hypertensive cardiovascular disease, hyperlipidemia, diabetes mellitus type 2 on insulin pump, CVA, CAD post PCI and stent placement, history of renal disease post renal transplant, hitory of vulvar cancer post radiation treatment, obesity status post sleeve gastrectomy. Patient was admitted on September 10 due to mental status changes and found to have a blood sugar of 870. Patient remains in the emergency center waiting for a bed in the ICU on the DKA protocol and subsequently transitioned to Levemir 15 units at bedtime and NovoLog 5 units with meals. Patient has been seen and followed by non cdl driver, cardiology, neurology and nephrology. Patient is seen today in the emergency center. She is awake and alert and oriented. She does not remember what happened that brought her into the hospital. Her blood pressure is high at 174/111. She's been afebrile, heart rate 70s, pulse ox 97% on room air. Blood sugar this morning was 42 and she is status post Donley juice and crackers, and now having breakfast. We will plan to discontinue Hernandez catheter and downgrade patient to cardiac stepdown unit. Levemir decreased to 10 units at bedtime. We will resume patient on her home medications including eliquis, Plavix, amlodipine. gambling monitor is a sinus rhythm. Echocardiogram is pending. Consults with PT and OT added EEG showed slowing of moderate to severe degree with periods of intermittent suppression lasting for one second associated with some triphasic activity suggestive generalized cerebral dysfunction seen with toxic metabolic encephalopathy. CTA of the head and neck showed no significant intracranial or extracranial vascular stenosis, occlusion or aneurysm. Echocardiogram reveals EF greater than 55%, mild mitral regurgitation, mild tri cuspid regurgitation. 09/14: Blood glucose yesterday afternoon and this morning running in the mid 200s. She is currently on Levemir 10 units at bedtime and NovoLog 5 units with meals, and NovoLog scale will be added. Blood pressures are still running high and we have increased hydralazine to 50 mg 3 times daily. Neurology has signed off as altered mental status has improved. Cardiology and Pulmonary critical care services have also signed off. Patient seen and followed by nephrology with plan to maintain CellCept and Prograf, continue potassium and magnesium replacements and repeat Prograf level this morning. gambling monitor is sinus rhythm. Patient has been afebrile, heart rate 79, blood pressure 170/84, pulse ox 98% on room air. A has been evaluated by physical therapy with rec ommendations for subacute rehab. Social work has been updated and if all arrangements are completed, we will plan to discharge today. REVIEW OF SYSTEMS Constitutional: No fever, no chills, no night sweats. No weight change. Noted weakness, noted fatigue. No daytime sleepiness. EENT: No headache. No blurred vision or double vision, no loss of vision. No loss of Hearing, no ringing in the ears, no dizziness. No nasal drainage or congestion. No epistaxis. No sore throat. Lungs: No shortness of breath, cough, no sputum production. No wheezing. Cardiovascular: No chest pain, no lower extremity edema. No palpitations. No paroxysmal nocturnal dyspnea. No orthopnea. No lightheadedness or dizziness. No syncopal episodes. Abdominal: No abdominal pain. No nausea, vomiting. No diarrhea. No constipation. No bloody or tarry stools. No loss of appetite. Genitourinary: No dysuria, increased frequency, urgency. No urinary retention. Musculoskeletal: No myalgias. Noted generalized muscle weakness, no gait dysfunction, no frequent falls. No back pain. No neck pain. Integumentary: No wounds, no lesions. No rash or pruritus. No unusual bruising. No change in hair or nails. Neurologic: No aphasia. No facial droop. Mild change in mentation. No head injury. No headache. No paralysis. No paresthesia. Psychiatric: No depression. No anxiety. No mood swings. Endocrine: Noted abnormal blood sugars. No weight change. PHYSICAL EXAMINATION Gen: This is a 60-year-old thin female. She is resting in bed and appears to be comfortable and in no acute distress. HEENT: Head is atraumatic, normocephalic. Pupils equal, round. Sclerae is anicteric. NECK: Supple. No JVD. No lymphadenopathy. No thyromegaly. LUNGS: Clear to auscultation. No wheezes or rhonchi. No intercostal retractions. HEART: first heart sound is depressed, second heart sound is normal there is ISHA 2/6 located at the left sternal border. ABDOMEN: Soft. Bowel sounds are present. No masses. No tenderness. EXTREMITIES: No pedal edema. No calf tenderness. Dorsalis pedis palpable bilaterally. NEUROLOGICAL: Patient is awake, alert and oriented x3, noted short-term memory deficit. Cranial nerves 2 through 12 are grossly intact. ASSESSMENT AND PLAN 1. Acute diabetic ketoacidosis. Continue Levemir 10 units at bedtime, NovoLog 5 units with meals and scale. 2. Toxic metabolic encephalopathy secondary to diabetic ketoacidosis. 3. SIRS with hypothermia and leukocytosis secondary to DKA. Patient has been seen by Dr. Hook has not identified any infectious etiology and ceftriaxone was discontinued. and no infectious etiology is found. Recommends no antibiotics at this time and Rocephin has been discontinued. 4. Hypertension and hypertensive cardiovascular disease. Continue Metoprolol ER 25 mg orally at bedtime, hydralazine 50 mg 3 times daily, resume amlodipine 10 mg daily starting now. 5. Mixed hyperlipidemia. Continue Lipitor 80 mg po daily. 6. Diabetes mellitus type 2 on insulin pump. Continue as in #1 7. History of CVA. Plavix 75 mg daily will be resumed, continue Lipitor. 8. History of renal transplant. we will need to resume her Tacrolimus and cell cept, nephrology consult appreciated. 9. Obstructive sleep apnea. we will continue with CPAP. 10. History of pulmonary embolism. We will resume patient on eliquis 5 mg twice daily. 11. History of CAD post PCI. Continue Metoprolol ER 25 mg orally daily and Lipitor 80 mg orally daily. 12. Recurrent depression. Continue Cymbalta 20 mg orally daily. 13. History of vulvar cancer post surgery. 14. Diabetic polyneuropathy. We will resumerally at bedtime. 15. GERD with esophagitis. we will continue with PPI. 16. COVID-19 testing negative. Patient has been hospitalized during a santos demic. DISCHARGE PLAN Subacute rehab once arrangements are completed. Impression and plan of care have been directed as dictated by the signing physician. Kamini Shay nurse practitioner acting as scribe for signing physician. Objective - Vital Signs Vital signs: Vital Signs Temp 98.0 F 09/14/21 04:00 Pulse 79 09/14/21 04:00 Resp 18 09/14/21 04:00 BP 170/84 09/14/21 04:00 Pulse Ox 98 09/14/21 04:00 Intake & Output 09/13/21 09/14/21 09/14/21 18:59 06:59 18:59 Intake Total 180 Balance 180 Weight 54.431 kg 54.7 kg Intake: Oral 180 Other: Voiding Method External Catheter # Voids 2 - Labs CBC & Chem 7: 09/14/21 07:29 09/14/21 07:29 Labs: Abnormal Lab Results - Last 24 Hours (Table) 09/12/21 09/13/21 09/13/21 Range/Units 03:37 10:05 12:06 POC Glucose (mg/dL) 113 H 137 H (75-99) mg/dL Tacrolimus <1.5 L (5.0-20.0) ng/mL 09/13/21 09/13/21 09/14/21 Range/Units 16:53 19:55 06:20 POC Glucose (mg/dL) 271 H 273 H 252 H (75-99) mg/dL Tacrolimus (5.0-20.0) ng/mL Microbiology - Last 24 Hours (Table) 09/10/21 16:25 Blood Culture - Preliminary Blood No Growth after 72 hours
--- NOTE | 2021-09-14 12:10 | P.DS ---
Providers Date of admission: 09/10/21 18:49 Expected date of discharge: 09/14/21 Attending physician: Katina Benson Consults: 09/10/21 18:24 Consult Physician Urgent Consulting Provider: Librado Tapia Consult Reason/Comments: DKA, altered mental status, renal insufficiency Do you want consulting provider notified?: Already Contacted 09/10/21 18:28 Consult Physician Urgent Consulting Provider: Fran Frias Consult Reason/Comments: Renal insufficiency, history of renal transplant Do you want consulting provider notified?: Yes 09/11/21 15:20 Consult Physician Stat Consulting Provider: Sylvia Shrestha Consult Reason/Comments: Altered Mental Status Do you want consulting provider notified?: Yes 09/11/21 16:13 Consult Physician Routine Consulting Provider: Kelsi Hook Consult Reason/Comments: sepsis Do you want consulting provider notified?: Yes Primary care physician: Katina Benson Hospital Course: HISTORY OF PRESENT ILLNESS This is a 60-year-old Caucasia female with a previous medical history significant for hypertension and hypertensive cardiovascular disease, hyperlipidemia, diabetes mellitus type 2 on insulin pump, CVA, CAD post PCI and stent placement, history of renal disease post renal transplant, hitory of vulvar cancer post radiation treatment, obesity status post sleeve gastrectomy. Patient was admitted on September 10 due to mental status changes and found to have a blood sugar of 870. Patient remains in the emergency center waiting for a bed in the ICU on the DKA protocol and subsequently transitioned to Levemir 15 units at bedtime and NovoLog 5 units with meals. Patient has been seen and followed by dealer relationship manager, cardiology, neurology and nephrology. Patient is seen today in the emergency center. She is awake and alert and oriented. She does not remember what happened that brought her into the hospital. Her blood pressure is high at 174/111. She's been afebrile, heart rate 70s, pulse ox 97% on room air. Blood sugar this morning was 42 and she is status post [place] juice and crackers, and now having breakfast. We will plan to discontinue Hernandez catheter and downgrade patient to cardiac stepdown unit. Levemir decreased to 10 units at bedtime. We will resume patient on her home medications including eliquis, Plavix, amlodipine. hospital monitor is a sinus rhythm. Echocardiogram is pending. Consults with PT and OT added EEG showed slowing of moderate to severe degree with periods of intermittent suppression lasting for one second associated with some triphasic activity suggestive generalized cerebral dysfunction seen with toxic metabolic encephalopathy. CTA of the head and neck showed no significant intracranial or extracranial vascular stenosis, occlusion or aneurysm. Echocardiogram reveals EF greater than 55%, mild mitral regurgitation, mild tricuspid regurgitation. 09/14: Blood glucose yesterday afternoon and this morning running in the mid 200s. She is currently on Levemir 10 units at bedtime and NovoLog 5 units with meals, and NovoLog scale will be added. Blood pressures are still running high and we have increased hydralazine to 50 mg 3 times daily. Neurology has signed off as altered mental status has improved. Cardiology and Pulmonary critical care services have also signed off. Patient seen and followed by nephrology with plan to maintain CellCept and Prograf, continue potassium and magnesium replacements and repeat Prograf level this morning. hospital monitor is sinus rhythm. Patient has been afebrile, heart rate 79, blood pressure 170/84, pulse ox 98% on room air. A has been evaluated by physical therapy with recommendations for subacute rehab. Social work has been updated and if all arrangements are completed, we will plan to discharge today. Patient will be resumed back on insulin pump at discharge. Potassium has been replaced. DISCHARGE DIAGNOSES 1. Acute diabetic ketoacidosis. 2. Toxic metabolic encephalopathy secondary to diabetic ketoacidosis. 3. SIRS with hypothermia and leukocytosis secondary to DKA. 4. Hypertension and hypertensive cardiovascular disease. 5. Mixed hyperlipidemia. 6. Diabetes mellitus type 2 on insulin pump. 7. History of CVA. 8. History of renal transplant. 9. Obstructive sleep apnea. 10. History of pulmonary embolism. 11. History of CAD post PCI. 12. Recurrent depression. 13. History of vulvar cancer post surgery. 14. Diabetic polyneuropathy. 15. GERD with esophagitis. 16. COVID-19 testing negative. Patient has been hospitalized during a pandemic. DISCHARGE PLAN Subacute rehab once arrangements are completed. Greater than 35 minutes was utilized and coordinating patient's discharge. Impression and plan of care have been directed as dictated by the signing physician. Kamini Shay nurse practitioner acting as scribe for signing physician. Patient Condition at Discharge: Stable Plan - Discharge Summary New Discharge Prescriptions: New Aspirin 81 mg PO DAILY tab hydrALAZINE HCL [Apresoline] 50 mg PO TID #90 tab Gabapentin [Neurontin] 300 mg PO HS #3 cap Continue amLODIPine [Norvasc] 10 mg PO DAILY mycophenolate mofetiL [Cellcept] 500 mg PO BID Nitroglycerin Sl Tabs [Nitrostat] 0.4 mg SUBLINGUAL Q5M PRN #25 tab PRN Reason: Chest Pain Omeprazole [PriLOSEC] 40 mg PO AC-BRKFST Tacrolimus [Prograf] 1 mg PO BID DULoxetine HCL [Cymbalta] 20 mg PO DAILY Apixaban [Eliquis] 5 mg PO BID Clopidogrel [Plavix] 75 mg PO DAILY calcitrioL [Calcitriol] 0.5 mcg PO SUTUTHSA INSULIN LISPRO (For Pump) [humaLOG (For Pump)] 0.01 units SQ-PUMP CONTINUOUS Metoprolol Succinate (ER) [Toprol XL] 25 mg PO DAILY Atorvastatin [Lipitor] 80 mg PO DAILY calcitrioL [Calcitriol] 1 mcg PO MOWEFR Metoclopramide [Reglan] 5 mg PO DAILY Discontinued Gabapentin [Neurontin] 300 mg PO HS Discharge Medication List amLODIPine [Norvasc] 10 mg PO DAILY 12/12/14 [History] mycophenolate mofetiL [Cellcept] 500 mg PO BID 12/12/14 [History] Nitroglycerin Sl Tabs [Nitrostat] 0.4 mg SUBLINGUAL Q5M PRN #25 tab 12/15/14 [Rx] Omeprazole [PriLOSEC] 40 mg PO -KT 10/23/15 [History] Tacrolimus [Prograf] 1 mg PO BID 06/06/16 [History] DULoxetine HCL [Cymbalta] 20 mg PO DAILY 11/10/18 [History] Apixaban [Eliquis] 5 mg PO BID 11/04/19 [History] Clopidogrel [Plavix] 75 mg PO DAILY 11/04/19 [History] Atorvastatin [Lipitor] 80 mg PO DAILY 09/10/21 [History] Metoclopramide [Reglan] 5 mg PO DAILY 09/10/21 [History] Metoprolol Succinate (ER) [Toprol XL] 25 mg PO DAILY 09/10/21 [History] calcitrioL [Calcitriol] 0.5 mcg PO SUTUTHSA 09/10/21 [History] calcitrioL [Calcitriol] 1 mcg PO MOWEFR 09/10/21 [History] INSULIN LISPRO (For Pump) [humaLOG (For Pump)] 0.01 units SQ-PUMP CONTINUOUS 09/13/21 [History] Aspirin 81 mg PO DAILY tab 09/14/21 [Rx] Gabapentin [Neurontin] 300 mg PO HS #3 cap 09/14/21 [Rx] hydrALAZINE HCL [Apresoline] 50 mg PO TID #90 tab 09/14/21 [Rx] Follow up Appointment(s)/Referral(s): Katina Benson MD [Primary Care Provider] - 1 Week (AT REHAB ) Ambulatory/Diagnostic Orders: Complete Blood Count w/diff [LAB.AMB] Location: None Selected Comprehensive Metabolic Panel [LAB.AMB] Location: None Selected Miscellaneous Lab Order [LAB.AMB] Location: None Selected Discharge Disposition: TRANSFER TO SNF/ECF
[2021-09-14] MEDS ORDERED: POTASSIUM CHLORIDE ER 20 MEQ TAB.ER PO STA (12:15)
[2021-09-14 13:00] VITALS: BP 142/78; PULSE 86; RESP 18
[2021-09-14 13:05] VITALS: TEMP 97.9
--- NOTE | 2021-09-19 10:06 | P.CONS ---
History of Present Illness - Reason for Consult Consult date: 09/11/21 Past Medical History Past Medical History: Blood Disorder, Coronary Artery Disease (CAD), Cancer, CVA/TIA, Diabetes Mellitus, Dialysis, GERD/Reflux, Hyperlipidemia, Hypertension, Myocardial Infarction (non Q-wave), Osteoarthritis (OA), Pneumonia, Pulmonary Embolus (PE), Renal Disease, Sleep Apnea/CPAP/BIPAP, Thyroid Disorder Additional Past Medical History / Comment(s): Leiden Factor V, basal cell carcinoma, Vulvar cancer, CVA 2015, CVA 2013, CVA 2016 est - sl weakness Lt side, Dialysis 2001 for 2 months, enlarged thyroid w/ nodules. PE 2011, Kidney transplant 2001. No tx for sleep apnea. Neuropathy in feet/legs. Last Myocardial Infarction Date:: 2014 History of Any Multi-Drug Resistant Organisms: None Reported Past Surgical History: Bariatric Surgery, Section, Cholecystectomy, Heart Catheterization, Heart Catheterization With Stent, Tonsillectomy, Tubal Ligation Additional Past Surgical History / Comment(s): jose oophrectomy, kidney transplant, surgery to remove CA. PTCA w/ Stent 2001, 2014. Colonoscopy, EGD.Gastric Sleeve 05/04/20. Past Anesthesia/Blood Transfusion Reactions: No Reported Reaction, Motion Sickness Additional Past Anesthesia/Blood Transfusion Reaction / Comm: no hx blood transfusion Date of Last Stent Placement:: 2014 Past Psychological History: Depression Smoking Status: Never smoker Past Alcohol Use History: None Reported Past Drug Use History: None Reported - Past Family History Sister(s) Family Medical History: Hypertension Father Family Medical History: Myocardial Infarction (ME) Mother Family Medical History: Pulmonary Embolus Additional Family Medical History / Comment(s): Occluded carotid artery, carotid endartectomy Son(s) Family Medical History: Diabetes Mellitus Additional Family Medical History / Comment(s): DM type 1 Medications and Allergies Home Medications Medication Instructions Recorded Confirmed Type amLODIPine [Norvasc] 10 mg PO DAILY 12/12/14 09/10/21 History mycophenolate mofetiL [Cellcept] 500 mg PO BID 12/12/14 09/10/21 History Nitroglycerin Sl Tabs [Nitrostat] 0.4 mg SUBLINGUAL Q5M PRN #25 tab 12/15/14 09/10/21 Rx Gabapentin [Neurontin] 300 mg PO HS 10/23/15 09/10/21 History Omeprazole [PriLOSEC] 40 mg PO AC-BRKFST 10/23/15 09/10/21 History Tacrolimus [Prograf] 1 mg PO BID 06/06/16 09/10/21 History DULoxetine HCL [Cymbalta] 20 mg PO DAILY 11/10/18 09/10/21 History Apixaban [Eliquis] 5 mg PO BID 11/04/19 09/10/21 History Clopidogrel [Plavix] 75 mg PO DAILY 11/04/19 09/10/21 History Atorvastatin [Lipitor] 80 mg PO DAILY 09/10/21 09/10/21 History Metoclopramide [Reglan] 5 mg PO DAILY 09/10/21 09/10/21 History Metoprolol Succinate (ER) [Toprol 25 mg PO DAILY 09/10/21 09/10/21 History Xl] Unknown Insulin (For Pump) 0.01 units SQ-PUMP CONTINUOUS 09/10/21 09/10/21 History calcitrioL [Calcitriol] 0.5 mcg PO SUTUTHSA 09/10/21 09/10/21 History calcitrioL [Calcitriol] 1 mcg PO MOWEFR 09/10/21 09/10/21 History Allergies Allergy/AdvReac Type Severity Reaction Status Date / Time Milk Containing Products Allergy Diarrhea Verified 09/10/21 15:54 [Dairy] Penicillins Allergy Rash/Hives Verified 09/10/21 15:54 trandolapril [From Tarka] Allergy SEVERE Verified 09/10/21 15:54 HYPOTENSION verapamil HCl [From Tarka] Allergy SEVERE Verified 09/10/21 15:54 HYPOTENSION Physical Exam Vitals: Vital Signs Temp Pulse Resp BP Pulse Ox 09/11/21 15:00 92 18 145/71 100 09/11/21 14:00 93 15 155/82 98 09/11/21 13:00 95 14 156/65 100 09/11/21 12:00 97.0 F L 94 15 153/76 100 09/11/21 11:00 92 15 142/73 100 09/11/21 10:00 89 17 150/73 09/11/21 09:17 87 16 142/79 99 09/11/21 09:00 93 12 149/74 100 09/11/21 08:37 92 17 149/74 100 09/11/21 07:34 87 16 109/55 96 09/11/21 05:56 97.9 F 91 16 132/65 97 09/11/21 03:10 97.9 F 93 19 123/61 99 09/11/21 01:03 98.6 F 93 18 127/59 100 09/10/21 23:00 98.9 F 97 18 106/55 100 09/10/21 22:12 98.4 F 99 19 107/56 100 09/10/21 21:02 98 16 115/58 100 09/10/21 19:00 96.3 F L 104 H 16 119/63 100 09/10/21 18:30 95.2 F L 106 H 17 88/63 100 09/10/21 18:05 98 15 111/54 100 09/10/21 17:30 93.7 F L 100 17 92/51 100 09/10/21 17:15 99 17 95/46 100 09/10/21 17:00 93.0 F L 98 18 105/55 99 09/10/21 16:46 93.0 F L 98 16 91/37 98 09/10/21 16:45 18 91/37 100 09/10/21 16:38 16 Intake and Output 09/11/21 09/11/21 09/11/21 06:59 14:59 22:59 Intake Total 66.984 Output Total 250 Balance -183.016 Intake: Intake, IV Titration 66.984 Amount Insulin Regular 100 unit 66.984 In Sodium Chloride 0.9% 100 ml @ 0.1 UNITS/KG/HR 5.498 mls/hr IV .[id number] [facility] Rx#:[id number] Output: Urine 250 Results CBC & Chem 7: 09/11/21 05:30 09/11/21 05:30 Labs: Abnormal Lab Results - Last 24 Hours (Table) 09/10/21 09/10/21 09/10/21 Range/Units 15:27 15:27 15:27 WBC (3.8-10.6) k/uL RBC (3.80-5.40) m/uL Hgb (11.4-16.0) gm/dL Hct (34.0-46.0) % Neutrophils # (1.3-7.7) k/uL Sodium 132 L (137-145) mmol/L Potassium 5.3 H (3.5-5.1) mmol/L Chloride 96 L (98-107) mmol/L Carbon Dioxide 8 L* (22-30) mmol/L BUN 44 H (7-17) mg/dL Creatinine 1.84 H (0.52-1.04) mg/dL Glucose 870 H* (74-99) mg/dL POC Glucose (mg/dL) (75-99) mg/dL Plasma Lactic Acid Abel 6.6 H* (0.7-2.0) mmol/L Phosphorus (2.5-4.5) mg/dL AST (14-36) U/L ALT 51 H (4-34) U/L Troponin I 0.042 H* (0.000-0.034) ng/mL Total Protein 5.0 L (6.3-8.2) g/dL Albumin 2.7 L (3.5-5.0) g/dL Procalcitonin (0.02-0.09) ng/mL Urine Glucose (UA) (Negative) Urine Ketones (Negative) Tacrolimus (5.0-20.0) ng/mL 09/10/21 09/10/21 09/10/21 Range/Units 15:27 15:28 16:40 WBC (3.8-10.6) k/uL RBC (3.80-5.40) m/uL Hgb (11.4-16.0) gm/dL Hct (34.0-46.0) % Neutrophils # (1.3-7.7) k/uL Sodium (137-145) mmol/L Potassium (3.5-5.1) mmol/L Chloride (98-107) mmol/L Carbon Dioxide (22-30) mmol/L BUN (7-17) mg/dL Creatinine (0.52-1.04) mg/dL Glucose (74-99) mg/dL POC Glucose (mg/dL) (75-99) mg/dL Plasma Lactic Acid Abel (0.7-2.0) mmol/L Phosphorus (2.5-4.5) mg/dL AST (14-36) U/L ALT (4-34) U/L Troponin I (0.000-0.034) ng/mL Total Protein (6.3-8.2) g/dL Albumin (3.5-5.0) g/dL Procalcitonin 1.28 H (0.02-0.09) ng/mL Urine Glucose (UA) 4+ H (Negative) Urine Ketones 2+ H (Negative) Tacrolimus 2.3 L (5.0-20.0) ng/mL 09/10/21 09/10/21 09/10/21 Range/Units 17:43 18:57 19:39 WBC (3.8-10.6) k/uL RBC (3.80-5.40) m/uL Hgb (11.4-16.0) gm/dL Hct (34.0-46.0) % Neutrophils # (1.3-7.7) k/uL Sodium (137-145) mmol/L Potassium (3.5-5.1) mmol/L Chloride (98-107) mmol/L Carbon Dioxide <5 L* (22-30) mmol/L BUN 45 H (7-17) mg/dL Creatinine 1.83 H (0.52-1.04) mg/dL Glucose 693 H* (74-99) mg/dL POC Glucose (mg/dL) >600 H >600 H (75-99) mg/dL Plasma Lactic Acid Abel (0.7-2.0) mmol/L Phosphorus (2.5-4.5) mg/dL AST (14-36) U/L ALT (4-34) U/L Troponin I (0.000-0.034) ng/mL Total Protein (6.3-8.2) g/dL Albumin (3.5-5.0) g/dL Procalcitonin (0.02-0.09) ng/mL Urine Glucose (UA) (Negative) Urine Ketones (Negative) Tacrolimus (5.0-20.0) ng/mL 09/10/21 09/10/21 09/10/21 Range/Units 19:39 19:39 20:00 WBC (3.8-10.6) k/uL RBC (3.80-5.40) m/uL Hgb (11.4-16.0) gm/dL Hct (34.0-46.0) % Neutrophils # (1.3-7.7) k/uL Sodium (137-145) mmol/L Potassium (3.5-5.1) mmol/L Chloride (98-107) mmol/L Carbon Dioxide (22-30) mmol/L BUN (7-17) mg/dL Creatinine (0.52-1.04) mg/dL Glucose (74-99) mg/dL POC Glucose (mg/dL) >600 H (75-99) mg/dL Plasma Lactic Acid Abel 5.9 H* (0.7-2.0) mmol/L Phosphorus (2.5-4.5) mg/dL AST (14-36) U/L ALT (4-34) U/L Troponin I 0.231 H* (0.000-0.034) ng/mL Total Protein (6.3-8.2) g/dL Albumin (3.5-5.0) g/dL Procalcitonin (0.02-0.09) ng/mL Urine Glucose (UA) (Negative) Urine Ketones (Negative) Tacrolimus (5.0-20.0) ng/mL 09/10/21 09/10/21 09/10/21 Range/Units 21:06 22:11 22:11 WBC (3.8-10.6) k/uL RBC (3.80-5.40) m/uL Hgb (11.4-16.0) gm/dL Hct (34.0-46.0) % Neutrophils # (1.3-7.7) k/uL Sodium (137-145) mmol/L Potassium (3.5-5.1) mmol/L Chloride (98-107) mmol/L Carbon Dioxide (22-30) mmol/L BUN (7-17) mg/dL Creatinine (0.52-1.04) mg/dL Glucose (74-99) mg/dL POC Glucose (mg/dL) 577 H 551 H (75-99) mg/dL Plasma Lactic Acid Abel (0.7-2.0) mmol/L Phosphorus (2.5-4.5) mg/dL AST (14-36) U/L ALT (4-34) U/L Troponin I 0.902 H* (0.000-0.034) ng/mL Total Protein (6.3-8.2) g/dL Albumin (3.5-5.0) g/dL Procalcitonin (0.02-0.09) ng/mL Urine Glucose (UA) (Negative) Urine Ketones (Negative) Tacrolimus (5.0-20.0) ng/mL 09/10/21 09/10/21 09/11/21 Range/Units 22:48 23:43 01:02 WBC (3.8-10.6) k/uL RBC (3.80-5.40) m/uL Hgb (11.4-16.0) gm/dL Hct (34.0-46.0) % Neutrophils # (1.3-7.7) k/uL Sodium (137-145) mmol/L Potassium (3.5-5.1) mmol/L Chloride (98-107) mmol/L Carbon Dioxide (22-30) mmol/L BUN (7-17) mg/dL Creatinine (0.52-1.04) mg/dL Glucose (74-99) mg/dL POC Glucose (mg/dL) 512 H 500 H (75-99) mg/dL Plasma Lactic Acid Abel 3.3 H* (0.7-2.0) mmol/L Phosphorus (2.5-4.5) mg/dL AST (14-36) U/L ALT (4-34) U/L Troponin I (0.000-0.034) ng/mL Total Protein (6.3-8.2) g/dL Albumin (3.5-5.0) g/dL Procalcitonin (0.02-0.09) ng/mL Urine Glucose (UA) (Negative) Urine Ketones (Negative) Tacrolimus (5.0-20.0) ng/mL 09/11/21 09/11/21 09/11/21 Range/Units 01:34 03:08 05:18 WBC (3.8-10.6) k/uL RBC (3.80-5.40) m/uL Hgb (11.4-16.0) gm/dL Hct (34.0-46.0) % Neutrophils # (1.3-7.7) k/uL Sodium (137-145) mmol/L Potassium (3.5-5.1) mmol/L Chloride 108 H (98-107) mmol/L Carbon Dioxide 16 L (22-30) mmol/L BUN 49 H (7-17) mg/dL Creatinine 1.89 H (0.52-1.04) mg/dL Glucose 492 H (74-99) mg/dL POC Glucose (mg/dL) 433 H 322 H (75-99) mg/dL Plasma Lactic Acid Abel (0.7-2.0) mmol/L Phosphorus 2.4 L (2.5-4.5) mg/dL AST (14-36) U/L ALT (4-34) U/L Troponin I (0.000-0.034) ng/mL Total Protein (6.3-8.2) g/dL Albumin (3.5-5.0) g/dL Procalcitonin (0.02-0.09) ng/mL Urine Glucose (UA) (Negative) Urine Ketones (Negative) Tacrolimus (5.0-20.0) ng/mL 09/11/21 09/11/21 09/11/21 Range/Units 05:30 05:30 06:06 WBC 18.2 H (3.8-10.6) k/uL RBC 3.43 L (3.80-5.40) m/uL Hgb 10.9 L (11.4-16.0) gm/dL Hct 33.4 L (34.0-46.0) % Neutrophils # 15.6 H (1.3-7.7) k/uL Sodium 136 L (137-145) mmol/L Potassium (3.5-5.1) mmol/L Chloride 108 H (98-107) mmol/L Carbon Dioxide 16 L (22-30) mmol/L BUN 53 H (7-17) mg/dL Creatinine 1.75 H (0.52-1.04) mg/dL Glucose 342 H (74-99) mg/dL POC Glucose (mg/dL) 316 H (75-99) mg/dL Plasma Lactic Acid Abel (0.7-2.0) mmol/L Phosphorus (2.5-4.5) mg/dL AST 45 H (14-36) U/L ALT 48 H (4-34) U/L Troponin I (0.000-0.034) ng/mL Total Protein 5.0 L (6.3-8.2) g/dL Albumin 2.5 L (3.5-5.0) g/dL Procalcitonin (0.02-0.09) ng/mL Urine Glucose (UA) (Negative) Urine Ketones (Negative) Tacrolimus (5.0-20.0) ng/mL 09/11/21 09/11/21 09/11/21 Range/Units 07:33 09:12 11:00 WBC (3.8-10.6) k/uL RBC (3.80-5.40) m/uL Hgb (11.4-16.0) gm/dL Hct (34.0-46.0) % Neutrophils # (1.3-7.7) k/uL Sodium (137-145) mmol/L Potassium (3.5-5.1) mmol/L Chloride (98-107) mmol/L Carbon Dioxide (22-30) mmol/L BUN (7-17) mg/dL Creatinine (0.52-1.04) mg/dL Glucose (74-99) mg/dL POC Glucose (mg/dL) 265 H 227 H 153 H (75-99) mg/dL Plasma Lactic Acid Abel (0.7-2.0) mmol/L Phosphorus (2.5-4.5) mg/dL AST (14-36) U/L ALT (4-34) U/L Troponin I (0.000-0.034) ng/mL Total Protein (6.3-8.2) g/dL Albumin (3.5-5.0) g/dL Procalcitonin (0.02-0.09) ng/mL Urine Glucose (UA) (Negative) Urine Ketones (Negative) Tacrolimus (5.0-20.0) ng/mL 09/11/21 09/11/21 09/11/21 Range/Units 11:47 13:04 14:03 WBC (3.8-10.6) k/uL RBC (3.80-5.40) m/uL Hgb (11.4-16.0) gm/dL Hct (34.0-46.0) % Neutrophils # (1.3-7.7) k/uL Sodium (137-145) mmol/L Potassium (3.5-5.1) mmol/L Chloride (98-107) mmol/L Carbon Dioxide (22-30) mmol/L BUN (7-17) mg/dL Creatinine (0.52-1.04) mg/dL Glucose (74-99) mg/dL POC Glucose (mg/dL) 113 H 168 H 186 H (75-99) mg/dL Plasma Lactic Acid Abel (0.7-2.0) mmol/L Phosphorus (2.5-4.5) mg/dL AST (14-36) U/L ALT (4-34) U/L Troponin I (0.000-0.034) ng/mL Total Protein (6.3-8.2) g/dL Albumin (3.5-5.0) g/dL Procalcitonin (0.02-0.09) ng/mL Urine Glucose (UA) (Negative) Urine Ketones (Negative) Tacrolimus (5.0-20.0) ng/mL 09/11/21 09/11/21 09/11/21 Range/Units 14:18 15:14 16:02 WBC (3.8-10.6) k/uL RBC (3.80-5.40) m/uL Hgb (11.4-16.0) gm/dL Hct (34.0-46.0) % Neutrophils # (1.3-7.7) k/uL Sodium (137-145) mmol/L Potassium (3.5-5.1) mmol/L Chloride (98-107) mmol/L Carbon Dioxide (22-30) mmol/L BUN (7-17) mg/dL Creatinine (0.52-1.04) mg/dL Glucose (74-99) mg/dL POC Glucose (mg/dL) 175 H 127 H 151 H (75-99) mg/dL Plasma Lactic Acid Abel (0.7-2.0) mmol/L Phosphorus (2.5-4.5) mg/dL AST (14-36) U/L ALT (4-34) U/L Troponin I (0.000-0.034) ng/mL Total Protein (6.3-8.2) g/dL Albumin (3.5-5.0) g/dL Procalcitonin (0.02-0.09) ng/mL Urine Glucose (UA) (Negative) Urine Ketones (Negative) Tacrolimus (5.0-20.0) ng/mL
== END 2021-09-14 17:13 | DRG 637 ==
LOC: EC 15:15 → 2SICU 18:49 → 5NMEDONC 09-13 10:51 → 3SCARD 09-13 11:52
PROVIDERS: ADMIT Internal Medicine; ATTEND Internal Medicine
DX: E11.10 Type 2 diabetes mellitus with ketoacidosis without coma (principal); N17.0 Acute kidney failure with tubular necrosis; G92.8 Other toxic encephalopathy; I13.0 Hypertensive heart and chronic kidney disease with heart failure and stage 1 through stage 4 chronic kidney disease, or unspecified chronic kidney disease; T86.19 Other complication of kidney transplant; D84.9 Immunodeficiency, unspecified; D68.51 Activated protein C resistance; F33.9 Major depressive disorder, recurrent, unspecified; R65.10 Systemic inflammatory response syndrome (SIRS) of non-infectious origin without acute organ dysfunction; I50.9 Heart failure, unspecified; E86.1 Hypovolemia; E11.649 Type 2 diabetes mellitus with hypoglycemia without coma; E83.9 Disorder of mineral metabolism, unspecified; E11.22 Type 2 diabetes mellitus with diabetic chronic kidney disease; E11.42 Type 2 diabetes mellitus with diabetic polyneuropathy; N18.30 Chronic kidney disease, stage 3 unspecified; Z79.4 Long term (current) use of insulin; G31.9 Degenerative disease of nervous system, unspecified; Z20.822 Contact with and (suspected) exposure to COVID-19; E78.2 Mixed hyperlipidemia; D63.1 Anemia in chronic kidney disease; E87.6 Hypokalemia; E07.9 Disorder of thyroid, unspecified; R94.31 Abnormal electrocardiogram [ECG] [EKG]; G47.33 Obstructive sleep apnea (adult) (pediatric); I25.10 Atherosclerotic heart disease of native coronary artery without angina pectoris; I25.2 Old myocardial infarction; K21.00 Gastro-esophageal reflux disease with esophagitis, without bleeding; M19.90 Unspecified osteoarthritis, unspecified site; Z79.01 Long term (current) use of anticoagulants; Z79.02 Long term (current) use of antithrombotics/antiplatelets; Z79.899 Other long term (current) drug therapy; Z96.41 Presence of insulin pump (external) (internal); Z86.73 Personal history of transient ischemic attack (TIA), and cerebral infarction without residual deficits; Z95.5 Presence of coronary angioplasty implant and graft; Z87.01 Personal history of pneumonia (recurrent); Z98.84 Bariatric surgery status; Z90.49 Acquired absence of other specified parts of digestive tract; Z87.19 Personal history of other diseases of the digestive system; Z86.711 Personal history of pulmonary embolism; Z85.828 Personal history of other malignant neoplasm of skin; Z90.722 Acquired absence of ovaries, bilateral; Z90.89 Acquired absence of other organs; Z86.39 Personal history of other endocrine, nutritional and metabolic disease; Z98.51 Tubal ligation status; Z85.44 Personal history of malignant neoplasm of other female genital organs; Z98.891 History of uterine scar from previous surgery; Z98.890 Other specified postprocedural states; Y83.0 Surgical operation with transplant of whole organ as the cause of abnormal reaction of the patient, or of later complication, without mention of misadventure at the time of the procedure; Z88.0 Allergy status to penicillin; Z88.8 Allergy status to other drugs, medicaments and biological substances; Z91.011 Allergy to milk products; Z82.49 Family history of ischemic heart disease and other diseases of the circulatory system; Z83.3 Family history of diabetes mellitus; Z83.2 Family history of diseases of the blood and blood-forming organs and certain disorders involving the immune mechanism
CPT/HCPCS: 36415; 70450; 70496; 70498; 71045; 76700; 80048; 80051; 80053; 80197; 80306; 80320; 81003; 82009; 82140; 82565; 82803; 82947; 83519; 83605; 83735; 83880; 84100; 84145; 84443; 84484; 84520; 84681; 85025; 85610; 85730; 87040; 87635; 93005; 93306; 95816; 96361; 96365; 96375; 99291; 99292

== ENCOUNTER → 2022-03-05 | Outpatient (CLI) | payer MEDICARE ==
[2022-03-05 16:09] LABS: Basophils # (A) 0.06 X 10*3/uL (0.00-0.10); Eosinophils # (A) 0.17 X 10*3/uL (0.04-0.35); HCT 40.7 % (37.2-46.3); Immature Grans, Automated 0.2 %; Lymphocytes # (A) 1.24 X 10*3/uL (0.90-5.00); Lymphocytes % (A) 21.6 %; MCH 29.5 pg (27.0-32.0); MCHC 31.9 g/dL (32.0-37.0); MCV 92.5 fL (80.0-97.0); Mean Platelet Volume 12.7 fL (9.5-12.2); Monocytes # (A) 0.27 X 10*3/uL (0.20-1.00); Monocytes % (A) 4.7 %; NRBC Per 100 WBC 0 /100 WBCS (0.0-0.0); Neutrophils % (A) 69.5 %; Platelet Count 155 X 10*3/uL (140-440); WBC 5.75 X 10*3/uL (4.50-10.00)
[2022-03-05 18:00] LABS: Albumin 3.7 g/dL (3.8-4.9); Ferritin 94.3 ng/mL (10.0-291.0)
[2022-03-05 20:33] LABS: Magnesium 1.9 mg/dL (1.5-2.4); Phosphorus 3.3 mg/dL (2.4-5.1); Uric Acid 5.3 mg/dL (2.9-7.7)
[2022-03-05 20:41] LABS: % Iron Saturation 26.74 (12.00-45.00); African American GFR (CKD) 49.7 (60.0-200.0); Anion Gap 15.8 mmol/L (10.00-18.00); BUN/Creat Ratio 11.48 Ratio (12.00-20.00); Blood Urea Nitrogen 15.5 mg/dL (9.0-27.0); Calcium 9.7 mg/dL (8.7-10.3); Carbon Dioxide 24.5 mmol/L (20.0-27.5); Non-African American GFR(CKD) 42.9 (60.0-200.0); Potassium 4.4 mmol/L (3.5-5.5)
== END | disposition home or self-care (01) ==
LOC: LABWHC1 10:58
PROVIDERS: ATTEND Psychiatry & Neurology Neurology
DX: N25.81 Secondary hyperparathyroidism of renal origin (principal); M10.9 Gout, unspecified; N18.30 Chronic kidney disease, stage 3 unspecified; N39.0 Urinary tract infection, site not specified; D64.9 Anemia, unspecified; R80.9 Proteinuria, unspecified; E55.9 Vitamin D deficiency, unspecified; Z94.0 Kidney transplant status; R26.0 Ataxic gait; E11.40 Type 2 diabetes mellitus with diabetic neuropathy, unspecified; Z79.899 Other long term (current) drug therapy; E11.22 Type 2 diabetes mellitus with diabetic chronic kidney disease
CPT/HCPCS: 36415; 80048; 80197; 82040; 82306; 82728; 83540; 83550; 83735; 83970; 84100; 84550; 85025

== ENCOUNTER → 2022-04-13 | Outpatient (CLI) | payer MEDICARE ==
[2022-04-13 11:23] LABS: Creatinine,Urine Random 63.7 mg/dL; Protein/Creatinine Ratio,Urine 0.283
[2022-04-13 22:39] LABS: African American GFR (CKD) 48.4 (60.0-200.0); Albumin 3.6 g/dL (3.8-4.9); Albumin/Globulin Ratio 1.4 (1.60-3.17); Anion Gap 9.1 mmol/L (10.00-18.00); BUN/Creat Ratio 11.09 Ratio (12.00-20.00); Blood Urea Nitrogen 15.3 mg/dL (9.0-27.0); Calcium 9.6 mg/dL (8.7-10.3); Carbon Dioxide 27.7 mmol/L (20.0-27.5); Globulin 2.6 g/dL (1.6-3.3); Non-African American GFR(CKD) 41.7 (60.0-200.0); Potassium 4.2 mmol/L (3.5-5.5); Total Bilirubin 1.1 mg/dL (0.30-1.20); Total Protein 6.1 g/dL (6.2-8.2)
== END | disposition home or self-care (01) ==
LOC: LABWHC1 09:24
PROVIDERS: ATTEND Internal Medicine Nephrology
DX: Z94.0 Kidney transplant status (principal)
CPT/HCPCS: 36415; 80053; 80197; 82570; 84156

== ENCOUNTER → 2022-05-10 | Outpatient (CLI) | payer MEDICARE ==
[2022-05-10 19:00] LABS: African American GFR (CKD) 47.5 (60.0-200.0); Albumin 3.4 g/dL (3.8-4.9); Anion Gap 8.1 mmol/L (10.00-18.00); BUN/Creat Ratio 10.64 Ratio (12.00-20.00); Blood Urea Nitrogen 14.9 mg/dL (9.0-27.0); Calcium 9.2 mg/dL (8.7-10.3); Carbon Dioxide 28.9 mmol/L (20.0-27.5); Potassium 4.5 mmol/L (3.5-5.5)
[2022-05-11 14:06] LABS: BK Virus DNA PCR, Qualitative Not detected (Not detected); BKV DNA (PCR), Quant <125 Copies/mL (<125); LOG BKV Copies/mL <2.10 (<2.10)
== END | disposition home or self-care (01) ==
LOC: LABWHC1 13:17
DX: Z94.0 Kidney transplant status (principal)
CPT/HCPCS: 36415; 80069

== ENCOUNTER → 2022-05-10 | Outpatient (CLI) | payer MEDICARE ==
--- NOTE | 2022-05-10 13:53 | MM ---
Reason for Exam: Clinical finding. Last mammogram was performed 1 year(s) and 7 month(s) ago. Indicated Problems: Lump or thickening of the left side for 2 Month(s). Patient History: Menarche at age 14. First Full-Term at age 23. Left ovary removed at age 43. Right ovary removed at age 46. Postmenopausal. Other cancer, age 51. Paternal cousin had breast cancer. Paternal cousin had breast cancer. Paternal cousin had breast cancer. Paternal cousin had breast cancer. Risk Values: Taina 5 year model risk: 1.2%. NCI Lifetime model risk: 6.7%. Tissue Density: The breast tissue is heterogeneously dense. This may lower the sensitivity of mammography. Findings: There is a nodular density upper outer quadrant left breast zone A corresponding to the site of clinical concern. Ultrasound is recommended. Otherwise no nodules or masses seen. Benign calcifications seen bilaterally. Overall Assessment: Incomplete: need additional imaging evaluation, BI-RAD 0 Management: Diagnostic Breast Ultrasound of the left breast. A clinical breast exam by your physician is recommended on an annual basis and results should be correlated with mammographic findings. This exam should not preclude additional follow-up of suspicious palpable abnormalities. Results were given to the patient verbally at the time of exam. Electronically signed and approved by: Emilio Kirk M.D. Radiologis
--- NOTE | 2022-05-10 14:42 | USB ---
Patient History: Menarche at age 14. First Full-Term at age 23. Left ovary removed at age 43. Right ovary removed at age 46. Postmenopausal. Other cancer, age 51. Paternal cousin had breast cancer. Paternal cousin had breast cancer. Paternal cousin had breast cancer. Paternal cousin had breast cancer. Risk Values: Taina 5 year model risk: 1.2%. NCI Lifetime model risk: 6.7%. Prior Study Comparison: 01/29/2016 Bilateral Screening Mammogram, [facility]. 11/24/2017 Screening Mammogram, [facility]. 10/01/2020 Bilateral Screening Mammogram, [facility]. Findings: The upper outer quadrant of the left breast, the area of palpable concern of the left breast, the axilla of the left breast and the retroareolar of the left breast were scanned. Hypoechoic nodules with internal calcifications 3:00 2cfn 0.7 x 0.4 x 0.4cm, 3:00 7cfn 0.7 x 0.4 x 0.5cm. Overall Assessment: Probably benign, BI-RAD 3 Management: Diagnostic Breast Ultrasound of the left breast in 6 months. A clinical breast exam by your physician is recommended on an annual basis and results should be correlated with mammographic findings. Electronically signed and approved by: Emilio Kirk M.D. [employer]
== END | disposition home or self-care (01) ==
LOC: RADMAMWWP 13:11
PROVIDERS: ATTEND Internal Medicine
DX: N63.21 Unspecified lump in the left breast, upper outer quadrant (principal); Z78.0 Asymptomatic menopausal state; Z85.89 Personal history of malignant neoplasm of other organs and systems; Z80.3 Family history of malignant neoplasm of breast
CPT/HCPCS: 77066; 76642; G0279; 77062

== ENCOUNTER → 2022-06-07 | Outpatient (CLI) | payer MEDICARE ==
[2022-06-07 15:23] VITALS: BP 121/76; PULSE 68; RESP 16; TEMP 98; BMI 26.3
--- NOTE | 2022-06-07 16:03 | P.BASOAP ---
Subjective Progress Note Date: 06/07/22 Principal diagnosis: Morbid obesity Patient returns for recheck. She was last seen in December. Complaining of mild reflux which is unchanged. She has lost 4 pounds. No vomiting. No pain. She is no longer interested in plastic surgery evaluation for breast augmentation. Objective - Vital Signs Vital signs: Vital Signs Temp 98 F 06/07/22 15:21 Pulse 68 06/07/22 15:21 Resp 16 06/07/22 15:21 BP 121/76 06/07/22 15:21 Pulse Ox FiO2 Intake & Output 06/06/22 06/07/22 06/07/22 18:59 06:59 18:59 Weight 58.06 kg - Exam Abdomen: Soft, nontender, nondistended Assessment/Plan (1) Morbid obesity Narrative/Plan: Patient doing well at this time. Has maintained her weight loss. Continue antiacid therapy. Continue dietary and exercise regimen. Her recent labs looked good in February. Plan recheck 1 year. Plan: Date: 06/07/22 Initial Weight: 90.407 kg Initial BMI: 40.9 Current Weight: 58.06 kg Current BMI: 26.3 Type of Surgery: Vertical Sleeve Gastrectomy Total Volume in Band: Previous Volume: Volume Removed: Volume Added: Band Size:
== END ==
LOC: BARWHC3 14:58
PROVIDERS: ATTEND Surgery
DX: E66.01 Morbid (severe) obesity due to excess calories (principal); Z68.26 Body mass index [BMI] 26.0-26.9, adult; Z98.84 Bariatric surgery status; Z91.011 Allergy to milk products; Z88.0 Allergy status to penicillin; Z88.8 Allergy status to other drugs, medicaments and biological substances; Z87.891 Personal history of nicotine dependence
CPT/HCPCS: 99211

== ENCOUNTER 2022-06-20 18:35 | Inpatient (IN) | payer MEDICARE ==
[2022-06-20 18:53] LABS: Glucose,Whole Blood >600 mg/dL (70-110)
[2022-06-20] MEDS ORDERED: SODIUM CHLORIDE 0.9% 1,000 ML IV ONE (18:56)
--- NOTE | 2022-06-20 19:01 | ED ---
General Adult HPI - General Chief complaint: Recheck/Abnormal Lab/Rx Stated complaint: HYPERGLYCEMIA Time Seen by Provider: 06/20/22 18:51 Source: patient, EMS, RN notes reviewed, old records reviewed Mode of arrival: EMS Limitations: altered mental status - History of Present Illness Initial comments: 61-year-old female, poor historian presenting with nausea vomiting, elevated blood sugar. Patient does have a history of diabetes and has had some issues with a malfunctioning insulin pump. The blood sugar read high at home and on initial fingerstick in the emergency department. Patient states her nausea is improved with Zofran given by paramedics. She is a poor historian but does not have any complaints of chest pain or abdominal pain. No fever. - Related Data Home Medications Medication Instructions Recorded Confirmed amLODIPine [Norvasc] 10 mg PO DAILY 12/12/14 06/08/22 mycophenolate mofetiL [Cellcept] 500 mg PO BID 12/12/14 06/08/22 Omeprazole [PriLOSEC] 40 mg PO AC-BRKFST 10/23/15 06/08/22 Tacrolimus [Prograf] 1 mg PO BID 06/06/16 06/08/22 DULoxetine HCL [Cymbalta] 20 mg PO DAILY 11/10/18 06/08/22 Apixaban [Eliquis] 5 mg PO BID 11/04/19 06/08/22 Clopidogrel [Plavix] 75 mg PO DAILY 11/04/19 06/08/22 Atorvastatin [Lipitor] 80 mg PO DAILY 09/10/21 06/08/22 Metoclopramide [Reglan] 5 mg PO DAILY 09/10/21 06/08/22 Metoprolol Succinate (ER) [Toprol 25 mg PO DAILY 09/10/21 06/08/22 XL] calcitrioL [Calcitriol] 0.5 mcg PO SUTUTHSA 09/10/21 06/08/22 calcitrioL [Calcitriol] 1 mcg PO MOWEFR 09/10/21 06/08/22 INSULIN LISPRO (For Pump) [humaLOG 0.01 units SQ-PUMP CONTINUOUS 09/13/21 06/08/22 (For Pump)] Previous Rx's Medication Instructions Recorded Nitroglycerin Sl Tabs [Nitrostat] 0.4 mg SUBLINGUAL Q5M PRN #25 tab 12/15/14 Gabapentin [Neurontin] 300 mg PO HS #3 cap 09/14/21 Allergies Allergy/AdvReac Type Severity Reaction Status Date / Time Milk Containing Products Allergy Diarrhea Verified 06/20/22 18:46 [Dairy] Penicillins Allergy Rash/Hives Verified 06/20/22 18:46 trandolapril [From [facility]] Allergy SEVERE Verified 06/20/22 18:46 HYPOTENSION verapamil HCl [From [facility]] Allergy SEVERE Verified 06/20/22 18:46 HYPOTENSION Review of Systems ROS Statement: Those systems with pertinent positive or pertinent negative responses have been documented in the HPI. ROS Other: All systems not noted in ROS Statement are negative. Past Medical History Past Medical History: Blood Disorder, Coronary Artery Disease (CAD), Cancer, CVA/TIA, Diabetes Mellitus, Dialysis, GERD/Reflux, Hyperlipidemia, Hypertension, Myocardial Infarction (non Q-wave), Osteoarthritis (OA), Pneumonia, Pulmonary Embolus (PE), Renal Disease, Sleep Apnea/CPAP/BIPAP, Thyroid Disorder Additional Past Medical History / Comment(s): Leiden Factor V, basal cell carcinoma, Vulvar cancer, CVA 2015, CVA 2013, CVA 2016 est - sl weakness Lt side, Dialysis 2001 for 2 months, enlarged thyroid w/ nodules. PE 2011, Kidney transplant 2001. No tx for sleep apnea. Neuropathy in feet/legs. Last Myocardial Infarction Date:: 2014 History of Any Multi-Drug Resistant Organisms: None Reported Past Surgical History: Bariatric Surgery, Section, Cholecystectomy, Heart Catheterization, Heart Catheterization With Stent, Tonsillectomy, Tubal Ligation Additional Past Surgical History / Comment(s): jose oophrectomy, kidney transplant, surgery to remove CA. PTCA w/ Stent 2001, 2014. Colonoscopy, EGD.Gastric Sleeve 05/04/20. Past Anesthesia/Blood Transfusion Reactions: No Reported Reaction, Motion Sickness Additional Past Anesthesia/Blood Transfusion Reaction / Comment(s): no hx blood transfusion Date of Last Stent Placement:: 2014 Past Psychological History: Depression Smoking Status: Never smoker Past Alcohol Use History: None Reported Past Drug Use History: None Reported - Past Family History Sister(s) Family Medical History: Hypertension Father Family Medical History: Myocardial Infarction (ME) Mother Family Medical History: Pulmonary Embolus Additional Family Medical History / Comment(s): Occluded carotid artery, carotid endartectomy Son(s) Family Medical History: Diabetes Mellitus Additional Family Medical History / Comment(s): DM type 1 General Exam Limitations: altered mental status General appearance: lethargic Head exam: Present: atraumatic, normocephalic Eye exam: Present: normal appearance, PERRL ENT exam: Present: mucous membranes dry Neck exam: Present: normal inspection. Absent: tenderness, meningismus Respiratory exam: Present: normal lung sounds bilaterally. Absent: respiratory distress, wheezes Cardiovascular Exam: Present: regular rate, normal rhythm GI/Abdominal exam: Present: soft. Absent: distended, tenderness, guarding Extremities exam: Present: normal inspection, normal capillary refill. Absent: pedal edema Neurological exam: Present: alert. Absent: motor sensory deficit Skin exam: Present: warm, dry, intact. Absent: cyanosis, diaphoretic Course Vital Signs 06/20/22 06/20/22 18:37 19:46 Pulse Rate 96 96 Respiratory 18 18 Rate Blood Pressure 139/69 129/64 O2 Sat by Pulse 99 98 Oximetry EKG Findings - EKG Comments: EKG Findings:: EKG: Sinus rhythm rate of 91, TX interval 161, QRS duration 83, QTC 396, no ST segment changes. Medical Decision Making - Medical Decision Making 61-year-old female with insulin-dependent diabetes presenting with elevated blood sugar, nausea vomiting. Patient is a poor historian, initial vital signs are stable. She is mildly tachypneic. Workup was initiated including laboratory testing, EKG. fluid bolus initiated upon arrival, initial blood sugars reading high greater than 600. She has a normal CBC. She has a sodium of 135, potassium 5.6. She has a acute kidney injury with creatinine of 1.6. She has a anion gap metabolic acidosis with a anion gap of 28 and a CO2 of 12. Her blood sugar is 772. Both acetone and urinalysis are positive for ketosis. Patient's admitted to her primary care physician Dr. Benson, DKA protocol. Lactic acid is elevated likely from dehydration secondary to diabetic ketoacidosis, and hyperglycemia. Treated with IV fluids, level will be trended. - Lab Data Result diagrams: 06/20/22 18:58 06/20/22 18:56 Lab Results 06/20/22 06/20/22 06/20/22 Range/Units 18:50 18:56 18:58 WBC 10.3 (3.8-10.6) k/uL RBC 4.14 (3.80-5.40) m/uL Hgb 12.4 (11.4-16.0) gm/dL Hct 41.4 (34.0-46.0) % MCV 100.0 (80.0-100.0) fL MCH 30.0 (25.0-35.0) pg MCHC 30.0 L (31.0-37.0) g/dL RDW 12.7 (11.5-15.5) % Plt Count 234 (150-450) k/uL MPV 9.3 Neutrophils % 89 % Lymphocytes % 8 % Monocytes % 2 % Eosinophils % 0 % Basophils % 0 % Neutrophils # 9.2 H (1.3-7.7) k/uL Lymphocytes # 0.8 L (1.0-4.8) k/uL Monocytes # 0.2 (0-1.0) k/uL Eosinophils # 0.0 (0-0.7) k/uL Basophils # 0.0 (0-0.2) k/uL Hypochromasia Marked PT (9.0-12.0) sec INR (<1.2) APTT (22.0-30.0) sec Sodium 135 L (137-145) mmol/L Potassium 5.6 H (3.5-5.1) mmol/L Chloride 95 L (98-107) mmol/L Carbon Dioxide 12 L (22-30) mmol/L Anion Gap 28 mmol/L BUN 34 H (7-17) mg/dL Creatinine 1.61 H (0.52-1.04) mg/dL Est GFR (CKD-EPI)AfAm 40 (>60 ml/min/1.73 sqM) Est GFR (CKD-EPI)NonAf 35 (>60 ml/min/1.73 sqM) Glucose 772 H* (74-99) mg/dL POC Glucose (mg/dL) >600 H (70-110) mg/dL POC Glu Diet Consultant ID Roney Starks Plasma Lactic Acid Abel (0.7-2.0) mmol/L Calcium 9.4 (8.4-10.2) mg/dL Magnesium 1.8 (1.6-2.3) mg/dL Total Bilirubin 1.4 H (0.2-1.3) mg/dL AST 32 (14-36) U/L ALT 24 (4-34) U/L Alkaline Phosphatase 123 (38-126) U/L Total Protein 6.1 L (6.3-8.2) g/dL Albumin 3.5 (3.5-5.0) g/dL Urine Color Urine Appearance (Clear) Urine pH (5.0-8.0) Ur Specific [place] (1.001-1.035) Urine Protein (Negative) Urine Glucose (UA) (Negative) Urine Ketones (Negative) Urine Blood (Negative) Urine Nitrite (Negative) Urine Bilirubin (Negative) Urine Urobilinogen (<2.0) mg/dL Ur Leukocyte Esterase (Negative) Acetone, Qual Positive (Negative) 06/20/22 06/20/22 06/20/22 Range/Units 18:58 18:58 19:43 WBC (3.8-10.6) k/uL RBC (3.80-5.40) m/uL Hgb (11.4-16.0) gm/dL Hct (34.0-46.0) % MCV (80.0-100.0) fL MCH (25.0-35.0) pg MCHC (31.0-37.0) g/dL RDW (11.5-15.5) % Plt Count (150-450) k/uL MPV Neutrophils % % Lymphocytes % % Monocytes % % Eosinophils % % Basophils % % Neutrophils # (1.3-7.7) k/uL Lymphocytes # (1.0-4.8) k/uL Monocytes # (0-1.0) k/uL Eosinophils # (0-0.7) k/uL Basophils # (0-0.2) k/uL Hypochromasia PT 10.6 (9.0-12.0) sec INR 1.0 (<1.2) APTT 18.4 L (22.0-30.0) sec Sodium (137-145) mmol/L Potassium (3.5-5.1) mmol/L Chloride (98-107) mmol/L Carbon Dioxide (22-30) mmol/L Anion Gap mmol/L BUN (7-17) mg/dL Creatinine (0.52-1.04) mg/dL Est GFR (CKD-EPI)AfAm (>60 ml/min/1.73 sqM) Est GFR (CKD-EPI)NonAf (>60 ml/min/1.73 sqM) Glucose (74-99) mg/dL POC Glucose (mg/dL) (70-110) mg/dL POC Glu Diet Consultant ID Plasma Lactic Acid Abel 5.2 H* (0.7-2.0) mmol/L Calcium (8.4-10.2) mg/dL Magnesium (1.6-2.3) mg/dL Total Bilirubin (0.2-1.3) mg/dL AST (14-36) U/L ALT (4-34) U/L Alkaline Phosphatase (38-126) U/L Total Protein (6.3-8.2) g/dL Albumin (3.5-5.0) g/dL Urine Color Colorless Urine Appearance Clear (Clear) Urine pH 5.0 (5.0-8.0) Ur Specific [place] 1.017 (1.001-1.035) Urine Protein Negative (Negative) Urine Glucose (UA) 4+ H (Negative) Urine Ketones 3+ H (Negative) Urine Blood Negative (Negative) Urine Nitrite Negative (Negative) Urine Bilirubin Negative (Negative) Urine Urobilinogen <2.0 (<2.0) mg/dL Ur Leukocyte Esterase Negative (Negative) Acetone, Qual (Negative) Critical Care Time Critical Care Time: Yes Total Critical Care Time: 35 Disposition Clinical Impression: DKA (diabetic ketoacidosis) Disposition: ADMITTED IP TO THIS [facility] Condition: Serious Is patient prescribed a controlled substance at d/c from ED?: No Referrals: Katina Benson MD [Primary Care Provider] - 1-2 days Time of Disposition: 20:07
[2022-06-20 19:26] LABS: Basophils % (A) 0 %; Eosinophils % (A) 0 %; HCT 41.4 % (34.0-46.0); HGB 12.4 gm/dL (11.4-16.0); Hypochromasia Marked; Lymphocytes # (A) 0.8 k/uL (1.0-4.8); Lymphocytes % (A) 8 %; Mean Platelet Volume 9.3; Monocytes # (A) 0.2 k/uL (0-1.0); Monocytes % (A) 2 %; Neutrophils # (A) 9.2 k/uL (1.3-7.7); Neutrophils % (A) 89 %; Platelet Count 234 k/uL (150-450); RBC 4.14 m/uL (3.80-5.40); RDW 12.7 % (11.5-15.5); WBC 10.3 k/uL (3.8-10.6)
[2022-06-20 19:38] LABS: ALT 24 U/L (4-34); AST 32 U/L (14-36); African American GFR (CKD) 40 (>60 ml/min/1.73 sqM); Albumin 3.5 g/dL (3.5-5.0); Alkaline Phosphatase 123 U/L (38-126); Anion Gap 28 mmol/L; Blood Urea Nitrogen 34 mg/dL (7-17); Calcium 9.4 mg/dL (8.4-10.2); Carbon Dioxide 12 mmol/L (22-30); Chloride 95 mmol/L (98-107); Magnesium 1.8 mg/dL (1.6-2.3); Non-African American GFR(CKD) 35 (>60 ml/min/1.73 sqM); Potassium 5.6 mmol/L (3.5-5.1); Sodium 135 mmol/L (137-145); Total Bilirubin 1.4 mg/dL (0.2-1.3); Total Protein 6.1 g/dL (6.3-8.2)
[2022-06-20 19:42] LABS: Prothrombin Time 10.6 sec (9.0-12.0)
[2022-06-20 19:47] LABS: Partial Thromboplastin Time 18.4 sec (22.0-30.0)
[2022-06-20 19:50] LABS: Appearance,Urine Clear (Clear); Bilirubin,Urine Negative (Negative); Blood,Urine Negative (Negative); Color,Urine Colorless; Glucose,Urine (UA) 4+ (Negative); Leukocyte Esterase,Urine Negative (Negative); Nitrite,Urine Negative (Negative); Protein,Urine Negative (Negative); Specific Gravity,Urine 1.017 (1.001-1.035); Urobilinogen,Urine <2.0 mg/dL (<2.0)
[2022-06-20 19:52] LABS: Glucose 772 mg/dL (74-99)
[2022-06-20 19:55] LABS: Ketones,Urine 3+ (Negative)
[2022-06-20] MEDS ORDERED: SODIUM CHLORIDE 0.9% 500 ML 500 ML IV ONE (20:01)
[2022-06-20 21:01] LABS: Glucose,Whole Blood >600 mg/dL (70-110)
[2022-06-20] MEDS: SODIUM CHLORIDE 0.9% 1,000 ML IV SCH (21:07)
[2022-06-20] MEDS: INSULIN REGULAR 100 UNIT in SODIUM CHLORIDE 0.9% 100 ML IV SCH (21:08)
[2022-06-20 21:38] LABS: Potassium 6.2 mmol/L (3.5-5.1)
[2022-06-20 22:08] LABS: Glucose,Whole Blood 557 mg/dL (70-110)
[2022-06-20 23:00] LABS: Glucose,Whole Blood 511 mg/dL (70-110)
[2022-06-20 23:59] LABS: Glucose,Whole Blood 480 mg/dL (70-110)
[2022-06-21 00:26] LABS: Potassium 4.4 mmol/L (3.5-5.1)
[2022-06-21 00:59] LABS: Glucose,Whole Blood 430 mg/dL (70-110)
[2022-06-21 02:01] LABS: Glucose,Whole Blood 353 mg/dL (70-110)
[2022-06-21] MEDS: SODIUM CHLORIDE 0.9% 1,000 ML IV SCH ×4 (02:32→13:38)
[2022-06-21 03:00] LABS: Glucose,Whole Blood 330 mg/dL (70-110)
[2022-06-21 03:57] LABS: Glucose,Whole Blood 280 mg/dL (70-110)
[2022-06-21] MEDS: D5-0.45% NACL WITH KCL 20MEQ/L 1,000 ML IV SCH ×2 (04:10→11:15)
[2022-06-21 05:01] LABS: Glucose,Whole Blood 247 mg/dL (70-110)
[2022-06-21 06:02] LABS: Glucose,Whole Blood 224 mg/dL (70-110)
[2022-06-21 06:58] LABS: Glucose,Whole Blood 183 mg/dL (70-110)
[2022-06-21 08:05] LABS: Glucose,Whole Blood 142 mg/dL (70-110)
[2022-06-21] MEDS: INSULIN REGULAR 100 UNIT in SODIUM CHLORIDE 0.9% 100 ML IV SCH (08:11)
[2022-06-21 09:22] LABS: Glucose,Whole Blood 141 mg/dL (70-110)
[2022-06-21 10:29] LABS: Glucose,Whole Blood 135 mg/dL (70-110)
[2022-06-21 11:14] LABS: Glucose,Whole Blood 127 mg/dL (70-110)
[2022-06-21 11:53] LABS: Calcium 9.3 mg/dL (8.4-10.2); Potassium 4.3 mmol/L (3.5-5.1)
[2022-06-21 12:12] LABS: Glucose,Whole Blood 129 mg/dL (70-110)
[2022-06-21] MEDS ORDERED: NITROGLYCERIN SL TABS 0.4 MG TAB SUBLINGUAL PRN (12:34)
[2022-06-21] MEDS ORDERED: D5-0.45% NACL WITH KCL 20MEQ/L 1,000 ML IV SCH (12:45)
[2022-06-21] MEDS ORDERED: SODIUM CHLORIDE 0.9% 1,000 ML IV SCH (12:45)
--- NOTE | 2022-06-21 12:51 | P.HPIM ---
History of Present Illness H&P Date: 06/21/22 HISTORY OF PRESENT ILLNESS This is a 61-year-old female patient with past medical history of hypertension with hypertensive cardiovascular disease, hyperlipidemia, diabetes mellitus type 2 on insulin pump, CVA, coronary artery disease status post PCI and stent placement, history of renal disease status post renal transplant, vulvar cancer status post radiation treatment, obesity status post sleeve gastrectomy. Patient was last hospitalized in August 2021 for acute diabetic ketoacidosis and toxic metabolic encephalopathy secondary to DKA. Patient now presents to the hospital via EMS with nausea vomiting and elevated blood sugar. Apparently, there has been trouble with her insulin pump. Patient was found to be afebrile, heart rate 96, blood pressure 139/69, pulse ox 99%. EKG sinus rhythm with no acute ST changes. WBC 10.3, hemoglobin 12.4, platelet count 234. Sodium 135, potassium 5.6, chloride 95, CO2 12. BUN 34 creatinine 1.61. Blood sugar 772. Magnesium 1.8. Calcium 9.4. Total bilirubin 1.4. AST 32, ALT 24, alkaline phosphatase 123. Acetone positive. Lactic acid 5.2. Urinalysis clear, glucose 4+, ketones 3+. No sign of infection. Patient is seen in the emergency center waiting for a bed on the [facility] floor. Blood sugars are now running 142-247. Patient has been started on the DKA protocol. REVIEW OF SYSTEMS Constitutional: No fever, no chills, no night sweats. No weight change. Reported weakness, fatigue or lethargy. No daytime sleepiness. EENT: No headache. No blurred vision or double vision, no loss of vision. No loss of Hearing, no ringing in the ears, no dizziness. No nasal drainage or congestion. No epistaxis. No sore throat. Lungs: No shortness of breath, cough, no sputum production. No wheezing. Cardiovascular: No chest pain, no lower extremity edema. No palpitations. No paroxysmal nocturnal dyspnea. No orthopnea. No lightheadedness or dizziness. No syncopal episodes. Abdominal: Reported abdominal pain. Reported nausea, reported vomiting. No diarrhea. No constipation. No bloody or tarry stools. Reported loss of appetite. Genitourinary: No dysuria, increased frequency, urgency. No urinary retention. Musculoskeletal: No myalgias. Reported muscle weakness, no gait dysfunction, no frequent falls. No back pain. No neck pain. Integumentary: No wounds, no lesions. No rash or pruritus. No unusual bruising. No change in hair or nails. Neurologic: No aphasia. No facial droop. Reported change in mentation. No head injury. No headache. No paralysis. No paresthesia. Psychiatric: No depression. No anxiety. No mood swings. Endocrine: Noted abnormal blood sugars. No weight change. No excessive sweating or thirst. No cold intolerance. MEDICAL HISTORY Hypertension with hypertensive cardiovascular disease Hyperlipidemia Diabetes mellitus type 2 on insulin pump Diabetic peripheral neuropathy Coronary artery disease CVA Coronary artery disease status post PCI and stent placement Renal disease status post renal transplant Vulvar cancer status post radiation Obesity status post sleeve gastrectomy Gastroesophageal reflux disease Obstructive sleep apnea Latent factor V deficiency Chronic pulmonary embolism Basal cell carcinoma Recurrent depression SURGICAL HISTORY Cardiac catheterization and PCI and stent placement Renal transplant Sleeve gastrectomy Cholecystectomy Tonsillectomy Tubal ligation Colonoscopy ADD Bilateral oophorectomy SOCIAL HISTORY Patient was a smoker of one pack per day for 15 years and quit in 1998. Patient uses CBD cream. No illicit drug use. She lives at home with her FAMILY HISTORY Father at age 56 from myocardial infarction. Mother is alive at age 82 with history of hypertension, carotid artery disease, PE, factor V leiden, hyperlipidemia. Patient has 3 sisters one from renal failure and also had history of ureteral atresia, one sister with obesity status post sleeve gastrectomy and hypertension and hyperlipidemia. Patient has one son with diabetes mellitus type 1. PHYSICAL EXAMINATION Gen: This is a 61-year-old female. HEENT: head is atraumatic normocephalic pupils were equal round reactive to light and accommodations extra ocular muscle movements were intact, mucous membranes of the mouth are somewhat dry. Neck: supple no JVP. Chest: decrease breath sounds at the bases with no ronchi or expiratory wheezes. Heart : first heart sound is depressed, second heart sound is normal there is ISHA 2/6 located at the left sternal border. Abdomen: soft , mild tenderness, stab wounds appeared glued and there was no draiange or erythema, depressed bowel sounds. Extremities: there is no edema or calf tenderness, DP +1 bilaterally. Neurologic examinations; patient is awake alert and oriented X 3 CN II- XII are grossly intact muscle power 4/5 in upper and lower extremities bilaterally. ASSESSMENT AND PLAN 1. Diabetic ketoacidosis. Patient is currently on DKA protocol. Insulin pump on hold, continue insulin drip per protocol, IV fluids 0.9 normal saline will be decreased to 75 mL per hour, D5 0.45 decreased to 75 mL per hour. 2. Acute kidney injury. Continue IV fluids, monitor renal function, avoid nephrotoxic agents. 3. Hypertension and hypertensive cardiovascular disease. we will continue with Metoprolol ER 50 mg orally at bedtime, continue amlodipine 10 mg daily at bedtime with parameters. 4. Mixed hyperlipidemia. we will continue with Lipitor 80 mg po daily. 5. Diabetes mellitus type 2 on insulin pump. we will continue DKA protocol. 6. history of CVA . Continue Plavix, Lipitor. 7. history of renal transplant. we will need to resume her Tacrolimus and cellcept. 8. Obstructive sleep apnea. Patient does not have CPAP. 9. History of pulmonary embolism. Continue patient on eliquis 5 mg twice daily. 10. History of CAD post PCI. we will continue with Metoprolol ER 50 mg orally daily and Lipitor 80 mg orally daily. 11. Recurrent depression. We will continue with cynbalta 20 mg orally daily. 12. Diabetic neuropathy. Continue gabapentin 300 mg daily. 13. History of vulvar cancer post surgery. 14. GERD with esophagitis. we will continue with PPI. Patient will be admitted to the hospital for a minimum of 2 night stay. DISCHARGE PLAN To be determined. PT and OT consults added. Impression and plan of care have been directed as dictated by the signing physician. Kamini Shay nurse practitioner acting as scribe for signing physician. Past Medical History Past Medical History: Blood Disorder, Coronary Artery Disease (CAD), Cancer, CVA/TIA, Diabetes Mellitus, Dialysis, GERD/Reflux, Hyperlipidemia, Hypertension, Myocardial Infarction (non Q-wave), Osteoarthritis (OA), Pneumonia, Pulmonary Embolus (PE), Renal Disease, Sleep Apnea/CPAP/BIPAP, Thyroid Disorder Additional Past Medical History / Comment(s): Leiden Factor V, basal cell carcinoma, Vulvar cancer, CVA 2016, CVA 2013, CVA 2016 est - sl weakness Lt side, Dialysis 2001 for 2 months, enlarged thyroid w/ nodules. PE 2011, Kidney transplant 2001. No tx for sleep apnea. Neuropathy in feet/legs. Last Myocardial Infarction Date:: 2014 History of Any Multi-Drug Resistant Organisms: None Reported Past Surgical History: Bariatric Surgery, Section, Cholecystectomy, Heart Catheterization, Heart Catheterization With Stent, Tonsillectomy, Tubal Ligation Additional Past Surgical History / Comment(s): jose oophrectomy, kidney transplant, surgery to remove CA. PTCA w/ Stent 2001, 2014. Colonoscopy, EGD.Gastric Sleeve 05/04/20. Past Anesthesia/Blood Transfusion Reactions: No Reported Reaction, Motion Sickness Additional Past Anesthesia/Blood Transfusion Reaction / Comment(s): no hx blood transfusion Date of Last Stent Placement:: 2014 Past Psychological History: Depression Smoking Status: Never smoker Past Alcohol Use History: None Reported Past Drug Use History: None Reported - Past Family History Sister(s) Family Medical History: Hypertension Father Family Medical History: Myocardial Infarction ([place]) Mother Family Medical History: Pulmonary Embolus Additional Family Medical History / Comment(s): Occluded carotid artery, carotid endartectomy Son(s) Family Medical History: Diabetes Mellitus Additional Family Medical History / Comment(s): DM type 1 Medications and Allergies Home Medications Medication Instructions Recorded Confirmed Type amLODIPine [Norvasc] 10 mg PO DAILY@209912/12/14 06/20/22 History mycophenolate mofetiL [Cellcept] 500 mg PO BID@899,209912/12/14 06/20/22 History Nitroglycerin Sl Tabs [Nitrostat] 0.4 mg SUBLINGUAL Q5M PRN #25 tab 12/15/14 06/20/22 Rx Omeprazole [PriLOSEC] 40 mg PO DAILY@79910/23/15 06/20/22 History Tacrolimus [Prograf] 1 mg PO BID@899,209906/06/16 06/20/22 History DULoxetine HCL [Cymbalta] 20 mg PO DAILY@209911/10/18 06/20/22 History Apixaban [Eliquis] 5 mg PO BID@899,209911/04/19 06/20/22 History Clopidogrel [Plavix] 75 mg PO DAILY@209911/04/19 06/20/22 History Atorvastatin [Lipitor] 80 mg PO DAILY@209909/10/21 06/20/22 History Metoclopramide [Reglan] 5 mg PO DAILY@79909/10/21 06/20/22 History Metoprolol Succinate (ER) [Toprol 25 mg PO DAILY@209909/10/21 06/20/22 History XL] calcitrioL [Calcitriol] 0.5 mcg PO DAILY@209909/10/21 06/20/22 History INSULIN LISPRO (For Pump) [humaLOG 0.01 units SQ-PUMP CONTINUOUS 09/13/21 06/20/22 History (For Pump)] Gabapentin [Neurontin] 300 mg PO DAILY 06/20/22 06/21/22 History Allergies Allergy/AdvReac Type Severity Reaction Status Date / Time Milk Containing Products Allergy Diarrhea Verified 06/20/22 21:31 [Dairy] Penicillins Allergy Rash/Hives Verified 06/20/22 21:31 trandolapril [From [facility]a] Allergy SEVERE Verified 06/20/22 21:31 HYPOTENSION verapamil HCl [From [facility]arka] Allergy SEVERE Verified 06/20/22 21:31 HYPOTENSION Physical Exam Vitals: Vital Signs Pulse Resp BP Pulse Ox 06/21/22 06:00 76 16 111/65 97 06/21/22 05:00 79 16 99/53 97 06/21/22 00:06 84 16 105/55 98 06/20/22 23:03 89 16 118/49 98 06/20/22 19:46 96 18 129/64 98 06/20/22 18:37 96 18 139/69 99 Intake and Output 06/20/22 06/21/22 06/21/22 22:59 06:59 14:59 Intake Total 11.439 44.221 Balance 11.439 44.221 Intake: Intake, IV Titration 11.439 44.221 Amount Insulin Regular 100 unit 11.439 44.221 In Sodium Chloride 0.9% 100 ml @ 0.1 UNITS/KG/HR 5.727 mls/hr IV .[id number] [facility] Rx#:[id number] Other: Weight 56.699 kg Results CBC & Chem 7: 06/22/22 10:25 06/23/22 05:35 Labs: Abnormal Lab Results - Last 24 Hours (Table) 06/20/22 06/20/22 06/20/22 Range/Units 18:50 18:56 18:58 MCHC 30.0 L (31.0-37.0) g/dL Neutrophils # 9.2 H (1.3-7.7) k/uL Lymphocytes # 0.8 L (1.0-4.8) k/uL APTT (22.0-30.0) sec Sodium 135 L (137-145) mmol/L Potassium 5.6 H (3.5-5.1) mmol/L Chloride 95 L (98-107) mmol/L Carbon Dioxide 12 L (22-30) mmol/L BUN 34 H (7-17) mg/dL Creatinine 1.61 H (0.52-1.04) mg/dL Glucose 772 H* (74-99) mg/dL POC Glucose (mg/dL) >600 H (70-110) mg/dL Plasma Lactic Acid Abel (0.7-2.0) mmol/L Phosphorus (2.5-4.5) mg/dL Total Bilirubin 1.4 H (0.2-1.3) mg/dL Total Protein 6.1 L (6.3-8.2) g/dL Urine Glucose (UA) (Negative) Urine Ketones (Negative) 06/20/22 06/20/22 06/20/22 Range/Units 18:58 18:58 19:43 MCHC (31.0-37.0) g/dL Neutrophils # (1.3-7.7) k/uL Lymphocytes # (1.0-4.8) k/uL APTT 18.4 L (22.0-30.0) sec Sodium (137-145) mmol/L Potassium (3.5-5.1) mmol/L Chloride (98-107) mmol/L Carbon Dioxide (22-30) mmol/L BUN (7-17) mg/dL Creatinine (0.52-1.04) mg/dL Glucose (74-99) mg/dL POC Glucose (mg/dL) (70-110) mg/dL Plasma Lactic Acid Abel 5.2 H* (0.7-2.0) mmol/L Phosphorus (2.5-4.5) mg/dL Total Bilirubin (0.2-1.3) mg/dL Total Protein (6.3-8.2) g/dL Urine Glucose (UA) 4+ H (Negative) Urine Ketones 3+ H (Negative) 06/20/22 06/20/22 06/20/22 Range/Units 20:33 20:33 21:00 MCHC (31.0-37.0) g/dL Neutrophils # (1.3-7.7) k/uL Lymphocytes # (1.0-4.8) k/uL APTT (22.0-30.0) sec Sodium 135 L (137-145) mmol/L Potassium 6.2 H* (3.5-5.1) mmol/L Chloride (98-107) mmol/L Carbon Dioxide 11 L (22-30) mmol/L BUN 33 H (7-17) mg/dL Creatinine 1.50 H (0.52-1.04) mg/dL Glucose 708 H* (74-99) mg/dL POC Glucose (mg/dL) >600 H (70-110) mg/dL Plasma Lactic Acid Abel (0.7-2.0) mmol/L Phosphorus 5.4 H (2.5-4.5) mg/dL Total Bilirubin (0.2-1.3) mg/dL Total Protein (6.3-8.2) g/dL Urine Glucose (UA) (Negative) Urine Ketones (Negative) 06/20/22 06/20/22 06/20/22 Range/Units 22:06 22:34 22:58 MCHC (31.0-37.0) g/dL Neutrophils # (1.3-7.7) k/uL Lymphocytes # (1.0-4.8) k/uL APTT (22.0-30.0) sec Sodium (137-145) mmol/L Potassium (3.5-5.1) mmol/L Chloride (98-107) mmol/L Carbon Dioxide (22-30) mmol/L BUN (7-17) mg/dL Creatinine (0.52-1.04) mg/dL Glucose (74-99) mg/dL POC Glucose (mg/dL) 557 H 511 H (70-110) mg/dL Plasma Lactic Acid Abel 2.2 H* (0.7-2.0) mmol/L Phosphorus (2.5-4.5) mg/dL Total Bilirubin (0.2-1.3) mg/dL Total Protein (6.3-8.2) g/dL Urine Glucose (UA) (Negative) Urine Ketones (Negative) 06/20/22 06/21/22 06/21/22 Range/Units 23:58 00:02 00:02 MCHC (31.0-37.0) g/dL Neutrophils # (1.3-7.7) k/uL Lymphocytes # (1.0-4.8) k/uL APTT (22.0-30.0) sec Sodium 135 L (137-145) mmol/L Potassium (3.5-5.1) mmol/L Chloride (98-107) mmol/L Carbon Dioxide 14 L (22-30) mmol/L BUN 33 H (7-17) mg/dL Creatinine 1.45 H (0.52-1.04) mg/dL Glucose 520 H* (74-99) mg/dL POC Glucose (mg/dL) 480 H (70-110) mg/dL Plasma Lactic Acid Abel (0.7-2.0) mmol/L Phosphorus 2.3 L (2.5-4.5) mg/dL Total Bilirubin (0.2-1.3) mg/dL Total Protein (6.3-8.2) g/dL Urine Glucose (UA) (Negative) Urine Ketones (Negative) 06/21/22 06/21/22 06/21/22 Range/Units 00:57 02:00 02:58 MCHC (31.0-37.0) g/dL Neutrophils # (1.3-7.7) k/uL Lymphocytes # (1.0-4.8) k/uL APTT (22.0-30.0) sec Sodium (137-145) mmol/L Potassium (3.5-5.1) mmol/L Chloride (98-107) mmol/L Carbon Dioxide (22-30) mmol/L BUN (7-17) mg/dL Creatinine (0.52-1.04) mg/dL Glucose (74-99) mg/dL POC Glucose (mg/dL) 430 H 353 H 330 H (70-110) mg/dL Plasma Lactic Acid Abel (0.7-2.0) mmol/L Phosphorus (2.5-4.5) mg/dL Total Bilirubin (0.2-1.3) mg/dL Total Protein (6.3-8.2) g/dL Urine Glucose (UA) (Negative) Urine Ketones (Negative) 06/21/22 06/21/22 06/21/22 Range/Units 03:56 04:59 06:00 MCHC (31.0-37.0) g/dL Neutrophils # (1.3-7.7) k/uL Lymphocytes # (1.0-4.8) k/uL APTT (22.0-30.0) sec Sodium (137-145) mmol/L Potassium (3.5-5.1) mmol/L Chloride (98-107) mmol/L Carbon Dioxide (22-30) mmol/L BUN (7-17) mg/dL Creatinine (0.52-1.04) mg/dL Glucose (74-99) mg/dL POC Glucose (mg/dL) 280 H 247 H 224 H (70-110) mg/dL Plasma Lactic Acid Abel (0.7-2.0) mmol/L Phosphorus (2.5-4.5) mg/dL Total Bilirubin (0.2-1.3) mg/dL Total Protein (6.3-8.2) g/dL Urine Glucose (UA) (Negative) Urine Ketones (Negative) 06/21/22 Range/Units 06:57 MCHC (31.0-37.0) g/dL Neutrophils # (1.3-7.7) k/uL Lymphocytes # (1.0-4.8) k/uL APTT (22.0-30.0) sec Sodium (137-145) mmol/L Potassium (3.5-5.1) mmol/L Chloride (98-107) mmol/L Carbon Dioxide (22-30) mmol/L BUN (7-17) mg/dL Creatinine (0.52-1.04) mg/dL Glucose (74-99) mg/dL POC Glucose (mg/dL) 183 H (70-110) mg/dL Plasma Lactic Acid Abel (0.7-2.0) mmol/L Phosphorus (2.5-4.5) mg/dL Total Bilirubin (0.2-1.3) mg/dL Total Protein (6.3-8.2) g/dL Urine Glucose (UA) (Negative) Urine Ketones (Negative)
[2022-06-21 13:07] LABS: Glucose,Whole Blood 147 mg/dL (70-110)
[2022-06-21] MEDS: TACROLIMUS 1 MG CAP PO SCH ×2 (13:21→21:12)
[2022-06-21] MEDS: amLODIPine 10 MG TAB PO SCH (13:24)
[2022-06-21] MEDS: INSULIN DETEMIR (LEVEMIR) 100 UNIT/ML SYR SQ SCH ×2 (13:36→23:26)
[2022-06-21 14:16] LABS: Glucose,Whole Blood 184 mg/dL (70-110)
[2022-06-21 15:33] LABS: Glucose,Whole Blood 209 mg/dL (70-110)
[2022-06-21 16:53] LABS: Appearance,Urine Cloudy (Clear); Bacteria,Urine Many /hpf; Bilirubin,Urine Negative (Negative); Blood,Urine Trace (Negative); Color,Urine Light Yellow; Glucose,Urine (UA) 3+ (Negative); Ketones,Urine 1+ (Negative); Leukocyte Esterase,Urine Large (Negative); Mucus,Urine Rare /hpf; Nitrite,Urine Positive (Negative); Protein,Urine Negative (Negative); RBC,Urine 7 /hpf (0-5); Squamous Epithelial Cell,Urine <1 /hpf (0-4); Urobilinogen,Urine <2.0 mg/dL (<2.0); WBC,Urine >182 /hpf (0-5)
[2022-06-21 17:08] LABS: Glucose,Whole Blood 202 mg/dL (70-110)
[2022-06-21] MEDS: ONDANSETRON 4 MG/2 ML VIAL IVP PRN ×2 (17:56→23:26)
[2022-06-21] MEDS: INSULIN ASPART (NovoLOG) 100 UNIT/ML VIAL SQ SCH ×3 (17:57→21:18)
[2022-06-21 20:13] LABS: Glucose,Whole Blood 148 mg/dL (70-110)
[2022-06-21] MEDS: APIXABAN 5 MG TAB PO SCH (21:12)
[2022-06-21] MEDS: METOPROLOL SUCCINATE (ER) 25 MG TAB.ER.24H PO SCH (21:12)
[2022-06-21] MEDS: ATORVASTATIN 80 MG TAB PO SCH (21:12)
[2022-06-21] MEDS: CLOPIDOGREL 75 MG TAB PO SCH (21:12)
[2022-06-21] MEDS: DULoxetine HCL 20 MG CAPSULE.DR PO SCH (21:12)
[2022-06-22 01:55] LABS: Glucose,Whole Blood 90 mg/dL (70-110)
[2022-06-22] MEDS: INSULIN ASPART (NovoLOG) 100 UNIT/ML VIAL SQ SCH ×6 (03:39→21:57)
[2022-06-22 07:06] LABS: Glucose,Whole Blood 54 mg/dL (70-110)
[2022-06-22 07:15] LABS: Glucose,Whole Blood 71 mg/dL (70-110)
[2022-06-22] MEDS: ONDANSETRON 4 MG/2 ML VIAL IVP PRN (08:06)
[2022-06-22] MEDS: GABAPENTIN 300 MG CAP PO SCH (08:07)
[2022-06-22] MEDS: PANTOPRAZOLE 40 MG TABLET PO SCH (08:07)
[2022-06-22] MEDS: APIXABAN 5 MG TAB PO SCH ×2 (08:07→21:47)
--- NOTE | 2022-06-22 09:06 | P.PN ---
Subjective Progress Note Date: 06/22/22 HISTORY OF PRESENT ILLNESS This is a 61-year-old female patient with past medical history of hypertension with hypertensive cardiovascular disease, hyperlipidemia, diabetes mellitus type 2 on insulin pump, CVA, coronary artery disease status post PCI and stent placement, history of renal disease status post renal transplant, vulvar cancer status post radiation treatment, obesity status post sleeve gastrectomy. Patient was last hospitalized in August 2021 for acute diabetic ketoacidosis and toxic metabolic encephalopathy secondary to DKA. Patient now presents to the hospital via EMS with nausea vomiting and elevated blood sugar. Apparently, there has been trouble with her insulin pump. Patient was found to be afebrile, heart rate 96, blood pressure 139/69, pulse ox 99%. EKG sinus rhythm with no acute ST changes. WBC 10.3, hemoglobin 12.4, platelet count 234. Sodium 135, potassium 5.6, chloride 95, CO2 12. BUN 34 creatinine 1.61. Blood sugar 772. Magnesium 1.8. Calcium 9.4. Total bilirubin 1.4. AST 32, ALT 24, alkaline phosphatase 123. Acetone positive. Lactic acid 5.2. Urinalysis clear, glucose 4+, ketones 3+. No sign of infection. Patient is seen in the emergency center waiting for a bed on the [facility] floor. Blood sugars are now running 142-247. Patient has been started on the DKA protocol. 06/22: Patient is seen today on the medical unit. Blood sugar this morning was 64, repeat 71. Patient did not receive scheduled insulin yesterday which will be discontinued and Levemir will be decreased to 8 units, continue NovoLog scale. Repeat urinalysis done last evening revealed leukoesterase large, RBC 7, WBC greater then 182, WBC clumps many, bacteria many and patient was started on ceftriaxone, urine culture in process. Repeat blood work reveals Patient continues to have decreased appetite. No abdominal pain, no dysuria. Plan is to monitor patient overnight, continue IV fluids, adjust insulins and possible discharge in the next 24 hours. REVIEW OF SYSTEMS Constitutional: No fever, no chills, no night sweats. No weight change. Reported weakness, fatigue or lethargy. No daytime sleepiness. EENT: No headache. No blurred vision or double vision, no loss of vision. No loss of Hearing, no ringing in the ears, no dizziness. No nasal drainage or congestion. No epistaxis. No sore throat. Lungs: No shortness of breath, cough, no sputum production. No wheezing. Cardiovascular: No chest pain, no lower extremity edema. No palpitations. No paroxysmal nocturnal dyspnea. No orthopnea. No lightheadedness or dizziness. No syncopal episodes. Abdominal: Reported abdominal pain. Reported nausea, reported vomiting. No diarrhea. No constipation. No bloody or tarry stools. Reported loss of appetite. Genitourinary: No dysuria, increased frequency, urgency. No urinary retention. Musculoskeletal: No myalgias. Reported muscle weakness, no gait dysfunction, no frequent falls. No back pain. No neck pain. Integumentary: No wounds, no lesions. No rash or pruritus. No unusual bruising. No change in hair or nails. Neurologic: No aphasia. No facial droop. Reported change in mentation. No head injury. No headache. No paralysis. No paresthesia. Psychiatric: No depression. No anxiety. No mood swings. Endocrine: Noted abnormal blood sugars. No weight change. No excessive sweating or thirst. No cold intolerance. PHYSICAL EXAMINATION Gen: This is a 61-year-old female. HEENT: head is atraumatic normocephalic pupils were equal round reactive to light and accommodations extra ocular muscle movements were intact, mucous membranes of the mouth are somewhat dry. Neck: supple no JVP. Chest: decrease breath sounds at the bases with no ronchi or expiratory wheezes. Heart : first heart sound is depressed, second heart sound is normal there is ISHA 2/6 located at the left sternal border. Abdomen: soft , mild tenderness, stab wounds appeared glued and there was no draiange or erythema, depressed bowel sounds. Extremities: there is no edema or calf tenderness, DP +1 bilaterally. Neurologic examinations; patient is awake alert and oriented X 3 CN II- XII are grossly intact muscle power 4/5 in upper and lower extremities bilaterally. ASSESSMENT AND PLAN 1. Diabetic ketoacidosis. Levemir will be decreased to 8 units at bedtime due to hypoglycemia, discontinue scheduled NovoLog and continue NovoLog scale only.. 2. Acute kidney injury. Continue IV fluids, monitor renal function, avoid nephrotoxic agents. 3. Acute urinary tract infection. Patient started on ceftriaxone 1 g IV piggyback daily, urine culture in process. 4. Hypertension and hypertensive cardiovascular disease. we will continue with Metoprolol ER 50 mg orally at bedtime, continue amlodipine 10 mg daily at bedtime with parameters. 5. Mixed hyperlipidemia. we will continue with Lipitor 80 mg po daily. 6. Diabetes mellitus type 2 on insulin pump. we will continue DKA protocol. 7. history of CVA . Continue Plavix, Lipitor. 8. history of renal transplant. we will need to resume her Tacrolimus and cellcept. 9. Obstructive sleep apnea. Patient does not have CPAP. 10. History of pulmonary embolism. Continue patient on eliquis 5 mg twice daily. 11. History of CAD post PCI. we will continue with Metoprolol ER 50 mg orally daily and Lipitor 80 mg orally daily. 12. Recurrent depression. We will continue with cynbalta 20 mg orally daily. 13. Diabetic neuropathy. Continue gabapentin 300 mg daily. 14. History of vulvar cancer post surgery. 15. GERD with esophagitis. we will continue with PPI. DISCHARGE PLAN To be determined. PT and OT consults added. Impression and plan of care have been directed as dictated by the signing physician. Kamini Shay nurse practitioner acting as scribe for signing physician. Objective - Vital Signs Vital signs: Vital Signs Temp 98.6 F 06/22/22 07:22 Pulse 97 06/22/22 07:22 Resp 16 06/22/22 07:22 BP 164/78 06/22/22 07:22 Pulse Ox 97 06/22/22 07:22 FiO2 Intake & Output 06/21/22 06/22/22 06/22/22 18:59 06:59 18:59 Intake Total 58.775 Output Total 4 1 Balance 54.775 -1 Weight 56.699 kg 54.7 kg Intake: Intake, IV Titration 58.775 Amount Insulin Regular 100 unit 58.775 In Sodium Chloride 0.9% 100 ml @ 0.1 UNITS/KG/HR 5.727 mls/hr IV .[id number] Rx#:[id number] Output: Urine 4 1 Other: Voiding Method Toilet Diaper # Voids 2 # Bowel Movements 0 - Labs CBC & Chem 7: 06/20/22 18:58 06/21/22 11:24 Labs: Abnormal Lab Results - Last 24 Hours (Table) 06/21/22 06/21/22 06/21/22 Range/Units 08:03 09:19 10:27 Chloride (98-107) mmol/L BUN (7-17) mg/dL Creatinine (0.52-1.04) mg/dL Glucose (74-99) mg/dL POC Glucose (mg/dL) 142 H 141 H 135 H (70-110) mg/dL Urine Appearance (Clear) Urine Glucose (UA) (Negative) Urine Ketones (Negative) Urine Blood (Negative) Urine Nitrite (Negative) Ur Leukocyte Esterase (Negative) Urine RBC (0-5) /hpf Urine WBC (0-5) /hpf Urine WBC Clumps (None) /hpf Urine Bacteria (None) /hpf Urine Mucus (None) /hpf 06/21/22 06/21/22 06/21/22 Range/Units 11:13 11:24 12:10 Chloride 108 H (98-107) mmol/L BUN 29 H (7-17) mg/dL Creatinine 1.31 H (0.52-1.04) mg/dL Glucose 138 H (74-99) mg/dL POC Glucose (mg/dL) 127 H 129 H (70-110) mg/dL Urine Appearance (Clear) Urine Glucose (UA) (Negative) Urine Ketones (Negative) Urine Blood (Negative) Urine Nitrite (Negative) Ur Leukocyte Esterase (Negative) Urine RBC (0-5) /hpf Urine WBC (0-5) /hpf Urine WBC Clumps (None) /hpf Urine Bacteria (None) /hpf Urine Mucus (None) /hpf 06/21/22 06/21/22 06/21/22 Range/Units 13:06 14:14 15:31 Chloride (98-107) mmol/L BUN (7-17) mg/dL Creatinine (0.52-1.04) mg/dL Glucose (74-99) mg/dL POC Glucose (mg/dL) 147 H 184 H 209 H (70-110) mg/dL Urine Appearance (Clear) Urine Glucose (UA) (Negative) Urine Ketones (Negative) Urine Blood (Negative) Urine Nitrite (Negative) Ur Leukocyte Esterase (Negative) Urine RBC (0-5) /hpf Urine WBC (0-5) /hpf Urine WBC Clumps (None) /hpf Urine Bacteria (None) /hpf Urine Mucus (None) /hpf 06/21/22 06/21/22 06/21/22 Range/Units 16:00 17:06 20:10 Chloride (98-107) mmol/L BUN (7-17) mg/dL Creatinine (0.52-1.04) mg/dL Glucose (74-99) mg/dL POC Glucose (mg/dL) 202 H 148 H (70-110) mg/dL Urine Appearance Cloudy H (Clear) Urine Glucose (UA) 3+ H (Negative) Urine Ketones 1+ H (Negative) Urine Blood Trace H (Negative) Urine Nitrite Positive H (Negative) Ur Leukocyte Esterase Large H (Negative) Urine RBC 7 H (0-5) /hpf Urine WBC >182 H (0-5) /hpf Urine WBC Clumps Many H (None) /hpf Urine Bacteria Many H (None) /hpf Urine Mucus Rare H (None) /hpf 06/22/22 Range/Units 06:59 Chloride (98-107) mmol/L BUN (7-17) mg/dL Creatinine (0.52-1.04) mg/dL Glucose (74-99) mg/dL POC Glucose (mg/dL) 54 L (70-110) mg/dL Urine Appearance (Clear) Urine Glucose (UA) (Negative) Urine Ketones (Negative) Urine Blood (Negative) Urine Nitrite (Negative) Ur Leukocyte Esterase (Negative) Urine RBC (0-5) /hpf Urine WBC (0-5) /hpf Urine WBC Clumps (None) /hpf Urine Bacteria (None) /hpf Urine Mucus (None) /hpf Microbiology - Last 24 Hours (Table) 06/21/22 16:00 Urine Culture - Preliminary Urine,Voided
[2022-06-22 09:49] LABS: Glucose,Whole Blood 167 mg/dL (70-110)
[2022-06-22] MEDS: SODIUM CHLORIDE 0.9% 1,000 ML IV SCH (10:05)
[2022-06-22 10:43] LABS: HCT 38.4 % (34.0-46.0); HGB 12.5 gm/dL (11.4-16.0); MCH 29.9 pg (25.0-35.0); MCHC 32.6 g/dL (31.0-37.0); Mean Platelet Volume 9.2; Platelet Count 248 k/uL (150-450); RBC 4.18 m/uL (3.80-5.40); RDW 13.5 % (11.5-15.5); WBC 11.1 k/uL (3.8-10.6)
[2022-06-22 10:49] LABS: ALT 17 U/L (4-34); AST 25 U/L (14-36); African American GFR (CKD) 71 (>60 ml/min/1.73 sqM); Albumin 3.1 g/dL (3.5-5.0); Albumin/Globulin Ratio 1.1; Alkaline Phosphatase 89 U/L (38-126); Anion Gap 11 mmol/L; Blood Urea Nitrogen 17 mg/dL (7-17); Calcium 9.3 mg/dL (8.4-10.2); Carbon Dioxide 22 mmol/L (22-30); Chloride 104 mmol/L (98-107); Globulin 2.8 g/dL; Glucose 184 mg/dL (74-99); Non-African American GFR(CKD) 61 (>60 ml/min/1.73 sqM); Potassium 4.1 mmol/L (3.5-5.1); Sodium 137 mmol/L (137-145); Total Bilirubin 0.8 mg/dL (0.2-1.3); Total Protein 5.9 g/dL (6.3-8.2)
[2022-06-22 11:13] LABS: MCV 91.9 fL (80.0-100.0)
[2022-06-22 11:33] LABS: Glucose,Whole Blood 178 mg/dL (70-110)
[2022-06-22] MEDS: TACROLIMUS 1 MG CAP PO SCH ×2 (11:46→21:47)
[2022-06-22] MEDS: METOCLOPRAMIDE 5 MG TAB PO SCH (11:46)
[2022-06-22] MEDS ORDERED: INSULIN ASPART (NovoLOG) 100 UNIT/ML VIAL SQ SCH (12:30)
[2022-06-22 16:28] VITALS: BMI 24.3
[2022-06-22 17:07] LABS: Glucose,Whole Blood 336 mg/dL (70-110)
[2022-06-22 19:51] LABS: Glucose,Whole Blood 269 mg/dL (70-110)
[2022-06-22] MEDS: ATORVASTATIN 80 MG TAB PO SCH (21:46)
[2022-06-22] MEDS: amLODIPine 10 MG TAB PO SCH (21:47)
[2022-06-22] MEDS: CLOPIDOGREL 75 MG TAB PO SCH (21:47)
[2022-06-22] MEDS: METOPROLOL SUCCINATE (ER) 25 MG TAB.ER.24H PO SCH (21:47)
[2022-06-22] MEDS: DULoxetine HCL 20 MG CAPSULE.DR PO SCH (21:47)
[2022-06-22] MEDS: INSULIN DETEMIR (LEVEMIR) 100 UNIT/ML SYR SQ SCH (21:58)
[2022-06-23 02:06] LABS: Glucose,Whole Blood 109 mg/dL (70-110)
[2022-06-23] MEDS: INSULIN ASPART (NovoLOG) 100 UNIT/ML VIAL SQ SCH ×5 (02:17→20:33)
[2022-06-23 07:28] LABS: Glucose,Whole Blood 63 mg/dL (70-110)
[2022-06-23 07:57] LABS: Glucose,Whole Blood 105 mg/dL (70-110)
[2022-06-23] MEDS: SODIUM CHLORIDE 0.9% 1,000 ML IV SCH (08:00)
[2022-06-23] MEDS: GABAPENTIN 300 MG CAP PO SCH (08:01)
[2022-06-23] MEDS: PANTOPRAZOLE 40 MG TABLET PO SCH (08:01)
[2022-06-23] MEDS: METOCLOPRAMIDE 5 MG TAB PO SCH (08:01)
[2022-06-23] MEDS: APIXABAN 5 MG TAB PO SCH ×2 (08:01→20:34)
[2022-06-23] MEDS: TACROLIMUS 1 MG CAP PO SCH ×2 (08:01→20:35)
[2022-06-23 09:15] LABS: African American GFR (CKD) 63.6 (60.0-200.0); Albumin 3.1 g/dL (3.8-4.9); Albumin/Globulin Ratio 1.29 (1.60-3.17); Anion Gap 7.7 mmol/L (10.00-18.00); BUN/Creat Ratio 11.73 Ratio (12.00-20.00); Blood Urea Nitrogen 12.9 mg/dL (9.0-27.0); Carbon Dioxide 29.3 mmol/L (20.0-27.5); Globulin 2.4 g/dL (1.6-3.3); Non-African American GFR(CKD) 54.9 (60.0-200.0); Potassium 3.9 mmol/L (3.5-5.5); Total Bilirubin 0.8 mg/dL (0.30-1.20); Total Protein 5.5 g/dL (6.2-8.2)
[2022-06-23 12:07] LABS: Glucose,Whole Blood 217 mg/dL (70-110)
--- NOTE | 2022-06-23 14:06 | P.PN ---
Subjective Progress Note Date: 06/23/22 HISTORY OF PRESENT ILLNESS This is a 61-year-old female patient with past medical history of hypertension with hypertensive cardiovascular disease, hyperlipidemia, diabetes mellitus type 2 on insulin pump, CVA, coronary artery disease status post PCI and stent placement, history of renal disease status post renal transplant, vulvar cancer status post radiation treatment, obesity status post sleeve gastrectomy. Patient was last hospitalized in August 2021 for acute diabetic ketoacidosis and toxic metabolic encephalopathy secondary to DKA. Patient now presents to the hospital via EMS with nausea vomiting and elevated blood sugar. Apparently, there has been trouble with her insulin pump. Patient was found to be afebrile, heart rate 96, blood pressure 139/69, pulse ox 99%. EKG sinus rhythm with no acute ST changes. WBC 10.3, hemoglobin 12.4, platelet count 234. Sodium 135, potassium 5.6, chloride 95, CO2 12. BUN 34 creatinine 1.61. Blood sugar 772. Magnesium 1.8. Calcium 9.4. Total bilirubin 1.4. AST 32, ALT 24, alkaline phosphatase 123. Acetone positive. Lactic acid 5.2. Urinalysis clear, glucose 4+, ketones 3+. No sign of infection. Patient is seen in the emergency center waiting for a bed on the [facility] floor. Blood sugars are now running 142-247. Patient has been started on the DKA protocol. 06/22: Patient is seen today on the medical unit. Blood sugar this morning was 64, repeat 71. Patient did not receive scheduled insulin yesterday which will be discontinued and Levemir will be decreased to 8 units, continue NovoLog scale. Repeat urinalysis done last evening revealed leukoesterase large, RBC 7, WBC greater then 182, WBC clumps many, bacteria many and patient was started on ceftriaxone, urine culture in process. Repeat blood work reveals Patient continues to have decreased appetite. No abdominal pain, no dysuria. Plan is to monitor patient overnight, continue IV fluids, adjust insulins and possible discharge in the next 24 hours. 06/23: Patient is afebrile, heart rate 83, blood pressure 109/59, pulse ox 97% on room air. Repeat blood work reveals sodium 141, potassium 3.9, chloride 104, CO2 29, BUN 12 and creatinine 1.1. Blood sugar 56. Capillary blood glucoses morning was 63 repeat 105. Liver function tests were normal. Albumin 3.1. Urine culture is showing gram-negative bacilli. Patient remains on ceftriaxone. Patient has been seen by therapies with recommendations for home care or subacute rehab. Patient has declined any needs for home. Patient states that s he is eating a little bit better today. Anticipate discharge home tomorrow. REVIEW OF SYSTEMS Constitutional: No fever, no chills, no night sweats. No weight change. Reported weakness, fatigue or lethargy. No daytime sleepiness. EENT: No headache. No blurred vision or double vision, no loss of vision. No loss of Hearing, no ringing in the ears, no dizziness. No nasal drainage or congestion. No epistaxis. No sore throat. Lungs: No shortness of breath, cough, no sputum production. No wheezing. Cardiovascular: No chest pain, no lower extremity edema. No palpitations. No paroxysmal nocturnal dyspnea. No orthopnea. No lightheadedness or dizziness. No syncopal episodes. Abdominal: Reported abdominal pain. Reported nausea, reported vomiting. No diarrhea. No constipation. No bloody or tarry stools. Reported loss of appetite. Genitourinary: No dysuria, increased frequency, urgency. No urinary retention. Musculoskeletal: No myalgias. Reported muscle weakness, no gait dysfunction, no frequent falls. No back pain. No neck pain. Integumentary: No wounds, no lesions. No rash or pruritus. No unusual bruising. No change in hair or nails. Neurologic: No aphasia. No facial droop. Reported change in mentation. No head injury. No headache. No paralysis. No paresthesia. Psychiatric: No depression. No anxiety. No mood swings. Endocrine: Noted abnormal blood sugars. No weight change. No excessive sweating or thirst. No cold intolerance. PHYSICAL EXAMINATION Gen: This is a 61-year-old female. Patient is resting in bed and appears to be comfortable and in no acute distress. HEENT: head is atraumatic normocephalic pupils were equal round reactive to light and accommodations extra ocular muscle movements were intact, mucous membranes of the mouth are somewhat dry. Neck: supple no JVP. Chest: decrease breath sounds at the bases with no ronchi or expiratory wheezes. Heart : first heart sound is depressed, second heart sound is normal there is ISHA 2/6 located at the left sternal border. Abdomen: soft , mild tenderness, stab wounds appeared glued and there was no draiange or erythema, depressed bowel sounds. Extremities: there is no edema or calf tenderness, DP +1 bilaterally. Neurologic examinations; patient is awake alert and oriented X 3 CN II- XII are grossly intact muscle power 4/5 in upper and lower extremities bilaterally. ASSESSMENT AND PLAN 1. Diabetic ketoacidosis. Continue Levemir decreased dosing of 8 units at bedtime and continue NovoLog scale only.. 2. Acute kidney injury. Continue IV fluids, monitor renal function, avoid nephrotoxic agents. 3. Acute urinary tract infection. Patient started on ceftriaxone 1 g IV piggyback daily, urine culture in process. 4. Hypertension and hypertensive cardiovascular disease. we will continue with Metoprolol ER 50 mg orally at bedtime, continue amlodipine 10 mg daily at bedtime with parameters. 5. Mixed hyperlipidemia. we will continue with Lipitor 80 mg po daily. 6. Diabetes mellitus type 2 on insulin pump. we will continue DKA protocol. 7. history of CVA . Continue Plavix, Lipitor. 8. history of renal transplant. we will need to resume her Tacrolimus and cellcept. 9. Obstructive sleep apnea. Patient does not have CPAP. 10. History of pulmonary embolism. Continue patient on eliquis 5 mg twice daily. 11. History of CAD post PCI. we will continue with Metoprolol ER 50 mg orally daily and Lipitor 80 mg orally daily. 12. Recurrent depression. We will continue with cynbalta 20 mg orally daily. 13. Diabetic neuropathy. Continue gabapentin 300 mg daily. 14. History of vulvar cancer post surgery. 15. GERD with esophagitis. we will continue with PPI. DISCHARGE PLAN Home on Monday. Impression and plan of care have been directed as dictated by the signing physician. Kamini Shay nurse practitioner acting as scribe for signing physician. Objective - Vital Signs Vital signs: Vital Signs Temp 98.4 F 06/23/22 04:44 Pulse 83 06/23/22 04:44 Resp 16 06/23/22 04:44 BP 109/59 06/23/22 04:44 Pulse Ox 97 06/23/22 04:44 FiO2 Intake & Output 06/22/22 06/23/22 06/23/22 18:59 06:59 18:59 Output Total 4 Balance -4 Weight 54.7 kg 56 kg Output: Urine 4 Other: Voiding Method Toilet Toilet Diaper Diaper # Voids 1 1 2 # Bowel Movements 1 1 - Labs CBC & Chem 7: 06/22/22 10:25 06/23/22 05:35 Labs: Abnormal Lab Results - Last 24 Hours (Table) 06/22/22 06/22/22 06/22/22 Range/Units 10:24 10:25 11:32 WBC 11.1 H (3.8-10.6) k/uL Carbon Dioxide (20.0-27.5) mmol/L Anion Gap (10.00-18.00) mmol/L Est GFR (CKD-EPI)NonAf (60.0-200.0) BUN/Creatinine Ratio (12.00-20.00) Ratio Glucose 184 H (74-99) mg/dL POC Glucose (mg/dL) 178 H (70-110) mg/dL Total Protein 5.9 L (6.3-8.2) g/dL Albumin 3.1 L (3.5-5.0) g/dL Albumin/Globulin Ratio (1.60-3.17) g/dL 06/22/22 06/22/22 06/23/22 Range/Units 17:06 19:50 05:35 WBC (3.8-10.6) k/uL Carbon Dioxide 29.3 H (20.0-27.5) mmol/L Anion Gap 7.70 L (10.00-18.00) mmol/L Est GFR (CKD-EPI)NonAf 54.9 L (60.0-200.0) BUN/Creatinine Ratio 11.73 L (12.00-20.00) Ratio Glucose 56 L (74-99) mg/dL POC Glucose (mg/dL) 336 H 269 H (70-110) mg/dL Total Protein 5.5 L (6.3-8.2) g/dL Albumin 3.1 L (3.5-5.0) g/dL Albumin/Globulin Ratio 1.29 L (1.60-3.17) g/dL 06/23/22 Range/Units 07:26 WBC (3.8-10.6) k/uL Carbon Dioxide (20.0-27.5) mmol/L Anion Gap (10.00-18.00) mmol/L Est GFR (CKD-EPI)NonAf (60.0-200.0) BUN/Creatinine Ratio (12.00-20.00) Ratio Glucose (74-99) mg/dL POC Glucose (mg/dL) 63 L (70-110) mg/dL Total Protein (6.3-8.2) g/dL Albumin (3.5-5.0) g/dL Albumin/Globulin Ratio (1.60-3.17) g/dL Microbiology - Last 24 Hours (Table) 06/21/22 16:00 Urine Culture - Preliminary Urine,Voided Gram Neg Bacilli
[2022-06-23 17:35] LABS: Glucose,Whole Blood 231 mg/dL (70-110)
[2022-06-23 20:32] LABS: Glucose,Whole Blood 171 mg/dL (70-110)
[2022-06-23] MEDS: INSULIN DETEMIR (LEVEMIR) 100 UNIT/ML SYR SQ SCH (20:33)
[2022-06-23] MEDS: ATORVASTATIN 80 MG TAB PO SCH (20:34)
[2022-06-23] MEDS: CLOPIDOGREL 75 MG TAB PO SCH (20:34)
[2022-06-23] MEDS: amLODIPine 10 MG TAB PO SCH (20:34)
[2022-06-23] MEDS: METOPROLOL SUCCINATE (ER) 25 MG TAB.ER.24H PO SCH (20:34)
[2022-06-23] MEDS: DULoxetine HCL 20 MG CAPSULE.DR PO SCH (20:35)
[2022-06-24] MEDS: SODIUM CHLORIDE 0.9% 1,000 ML IV SCH (01:25)
[2022-06-24 02:25] LABS: Glucose,Whole Blood 113 mg/dL (70-110)
[2022-06-24] MEDS: INSULIN ASPART (NovoLOG) 100 UNIT/ML VIAL SQ SCH ×2 (02:59→07:25)
[2022-06-24 07:14] LABS: Glucose,Whole Blood 82 mg/dL (70-110)
[2022-06-24] MEDS: APIXABAN 5 MG TAB PO SCH (07:52)
[2022-06-24] MEDS: PANTOPRAZOLE 40 MG TABLET PO SCH (07:52)
[2022-06-24] MEDS: GABAPENTIN 300 MG CAP PO SCH (07:52)
[2022-06-24] MEDS: TACROLIMUS 1 MG CAP PO SCH (07:53)
[2022-06-24] MEDS: METOCLOPRAMIDE 5 MG TAB PO SCH (07:53)
--- NOTE | 2022-06-24 09:02 | P.DS ---
Providers Date of admission: 06/20/22 20:00 Expected date of discharge: 06/24/22 Attending physician: Katina Benson Primary care physician: Katina Benson Hospital Course: HISTORY OF PRESENT ILLNESS This is a 61-year-old female patient with past medical history of hypertension with hypertensive cardiovascular disease, hyperlipidemia, diabetes mellitus type 2 on insulin pump, CVA, coronary artery disease status post PCI and stent placement, history of renal disease status post renal transplant, vulvar cancer status post radiation treatment, obesity status post sleeve gastrectomy. Patient was last hospitalized in August 2021 for acute diabetic ketoacidosis and toxic metabolic encephalopathy secondary to DKA. Patient now presents to the hospital via EMS with nausea vomiting and elevated blood sugar. Apparently, there has been trouble with her insulin pump. Patient was found to be afebrile, heart rate 96, blood pressure 139/69, pulse ox 99%. EKG sinus rhythm with no acute ST changes. WBC 10.3, hemoglobin 12.4, platelet count 234. Sodium 135, potassium 5.6, chloride 95, CO2 12. BUN 34 creatinine 1.61. Blood sugar 772. Magnesium 1.8. Calcium 9.4. Total bilirubin 1.4. AST 32, ALT 24, alkaline phosphatase 123. Acetone positive. Lactic acid 5.2. Urinalysis clear, glucose 4+, ketones 3+. No sign of infection. Patient is seen in the emergency center waiting for a bed on the [facility] floor. Blood sugars are now running 142-247. Patient has been started on the DKA protocol. 06/22: Patient is seen today on the medical unit. Blood sugar this morning was 64, repeat 71. Patient did not receive scheduled insulin yesterday which will be discontinued and Levemir will be decreased to 8 units, continue NovoLog scale. Repeat urinalysis done last evening revealed leukoesterase large, RBC 7, WBC greater then 182, WBC clumps many, bacteria many and patient was started on ceftriaxone, urine culture in process. Repeat blood work reveals Patient continues to have decreased appetite. No abdominal pain, no dysuria. Plan is to monitor patient overnight, continue IV fluids, adjust insulins and possible discharge in the next 24 hours. 06/23: Patient is afebrile, heart rate 83, blood pressure 109/59, pulse ox 97% on room air. Repeat blood work reveals sodium 141, potassium 3.9, chloride 104, CO2 29, BUN 12 and creatinine 1.1. Blood sugar 56. Capillary blood glucoses morning was 63 repeat 105. Liver function tests were normal. Albumin 3.1. Urine culture is showing gram-negative bacilli. Patient remains on ceftriaxone. Patient has been seen by therapies with recommendations for home care or subacute rehab. Patient has declined any needs for home. Patient states that she is eating a little bit better today. Anticipate discharge home tomorrow. 06/24: Patient remains afebrile, heart rate 82, blood pressure 126/67, pulse ox 95% on room air. Blood sugar this morning was 82 and running between 113 and 231 through the night and afternoon yesterday. Patient states that she does have the part for her insulin pump and will be able to resume her insulin pump when she gets home. Patient states her appetite continues to improve slightly. No nausea or vomiting, no chest pain or shortness of breath. No diarrhea. Urine cultures positive for Klebsiella pneumoniae pansensitive. Patient will be discharged home on ciprofloxacin for 7 day course. Patient will have follow-up in the office in approximately one week. DISCHARGE DIAGNOSES 1. Diabetic ketoacidosis. 2. Acute kidney injury. 3. Acute urinary tract infection. 4. Hypertension and hypertensive cardiovascular disease. 5. Mixed hyperlipidemia. 6. Diabetes mellitus type 2 on insulin pump. 7. history of CVA. 8. history of renal transplant. 9. Obstructive sleep apnea. 10. History of pulmonary embolism. 11. History of CAD post PCI. 12. Recurrent depression. 13. Diabetic neuropathy. 14. History of vulvar cancer post surgery. 15. GERD with esophagitis. DISCHARGE PLAN Home Greater than 35 minutes was utilized and coordinating patient's discharge. Impression and plan of care have been directed as dictated by the signing physician. Kamini Shay nurse practitioner acting as scribe for signing physician. Patient Condition at Discharge: Good Plan - Discharge Summary Discharge Rx Participant: No New Discharge Prescriptions: New Ciprofloxacin HCl [Cipro] 250 mg PO BID 7 Days #14 tab Continue amLODIPine [Norvasc] 10 mg PO DAILY@2100 mycophenolate mofetiL [Cellcept] 500 mg PO BID@0900,2100 Nitroglycerin Sl Tabs [Nitrostat] 0.4 mg SUBLINGUAL Q5M PRN #25 tab PRN Reason: Chest Pain Omeprazole [PriLOSEC] 40 mg PO DAILY@08 Tacrolimus [Prograf] 1 mg PO BID@899,2099 DULoxetine HCL [Cymbalta] 20 mg PO DAILY@2099 Apixaban [Eliquis] 5 mg PO BID@899,2099 Clopidogrel [Plavix] 75 mg PO DAILY@2099 calcitrioL [Calcitriol] 0.5 mcg PO DAILY@2099 INSULIN LISPRO (For Pump) [humaLOG (For Pump)] 0.01 units SQ-PUMP CONTINUOUS Metoprolol Succinate (ER) [Toprol XL] 25 mg PO DAILY@2099 Atorvastatin [Lipitor] 80 mg PO DAILY@2099 Metoclopramide [Reglan] 5 mg PO DAILY@799 Gabapentin [Neurontin] 300 mg PO DAILY Discharge Medication List amLODIPine [Norvasc] 10 mg PO DAILY@209912/12/14 [History] mycophenolate mofetiL [Cellcept] 500 mg PO BID@899,209912/12/14 [History] Nitroglycerin Sl Tabs [Nitrostat] 0.4 mg SUBLINGUAL Q5M PRN #25 tab 12/15/14 [Rx] Omeprazole [PriLOSEC] 40 mg PO DAILY@0810/23/15 [History] Tacrolimus [Prograf] 1 mg PO BID@899,209906/06/16 [History] DULoxetine HCL [Cymbalta] 20 mg PO DAILY@209911/10/18 [History] Apixaban [Eliquis] 5 mg PO BID@0900,209911/04/19 [History] Clopidogrel [Plavix] 75 mg PO DAILY@209911/04/19 [History] Atorvastatin [Lipitor] 80 mg PO DAILY@209909/10/21 [History] Metoclopramide [Reglan] 5 mg PO DAILY@0809/10/21 [History] Metoprolol Succinate (ER) [Toprol XL] 25 mg PO DAILY@209909/10/21 [History] calcitrioL [Calcitriol] 0.5 mcg PO DAILY@209909/10/21 [History] INSULIN LISPRO (For Pump) [humaLOG (For Pump)] 0.01 units SQ-PUMP CONTINUOUS 09/13/21 [History] Gabapentin [Neurontin] 300 mg PO DAILY 06/20/22 [History] Ciprofloxacin HCl [Cipro] 250 mg PO BID 7 Days #14 tab 06/24/22 [Rx] Follow up Appointment(s)/Referral(s): Katina Benson MD [Primary Care Provider] - 1 Week Discharge Disposition: HOME SELF-CARE
[2022-06-24 09:06] VITALS: BP 126/67; PULSE 82; RESP 16; TEMP 97.6
== END 2022-06-24 11:49 | disposition home or self-care (01) | DRG 638 ==
LOC: EC 18:35 → 3SCARD 20:00 → 5NMEDONC 06-21 13:27
PROVIDERS: ADMIT Internal Medicine; ATTEND Internal Medicine
DX: E11.10 Type 2 diabetes mellitus with ketoacidosis without coma (principal); D68.51 Activated protein C resistance; F33.9 Major depressive disorder, recurrent, unspecified; N17.9 Acute kidney failure, unspecified; N39.0 Urinary tract infection, site not specified; Z94.0 Kidney transplant status; E11.649 Type 2 diabetes mellitus with hypoglycemia without coma; E11.40 Type 2 diabetes mellitus with diabetic neuropathy, unspecified; E78.2 Mixed hyperlipidemia; E86.0 Dehydration; G47.33 Obstructive sleep apnea (adult) (pediatric); Z71.3 Dietary counseling and surveillance; I11.9 Hypertensive heart disease without heart failure; I25.10 Atherosclerotic heart disease of native coronary artery without angina pectoris; I25.2 Old myocardial infarction; K21.00 Gastro-esophageal reflux disease with esophagitis, without bleeding; B96.1 Klebsiella pneumoniae [K. pneumoniae] as the cause of diseases classified elsewhere; Z79.01 Long term (current) use of anticoagulants; Z79.02 Long term (current) use of antithrombotics/antiplatelets; Z79.4 Long term (current) use of insulin; Z79.899 Other long term (current) drug therapy; Z82.49 Family history of ischemic heart disease and other diseases of the circulatory system; Z83.3 Family history of diabetes mellitus; Z85.44 Personal history of malignant neoplasm of other female genital organs; Z85.828 Personal history of other malignant neoplasm of skin; Z86.711 Personal history of pulmonary embolism; Z86.73 Personal history of transient ischemic attack (TIA), and cerebral infarction without residual deficits; Z87.891 Personal history of nicotine dependence; Z92.3 Personal history of irradiation; Z95.5 Presence of coronary angioplasty implant and graft; Z96.41 Presence of insulin pump (external) (internal); Z98.84 Bariatric surgery status
CPT/HCPCS: 36415; 80048; 80051; 80053; 81001; 81003; 82009; 82565; 82947; 83605; 83735; 84100; 84520; 85025; 85027; 85610; 85730; 87077; 87086; 87186; 93005; 96361; 96365; 96366; 99291

== ENCOUNTER → 2023-11-06 | Outpatient (CLI) | payer MEDICARE ==
--- NOTE | 2023-11-06 09:29 | MM ---
Reason for Exam: Follow-up at short interval from prior study. Last mammogram was performed 1 year(s) and 6 month(s) ago. Patient History: Menarche at age 14. First Full-Term at age 23. Left ovary removed at age 43. Right ovary removed at age 46. Postmenopausal. Other cancer, age 51. Paternal cousin had breast cancer. Paternal cousin had breast cancer. Paternal cousin had breast cancer. Paternal cousin had breast cancer. Risk Values: Taina 5 year model risk: 1.3%. NCI Lifetime model risk: 6.4%. Prior Study Comparison: 07/15/2014 Bilateral Screening Mammogram, [facility]. 01/29/2016 Bilateral Screening Mammogram, [facility]. 11/24/2017 Screening Mammogram, [facility]. 10/01/2020 Bilateral Screening Mammogram, [facility]. 05/10/2022 Bilateral MG 3D diag mammo w/cad DULCE, [facility]. 05/10/2022 Left US breast limited , [facility]. Tissue Density: The breast tissue is heterogeneously dense. This may lower the sensitivity of mammography. Findings: Analyzed By CAD. Numerous benign bilateral secretory calcifications. No coarse internal calcifications along the lateral aspect of both breasts have developed in the interval. Similar grouped calcifications lateral anteriorly on the left redemonstrated. Benign vascular calcifications. No significant change from prior exams. Overall Assessment: Incomplete: need additional imaging evaluation, BI-RAD 0 Management: Diagnostic Breast Ultrasound of the left breast. As ordered. Electronically signed and approved by: Amalia Hernandez M.D. Radiologist
--- NOTE | 2023-11-06 09:46 | USB ---
Reason for Exam: Additional evaluation requested from abnormal screening. Patient History: Menarche at age 14. First Full-Term at age 23. Left ovary removed at age 43. Right ovary removed at age 46. Postmenopausal. Other cancer, age 51. Paternal cousin had breast cancer. Paternal cousin had breast cancer. Paternal cousin had breast cancer. Paternal cousin had breast cancer. Risk Values: Taina 5 year model risk: 1.3%. NCI Lifetime model risk: 6.4%. Technique: Method: Whole Breast Handheld. Prior Study Comparison: 11/24/2017 Screening Mammogram, [facility]. 10/01/2020 Bilateral Screening Mammogram, [facility]. 05/10/2022 Bilateral MG 3D diag mammo w/cad DULCE, [facility]. Findings: The whole breast of both breasts, the axilla of both breasts and the retroareolar of both breasts were scanned. A complete US of all four quadrants of the bilateral breast, and retro-areolar region were reviewed. No solid or cystic masses are identified. Some scattered dense tissue is present bilaterally. No axillary adenopathy. Overall Assessment: Benign, BI-RAD 2 Management: Screening Mammogram of both breasts in 1 year. A clinical breast exam by your physician is recommended on an annual basis and results should be correlated with mammographic findings. This exam should not preclude additional follow-up of suspicious palpable abnormalities. Results were given to the patient verbally at the time of exam. Electronically signed and approved by: Amalia Hernandez M.D. Radiologist
--- NOTE | 2023-11-06 18:18 | BD ---
EXAMINATION TYPE: Axial Bone Density DATE OF EXAM: 11/06/2023 CLINICAL HISTORY: 63 years old Female. ICD-10 CODE: M81.0 AGE RELATED OSTEOPOROSIS UNSPECIFIED PATHO LOGICAL FRACTURE Height: Weight: 120.5 FRAX RISK QUESTIONS: Alcohol (3 or more units per day): no Family History (Parent hip fracture): no Glucocorticoids (More than 3mos): no (Ex: prednisone, prednisolone, methylprednisolone, dexamethasone, and hydrocortisone). History of Fracture in Adulthood: yes Secondary Osteoporosis: 1. Type 1 Diabetes: yes 2. Hyperthyroidism: no 3. Menopause before 45: yes 4. Malnutrition: no 5. Chronic liver disease: no Rheumatoid Arthritis: no Current Tobacco Use: no RISK FACTORS HISTORY OF: Spine Fracture: lumbar spine When: 2022 Surgery to Spine/Hip(right/left)/Wrist (right/left): no MEDICATIONS: EXAM MEASUREMENTS: Bone mineral densitometry was performed using the [employer]. Bone mineral density about the R hip (g/cm2): 0.575 Bone mineral density about the L hip (g/cm2): 0.615 T Score values are as follows: -----R Neck: -2.2 -----L Neck: -1.9 -----R Total: -3.4 -----L Total: -3.1 Z Score values are as follows: -----R Neck: -1.8 -----L Neck: -1.8 -----R Total: -3.3 -----L Total: -3.3 Bone mineral density has: decreased -25.1 % since study of: 2016 Bone mineral density about the L Wrist (g/cm2): 0.468 T Score values are as follows: -----Dist. R+U: -4.2 -----Prox. R+U: -2.7 -----Radius total: -3.4 Z Score values are as follows: -----Dist. R+U: -3.2 -----Prox. R+U: -1.7 -----Radius total: -2.4 Bone mineral density : baseline FRAX%s: The graph provided illustrates a 28.3% chance for a major osteoporotic fx and a 9.9% chance f or the hips probability for fx in 10 years time. IMPRESSION: Osteoporosis (T Score less than -2.5). There is increased fracture risk and therapy is usually indicated based on age. Re-Screen 1-2 years. NOTE: T-SCORE=SD OF THE YOUNG ADULT MEAN.
== END | disposition home or self-care (01) ==
LOC: RADBDWWP 08:44
PROVIDERS: ATTEND Internal Medicine
DX: M81.0 Age-related osteoporosis without current pathological fracture (principal); M85.89 Other specified disorders of bone density and structure, multiple sites; R92.333 Mammographic heterogeneous density, bilateral breasts; Z78.0 Asymptomatic menopausal state; Z80.3 Family history of malignant neoplasm of breast
CPT/HCPCS: 77080; 77066; 76641; G0279; 77062

== ENCOUNTER → 2023-11-21 | Outpatient (CLI) | payer MEDICARE ==
[2023-11-21 14:03] VITALS: BP 115/64; PULSE 68; RESP 16; TEMP 97.9; BMI 25.0
--- NOTE | 2023-11-21 14:47 | P.BASOAP ---
Subjective Progress Note Date: 11/21/23 Principal diagnosis: Morbid obesity Patient returns for recheck. She was last seen June 16. Doing well. She has lost 6 pounds since that time. Balance is still an issue. No recent falls. Has episodes of dysphagia and vomiting approximately twice per month. Remains on omeprazole and Reglan. These control her symptoms fairly well she says. Objective - Vital Signs Vital signs: Vital Signs Temp 97.9 F 11/21/23 13:45 Pulse 68 11/21/23 13:45 Resp 16 11/21/23 13:45 BP 115/64 11/21/23 13:45 Pulse Ox FiO2 Intake & Output 11/20/23 11/21/23 11/21/23 18:59 06:59 18:59 Weight 55.338 kg - Exam Abdomen: Soft, nontender, nondistended Assessment/Plan (1) Morbid obesity Narrative/Plan: Patient doing well after previously gastrectomy. Continue dietary and exercise regimen. Patient was given annual lab sheet. She will take this to her primary care physician at her next appointment. Plan follow-up June 19. Plan: Date: 11/21/23 Initial Weight: 90.407 kg Initial BMI: 40.9 Current Weight: 55.338 kg Current BMI: 25.0 Type of Surgery: Vertical Sleeve Gastrectomy Total Volume in Band: Previous Volume: Volume Removed: Volume Added: Band Size:
== END ==
LOC: BARWHC3 13:27
PROVIDERS: ATTEND Surgery
DX: E66.01 Morbid (severe) obesity due to excess calories (principal); R13.10 Dysphagia, unspecified; R11.10 Vomiting, unspecified; F12.90 Cannabis use, unspecified, uncomplicated; Z98.84 Bariatric surgery status; Z91.011 Allergy to milk products; Z88.0 Allergy status to penicillin; Z88.8 Allergy status to other drugs, medicaments and biological substances; Z87.891 Personal history of nicotine dependence; Z68.25 Body mass index [BMI] 25.0-25.9, adult; Z71.3 Dietary counseling and surveillance
CPT/HCPCS: 99211

== ENCOUNTER 2023-11-23 14:17 | Inpatient (IN) | payer MEDICARE ==
[2023-11-23 14:25] LABS: Glucose,Whole Blood 369 mg/dL (70-110)
--- NOTE | 2023-11-23 14:44 | ED ---
Recheck HPI - General Chief Complaint: Recheck/Abnormal Lab/Rx Stated Complaint: HYPOGLYCEMIA Time Seen by Provider: 11/23/23 14:26 Source: patient, EMS, RN notes reviewed, old records reviewed, Caregiver Mode of arrival: EMS Limitations: altered mental status, physical limitation - History of Present Illness Initial Comments: This is a 63-year-old female who initially presented for low blood sugar and altered mental status blood sugar readings from family were noted to be low unsure of the appetite., Patient comes to the ER today for evaluation in regards to low blood sugar and altered mental status which was found on EMS arrival to the patient's house. Patient does appear to be significantly confused and presents confused here in the emergency department MD Complaint: other (Low blood sugar and altered mental status) -: unknown Returns Today for: Called Because of Abnormal Lab/Test, other (Altered mental state) Symptoms Since Prior Visit: no new symptoms Context: planned re-check, called for abnormal lab result Associated Symptoms: none Treatments Prior to Arrival: other (Patient was given food) - Related Data Home Medications Medication Instructions Recorded Confirmed mycophenolate mofetiL [Cellcept] 500 mg PO BID 12/12/14 11/23/23 Tacrolimus [Prograf] 2 mg PO DAILY 06/06/16 11/23/23 DULoxetine HCL [Cymbalta] 20 mg PO DAILY 11/10/18 11/23/23 Apixaban [Eliquis] 5 mg PO BID 11/04/19 11/23/23 Clopidogrel [Plavix] 75 mg PO DAILY 11/04/19 11/23/23 Atorvastatin [Lipitor] 80 mg PO HS 09/10/21 11/23/23 Metoclopramide [Reglan] 5 mg PO DAILY 09/10/21 11/23/23 Metoprolol Succinate (ER) [Toprol 25 mg PO DAILY 09/10/21 11/23/23 XL] calcitrioL 0.5 mcg PO DAILY 09/10/21 11/23/23 Omeprazole [PriLOSEC] 20 mg PO DAILY 04/12/23 11/23/23 Tacrolimus [Prograf] 1 mg PO HS 04/12/23 11/23/23 Previous Rx's Medication Instructions Recorded Acetaminophen Tab [Tylenol] 650 mg PO Q6HR PRN tab 11/28/23 Gabapentin [Neurontin] 300 mg PO HS #3 cap 11/28/23 INSULIN ASPART (NovoLOG) [NovoLOG 4 unit SQ AC-TID each 11/28/23 (formulary)] Insulin Detemir (Levemir) [Levemir] 8 unit SQ HS #10 ml 11/28/23 Insulin Detemir (Levemir) [Levemir] 12 unit SQ 0700 each 11/28/23 amLODIPine [Norvasc] 10 mg PO DAILY #30 tab 11/28/23 Allergies Allergy/AdvReac Type Severity Reaction Status Date / Time Milk Containing Products Allergy Diarrhea Verified 11/23/23 16:12 (Dairy) [Dairy] Penicillins Allergy Rash/Hives Verified 11/23/23 16:12 trandolapril [From Tarka] Allergy SEVERE Verified 11/23/23 16:12 HYPOTENSION verapamil HCl [From Tarka] Allergy SEVERE Verified 11/23/23 16:12 HYPOTENSION Review of Systems ROS Statement: Those systems with pertinent positive or pertinent negative responses have been documented in the HPI. ROS Other: All systems not noted in ROS Statement are negative. Past Medical History Past Medical History: Blood Disorder, Coronary Artery Disease (CAD), Cancer, CVA/TIA, Diabetes Mellitus, Dialysis, GERD/Reflux, Hyperlipidemia, Hypertension, Myocardial Infarction (non Q-wave), Osteoarthritis (OA), Pneumonia, Pulmonary Embolus (PE), Renal Disease, Sleep Apnea/CPAP/BIPAP, Thyroid Disorder Additional Past Medical History / Comment(s): Leiden Factor V, basal cell carcinoma, Vulvar cancer, CVA 2016, CVA 2014, CVA 2017 est - sl weakness Lt side , Dialysis 2001 for 2 months, enlarged thyroid w/ nodules. PE 2011, Kidney transplant 2001. No tx for sleep apnea. Neuropathy in feet/legs. Last Myocardial Infarction Date:: 2014 History of Any Multi-Drug Resistant Organisms: None Reported Past Surgical History: Bariatric Surgery, Section, Cholecystectomy, Heart Catheterization, Heart Catheterization With Stent, Tonsillectomy, Tubal Ligation Additional Past Surgical History / Comment(s): jose oophrectomy, kidney transplant, surgery to remove CA. PTCA w/ Stent 2001, 2014. Colonoscopy, EGD.Gastric Sleeve 05/04/20. Past Anesthesia/Blood Transfusion Reactions: No Reported Reaction, Motion Sickness Additional Past Anesthesia/Blood Transfusion Reaction / Comment(s): no hx blood transfusion Date of Last Stent Placement:: 2014 Past Psychological History: Depression Smoking Status: Never smoker Past Alcohol Use History: None Reported Past Drug Use History: None Reported - Past Family History Sister(s) Family Medical History: Hypertension Father Family Medical History: Myocardial Infarction ([place]) Mother Family Medical History: Pulmonary Embolus Additional Family Medical History / Comment(s): Occluded carotid artery, carotid endartectomy Son(s) Family Medical History: Diabetes Mellitus Additional Family Medical History / Comment(s): DM type 1 General Exam Limitations: altered mental status, physical limitation General appearance: alert, anxious, in distress Head exam: Present: atraumatic, normocephalic, normal inspection Eye exam: Present: normal appearance, PERRL, EOMI. Absent: scleral icterus, conjunctival injection, periorbital swelling ENT exam: Present: normal exam, mucous membranes moist Neck exam: Present: normal inspection. Absent: tenderness, meningismus, lymphadenopathy Respiratory exam: Present: normal lung sounds bilaterally. Absent: respiratory distress, wheezes, rales, rhonchi, stridor Cardiovascular Exam: Present: regular rate, normal rhythm, normal heart sounds. Absent: systolic murmur, diastolic murmur, rubs, gallop, clicks GI/Abdominal exam: Present: soft, normal bowel sounds. Absent: distended, tenderness, guarding, rebound, rigid Extremities exam: Present: normal inspection, full ROM, normal capillary refill. Absent: tenderness, pedal edema, joint swelling, calf tenderness Back exam: Present: normal inspection Neurological exam: Present: alert, oriented X3, CN II-XII intact Psychiatric exam: Present: normal affect, normal mood Skin exam: Present: warm, dry, intact, normal color. Absent: rash Course Vital Signs 11/23/23 11/23/23 11/23/23 14:20 16:43 17:03 Temperature 96.9 F L Pulse Rate 115 H 122 H 128 H Respiratory 18 20 130 H Rate Blood Pressure 189/111 172/81 152/63 O2 Sat by Pulse 100 100 99 Oximetry 11/23/23 11/23/23 11/24/23 18:11 23:00 01:00 Temperature Pulse Rate 128 H 122 H 109 H Respiratory 24 22 18 Rate Blood Pressure 149/77 144/81 130/61 O2 Sat by Pulse 100 99 99 Oximetry 11/24/23 11/24/23 11/24/23 04:00 08:00 12:21 Temperature Pulse Rate 102 H 103 H 100 Respiratory 13 18 18 Rate Blood Pressure 151/77 176/91 O2 Sat by Pulse 95 99 96 Oximetry 11/24/23 16:51 Temperature Pulse Rate 89 Respiratory 18 Rate Blood Pressure 186/96 O2 Sat by Pulse 100 Oximetry - Reevaluation(s) Reevaluation #1: 11/23/23 19:40 Medical records reviewed Reevaluation #2: 11/23/23 19:40 Patient symptoms improving Reevaluation #3: 11/23/23 19:40 Patient informed of results and questions answered Reevaluation #4: Was pt. sent in by a medical professional or institution (, JALEN, CLOTH NAPPING SUPERVISOR, urgent care, hospital, or prison...) When possible be specific @ -no Did you speak to anyone other than the patient for history (EMS, parent, family, police, friend...)? What history was obtained from this source @ -no Did you review nursing and triage notes (agree or disagree)? Why? @ -agree Are old charts reviewed (outside hosp., previous admission, EMS record, old EKG, old radiological studies, urgent care reports/EKG's, prison records)? Report findings @ -yes Differential Diagnosis (chest pain, altered mental status, abdominal pain women, abdominal pain men, vaginal bleeding, weakness, fever, dyspnea, syncope, headache, dizziness, GI bleed, back pain, seizure, CVA, palpatations, mental health, musculoskeletal)? @ -prior EKG interpreted by me (3pts min.). @ -yes X-rays interpreted by me (1pt min.). @ -no CT interpreted by me (1pt min.). @ -no U/S interpreted by me (1pt. min.). @ -no What testing was considered but not performed or refused? (CT, X-rays, U/S, labs)? Why? @ -none What meds were considered but not given or refused? Why? @ -none Did you discuss the management of the patient with other professionals (professionals i.e. JALEN Hylton, CLOTH NAPPING SUPERVISOR, lab, RT, psych nurse, outreach and education social worker, emission specialist, teacher, commissioned security officer, correctional case manager)? Give summary @ -no Was smoking cessation discussed for >3mins.? @ -no Was critical care preformed (if so, how long)? @ -yes31 Were there social determinants of health that impacted care today? How? (Ho melessness, low income, unemployed, alcoholism, drug addiction, transportation, low edu. Level, literacy, decrease access to med. care, [facility], rehab)? @ -none Was there de-escalation of care discussed even if they declined (Discuss DNR or withdrawal of care, Hospice)? DNR status @ -no What co-morbidities impacted this encounter? (DM, HTN, Smoking, COPD, CAD, Cancer, CVA, ARF, Chemo, Hep., AIDS, mental health diagnosis, sleep apnea, morbid obesity)? @ -none Was patient admitted / discharged? Hospital course, mention meds given and route, prescriptions, significant lab abnormalities, going to OR and other pertinent info. @ - 63-year-old female to ER for altered mental status found to have low blood sugar at home within now severely increasing blood sugars here in the ER, showing signs of DKA with significant lactic acidosis and anion gap metabolic acidosis. Admitted Undiagnosed new problem with uncertain prognosis? @ -no Drug Therapy requiring intensive monitoring for toxicity (Heparin, Nitro, Insulin, Cardizem)? @ -no Were any procedures done? @ -no Diagnosis/symptom? @ -TKA Acute, or Chronic, or Acute on Chronic? @ -Acute Uncomplicated (without systemic symptoms) or Complicated (systemic symptoms)? @ -Complicated Side effects of treatment? @ -no Exacerbation, Progression, or Severe Exacerbation? @ -exacerbation Poses a threat to life or bodily function? How? (Chest pain, [place], [place], pneumonia, PE, COPD, DKA, ARF, appy, cholecystitis, CVA, Diverticulitis, Homicidal, Know[place] icidal, threat to staff... and all critical care pts) @ -yes with significant lab abnormalities Reevaluation #5: Differential Altered Mental Status: Hypoglycemia, DKA, hypercapnia, ETOH, overdose, CO poisoning, trauma, myxedema coma, HTN encephalopathy, infection, encephalitis, psychosis, intercranial hemorrhage, hepatic encephalopathy, meningitis, CVA, this is not meant to be an all-inclusive list - Consultations Consultation #1: Spoke with admitting physicians who agreed to admit this patient Medical Decision Making - Medical Decision Making 8-year-old female to ER for altered mental status found to have low blood sugar at home within now severely increasing blood sugars here in the ER, showing signs of DKA with significant lactic acidosis and anion gap metabolic acidosis. - Lab Data Result diagrams: 11/28/23 06:06 11/28/23 06:06 Lab Results 11/23/23 11/23/23 11/23/23 Range/Units 14:20 14:54 14:54 WBC 19.4 H (3.8-10.6) k/uL RBC 4.51 (3.80-5.40) m/uL Hgb 14.2 (11.4-16.0) gm/dL Hct 44.5 (34.0-46.0) % MCV 98.7 (80.0-100.0) fL MCH 31.6 (25.0-35.0) pg MCHC 32.0 (31.0-37.0) g/dL RDW 12.6 (11.5-15.5) % Plt Count 118 L (150-450) k/uL MPV 10.1 Neutrophils % 88 % Lymphocytes % 5 % Monocytes % 6 % Eosinophils % 0 % Basophils % 0 % Neutrophils # 17.0 H (1.3-7.7) k/uL Lymphocytes # 1.0 (1.0-4.8) k/uL Monocytes # 1.2 H (0-1.0) k/uL Eosinophils # 0.0 (0-0.7) k/uL Basophils # 0.1 (0-0.2) k/uL Hypochromasia Slight PT 11.0 (10.0-12.5) sec INR 1.0 (<1.2) APTT 20.0 L (22.0-30.0) sec Sodium (137-145) mmol/L Potassium (3.5-5.1) mmol/L Chloride (98-107) mmol/L Carbon Dioxide (22-30) mmol/L Anion Gap mmol/L BUN (7-17) mg/dL Creatinine (0.52-1.04) mg/dL Est GFR (CKD-EPI)AfAm (>60 ml/min/1.73 sqM) Est GFR (CKD-EPI)NonAf (>60 ml/min/1.73 sqM) Glucose (74-99) mg/dL POC Glucose (mg/dL) 369 H (70-110) mg/dL POC Glu Pricing Manager ID Dilia Black Lactic Ac Sepsis Rflx Plasma Lactic Acid Abel (0.7-2.0) mmol/L Calcium (8.4-10.2) mg/dL Phosphorus (2.5-4.5) mg/dL Magnesium (1.6-2.3) mg/dL Total Bilirubin (0.2-1.3) mg/dL AST (14-36) U/L ALT (4-34) U/L Alkaline Phosphatase (38-126) U/L Ammonia (<30) umol/L Creatine Kinase (30-135) U/L Troponin I (0.000-0.034) ng/mL NT-Pro-B Natriuret Pep pg/mL Total Protein (6.3-8.2) g/dL Albumin (3.5-5.0) g/dL Urine Color Urine Appearance (Clear) Urine pH (5.0-8.0) Ur Specific [place] (1.001-1.035) Urine Protein (Negative) Urine Glucose (UA) (Negative) Urine Ketones (Negative) Urine Blood (Negative) Urine Nitrite (Negative) Urine Bilirubin (Negative) Urine Urobilinogen (<2.0) mg/dL Ur Leukocyte Esterase (Negative) Urine RBC (0-5) /hpf Urine WBC (0-5) /hpf Ur Squamous Epith Cells (0-4) /hpf Amorphous Sediment (None) /hpf Urine Bacteria (None) /hpf Urine Mucus (None) /hpf Serum Alcohol mg/dL 11/23/23 11/23/23 11/23/23 Range/Units 14:54 14:54 14:54 WBC (3.8-10.6) k/uL RBC (3.80-5.40) m/uL Hgb (11.4-16.0) gm/dL Hct (34.0-46.0) % MCV (80.0-100.0) fL MCH (25.0-35.0) pg MCHC (31.0-37.0) g/dL RDW (11.5-15.5) % Plt Count (150-450) k/uL MPV Neutrophils % % Lymphocytes % % Monocytes % % Eosinophils % % Basophils % % Neutrophils # (1.3-7.7) k/uL Lymphocytes # (1.0-4.8) k/uL Monocytes # (0-1.0) k/uL Eosinophils # (0-0.7) k/uL Basophils # (0-0.2) k/uL Hypochromasia PT (10.0-12.5) sec INR (<1.2) APTT (22.0-30.0) sec Sodium 139 (137-145) mmol/L Potassium 4.3 (3.5-5.1) mmol/L Chloride 104 (98-107) mmol/L Carbon Dioxide 12 L (22-30) mmol/L Anion Gap 23 mmol/L BUN 19 H (7-17) mg/dL Creatinine 1.35 H (0.52-1.04) mg/dL Est GFR (CKD-EPI)AfAm 49 (>60 ml/min/1.73 sqM) Est GFR (CKD-EPI)NonAf 43 (>60 ml/min/1.73 sqM) Glucose 423 H (74-99) mg/dL POC Glucose (mg/dL) (70-110) mg/dL POC Glu Pricing Manager ID Lactic Ac Sepsis Rflx Plasma Lactic Acid Abel 11.7 H* (0.7-2.0) mmol/L Calcium 10.0 (8.4-10.2) mg/dL Phosphorus 6.0 H (2.5-4.5) mg/dL Magnesium 1.7 (1.6-2.3) mg/dL Total Bilirubin 2.0 H (0.2-1.3) mg/dL AST 52 H (14-36) U/L ALT 63 H (4-34) U/L Alkaline Phosphatase 118 (38-126) U/L Ammonia <9 (<30) umol/L Creatine Kinase (30-135) U/L Troponin I (0.000-0.034) ng/mL NT-Pro-B Natriuret Pep 472 pg/mL Total Protein 6.5 (6.3-8.2) g/dL Albumin 3.8 (3.5-5.0) g/dL Urine Color Colorless Urine Appearance Clear (Clear) Urine pH 5.5 (5.0-8.0) Ur Specific [place] 1.013 (1.001-1.035) Urine Protein 1+ H (Negative) Urine Glucose (UA) 4+ H (Negative) Urine Ketones 2+ H (Negative) Urine Blood Negative (Negative) Urine Nitrite Negative (Negative) Urine Bilirubin Negative (Negative) Urine Urobilinogen <2.0 (<2.0) mg/dL Ur Leukocyte Esterase Negative (Negative) Urine RBC 1 (0-5) /hpf Urine WBC 1 (0-5) /hpf Ur Squamous Epith Cells <1 (0-4) /hpf Amorphous Sediment Rare H (None) /hpf Urine Bacteria Rare H (None) /hpf Urine Mucus Rare H (None) /hpf Serum Alcohol <10 mg/dL 11/23/23 11/23/23 11/23/23 Range/Units 14:54 14:54 15:28 WBC (3.8-10.6) k/uL RBC (3.80-5.40) m/uL Hgb (11.4-16.0) gm/dL Hct (34.0-46.0) % MCV (80.0-100.0) fL MCH (25.0-35.0) pg MCHC (31.0-37.0) g/dL RDW (11.5-15.5) % Plt Count (150-450) k/uL MPV Neutrophils % % Lymphocytes % % Monocytes % % Eosinophils % % Basophils % % Neutrophils # (1.3-7.7) k/uL Lymphocytes # (1.0-4.8) k/uL Monocytes # (0-1.0) k/uL Eosinophils # (0-0.7) k/uL Basophils # (0-0.2) k/uL Hypochromasia PT (10.0-12.5) sec INR (<1.2) APTT (22.0-30.0) sec Sodium (137-145) mmol/L Potassium (3.5-5.1) mmol/L Chloride (98-107) mmol/L Carbon Dioxide (22-30) mmol/L Anion Gap mmol/L BUN (7-17) mg/dL Creatinine (0.52-1.04) mg/dL Est GFR (CKD-EPI)AfAm (>60 ml/min/1.73 sqM) Est GFR (CKD-EPI)NonAf (>60 ml/min/1.73 sqM) Glucose (74-99) mg/dL POC Glucose (mg/dL) (70-110) mg/dL POC Glu Pricing Manager ID Lactic Ac Sepsis Rflx Y Plasma Lactic Acid Abel (0.7-2.0) mmol/L Calcium (8.4-10.2) mg/dL Phosphorus (2.5-4.5) mg/dL Magnesium (1.6-2.3) mg/dL Total Bilirubin (0.2-1.3) mg/dL AST (14-36) U/L ALT (4-34) U/L Alkaline Phosphatase (38-126) U/L Ammonia (<30) umol/L Creatine Kinase 77 (30-135) U/L Troponin I 0.012 (0.000-0.034) ng/mL NT-Pro-B Natriuret Pep pg/mL Total Protein (6.3-8.2) g/dL Albumin (3.5-5.0) g/dL Urine Color Urine Appearance (Clear) Urine pH (5.0-8.0) Ur Specific [place] (1.001-1.035) Urine Protein (Negative) Urine Glucose (UA) (Negative) Urine Ketones (Negative) Urine Blood (Negative) Urine Nitrite (Negative) Urine Bilirubin (Negative) Urine Urobilinogen (<2.0) mg/dL Ur Leukocyte Esterase (Negative) Urine RBC (0-5) /hpf Urine WBC (0-5) /hpf Ur Squamous Epith Cells (0-4) /hpf Amorphous Sediment (None) /hpf Urine Bacteria (None) /hpf Urine Mucus (None) /hpf Serum Alcohol mg/dL 11/23/23 11/23/23 Range/Units 15:37 17:23 WBC (3.8-10.6) k/uL RBC (3.80-5.40) m/uL Hgb (11.4-16.0) gm/dL Hct (34.0-46.0) % MCV (80.0-100.0) fL MCH (25.0-35.0) pg MCHC (31.0-37.0) g/dL RDW (11.5-15.5) % Plt Count (150-450) k/uL MPV Neutrophils % % Lymphocytes % % Monocytes % % Eosinophils % % Basophils % % Neutrophils # (1.3-7.7) k/uL Lymphocytes # (1.0-4.8) k/uL Monocytes # (0-1.0) k/uL Eosinophils # (0-0.7) k/uL Basophils # (0-0.2) k/uL Hypochromasia PT (10.0-12.5) sec INR (<1.2) APTT (22.0-30.0) sec Sodium (137-145) mmol/L Potassium (3.5-5.1) mmol/L Chloride (98-107) mmol/L Carbon Dioxide (22-30) mmol/L Anion Gap mmol/L BUN (7-17) mg/dL Creatinine (0.52-1.04) mg/dL Est GFR (CKD-EPI)AfAm (>60 ml/min/1.73 sqM) Est GFR (CKD-EPI)NonAf (>60 ml/min/1.73 sqM) Glucose (74-99) mg/dL POC Glucose (mg/dL) 388 H 416 H (70-110) mg/dL POC Glu Pricing Manager ID Biland, Mary Kate Biland, Mary Kate Lactic Ac Sepsis Rflx Plasma Lactic Acid Abel (0.7-2.0) mmol/L Calcium (8.4-10.2) mg/dL Phosphorus (2.5-4.5) mg/dL Magnesium (1.6-2.3) mg/dL Total Bilirubin (0.2-1.3) mg/dL AST (14-36) U/L ALT (4-34) U/L Alkaline Phosphatase (38-126) U/L Ammonia (<30) umol/L Creatine Kinase (30-135) U/L Troponin I (0.000-0.034) ng/mL NT-Pro-B Natriuret Pep pg/mL Total Protein (6.3-8.2) g/dL Albumin (3.5-5.0) g/dL Urine Color Urine Appearance (Clear) Urine pH (5.0-8.0) Ur Specific [place] (1.001-1.035) Urine Protein (Negative) Urine Glucose (UA) (Negative) Urine Ketones (Negative) Urine Blood (Negative) Urine Nitrite (Negative) Urine Bilirubin (Negative) Urine Urobilinogen (<2.0) mg/dL Ur Leukocyte Esterase (Negative) Urine RBC (0-5) /hpf Urine WBC (0-5) /hpf Ur Squamous Epith Cells (0-4) /hpf Amorphous Sediment (None) /hpf Urine Bacteria (None) /hpf Urine Mucus (None) /hpf Serum Alcohol mg/dL - EKG Data -: EKG Interpreted by Me (EKG is sinus tachycardia 116 W[place] 151 QRS 91 QTc 399) Critical Care Time Critical Care Time: Yes Total Critical Care Time: 31 Disposition Clinical Impression: Altered mental status, Diabetic ketoacidosis, Diabetes, Lactic acidosis Disposition: ADMITTED IP TO THIS HOSP Condition: Stable Is patient prescribed a controlled substance at d/c from ED?: No Time of Disposition: 18:00
[2023-11-23] MEDS: SODIUM CHLORIDE 0.9% 1,000 ML IV STA ×3 (14:56→18:23)
[2023-11-23] MEDS: SODIUM CHLORIDE 0.9% 500 ML 500 ML IV STA (14:56)
[2023-11-23 15:10] LABS: Basophils # (A) 0.1 k/uL (0-0.2); Basophils % (A) 0 %; Eosinophils % (A) 0 %; HCT 44.5 % (34.0-46.0); HGB 14.2 gm/dL (11.4-16.0); Hypochromasia Slight; Lymphocytes % (A) 5 %; MCH 31.6 pg (25.0-35.0); MCV 98.7 fL (80.0-100.0); Mean Platelet Volume 10.1; Monocytes # (A) 1.2 k/uL (0-1.0); Monocytes % (A) 6 %; Neutrophils % (A) 88 %; Platelet Count 118 k/uL (150-450); RBC 4.51 m/uL (3.80-5.40); RDW 12.6 % (11.5-15.5); WBC 19.4 k/uL (3.8-10.6)
[2023-11-23 15:22] LABS: ALT 63 U/L (4-34); AST 52 U/L (14-36); African American GFR (CKD) 49 (>60 ml/min/1.73 sqM); Albumin 3.8 g/dL (3.5-5.0); Alcohol <10 mg/dL; Alkaline Phosphatase 118 U/L (38-126); Anion Gap 23 mmol/L; Blood Urea Nitrogen 19 mg/dL (7-17); Carbon Dioxide 12 mmol/L (22-30); Chloride 104 mmol/L (98-107); Glucose 423 mg/dL (74-99); Magnesium 1.7 mg/dL (1.6-2.3); Non-African American GFR(CKD) 43 (>60 ml/min/1.73 sqM); Potassium 4.3 mmol/L (3.5-5.1); Sodium 139 mmol/L (137-145); Total Protein 6.5 g/dL (6.3-8.2)
[2023-11-23 15:28] LABS: Lactic Acid, Venous 11.7 mmol/L (0.7-2.0)
[2023-11-23 15:29] LABS: NT-Pro-B-Type Natriuretic Pept 472 pg/mL
[2023-11-23 15:39] LABS: Glucose,Whole Blood 388 mg/dL (70-110)
[2023-11-23 16:55] LABS: Amorphous Sediment,Urine Rare /hpf; Appearance,Urine Clear (Clear); Bacteria,Urine Rare /hpf; Bilirubin,Urine Negative (Negative); Blood,Urine Negative (Negative); Color,Urine Colorless; Glucose,Urine (UA) 4+ (Negative); Leukocyte Esterase,Urine Negative (Negative); Mucus,Urine Rare /hpf; Nitrite,Urine Negative (Negative); PH, Urine 5.5 (5.0-8.0); Protein,Urine 1+ (Negative); RBC,Urine 1 /hpf (0-5); Specific Gravity,Urine 1.013 (1.001-1.035); Squamous Epithelial Cell,Urine <1 /hpf (0-4); Urobilinogen,Urine <2.0 mg/dL (<2.0); WBC,Urine 1 /hpf (0-5)
[2023-11-23 16:57] LABS: Ketones,Urine 2+ (Negative)
[2023-11-23 17:25] LABS: Glucose,Whole Blood 416 mg/dL (70-110)
[2023-11-23] MEDS ORDERED: NALOXONE 0.4 MG/ML 1 ML VIAL IV PRN (18:06)
[2023-11-23] MEDS ORDERED: MORPHINE SULFATE 4 MG/ML SYRINGE IV PRN (18:06)
[2023-11-23] MEDS: SODIUM CHLORIDE 0.9% 1,000 ML IV SCH (18:23)
[2023-11-23] MEDS: INSULIN REGULAR 100 UNIT in SODIUM CHLORIDE 0.9% 100 ML IV SCH (18:33)
[2023-11-23 18:37] LABS: Glucose,Whole Blood 461 mg/dL (70-110)
[2023-11-23 19:38] LABS: Glucose,Whole Blood 371 mg/dL (70-110)
[2023-11-23 20:53] LABS: Glucose,Whole Blood 296 mg/dL (70-110)
[2023-11-23 21:46] LABS: Glucose,Whole Blood 301 mg/dL (70-110)
[2023-11-23 22:32] LABS: African American GFR (CKD) 57 (>60 ml/min/1.73 sqM); Anion Gap 13 mmol/L; Blood Urea Nitrogen 21 mg/dL (7-17); Carbon Dioxide 15 mmol/L (22-30); Chloride 113 mmol/L (98-107); Glucose 265 mg/dL (74-99); Non-African American GFR(CKD) 49 (>60 ml/min/1.73 sqM); Phosphorus 2.3 mg/dL (2.5-4.5); Potassium 4.1 mmol/L (3.5-5.1); Sodium 141 mmol/L (137-145)
[2023-11-23 22:55] LABS: Glucose,Whole Blood 275 mg/dL (70-110)
[2023-11-23] MEDS: D5-0.45% NACL WITH KCL 20MEQ/L 1,000 ML IV SCH (23:08)
[2023-11-24 00:05] LABS: Glucose,Whole Blood 227 mg/dL (70-110)
[2023-11-24 01:21] LABS: Glucose,Whole Blood 226 mg/dL (70-110)
[2023-11-24 02:58] LABS: African American GFR (CKD) 58 (>60 ml/min/1.73 sqM); Anion Gap 9 mmol/L; Blood Urea Nitrogen 22 mg/dL (7-17); Carbon Dioxide 18 mmol/L (22-30); Chloride 113 mmol/L (98-107); Glucose 193 mg/dL (74-99); Non-African American GFR(CKD) 50 (>60 ml/min/1.73 sqM); Phosphorus 1.5 mg/dL (2.5-4.5); Potassium 3.9 mmol/L (3.5-5.1); Sodium 140 mmol/L (137-145)
[2023-11-24 03:19] LABS: Glucose,Whole Blood 165 mg/dL (70-110)
[2023-11-24 04:41] LABS: Glucose,Whole Blood 134 mg/dL (70-110)
[2023-11-24 05:42] LABS: Glucose,Whole Blood 114 mg/dL (70-110)
[2023-11-24 06:25] LABS: Glucose,Whole Blood 95 mg/dL (70-110)
[2023-11-24 06:53] LABS: Glucose,Whole Blood 92 mg/dL (70-110)
[2023-11-24 07:19] LABS: Glucose,Whole Blood 104 mg/dL (70-110)
[2023-11-24 08:24] LABS: Glucose,Whole Blood 116 mg/dL (70-110)
[2023-11-24] MEDS: INSULIN ASPART (NovoLOG) 100 UNIT/ML VIAL SQ SCH (08:25)
[2023-11-24] MEDS: METOPROLOL SUCCINATE (ER) 25 MG TAB.ER.24H PO SCH (08:26)
[2023-11-24] MEDS: CLOPIDOGREL 75 MG TAB PO SCH (08:26)
[2023-11-24] MEDS: APIXABAN 5 MG TAB PO SCH (08:26)
[2023-11-24] MEDS: DULoxetine HCL 20 MG CAPSULE.DR PO SCH (08:29)
[2023-11-24] MEDS: TACROLIMUS 1 MG CAP PO SCH ×2 (08:31→22:25)
[2023-11-24] MEDS: INSULIN DETEMIR (LEVEMIR) 100 UNIT/ML SYR SQ SCH (08:31)
[2023-11-24 08:42] LABS: ALT 36 U/L (4-34); AST 51 U/L (14-36); African American GFR (CKD) 61 (>60 ml/min/1.73 sqM); Alkaline Phosphatase 89 U/L (38-126); Anion Gap 5 mmol/L; Blood Urea Nitrogen 22 mg/dL (7-17); Calcium 8.9 mg/dL (8.4-10.2); Carbon Dioxide 19 mmol/L (22-30); Chloride 114 mmol/L (98-107); Glucose 111 mg/dL (74-99); Magnesium 1.5 mg/dL (1.6-2.3); Non-African American GFR(CKD) 53 (>60 ml/min/1.73 sqM); Phosphorus 1.9 mg/dL (2.5-4.5); Potassium 4.8 mmol/L (3.5-5.1); Sodium 138 mmol/L (137-145); Total Bilirubin 1.2 mg/dL (0.2-1.3); Total Protein 5.5 g/dL (6.3-8.2)
[2023-11-24 09:10] LABS: Basophils % (A) 0 %; Eosinophils % (A) 0 %; HCT 36.2 % (34.0-46.0); HGB 12.4 gm/dL (11.4-16.0); Lymphocytes # (A) 1.6 k/uL (1.0-4.8); Lymphocytes % (A) 9 %; MCH 31.8 pg (25.0-35.0); MCHC 34.2 g/dL (31.0-37.0); Mean Platelet Volume 10.9; Monocytes # (A) 0.9 k/uL (0-1.0); Monocytes % (A) 5 %; Neutrophils # (A) 16.1 k/uL (1.3-7.7); Neutrophils % (A) 86 %; Platelet Count 102 k/uL (150-450); RDW 12.9 % (11.5-15.5); WBC 18.8 k/uL (3.8-10.6)
[2023-11-24 09:11] LABS: MCV 92.9 fL (80.0-100.0)
[2023-11-24 09:23] LABS: Glucose,Whole Blood 115 mg/dL (70-110)
[2023-11-24 10:12] LABS: Glucose,Whole Blood 126 mg/dL (70-110)
[2023-11-24] MEDS ORDERED: Phosphorus Replacement Protoco 1 EACH MISC MISCELLANE PRN (11:02)
[2023-11-24 11:09] LABS: African American GFR (CKD) 66 (>60 ml/min/1.73 sqM); Anion Gap 9 mmol/L; Blood Urea Nitrogen 22 mg/dL (7-17); Calcium 9.1 mg/dL (8.4-10.2); Carbon Dioxide 17 mmol/L (22-30); Chloride 113 mmol/L (98-107); Glucose 115 mg/dL (74-99); Non-African American GFR(CKD) 57 (>60 ml/min/1.73 sqM); Sodium 139 mmol/L (137-145)
[2023-11-24 11:10] LABS: Potassium 4.7 mmol/L (3.5-5.1)
[2023-11-24 11:18] LABS: Glucose,Whole Blood 116 mg/dL (70-110)
--- NOTE | 2023-11-24 11:22 | P.NPCON ---
History of Present Illness - Reason for Consult chronic renal failure - History of Present Illness Reason for consultation: Chronic kidney disease and renal transplant management History of present illness: Patient is a 63-year-old female seen in new consultation for chronic kidney disease and renal transplant management. Patient has history of chronic kidney disease stage IIIa with baseline creatinine 1.1-1.3. Patient received living related kidney transplant in 2001 at [facility]. Patient has type 1 diabetes. According to the brother, her sister was not receiving notifications from her insulin pump application and was concerned. There was concern for insulin pump malfunction. Patient did not answer her phone and subsequently wellness check was called who then brought the patient to the hospital. Patient admits to nausea and vomiting. Patient's blood glucose was above 400 on a dmission. She was noted to have ketones on urine. Patient received normal saline boluses and then was started on normal saline at 200 cc an hour. She is now on half-normal saline. Blood glucose from 10 AM was 126. She denies use of nonsteroidals. Denies chest pain or shortness of breath. No edema. She does have coronary disease with stents. Denies hematuria or dysuria. Brother present at bedside. Vital signs are stable. General: No acute distress. HEENT: Head exam is unremarkable. LUNGS: No audible rhonchi or wheezes. HEART: Rate and Rhythm are regular. ABDOMEN: Nontender. EXTREMITITES: No edema. Past Medical History Past Medical History: Blood Disorder, Coronary Artery Disease (CAD), Cancer, CVA/TIA, Diabetes Mellitus, Dialysis, GERD/Reflux, Hyperlipidemia, Hypertension, Myocardial Infarction (non Q-wave), Osteoarthritis (OA), Pneumonia, Pulmonary Embolus (PE), Renal Disease, Sleep Apnea/CPAP/BIPAP, Thyroid Disorder Additional Past Medical History / Comment(s): Leiden Factor V, basal cell carcinoma, Vulvar cancer, CVA 2016, CVA 2013, CVA 2017 est - sl weakness Lt side, Dialysis 2001 for 2 months, enlarged thyroid w/ nodules. PE 2011, Kidney transplant 2001. No tx for sleep apnea. Neuropathy in feet/legs. Last Myocardial Infarction Date:: 2014 History of Any Multi-Drug Resistant Organisms: None Reported Past Surgical History: Bariatric Surgery, Section, Cholecystectomy, Heart Catheterization, Heart Catheterization With Stent, Tonsillectomy, Tubal Ligation Additional Past Surgical History / Comment(s): jose oophrectomy, kidney transplant, surgery to remove CA. PTCA w/ Stent 2001, 2014. Colonoscopy, EGD.Gastric Sleeve 05/04/20. Past Anesthesia/Blood Transfusion Reactions: No Reported Reaction, Motion Sickness Additional Past Anesthesia/Blood Transfusion Reaction / Comment(s): no hx blood transfusion Date of Last Stent Placement:: 2014 Past Psychological History: Depression Smoking Status: Never smoker Past Alcohol Use History: None Reported Past Drug Use History: None Reported - Past Family History Sister(s) Family Medical History: Hypertension Father Family Medical History: Myocardial Infarction ([place]) Mother Family Medical History: Pulmonary Embolus Additional Family Medical History / Comment(s): Occluded carotid artery, carotid endartectomy Son(s) Family Medical History: Diabetes Mellitus Additional Family Medical History / Comment(s): DM type 1 Medications and Allergies Home Medications Medication Instructions Recorded Confirmed Type mycophenolate mofetiL [Cellcept] 500 mg PO BID 12/12/14 11/23/23 History Tacrolimus [Prograf] 2 mg PO DAILY 06/06/16 11/23/23 History DULoxetine HCL [Cymbalta] 20 mg PO DAILY 11/10/18 11/23/23 History Apixaban [Eliquis] 5 mg PO BID 11/04/19 11/23/23 History Clopidogrel [Plavix] 75 mg PO DAILY 11/04/19 11/23/23 History Atorvastatin [Lipitor] 80 mg PO HS 09/10/21 11/23/23 History Metoclopramide [Reglan] 5 mg PO DAILY 09/10/21 11/23/23 History Metoprolol Succinate (ER) [Toprol 25 mg PO DAILY 09/10/21 11/23/23 History XL] calcitrioL 0.5 mcg PO DAILY 09/10/21 11/23/23 History INSULIN LISPRO (For Pump) [humaLOG 0.01 units SQ-PUMP CONTINUOUS 09/13/21 11/23/23 History (For Pump)] Gabapentin [Neurontin] 300 mg PO HS 06/20/22 11/23/23 History Omeprazole [PriLOSEC] 20 mg PO DAILY 04/12/23 11/23/23 History Tacrolimus [Prograf] 1 mg PO HS 04/12/23 11/23/23 History Allergies Allergy/AdvReac Type Severity Reaction Status Date / Time Milk Containing Products Allergy Diarrhea Verified 11/23/23 16:12 (Dairy) [Dairy] Penicillins Allergy Rash/Hives Verified 11/23/23 16:12 trandolapril [From Tarka] Allergy SEVERE Verified 11/23/23 16:12 HYPOTENSION verapamil HCl [From Tarka] Allergy SEVERE Verified 11/23/23 16:12 HYPOTENSION Physical Exam Vitals: Vital Signs Temp Pulse Resp BP Pulse Ox 11/24/23 08:00 103 H 18 176/91 99 11/24/23 04:00 102 H 13 151/77 95 11/24/23 01:00 109 H 18 130/61 99 11/23/23 23:00 122 H 22 144/81 99 11/23/23 18:11 128 H 24 149/77 100 11/23/23 17:03 128 H 130 H 152/63 99 11/23/23 16:43 122 H 20 172/81 100 11/23/23 14:20 96.9 F L 115 H 18 189/111 100 Intake and Output 11/23/23 11/24/23 11/24/23 22:59 06:59 14:59 Intake Total 23.252 45.595 22.174 Output Total 500 Balance -476.748 45.595 22.174 Intake: Intake, IV Titration 23.252 45.595 22.174 Amount Insulin Regular 100 unit 23.252 45.595 22.174 In Sodium Chloride 0.9% 100 ml @ 0.1 UNITS/KG/HR 5.039 mls/hr IV .Q20H3M [facility] Rx#:[id number] Output: Urine 500 Results - Lab Results Most recent lab results Calcium 9.1 mg/dL (8.4-10.2) 11/24/23 10:25 Phosphorus 1.9 mg/dL (2.5-4.5) L 11/24/23 07:46 Magnesium 1.5 mg/dL (1.6-2.3) L 11/24/23 07:46 11/24/23 07:46 11/24/23 10:25 Assessment and Plan Plan: Assessment: 1. Status post living related kidney transplant in 2001 secondary to diabetic kidney disease. 2. Chronic kidney disease stage IIIa with baseline creatinine 1.1-1.3. 3. DKA maintained on IV fluids. Status post insulin drip. Concern for malfunctioning insulin pump. 4. Anion gap metabolic acidosis secondary to DKA and lactic acidosis. 5. Chronic kidney disease mineral bone disease maintained on calcitriol. 6. Coronary artery disease with cardiac stents. 7. Hypomagnesemia from poor intake. 8. Hypophosphatemia from poor intake. Plan: Maintain half-normal saline. Replace phosphorus and magnesium. Encouraged oral intake. Maintain CellCept and Prograf. Check Prograf level. Continue to monitor renal function and urine output. Thank you for the consultation. I will continue to follow the patient with you during her hospital stay.
[2023-11-24] MEDS: SODIUM PHOSPHATE 60 MMOL in DEXTROSE 5% IN WATER 250 ML IVPB ONE (12:24)
[2023-11-24] MEDS: DEXTROSE 5%-0.45% NACL 1,000 ML IV SCH (12:33)
[2023-11-24] MEDS: MAGNESIUM SULFATE-D5W PMX 1 GM in DEXTROSE/WATER 1 100ML.BAG IVPB SCH (12:35)
[2023-11-24 12:43] LABS: Glucose,Whole Blood 81 mg/dL (70-110)
[2023-11-24 14:17] LABS: Glucose,Whole Blood 118 mg/dL (70-110)
--- NOTE | 2023-11-24 15:31 | P.HPIM ---
History of Present Illness H&P Date: 11/24/23 Chief Complaint: Hypoglycemia 63-year-old female, history of hypertension, hyperlipidemia, diabetes mellitus, CAD, CVA/TIA, pulmonary embolism, end-stage renal disease, patient is status post renal transplant who initially presented for low blood sugar and altered mental status blood sugar readings from family were noted to be low unsure of the appetite., Patient comes to the ER today for evaluation in regards to low blood sugar and altered mental status which was found on EMS arrival to the patient's house. Patient does appear to be significantly confused and presents confused here in the emergency department Blood work completed in ED reveals a WBC of 19.4, hemoglobin of 14.2 and platelet count of 118, sodium 139, potassium 4.3, BUN/creatinine of 19/1.35 and blood glucose of 423 with CO2 of 12, lactic acid of 11.7, ammonia level of less than 9 EKG is sinus tachycardia 116 DC 151 QRS 91 QTc 399 Patient is admitted for further treatment of DKA Review of Systems REVIEW OF SYSTEMS: CONSTITUTIONAL: No fever, no malaise, no fatigue. HEENT: No recent visual problems or hearing problems. Denied any sore throat. CARDIOVASCULAR: No chest pain, orthopnea, PND, no palpitations, no syncope. PULMONARY: No shortness of breath, no cough, no hemoptysis. GASTROINTESTINAL: No diarrhea, no nausea, no vomiting, no abdominal pain. NEUROLOGICAL: No headaches, no weakness, no numbness. HEMATOLOGICAL: Denies any bleeding or petechiae. GENITOURINARY: Denies any burning micturition, frequency, or urgency. MUSCULOSKELETAL/RHEUMATOLOGICAL: Denies any joint pain, swelling, or any muscle pain. ENDOCRINE: Denies any polyuria or polydipsia. The rest of the 14-point review of systems is negative. Past Medical History Past Medical History: Blood Disorder, Coronary Artery Disease (CAD), Cancer, CVA/TIA, Diabetes Mellitus, Dialysis, GERD/Reflux, Hyperlipidemia, Hypertension, Myocardial Infarction (non Q-wave), Osteoarthritis (OA), Pneumonia, Pulmonary Embolus (PE), Renal Disease, Sleep Apnea/CPAP/BIPAP, Thyroid Disorder Additional Past Medical History / Comment(s): Leiden Factor V, basal cell carcinoma, Vulvar cancer, CVA 2016, CVA 2013, CVA 2016 est - sl weakness Lt side, Dialysis 2001 for 2 months, enlarged thyroid w/ nodules. PE 2011, Kidney transplant 2001. No tx for sleep apnea. Neuropathy in feet/legs. Last Myocardial Infarction Date:: 2014 History of Any Multi-Drug Resistant Organisms: None Reported Past Surgical History: Bariatric Surgery, Section, Cholecystectomy, Heart Catheterization, Heart Catheterization With Stent, Tonsillectomy, Tubal Ligation Additional Past Surgical History / Comment(s): jose oophrectomy, kidney transplant, surgery to remove CA. PTCA w/ Stent 2001, 2014. Colonoscopy, EGD.Gastric Sleeve 05/04/20. Past Anesthesia/Blood Transfusion Reactions: No Reported Reaction, Motion Sickness Additional Past Anesthesia/Blood Transfusion Reaction / Comment(s): no hx blood transfusion Date of Last Stent Placement:: 2014 Past Psychological History: Depression Smoking Status: Never smoker Past Alcohol Use History: None Reported Past Drug Use History: None Reported - Past Family History Sister(s) Family Medical History: Hypertension Father Family Medical History: Myocardial Infarction ([place]) Mother Family Medical History: Pulmonary Embolus Additional Family Medical History / Comment(s): Occluded carotid artery, carotid endartectomy Son(s) Family Medical History: Diabetes Mellitus Additional Family Medical History / Comment(s): DM type 1 Medications and Allergies Home Medications Medication Instructions Recorded Confirmed Type mycophenolate mofetiL [Cellcept] 500 mg PO BID 12/12/14 11/23/23 History Tacrolimus [Prograf] 2 mg PO DAILY 06/06/16 11/23/23 History DULoxetine HCL [Cymbalta] 20 mg PO DAILY 11/10/18 11/23/23 History Apixaban [Eliquis] 5 mg PO BID 11/04/19 11/23/23 History Clopidogrel [Plavix] 75 mg PO DAILY 11/04/19 11/23/23 History Atorvastatin [Lipitor] 80 mg PO HS 09/10/21 11/23/23 History Metoclopramide [Reglan] 5 mg PO DAILY 09/10/21 11/23/23 History Metoprolol Succinate (ER) [Toprol 25 mg PO DAILY 09/10/21 11/23/23 History XL] calcitrioL 0.5 mcg PO DAILY 09/10/21 11/23/23 History INSULIN LISPRO (For Pump) [humaLOG 0.01 units SQ-PUMP CONTINUOUS 09/13/21 11/23/23 History (For Pump)] Gabapentin [Neurontin] 300 mg PO HS 06/20/22 11/23/23 History Omeprazole [PriLOSEC] 20 mg PO DAILY 04/12/23 11/23/23 History Tacrolimus [Prograf] 1 mg PO HS 04/12/23 11/23/23 History Allergies Allergy/AdvReac Type Severity Reaction Status Date / Time Milk Containing Products Allergy Diarrhea Verified 11/23/23 16:12 (Dairy) [Dairy] Penicillins Allergy Rash/Hives Verified 11/23/23 16:12 trandolapril [From Tarka] Allergy SEVERE Verified 11/23/23 16:12 HYPOTENSION verapamil HCl [From Tarka] Allergy SEVERE Verified 11/23/23 16:12 HYPOTENSION Physical Exam Vitals: Vital Signs Temp Pulse Resp BP Pulse Ox 11/24/23 08:00 103 H 18 176/91 99 11/24/23 04:00 102 H 13 151/77 95 11/24/23 01:00 109 H 18 130/61 99 11/23/23 23:00 122 H 22 144/81 99 11/23/23 18:11 128 H 24 149/77 100 11/23/23 17:03 128 H 130 H 152/63 99 11/23/23 16:43 122 H 20 172/81 100 11/23/23 14:20 96.9 F L 115 H 18 189/111 100 Intake and Output 11/23/23 11/24/23 11/24/23 22:59 06:59 14:59 Intake Total 23.252 45.595 22.174 Output Total 500 Balance -476.748 45.595 22.174 Intake: Intake, IV Titration 23.252 45.595 22.174 Amount Insulin Regular 100 unit 23.252 45.595 22.174 In Sodium Chloride 0.9% 100 ml @ 0.1 UNITS/KG/HR 5.039 mls/hr IV .Q20H3M [facility] Rx#:[id number] Output: Urine 500 General appearance: alert, anxious, in distress Head exam: Present: atraumatic, normocephalic, normal inspection Eye exam: Present: normal appearance, PERRL, EOMI. Absent: scleral icterus, conjunctival injection, periorbital swelling Neck exam: Present: normal inspection. Absent: tenderness, meningismus, lymphadenopathy Respiratory exam: Present: normal lung sounds bilaterally. Absent: respiratory distress, wheezes, rales, rhonchi, stridor Cardiovascular Exam: Present: regular rate, normal rhythm, normal heart sounds. Absent: systolic murmur, diastolic murmur, rubs, gallop, clicks GI/Abdominal exam: Present: soft, normal bowel sounds. Absent: distended, tenderness, guarding, rebound, rigid Extremities exam: Present: normal inspection, full ROM, normal capillary refill. Absent: tenderness, pedal edema, joint swelling, calf tenderness Neurological exam: Present: alert, oriented X3, CN II-XII intact Skin exam: Present: warm, dry, intact, normal color. Absent: rash Results CBC & Chem 7: 11/24/23 07:46 11/24/23 10:25 Labs: Abnormal Lab Results - Last 24 Hours (Table) 11/23/23 11/23/23 11/23/23 Range/Units 14:20 14:54 14:54 WBC 19.4 H (3.8-10.6) k/uL Plt Count 118 L (150-450) k/uL Neutrophils # 17.0 H (1.3-7.7) k/uL Monocytes # 1.2 H (0-1.0) k/uL APTT 20.0 L (22.0-30.0) sec Chloride (98-107) mmol/L Carbon Dioxide (22-30) mmol/L BUN (7-17) mg/dL Creatinine (0.52-1.04) mg/dL Glucose (74-99) mg/dL POC Glucose (mg/dL) 369 H (70-110) mg/dL Plasma Lactic Acid Abel (0.7-2.0) mmol/L Phosphorus (2.5-4.5) mg/dL Magnesium (1.6-2.3) mg/dL Total Bilirubin (0.2-1.3) mg/dL AST (14-36) U/L ALT (4-34) U/L Total Protein (6.3-8.2) g/dL Albumin (3.5-5.0) g/dL Urine Protein (Negative) Urine Glucose (UA) (Negative) Urine Ketones (Negative) Amorphous Sediment (None) /hpf Urine Bacteria (None) /hpf Urine Mucus (None) /hpf 0211/23/23 11/23/23 Range/Units 14:54 14:54 14:54 WBC (3.8-10.6) k/uL Plt Count (150-450) k/uL Neutrophils # (1.3-7.7) k/uL Monocytes # (0-1.0) k/uL APTT (22.0-30.0) sec Chloride (98-107) mmol/L Carbon Dioxide 12 L (22-30) mmol/L BUN 19 H (7-17) mg/dL Creatinine 1.35 H (0.52-1.04) mg/dL Glucose 423 H (74-99) mg/dL POC Glucose (mg/dL) (70-110) mg/dL Plasma Lactic Acid Abel 11.7 H* (0.7-2.0) mmol/L Phosphorus 6.0 H (2.5-4.5) mg/dL Magnesium (1.6-2.3) mg/dL Total Bilirubin 2.0 H (0.2-1.3) mg/dL AST 52 H (14-36) U/L ALT 63 H (4-34) U/L Total Protein (6.3-8.2) g/dL Albumin (3.5-5.0) g/dL Urine Protein 1+ H (Negative) Urine Glucose (UA) 4+ H (Negative) Urine Ketones 2+ H (Negative) Amorphous Sediment Rare H (None) /hpf Urine Bacteria Rare H (None) /hpf Urine Mucus Rare H (None) /hpf 11/23/23 11/23/23 11/23/23 Range/Units 15:37 17:23 18:36 WBC (3.8-10.6) k/uL Plt Count (150-450) k/uL Neutrophils # (1.3-7.7) k/uL Monocytes # (0-1.0) k/uL APTT (22.0-30.0) sec Chloride (98-107) mmol/L Carbon Dioxide (22-30) mmol/L BUN (7-17) mg/dL Creatinine (0.52-1.04) mg/dL Glucose (74-99) mg/dL POC Glucose (mg/dL) 388 H 416 H 461 H (70-110) mg/dL Plasma Lactic Acid Abel (0.7-2.0) mmol/L Phosphorus (2.5-4.5) mg/dL Magnesium (1.6-2.3) mg/dL Total Bilirubin (0.2-1.3) mg/dL AST (14-36) U/L ALT (4-34) U/L Total Protein (6.3-8.2) g/dL Albumin (3.5-5.0) g/dL Urine Protein (Negative) Urine Glucose (UA) (Negative) Urine Ketones (Negative) Amorphous Sediment (None) /hpf Urine Bacteria (None) /hpf Urine Mucus (None) /hpf 11/23/23 11/23/23 11/23/23 Range/Units 19:36 20:51 21:45 WBC (3.8-10.6) k/uL Plt Count (150-450) k/uL Neutrophils # (1.3-7.7) k/uL Monocytes # (0-1.0) k/uL APTT (22.0-30.0) sec Chloride (98-107) mmol/L Carbon Dioxide (22-30) mmol/L BUN (7-17) mg/dL Creatinine (0.52-1.04) mg/dL Glucose (74-99) mg/dL POC Glucose (mg/dL) 371 H 296 H 301 H (70-110) mg/dL Plasma Lactic Acid Abel (0.7-2.0) mmol/L Phosphorus (2.5-4.5) mg/dL Magnesium (1.6-2.3) mg/dL Total Bilirubin (0.2-1.3) mg/dL AST (14-36) U/L ALT (4-34) U/L Total Protein (6.3-8.2) g/dL Albumin (3.5-5.0) g/dL Urine Protein (Negative) Urine Glucose (UA) (Negative) Urine Ketones (Negative) Amorphous Sediment (None) /hpf Urine Bacteria (None) /hpf Urine Mucus (None) /hpf 11/23/23 11/23/23 11/23/23 Range/Units 22:11 22:11 22:50 WBC (3.8-10.6) k/uL Plt Count (150-450) k/uL Neutrophils # (1.3-7.7) k/uL Monocytes # (0-1.0) k/uL APTT (22.0-30.0) sec Chloride 113 H (98-107) mmol/L Carbon Dioxide 15 L (22-30) mmol/L BUN 21 H (7-17) mg/dL Creatinine 1.20 H (0.52-1.04) mg/dL Glucose 265 H (74-99) mg/dL POC Glucose (mg/dL) 275 H (70-110) mg/dL Plasma Lactic Acid Abel 7.9 H* (0.7-2.0) mmol/L Phosphorus 2.3 L (2.5-4.5) mg/dL Magnesium (1.6-2.3) mg/dL Total Bilirubin (0.2-1.3) mg/dL AST (14-36) U/L ALT (4-34) U/L Total Protein (6.3-8.2) g/dL Albumin (3.5-5.0) g/dL Urine Protein (Negative) Urine Glucose (UA) (Negative) Urine Ketones (Negative) Amorphous Sediment (None) /hpf Urine Bacteria (None) /hpf Urine Mucus (None) /hpf 11/24/23 11/24/23 11/24/23 Range/Units 00:04 01:19 01:57 WBC (3.8-10.6) k/uL Plt Count (150-450) k/uL Neutrophils # (1.3-7.7) k/uL Monocytes # (0-1.0) k/uL APTT (22.0-30.0) sec Chloride 113 H (98-107) mmol/L Carbon Dioxide 18 L (22-30) mmol/L BUN 22 H (7-17) mg/dL Creatinine 1.17 H (0.52-1.04) mg/dL Glucose 193 H (74-99) mg/dL POC Glucose (mg/dL) 227 H 226 H (70-110) mg/dL Plasma Lactic Acid Abel (0.7-2.0) mmol/L Phosphorus 1.5 L (2.5-4.5) mg/dL Magnesium (1.6-2.3) mg/dL Total Bilirubin (0.2-1.3) mg/dL AST (14-36) U/L ALT (4-34) U/L Total Protein (6.3-8.2) g/dL Albumin (3.5-5.0) g/dL Urine Protein (Negative) Urine Glucose (UA) (Negative) Urine Ketones (Negative) Amorphous Sediment (None) /hpf Urine Bacteria (None) /hpf Urine Mucus (None) /hpf 11/24/23 11/24/23 11/24/23 Range/Units 01:57 03:15 04:38 WBC (3.8-10.6) k/uL Plt Count (150-450) k/uL Neutrophils # (1.3-7.7) k/uL Monocytes # (0-1.0) k/uL APTT (22.0-30.0) sec Chloride (98-107) mmol/L Carbon Dioxide (22-30) mmol/L BUN (7-17) mg/dL Creatinine (0.52-1.04) mg/dL Glucose (74-99) mg/dL POC Glucose (mg/dL) 165 H 134 H (70-110) mg/dL Plasma Lactic Acid Abel 3.5 H* (0.7-2.0) mmol/L Phosphorus (2.5-4.5) mg/dL Magnesium (1.6-2.3) mg/dL Total Bilirubin (0.2-1.3) mg/dL AST (14-36) U/L ALT (4-34) U/L Total Protein (6.3-8.2) g/dL Albumin (3.5-5.0) g/dL Urine Protein (Negative) Urine Glucose (UA) (Negative) Urine Ketones (Negative) Amorphous Sediment (None) /hpf Urine Bacteria (None) /hpf Urine Mucus (None) /hpf 11/24/23 11/24/23 11/24/23 Range/Units 05:37 07:46 07:46 WBC 18.8 H (3.8-10.6) k/uL Plt Count 102 L (150-450) k/uL Neutrophils # 16.1 H (1.3-7.7) k/uL Monocytes # (0-1.0) k/uL APTT (22.0-30.0) sec Chloride 114 H (98-107) mmol/L Carbon Dioxide 19 L (22-30) mmol/L BUN 22 H (7-17) mg/dL Creatinine 1.13 H (0.52-1.04) mg/dL Glucose 111 H (74-99) mg/dL POC Glucose (mg/dL) 114 H (70-110) mg/dL Plasma Lactic Acid Abel (0.7-2.0) mmol/L Phosphorus 1.9 L (2.5-4.5) mg/dL Magnesium 1.5 L (1.6-2.3) mg/dL Total Bilirubin (0.2-1.3) mg/dL AST 51 H (14-36) U/L ALT 36 H (4-34) U/L Total Protein 5.5 L (6.3-8.2) g/dL Albumin 3.0 L (3.5-5.0) g/dL Urine Protein (Negative) Urine Glucose (UA) (Negative) Urine Ketones (Negative) Amorphous Sediment (None) /hpf Urine Bacteria (None) /hpf Urine Mucus (None) /hpf 11/24/23 11/24/23 Range/Units 08:23 09:22 WBC (3.8-10.6) k/uL Plt Count (150-450) k/uL Neutrophils # (1.3-7.7) k/uL Monocytes # (0-1.0) k/uL APTT (22.0-30.0) sec Chloride (98-107) mmol/L Carbon Dioxide (22-30) mmol/L BUN (7-17) mg/dL Creatinine (0.52-1.04) mg/dL Glucose (74-99) mg/dL POC Glucose (mg/dL) 116 H 115 H (70-110) mg/dL Plasma Lactic Acid Abel (0.7-2.0) mmol/L Phosphorus (2.5-4.5) mg/dL Magnesium (1.6-2.3) mg/dL Total Bilirubin (0.2-1.3) mg/dL AST (14-36) U/L ALT (4-34) U/L Total Protein (6.3-8.2) g/dL Albumin (3.5-5.0) g/dL Urine Protein (Negative) Urine Glucose (UA) (Negative) Urine Ketones (Negative) Amorphous Sediment (None) /hpf Urine Bacteria (None) /hpf Urine Mucus (None) /hpf Assessment and Plan Assessment: 1. Acute DKA --Patient initially presented to the ER with complaints of altered mental status and hypoglycemia -- Blood glucose is fine to be markedly elevated with bicarb of 12 -- Patient is placed on IV insulin infusion and IV fluids in form of normal saline at a rate of 50 cc an hour -Accu-Cheks to be monitored for protocol -- We will plan to transition to subcu Levemir and sliding scale once anion gap closes and CO2 is improved 2. Altered mental status; likely metabolic encephalopathy related to DKA --patient is currently awake and alert 3. Chronic kidney disease stage IIIa with baseline creatinine 1.1-1.3; nephrology on board --Status post living related kidney transplant in 2001 secondary to diabetic kidney disease. Maintain CellCept and Prograf. Check Prograf level. Continue to monitor renal function and urine output. 4. Anion gap metabolic acidosis secondary to DKA and lactic acidosis. 5. Hypertension; metoprolol 25 mg daily 6. Hyperlipidemia; Lipitor 80 mg nightly 7. Coronary artery disease with stent placement; patient remains stable on metoprolol, statins and Plavix 8. History of PE; patient takes Eliquis 5 mg twice daily DVT prophylaxis SCDs CODE STATUS; full code
[2023-11-24 17:11] LABS: Glucose,Whole Blood 133 mg/dL (70-110)
[2023-11-24 20:04] LABS: Glucose,Whole Blood 113 mg/dL (70-110)
[2023-11-24] MEDS: hydrALAZINE HCL 20 MG/ML 1 ML VIAL IVP PRN (21:23)
[2023-11-24] MEDS: ATORVASTATIN 80 MG TAB PO SCH (21:25)
[2023-11-24] MEDS: GABAPENTIN 300 MG CAP PO SCH (21:25)
[2023-11-25 07:11] LABS: Glucose,Whole Blood 464 mg/dL (70-110)
[2023-11-25] MEDS: PANTOPRAZOLE 40 MG TABLET PO SCH (07:22)
[2023-11-25] MEDS: METOCLOPRAMIDE 5 MG TAB PO SCH (07:24)
[2023-11-25] MEDS: ONDANSETRON 4 MG/2 ML VIAL IVP PRN (07:26)
[2023-11-25 08:56] LABS: Glucose,Whole Blood 458 mg/dL (70-110)
[2023-11-25] MEDS: SODIUM CHLORIDE 0.45% 1,000 ML IV SCH (09:20)
[2023-11-25] MEDS: INSULIN ASPART (NovoLOG) 100 UNIT/ML VIAL SQ ONE (09:20)
[2023-11-25 09:52] LABS: Basophils # (A) 0.01 X 10*3/uL (0.00-0.10); Basophils % (A) 0.1 %; Eosinophils # (A) 0 X 10*3/uL (0.04-0.35); Eosinophils % (A) 0 %; HCT 37.9 % (37.2-46.3); HGB 12.3 g/dL (12.0-15.0); Lymphocytes # (A) 0.75 X 10*3/uL (0.90-5.00); Lymphocytes % (A) 4.7 %; MCH 29.8 pg (27.0-32.0); MCHC 32.5 g/dL (32.0-37.0); MCV 91.8 FL (80.0-97.0); Mean Platelet Volume 12.6 FL (9.5-12.2); Monocytes # (A) 0.64 X 10*3/uL (0.20-1.00); NRBC Per 100 WBC 0 X 10*3/uL (0.00-0.01); Neutrophils % (A) 90.6 %; Platelet Count 102 X 10*3/uL (140-440); RBC 4.13 X 10*6/uL (4.10-5.20)
[2023-11-25 10:15] LABS: Glucose,Whole Blood 405 mg/dL (70-110)
[2023-11-25 10:37] LABS: Magnesium 1.9 mg/dL (1.5-2.4); Phosphorus 3.9 mg/dL (2.4-5.1)
[2023-11-25 11:19] LABS: Glucose,Whole Blood 334 mg/dL (70-110)
[2023-11-25 11:25] LABS: BUN/Creat Ratio 15.55 Ratio (12.00-20.00); Blood Urea Nitrogen 17.1 mg/dL (9.0-27.0); Calcium 8.5 mg/dL (8.7-10.3); Carbon Dioxide 17.3 mmol/L (21.6-31.8); Chloride 102 mmol/L (96-109); Glucose 552 mg/dL (70-110); Potassium 4.4 mmol/L (3.5-5.5); Sodium 136 mmol/L (135-145)
[2023-11-25 12:03] LABS: Glucose,Whole Blood 314 mg/dL (70-110)
[2023-11-25] MEDS ORDERED: INSULIN ASPART (NovoLOG) 100 UNIT/ML VIAL SQ SCH (12:30)
[2023-11-25] MEDS: INSULIN DETEMIR (LEVEMIR) 100 UNIT/ML SYR SQ ONE (12:39)
[2023-11-25] MEDS: INSULIN ASPART (NovoLOG) 100 UNIT/ML VIAL SQ SCH (12:39)
--- NOTE | 2023-11-25 16:50 | P.PN ---
Subjective Progress Note Date: 11/25/23 63-year-old female, history of hypertension, hyperlipidemia, diabetes mellitus, CAD, CVA/TIA, pulmonary embolism, end-stage renal disease, patient is status post renal transplant who initially presented for low blood sugar and altered mental status blood sugar readings from family were noted to be low unsure of the appetite., Patient comes to the ER today for evaluation in regards to low blood sugar and altered mental status which was found on EMS arrival to the patient's house. Patient does appear to be significantly confused and presents confused here in the emergency department Blood work completed in ED reveals a WBC of 19.4, hemoglobin of 14.2 and platelet count of 118, sodium 139, potassium 4.3, BUN/creatinine of 19/1.35 and blood glucose of 423 with CO2 of 12, lactic acid of 11.7, ammonia level of less than 9 EKG is sinus tachycardia 116 OH 151 QRS 91 QTc 399 Patient is admitted for further treatment of DKA Objective - Vital Signs Vital signs: Vital Signs Temp 98.2 F 11/25/23 07:11 Pulse 120 H 11/25/23 08:57 Resp 18 11/25/23 07:11 BP 177/87 11/25/23 08:57 Pulse Ox 96 11/25/23 07:11 FiO2 Intake & Output 11/24/23 11/25/23 11/25/23 18:59 06:59 18:59 Intake Total 22.174 Output Total 1200 Balance 22.174 -1200 Weight 54.5 kg 54.5 kg Intake: Intake, IV Titration 22.174 Amount Insulin Regular 100 unit 22.174 In Sodium Chloride 0.9% 100 ml @ 0.1 UNITS/KG/HR 5.039 mls/hr IV .Q20H3M [facility] Rx#:[id number] Output: Urine 1200 Other: Voiding Method External Catheter External Catheter # Voids 1 1 # Bowel Movements 1 - Exam General appearance: alert, anxious, in distress Head exam: Present: atraumatic, normocephalic, normal inspection Eye exam: Present: normal appearance, PERRL, EOMI. Absent: scleral icterus, conjunctival injection, periorbital swelling Neck exam: Present: normal inspection. Absent: tenderness, meningismus, lymphadenopathy Respiratory exam: Present: normal lung sounds bilaterally. Absent: respiratory distress, wheezes, rales, rhonchi, stridor Cardiovascular Exam: Present: regular rate, normal rhythm, normal heart sounds. Absent: systolic murmur, diastolic murmur, rubs, gallop, clicks GI/Abdominal exam: Present: soft, normal bowel sounds. Absent: distended, tenderness, guarding, rebound, rigid Extremities exam: Present: normal inspection, full ROM, normal capillary refill. Absent: tenderness, pedal edema, joint swelling, calf tenderness Neurological exam: Present: alert, oriented X3, CN II-XII intact Skin exam: Present: warm, dry, intact, normal color. Absent: rash - Labs CBC & Chem 7: 11/25/23 06:37 11/25/23 06:37 Labs: Abnormal Lab Results - Last 24 Hours (Table) 11/24/23 11/24/23 11/24/23 Range/Units 14:16 17:09 20:03 WBC (4.50-10.00) X 10*3/uL Plt Count (140-440) X 10*3/uL MPV (9.5-12.2) FL Immature Gran # (0.00-0.04) X 10*3/uL Neutrophils # (1.80-7.70) X 10*3/uL Lymphocytes # (0.90-5.00) X 10*3/uL Eosinophils # (0.04-0.35) X 10*3/uL POC Glucose (mg/dL) 118 H 133 H 113 H (70-110) mg/dL 11/25/23 11/25/23 11/25/23 Range/Units 06:37 07:09 08:55 WBC 16.10 H (4.50-10.00) X 10*3/uL Plt Count 102 L (140-440) X 10*3/uL MPV 12.6 H (9.5-12.2) FL Immature Gran # 0.10 H (0.00-0.04) X 10*3/uL Neutrophils # 14.60 H (1.80-7.70) X 10*3/uL Lymphocytes # 0.75 L (0.90-5.00) X 10*3/uL Eosinophils # 0 L (0.04-0.35) X 10*3/uL POC Glucose (mg/dL) 464 H 458 H (70-110) mg/dL 11/25/23 11/25/23 Range/Units 10:13 11:17 WBC (4.50-10.00) X 10*3/uL Plt Count (140-440) X 10*3/uL MPV (9.5-12.2) FL Immature Gran # (0.00-0.04) X 10*3/uL Neutrophils # (1.80-7.70) X 10*3/uL Lymphocytes # (0.90-5.00) X 10*3/uL Eosinophils # (0.04-0.35) X 10*3/uL POC Glucose (mg/dL) 405 H 334 H (70-110) mg/dL Assessment and Plan Assessment: 1. Acute DKA --Patient initially presented to the ER with complaints of altered mental status and hypoglycemia -- Blood glucose is fine to be markedly elevated with bicarb of 12 -- Patient is placed on IV insulin infusion and IV fluids in form of normal saline at a rate of 50 cc an hour -Accu-Cheks to be monitored for protocol -- We will plan to transition to subcu Levemir and sliding scale once anion gap closes and CO2 is improved 2. Altered mental status; likely metabolic encephalopathy related to DKA --patient is currently awake and alert 3. Chronic kidney disease stage IIIa with baseline creatinine 1.1-1.3; nephrology on board --Status post living related kidney transplant in 2001 secondary to diabetic kidney disease. Maintain CellCept and Prograf. Check Prograf level. Continue to monitor renal function and urine output. 4. Anion gap metabolic acidosis secondary to DKA and lactic acidosis. 5. Hypertension; metoprolol 25 mg daily 6. Hyperlipidemia; Lipitor 80 mg nightly 7. Coronary artery disease with stent placement; patient remains stable on metoprolol, statins and Plavix 8. History of PE; patient takes Eliquis 5 mg twice daily DVT prophylaxis SCDs CODE STATUS; full code
[2023-11-25 17:10] LABS: Glucose,Whole Blood 149 mg/dL (70-110)
--- NOTE | 2023-11-25 19:44 | P.PN ---
Subjective Patient is seen for follow-up for acute kidney injury. Blood sugars remain on the higher side. Off of insulin drip Serum creatinine improved to 1.1 No significant complaints today. Objective - Vital Signs Vital signs: Vital Signs Temp 98.0 F 11/25/23 13:47 Pulse 80 11/25/23 13:47 Resp 16 11/25/23 13:47 BP 148/74 11/25/23 13:47 Pulse Ox 97 11/25/23 13:47 FiO2 Intake & Output 11/25/23 11/25/23 11/26/23 06:59 18:59 06:59 Intake Total 1200 Output Total 1200 Balance 0 Weight 54.5 kg Intake: Intake, IV Titration 1200 Amount Sodium Chloride 0.45% 1, 1200 000 ml @ 120 mls/hr IV . 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 - Labs CBC & Chem 7: 11/25/23 06:37 11/25/23 06:37 Labs: Abnormal Lab Results - Last 24 Hours (Table) 11/24/23 11/25/23 11/25/23 Range/Units 20:03 06:37 06:37 WBC 16.10 H (4.50-10.00) X 10*3/uL Plt Count 102 L (140-440) X 10*3/uL MPV 12.6 H (9.5-12.2) FL Immature Gran # 0.10 H (0.00-0.04) X 10*3/uL Neutrophils # 14.60 H (1.80-7.70) X 10*3/uL Lymphocytes # 0.75 L (0.90-5.00) X 10*3/uL Eosinophils # 0 L (0.04-0.35) X 10*3/uL Carbon Dioxide 17.3 L (21.6-31.8) mmol/L Anion Gap 16.70 H (4.00-12.00) mmol/L Est GFR (CKD-EPI) 57 L (>=60) Glucose 552 A* (70-110) mg/dL POC Glucose (mg/dL) 113 H (70-110) mg/dL Calcium 8.5 L (8.7-10.3) mg/dL 11/25/23 11/25/23 11/25/23 Range/Units 07:09 08:55 10:13 WBC (4.50-10.00) X 10*3/uL Plt Count (140-440) X 10*3/uL MPV (9.5-12.2) FL Immature Gran # (0.00-0.04) X 10*3/uL Neutrophils # (1.80-7.70) X 10*3/uL Lymphocytes # (0.90-5.00) X 10*3/uL Eosinophils # (0.04-0.35) X 10*3/uL Carbon Dioxide (21.6-31.8) mmol/L Anion Gap (4.00-12.00) mmol/L Est GFR (CKD-EPI) (>=60) Glucose (70-110) mg/dL POC Glucose (mg/dL) 464 H 458 H 405 H (70-110) mg/dL Calcium (8.7-10.3) mg/dL 11/25/23 11/25/23 11/25/23 Range/Units 11:17 12:01 17:09 WBC (4.50-10.00) X 10*3/uL Plt Count (140-440) X 10*3/uL MPV (9.5-12.2) FL Immature Gran # (0.00-0.04) X 10*3/uL Neutrophils # (1.80-7.70) X 10*3/uL Lymphocytes # (0.90-5.00) X 10*3/uL Eosinophils # (0.04-0.35) X 10*3/uL Carbon Dioxide (21.6-31.8) mmol/L Anion Gap (4.00-12.00) mmol/L Est GFR (CKD-EPI) (>=60) Glucose (70-110) mg/dL POC Glucose (mg/dL) 334 H 314 H 149 H (70-110) mg/dL Calcium (8.7-10.3) mg/dL Assessment and Plan Assessment: 1. Status post living related kidney transplant in 2001 secondary to diabetic kidney disease. 2. Chronic kidney disease stage IIIa with baseline creatinine 1.1-1.3. 3. DKA maintained on IV fluids. Status post insulin drip. Concern for mal functioning insulin pump. 4. Anion gap metabolic acidosis secondary to DKA and lactic acidosis. 5. Chronic kidney disease mineral bone disease maintained on calcitriol. 6. Coronary artery disease with cardiac stents. 7. Hypomagnesemia from poor intake. 8. Hypophosphatemia from poor intake. Plan: Continue IV fluids Continue current immunosuppressive medications Repeat labs in a.m.
[2023-11-25 20:16] LABS: Glucose,Whole Blood 51 mg/dL (70-110)
[2023-11-25] MEDS: INSULIN DETEMIR (LEVEMIR) 100 UNIT/ML SYR SQ SCH (20:22)
[2023-11-25 20:48] LABS: Glucose,Whole Blood 89 mg/dL (70-110)
[2023-11-25 22:58] LABS: Glucose,Whole Blood 37 mg/dL (70-110)
[2023-11-25 23:02] LABS: Glucose,Whole Blood 34 mg/dL (70-110)
[2023-11-25 23:27] LABS: Glucose,Whole Blood 114 mg/dL (70-110)
[2023-11-26 02:07] LABS: Glucose,Whole Blood 185 mg/dL (70-110)
[2023-11-26] MEDS: DEXTROSE 5%-0.45% NACL 1,000 ML IV SCH (02:25)
[2023-11-26 05:48] LABS: Glucose,Whole Blood 206 mg/dL (70-110)
[2023-11-26] MEDS ORDERED: INSULIN DETEMIR (LEVEMIR) 100 UNIT/ML SYR SQ SCH (07:00)
[2023-11-26 08:11] LABS: Glucose,Whole Blood 220 mg/dL (70-110)
[2023-11-26] MEDS: INSULIN ASPART (NovoLOG) 100 UNIT/ML VIAL SQ SCH (08:25)
[2023-11-26 09:16] LABS: Basophils # (A) 0.02 X 10*3/uL (0.00-0.10); Basophils % (A) 0.2 %; Eosinophils # (A) 0.12 X 10*3/uL (0.04-0.35); Eosinophils % (A) 1.1 %; HCT 35.7 % (37.2-46.3); HGB 11.8 g/dL (12.0-15.0); Lymphocytes # (A) 1.53 X 10*3/uL (0.90-5.00); Lymphocytes % (A) 14.1 %; MCH 30.3 pg (27.0-32.0); MCHC 33.1 g/dL (32.0-37.0); MCV 91.8 FL (80.0-97.0); Monocytes % (A) 5.5 %; NRBC Per 100 WBC 0 X 10*3/uL (0.00-0.01); Neutrophils # (A) 8.55 X 10*3/uL (1.80-7.70); Neutrophils % (A) 78.8 %; Platelet Count 89 X 10*3/uL (140-440); RBC 3.89 X 10*6/uL (4.10-5.20); RDW 13.2 % (11.5-14.5); WBC 10.85 X 10*3/uL (4.50-10.00)
[2023-11-26 09:34] LABS: Blood Urea Nitrogen 11.7 mg/dL (9.0-27.0); Calcium 8.6 mg/dL (8.7-10.3); Carbon Dioxide 23.3 mmol/L (21.6-31.8); Chloride 107 mmol/L (96-109); Glucose 220 mg/dL (70-110); Potassium 3.9 mmol/L (3.5-5.5); Sodium 140 mmol/L (135-145)
[2023-11-26 12:07] LABS: Glucose,Whole Blood 245 mg/dL (70-110)
--- NOTE | 2023-11-26 15:00 | P.PN ---
Subjective Patient is seen for follow-up for acute kidney injury. Blood sugars have improved. Off of insulin drip Serum creatinine improved to 1.0 No significant complaints today. Objective - Vital Signs Vital signs: Vital Signs Temp 98.8 F 11/26/23 12:42 Pulse 76 11/26/23 12:42 Resp 18 11/26/23 12:42 BP 205/93 11/26/23 12:42 Pulse Ox 98 11/26/23 12:42 FiO2 Intake & Output 11/25/23 11/26/23 11/26/23 18:59 06:59 18:59 Intake Total 1200 440 Output Total 1200 Balance 0 440 Weight 55 kg Intake: Intake, IV Titration 1200 Amount Sodium Chloride 0.45% 1, 1200 000 ml @ 100 mls/hr IV . 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 - Labs CBC & Chem 7: 11/26/23 05:58 11/26/23 05:58 Labs: Abnormal Lab Results - Last 24 Hours (Table) 11/25/23 11/25/23 11/25/23 Range/Units 17:09 20:15 22:57 WBC (4.50-10.00) X 10*3/uL RBC (4.10-5.20) X 10*6/uL Hgb (12.0-15.0) g/dL Hct (37.2-46.3) % Plt Count (140-440) X 10*3/uL MPV (9.5-12.2) FL Neutrophils # (1.80-7.70) X 10*3/uL BUN/Creatinine Ratio (12.00-20.00) Ratio Glucose (70-110) mg/dL POC Glucose (mg/dL) 149 H 51 L 37 L (70-110) mg/dL Calcium (8.7-10.3) mg/dL 11/25/23 11/25/23 11/26/23 Range/Units 23:01 23:27 02:05 WBC (4.50-10.00) X 10*3/uL RBC (4.10-5.20) X 10*6/uL Hgb (12.0-15.0) g/dL Hct (37.2-46.3) % Plt Count (140-440) X 10*3/uL MPV (9.5-12.2) FL Neutrophils # (1.80-7.70) X 10*3/uL BUN/Creatinine Ratio (12.00-20.00) Ratio Glucose (70-110) mg/dL POC Glucose (mg/dL) 34 L 114 H 185 H (70-110) mg/dL Calcium (8.7-10.3) mg/dL 11/26/23 11/26/23 11/26/23 Range/Units 05:45 05:58 05:58 WBC 10.85 H (4.50-10.00) X 10*3/uL RBC 3.89 L (4.10-5.20) X 10*6/uL Hgb 11.8 L (12.0-15.0) g/dL Hct 35.7 L (37.2-46.3) % Plt Count 89 L (140-440) X 10*3/uL MPV 13.0 H (9.5-12.2) FL Neutrophils # 8.55 H (1.80-7.70) X 10*3/uL BUN/Creatinine Ratio 11.70 L (12.00-20.00) Ratio Glucose 220 H (70-110) mg/dL POC Glucose (mg/dL) 206 H (70-110) mg/dL Calcium 8.6 L (8.7-10.3) mg/dL 11/26/23 11/26/23 Range/Units 08:11 12:06 WBC (4.50-10.00) X 10*3/uL RBC (4.10-5.20) X 10*6/uL Hgb (12.0-15.0) g/dL Hct (37.2-46.3) % Plt Count (140-440) X 10*3/uL MPV (9.5-12.2) FL Neutrophils # (1.80-7.70) X 10*3/uL BUN/Creatinine Ratio (12.00-20.00) Ratio Glucose (70-110) mg/dL POC Glucose (mg/dL) 220 H 245 H (70-110) mg/dL Calcium (8.7-10.3) mg/dL Assessment and Plan Assessment: 1. Status post living related kidney transplant in 2001 secondary to diabetic kidney disease. 2. Chronic kidney disease stage IIIa with baseline creatinine 1.1-1.3. 3. DKA maintained on IV fluids. Status post insulin drip. Concern for malfunctioning insulin pump. 4. Anion gap metabolic acidosis secondary to DKA and lactic acidosis. 5. Chronic kidney disease mineral bone disease maintained on calcitriol. 6. Coronary artery disease with cardiac stents. 7. Hypomagnesemia from poor intake. 8. Hypophosphatemia from poor intake. Plan: Continue IV fluids Change to normal saline Continue current immunosuppressive medications Repeat labs in a.m.
[2023-11-26] MEDS: SODIUM CHLORIDE 0.9% 1,000 ML IV SCH (16:24)
[2023-11-26 17:06] LABS: Glucose,Whole Blood 185 mg/dL (70-110)
--- NOTE | 2023-11-26 17:18 | P.PN ---
Subjective Progress Note Date: 11/26/23 63-year-old female, history of hypertension, hyperlipidemia, diabetes mellitus, CAD, CVA/TIA, pulmonary embolism, end-stage renal disease, patient is status post renal transplant who initially presented for low blood sugar and altered mental status blood sugar readings from family were noted to be low unsure of the appetite., Patient comes to the ER today for evaluation in regards to low blood sugar and altered mental status which was found on EMS arrival to the patient's house. Patient does appear to be significantly confused and presents confused here in the emergency department Blood work completed in ED reveals a WBC of 19.4, hemoglobin of 14.2 and platelet count of 118, sodium 139, potassium 4.3, BUN/creatinine of 19/1.35 and blood glucose of 423 with CO2 of 12, lactic acid of 11.7, ammonia level of less than 9 EKG is sinus tachycardia 116 PA 151 QRS 91 QTc 399 Patient is admitted for further treatment of DKA 11/26/2023 Patient is seen and evaluated in room at bedside; no complaint of shortness of breath or abdominal pain Vital signs are reviewed and are stable Patient continues to have wide fluctuations in blood glucose level; she had to be placed on dextrose containing IV fluid due to episodes of hypoglycemia and worsening acidosis --Blood work is stable with a WBC of 10.5, hemoglobin of 11.8 and platelet count of 89, sodium 140, potassium 3.9, CO2 of 23 -- Case management is consulted for evaluation of malfunctioning pump Objective - Vital Signs Vital signs: Vital Signs Temp 98.8 F 11/26/23 12:42 Pulse 76 11/26/23 12:42 Resp 18 11/26/23 12:42 BP 205/93 11/26/23 12:42 Pulse Ox 98 11/26/23 12:42 FiO2 Intake & Output 11/25/23 11/26/23 11/26/23 18:59 06:59 18:59 Intake Total 1200 440 Output Total 1200 Balance 0 440 Weight 55 kg Intake: Intake, IV Titration 1200 Amount Sodium Chloride 0.45% 1, 1200 000 ml @ 100 mls/hr IV . Q10H [facility] Rx#:[id number] Oral 440 Output: Urine 1200 Other: Voiding Method External Catheter Diaper Bedside Commode Incontinent Incontinent # Voids 1 2 # Bowel Movements 4 - Exam General appearance: alert, anxious, in distress Head exam: Present: atraumatic, normocephalic, normal inspection Eye exam: Present: normal appearance, PERRL, EOMI. Absent: scleral icterus, conjunctival injection, periorbital swelling Neck exam: Present: normal inspection. Absent: tenderness, meningismus, l ymphadenopathy Respiratory exam: Present: normal lung sounds bilaterally. Absent: respiratory distress, wheezes, rales, rhonchi, stridor Cardiovascular Exam: Present: regular rate, normal rhythm, normal heart sounds. Absent: systolic murmur, diastolic murmur, rubs, gallop, clicks GI/Abdominal exam: Present: soft, normal bowel sounds. Absent: distended, tenderness, guarding, rebound, rigid Extremities exam: Present: normal inspection, full ROM, normal capillary refill. Absent: tenderness, pedal edema, joint swelling, calf tenderness Neurological exam: Present: alert, oriented X3, CN II-XII intact Skin exam: Present: warm, dry, intact, normal color. Absent: rash - Labs CBC & Chem 7: 11/26/23 05:58 11/26/23 05:58 Labs: Abnormal Lab Results - Last 24 Hours (Table) 11/25/23 11/25/23 11/25/23 Range/Units 17:09 20:15 22:57 WBC (4.50-10.00) X 10*3/uL RBC (4.10-5.20) X 10*6/uL Hgb (12.0-15.0) g/dL Hct (37.2-46.3) % Plt Count (140-440) X 10*3/uL MPV (9.5-12.2) FL Neutrophils # (1.80-7.70) X 10*3/uL BUN/Creatinine Ratio (12.00-20.00) Ratio Glucose (70-110) mg/dL POC Glucose (mg/dL) 149 H 51 L 37 L (70-110) mg/dL Calcium (8.7-10.3) mg/dL 11/25/23 11/25/23 11/26/23 Range/Units 23:01 23:27 02:05 WBC (4.50-10.00) X 10*3/uL RBC (4.10-5.20) X 10*6/uL Hgb (12.0-15.0) g/dL Hct (37.2-46.3) % Plt Count (140-440) X 10*3/uL MPV (9.5-12.2) FL Neutrophils # (1.80-7.70) X 10*3/uL BUN/Creatinine Ratio (12.00-20.00) Ratio Glucose (70-110) mg/dL POC Glucose (mg/dL) 34 L 114 H 185 H (70-110) mg/dL Calcium (8.7-10.3) mg/dL 11/26/23 11/26/23 11/26/23 Range/Units 05:45 05:58 05:58 WBC 10.85 H (4.50-10.00) X 10*3/uL RBC 3.89 L (4.10-5.20) X 10*6/uL Hgb 11.8 L (12.0-15.0) g/dL Hct 35.7 L (37.2-46.3) % Plt Count 89 L (140-440) X 10*3/uL MPV 13.0 H (9.5-12.2) FL Neutrophils # 8.55 H (1.80-7.70) X 10*3/uL BUN/Creatinine Ratio 11.70 L (12.00-20.00) Ratio Glucose 220 H (70-110) mg/dL POC Glucose (mg/dL) 206 H (70-110) mg/dL Calcium 8.6 L (8.7-10.3) mg/dL 11/26/23 11/26/23 Range/Units 08:11 12:06 WBC (4.50-10.00) X 10*3/uL RBC (4.10-5.20) X 10*6/uL Hgb (12.0-15.0) g/dL Hct (37.2-46.3) % Plt Count (140-440) X 10*3/uL MPV (9.5-12.2) FL Neutrophils # (1.80-7.70) X 10*3/uL BUN/Creatinine Ratio (12.00-20.00) Ratio Glucose (70-110) mg/dL POC Glucose (mg/dL) 220 H 245 H (70-110) mg/dL Calcium (8.7-10.3) mg/dL Assessment and Plan Assessment: 1. Acute DKA --Patient initially presented to the ER with complaints of altered mental status and hypoglycemia -- Blood glucose is fine to be markedly elevated with bicarb of 12 -- Patient is placed on IV insulin infusion and IV fluids in form of normal saline at a rate of 50 cc an hour -Accu-Cheks to be monitored for protocol -- We will plan to transition to subcu Levemir and sliding scale once anion gap closes and CO2 is improved 2. Altered mental status; likely metabolic encephalopathy related to DKA --patient is currently awake and alert 3. Chronic kidney disease stage IIIa with baseline creatinine 1.1-1.3; nephrology on board --Status post living related kidney transplant in 2001 secondary to diabetic kidney disease. Maintain CellCept and Prograf. Check Prograf level. Continue to monitor renal function and urine output. 4. Anion gap metabolic acidosis secondary to DKA and lactic acidosis. 5. Hypertension; metoprolol 25 mg daily 6. Hyperlipidemia; Lipitor 80 mg nightly 7. Coronary artery disease with stent placement; patient remains stable on metoprolol, statins and Plavix 8. History of PE; patient takes Eliquis 5 mg twice daily DVT prophylaxis SCDs CODE STATUS; full code
[2023-11-26] MEDS ORDERED: ACETAMINOPHEN TAB 325 MG TAB PO PRN (17:46)
[2023-11-26 21:07] LABS: Glucose,Whole Blood 39 mg/dL (70-110)
[2023-11-26 21:34] LABS: Glucose,Whole Blood 75 mg/dL (70-110)
[2023-11-27 07:39] LABS: Glucose,Whole Blood 377 mg/dL (70-110)
[2023-11-27 10:14] LABS: Glucose,Whole Blood 439 mg/dL (70-110)
[2023-11-27] MEDS ORDERED: hydrALAZINE HCL 20 MG/ML 1 ML VIAL IVP PRN (10:23)
[2023-11-27] MEDS: amLODIPine 10 MG TAB PO SCH (10:47)
[2023-11-27 11:54] LABS: Glucose,Whole Blood 410 mg/dL (70-110)
--- NOTE | 2023-11-27 12:15 | P.PN ---
Subjective Patient is seen for follow-up for acute kidney injury. Blood sugars have improved. Off of insulin drip Serum creatinine improved to 1.0 No significant complaints today. Objective - Vital Signs Vital signs: Vital Signs Temp 98.4 F 11/27/23 07:40 Pulse 85 11/27/23 07:40 Resp 16 11/27/23 07:40 BP 109/54 11/27/23 09:31 Pulse Ox 95 11/27/23 07:40 FiO2 Intake & Output 11/26/23 11/27/23 11/27/23 18:59 06:59 18:59 Intake Total 1640 1260 Balance 1640 1260 Weight 55 kg Intake: Intake, IV Titration 1200 900 Amount Sodium Chloride 0.45% 1, 1200 000 ml @ 100 mls/hr IV . Q10H [facility] Rx#:[id number] Sodium Chloride 0.9% 1, 900 000 ml @ 75 mls/hr IV . [id number] [facility] Rx#:[id number] Oral 440 360 Other: Voiding Method Bedside Commode Bedside Commode Bedside Commode Incontinent Diaper Diaper Incontinent Incontinent # Voids 1 - Exam Patient is awake, comfortable, no acute distress Patient appears euvolemic - Labs CBC & Chem 7: 11/26/23 05:58 11/26/23 05:58 Labs: Abnormal Lab Results - Last 24 Hours (Table) 11/25/23 11/26/23 11/26/23 Range/Units 06:37 17:04 21:05 POC Glucose (mg/dL) 185 H 39 L (70-110) mg/dL Tacrolimus 4.3 L (5.0-20.0) ng/mL 11/27/23 11/27/23 11/27/23 Range/Units 07:38 10:11 11:53 POC Glucose (mg/dL) 377 H 439 H 410 H (70-110) mg/dL Tacrolimus (5.0-20.0) ng/mL Assessment and Plan Assessment: 1. Status post living related kidney transplant in 2001 secondary to diabetic kidney disease. 2. Chronic kidney disease stage IIIa with baseline creatinine 1.1-1.3. 3. DKA maintained on IV fluids. Status post insulin drip. Concern for malfunc tioning insulin pump. 4. Anion gap metabolic acidosis secondary to DKA and lactic acidosis. 5. Chronic kidney disease mineral bone disease maintained on calcitriol. 6. Coronary artery disease with cardiac stents. 7. Hypomagnesemia from poor intake. 8. Hypophosphatemia from poor intake. Plan: Encourage increase oral intake Repeat labs Continue with saline
[2023-11-27 17:02] LABS: Glucose,Whole Blood 331 mg/dL (70-110)
[2023-11-27 20:16] LABS: Glucose,Whole Blood 197 mg/dL (70-110)
[2023-11-27] MEDS: INSULIN DETEMIR (LEVEMIR) 100 UNIT/ML SYR SQ SCH (20:33)
[2023-11-27 21:32] VITALS: RESP 16
[2023-11-28 07:21] LABS: Glucose,Whole Blood 74 mg/dL (70-110)
[2023-11-28] MEDS: METOPROLOL SUCCINATE (ER) 50 MG TAB.ER.24H PO SCH (08:23)
[2023-11-28 11:28] LABS: Basophils # (A) 0.04 X 10*3/uL (0.00-0.10); Basophils % (A) 0.7 %; Eosinophils # (A) 0.44 X 10*3/uL (0.04-0.35); Eosinophils % (A) 7.4 %; HCT 37.2 % (37.2-46.3); HGB 12.4 g/dL (12.0-15.0); Lymphocytes % (A) 37.1 %; MCH 30.3 pg (27.0-32.0); MCHC 33.3 g/dL (32.0-37.0); Monocytes # (A) 0.51 X 10*3/uL (0.20-1.00); Monocytes % (A) 8.6 %; NRBC Per 100 WBC 0 X 10*3/uL (0.00-0.01); Neutrophils # (A) 2.72 X 10*3/uL (1.80-7.70); Neutrophils % (A) 45.9 %; Platelet Count 112 X 10*3/uL (140-440); RBC 4.09 X 10*6/uL (4.10-5.20); RDW 13.2 % (11.5-14.5); WBC 5.93 X 10*3/uL (4.50-10.00)
[2023-11-28 11:33] VITALS: BMI 24.3
[2023-11-28 11:46] LABS: ALT 43 U/L (8-44); AST 40 U/L (13-35); Alkaline Phosphatase 78 U/L (41-126); BUN/Creat Ratio 13.55 Ratio (12.00-20.00); Blood Urea Nitrogen 14.9 mg/dL (9.0-27.0); Calcium 8.5 mg/dL (8.7-10.3); Carbon Dioxide 23.5 mmol/L (21.6-31.8); Chloride 108 mmol/L (96-109); Glucose 69 mg/dL (70-110); Potassium 3.5 mmol/L (3.5-5.5); Sodium 141 mmol/L (135-145); Total Bilirubin 1.3 mg/dL (0.3-1.2)
[2023-11-28 12:05] LABS: Glucose,Whole Blood 164 mg/dL (70-110)
--- NOTE | 2023-11-28 13:31 | P.PN ---
Subjective Patient is seen for follow-up for acute kidney injury. Blood sugars have improved. Off of insulin drip Serum creatinine improved to 1.1 No significant complaints today. 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 - Labs CBC & Chem 7: 11/28/23 06:06 11/28/23 06:06 Labs: Abnormal Lab Results - Last 24 Hours (Table) 11/27/23 11/27/23 11/28/23 Range/Units 17:02 20:14 06:06 RBC 4.09 L (4.10-5.20) X 10*6/uL Plt Count 112 L (140-440) X 10*3/uL Eosinophils # 0.44 H (0.04-0.35) X 10*3/uL Est GFR (CKD-EPI) (>=60) Glucose (70-110) mg/dL POC Glucose (mg/dL) 331 H 197 H (70-110) mg/dL Calcium (8.7-10.3) mg/dL Total Bilirubin (0.3-1.2) mg/dL AST (13-35) U/L Total Protein (6.2-8.2) g/dL Albumin (3.8-4.9) g/dL Albumin/Globulin Ratio (1.60-3.17) Ratio 11/28/23 11/28/23 Range/Units 06:06 12:04 RBC (4.10-5.20) X 10*6/uL Plt Count (140-440) X 10*3/uL Eosinophils # (0.04-0.35) X 10*3/uL Est GFR (CKD-EPI) 57 L (>=60) Glucose 69 L (70-110) mg/dL POC Glucose (mg/dL) 164 H (70-110) mg/dL Calcium 8.5 L (8.7-10.3) mg/dL Total Bilirubin 1.3 H (0.3-1.2) mg/dL AST 40 H (13-35) U/L Total Protein 5.0 L (6.2-8.2) g/dL Albumin 3.0 L (3.8-4.9) g/dL Albumin/Globulin Ratio 1.50 L (1.60-3.17) Ratio Assessment and Plan Assessment: 1. Status post living related kidney transplant in 2001 secondary to diabetic kidney disease. 2. Chronic kidney disease stage IIIa with baseline creatinine 1.1-1.3. 3. DKA maintained on IV fluids. Status post insulin drip. Concern for malfunctioning insulin pump. 4. Anion gap metabolic acidosis secondary to DKA and lactic acidosis. 5. Chronic kidney disease mineral bone disease maintained on calcitriol. 6. Coronary artery disease with cardiac stents. 7. Hypomagnesemia from poor intake. 8. Hypophosphatemia from poor intake. Plan: Encourage increase oral intake Continue current immunosuppressive medications Continue calcitriol
--- NOTE | 2023-11-28 14:00 | P.DS ---
Providers Date of admission: 11/23/23 18:09 Expected date of discharge: 11/29/23 Attending physician: Katina Benson Consults: 11/24/23 09:54 Consult Physician Routine Consulting Provider: Fran Frias Consult Reason/Comments: RUSSELL/renal transplant Do you want consulting provider notified?: Yes Primary care physician: Katina Benson Hospital Course: HPI This is a 62-year-old female patient with past medical history of hypertension with hypertensive cardiovascular disease, hyperlipidemia, diabetes mellitus type 2 on insulin pump, CVA, coronary artery disease status post PCI and stent placement, history of renal disease status post renal transplant, vulvar cancer status post radiation treatment, obesity status post sleeve gastrectomy. According to patient's brother, patient was not receiving notifications from her insulin pump and there was concern about insulin pump malfunction. Patient did not answer the phone and a wellness check was done requested by family. Patient apparently had some nausea and vomiting and blood sugars were over 400 on admission with ketones in urine. Patient was started on normal saline with boluses and then half-normal saline. She was admitted and seen in consultation by nephrology. Phosphorus and magnesium were replaced. She was initially started on insulin drip and insulin pump was placed on hold. After the insulin drip, patient was transitioned to Levemir and short acting insulin but blood sugars were quite labile and further adjustments were made daily until current regime seems to be controlling blood sugars patient worked with physical therapy and found to have some weakness and concern for safety at home. Patient was agreeable to subacute rehab and requested [facility]. Blood work today reveals BUN 14, creatinine 1.1, hemoglobin 12.4, platelet, 112. Blood sugar 69. Low blood glucose running between 74 and 197. Patient was stabilized and discharged to [facility] once insurance authorization has been obtained. DISCHARGE DIAGNOSES 1. Diabetic ketoacidosis. 2. Metabolic encephalopathy secondary to DKA 3. Chronic kidney disease stage IIIa 4. Status post living related kidney transplant in 2001 secondary to diabetic kidney disease. 5. Anion gap metabolic acidosis due to diabetic ketoacidosis and lactic acidosis. 6. Hypertension and hypertensive cardiovascular disease. 7. Mixed hyperlipidemia. 8. Diabetes mellitus type 2 on insulin pump- on hold. 9. History of CVA . 10. Obstructive sleep apnea w/o CPAP, improved w weight loss following gastric bypass surgery. 11. History of pulmonary embolism. 11. History of CAD post PCI. 12. Recurrent depression. 13. Diabetic neuropathy. 14. History of vulvar cancer post surgery and relation therapy. 15. GERD with esophagitis. Discharge plan: [facility] for subacute rehab Greater than 35 minutes was utilized and coordinating patient's discharge. Impression and plan of care have been directed as dictated by the signing physician. Kamini Shay nurse practitioner acting as scribe for signing physician. Patient Condition at Discharge: Stable Plan - Discharge Summary Discharge Rx Participant: No New Discharge Prescriptions: New Insulin Detemir (Levemir) [Levemir] 12 unit SQ 0700 each Acetaminophen Tab [Tylenol] 650 mg PO Q6HR PRN tab PRN Reason: Fever And/ Or Pain amLODIPine [Norvasc] 10 mg PO DAILY #30 tablet Insulin Detemir (Levemir) [Levemir] 8 unit SQ HS #10 ml INSULIN ASPART (NovoLOG) [NovoLOG (formulary)] 4 unit SQ AC-TID each Cefuroxime [Ceftin] 250 mg PO BID 7 Days #14 tab Continue mycophenolate mofetiL [Cellcept] 500 mg PO BID Tacrolimus [Prograf] 2 mg PO DAILY DULoxetine HCL [Cymbalta] 20 mg PO DAILY Apixaban [Eliquis] 5 mg PO BID Clopidogrel [Plavix] 75 mg PO DAILY calcitrioL 0.5 mcg PO DAILY Omeprazole [PriLOSEC] 20 mg PO DAILY Tacrolimus [Prograf] 1 mg PO HS Metoprolol Succinate (ER) [Toprol XL] 25 mg PO DAILY Atorvastatin [Lipitor] 80 mg PO HS Metoclopramide [Reglan] 5 mg PO DAILY Gabapentin [Neurontin] 300 mg PO HS #3 cap Discontinued INSULIN LISPRO (For Pump) [humaLOG (For Pump)] 0.01 units SQ-PUMP CONTINUOUS Discharge Medication List mycophenolate mofetiL [Cellcept] 500 mg PO BID 12/12/14 [History] Tacrolimus [Prograf] 2 mg PO DAILY 06/06/16 [History] DULoxetine HCL [Cymbalta] 20 mg PO DAILY 11/10/18 [History] Apixaban [Eliquis] 5 mg PO BID 11/04/19 [History] Clopidogrel [Plavix] 75 mg PO DAILY 11/04/19 [History] Atorvastatin [Lipitor] 80 mg PO HS 09/10/21 [History] Metoclopramide [Reglan] 5 mg PO DAILY 09/10/21 [History] Metoprolol Succinate (ER) [Toprol XL] 25 mg PO DAILY 09/10/21 [History] calcitrioL 0.5 mcg PO DAILY 09/10/21 [History] Omeprazole [PriLOSEC] 20 mg PO DAILY 04/12/23 [History] Tacrolimus [Prograf] 1 mg PO HS 04/12/23 [History] Acetaminophen Tab [Tylenol] 650 mg PO Q6HR PRN tab 11/28/23 [Rx] Gabapentin [Neurontin] 300 mg PO HS #3 cap 11/28/23 [Rx] INSULIN ASPART (NovoLOG) [NovoLOG (formulary)] 4 unit SQ AC-TID each 11/28/23 [Rx] Insulin Detemir (Levemir) [Levemir] 8 unit SQ HS #10 ml 11/28/23 [Rx] Insulin Detemir (Levemir) [Levemir] 12 unit SQ 0700 each 11/28/23 [Rx] Cefuroxime [Ceftin] 250 mg PO BID 7 Days #14 tab 11/29/23 [Rx] amLODIPine [Norvasc] 10 mg PO DAILY #30 tablet 11/29/23 [Rx] Follow up Appointment(s)/Referral(s): Katina Benson MD [Primary Care Provider] - 1 Week (Call to make appt. Office closed at time of Discharge) [facility] Care [NON-STAFF] - As Needed ([facility] will call you to schedule your in home nursing, physical therapy, and occupational therapy visits.) Patient Instructions/Handouts: Cefuroxime (By mouth), Gabapentin (By mouth), Amlodipine (By mouth), Insulin Detemir (By injection), Fall Prevention (DC) Discharge Disposition: HOME WITH HOME HEALTH SERVICES
[2023-11-28 17:18] LABS: Glucose,Whole Blood 71 mg/dL (70-110)
[2023-11-28 20:13] LABS: Glucose,Whole Blood 94 mg/dL (70-110)
[2023-11-29 07:19] LABS: Glucose,Whole Blood 57 mg/dL (70-110)
[2023-11-29 12:14] LABS: Appearance,Urine Turbid (Clear); Bacteria,Urine Moderate /hpf; Bilirubin,Urine Negative (Negative); Blood,Urine Small (Negative); Color,Urine Light Yellow; Glucose,Urine (UA) Negative (Negative); Ketones,Urine Negative (Negative); Leukocyte Esterase,Urine Large (Negative); Mucus,Urine Rare /hpf; Nitrite,Urine Negative (Negative); PH, Urine 6.5 (5.0-8.0); Protein,Urine 1+ (Negative); RBC,Urine 11 /hpf (0-5); Specific Gravity,Urine 1.014 (1.001-1.035); Squamous Epithelial Cell,Urine 16 /hpf (0-4); WBC,Urine >182 /hpf (0-5)
[2023-11-29 12:15] LABS: Glucose,Whole Blood 202 mg/dL (70-110)
[2023-11-29 13:22] VITALS: BP 149/70; PULSE 72; TEMP 98.1
--- NOTE | 2023-11-29 18:55 | P.PN ---
Subjective Progress Note Date: 11/27/23 HISTORY OF PRESENT ILLNESS: 63-year-old female, history of hypertension, hyperlipidemia, diabetes mellitus, CAD, CVA/TIA, pulmonary embolism, end-stage renal disease, patient is status post renal transplant who initially presented for low blood sugar and altered mental status blood sugar readings from family were noted to be low unsure of the appetite., Patient comes to the ER today for evaluation in regards to low blood sugar and altered mental status which was found on EMS arrival to the patient's house. Patient does appear to be significantly confused and presents confused here in the emergency department Blood work completed in ED reveals a WBC of 19.4, hemoglobin of 14.2 and platelet count of 118, sodium 139, potassium 4.3, BUN/creatinine of 19/1.35 and blood glucose of 423 with CO2 of 12, lactic acid of 11.7, ammonia level of less than 9 EKG is sinus tachycardia 116 OH 151 QRS 91 QTc 399 Patient is admitted for further treatment of DKA 11/26/2023 Patient is seen and evaluated in room at bedside; no complaint of shortness of breath or abdominal pain Vital signs are reviewed and are stable Patient continues to have wide fluctuations in blood glucose level; she had to be placed on dextrose containing IV fluid due to episodes of hypoglycemia and worsening acidosis --Blood work is stable with a WBC of 10.5, hemoglobin of 11.8 and platelet count of 89, sodium 140, potassium 3.9, CO2 of 23 -- Case management is consulted for evaluation of malfunctioning pump 3/4: Patient is lying down in bed in no apparent distress, she is feeling a bit better today than she was yesterday, she denies any chest pain, she is eating a bit better today, she denies any nausea or vomiting at this point, her brother was at the bedside, he was updated about her current condition, patient is currently not in DKA anymore, she did have episode of hypoglycemia, I adjusted her Levemir to 11 units twice every day, and I continued the patient on her Humalog at 5 units before each meal 3 times every day, we will continue to monitor the patient very closely for the next 24 hours, repeat her labs again, patient is requesting to go to subacute rehabilitation, we will ask physical therapy to evaluate the patient as well as the bilingual patient support caseworker for possible insurance prior authorization. REVIEW OF SYSTEMS: Constitutional: No documented fever, no chills, no night sweats. No weight change. No weakness, fatigue or lethargy. No daytime sleepiness. EENT: No headache. No blurred vision or double vision, no loss of vision. No loss of Hearing, no ringing in the ears, no dizziness. No nasal drainage or congestion. No epistaxis. No sore throat. Lungs: No shortness of breath, no cough, no sputum production. No wheezing. Reports dyspnea with activity. Cardiovascular: No chest pain, no lower extremity edema. No palpitations. No paroxysmal nocturnal dyspnea. No orthopnea. No lightheadedness or dizziness. No syncopal episodes. Abdominal: Reports abdominal pain. No nausea, vomiting. No diarrhea. No constipation. No bloody or tarry stools reports loss of appetite. Genitourinary: No dysuria, increased frequency, urgency. No urinary retention. Musculoskeletal: No myalgias. No muscle weakness, no gait dysfunction, no frequent falls. No back pain. No neck pain. Integumentary: No wounds, no lesions. No rash or pruritus. No unusual bruising. No change in hair or nails. Neurologic: No aphasia. No facial droop. No change in mentation. No head injury. No headache. No paralysis. No paresthesia. Psychiatric: No depression. No anxiety. No mood swings. Endocrine: No abnormal blood sugars. No weight change. PHYSICAL EXAMINATION: General: 63-year-old female laying down in bed in no apparent distress. HEENT: Head is atraumatic, normocephalic, pupils were equal round reactive to light and recommendation, extraocular muscle movement were intact, sclera nonicteric, conjunctivae were pale, mucous membranes of the mouth are somewhat dry. Neck: Supple, no JVP, normal carotid upstroke bilaterally, no lymphadenopathy. Chest: Decreased breath sounds at the bases, few rhonchi, no expiratory wheezes, no chest wall tenderness, no intercostal retractions. Heart: First heart sound is normal, second heart sounds normal there is ISHA 2/6 located at the left sternal border Abdomen: Soft, nontender, nondistended, positive bowel sounds. Extremities: There is no edema no calf tenderness DP +2 bilaterally. Neurologic examination: Patient is awake alert and oriented X 3, cranial nerves II-12 appear grossly intact, muscle power were 5 out of 5 in upper extremities and 5 out of 5 in bilateral lower extremities, deep tendon reflexes normal bilat erally. ASSESSMENT AND PLAN: 1. Diabetic ketoacidosis. Has resolved patient was taken off IV fluid resuscitation in the form of normal saline at this time, we will switch the patient to Levemir 11 units subcutaneously twice every day, along with Humalog 5 units before each meal 3 times every day, monitor the patient electrolytes very closely, increase activity, likely the patient will require subacute rehabilitation if she got authorization by her insurance and if the patient physical therapy recommended that. 2. Metabolic encephalopathy secondary to DKA resolved. Patient is back to supriya gordon. 3. Chronic kidney disease stage IIIa. Continue to monitor the patient very closely at this time, patient is status post kidney transplantation, resumed her antirejection medications. 4. Status post living related kidney transplant in 2001 secondary to diabetic kidney disease. Stable at this time nephrology is following. 5. Anion gap metabolic acidosis due to diabetic ketoacidosis and lactic acidosis. Has resolved. 6. Hypertension and hypertensive cardiovascular disease. Started the patient on amlodipine 10 mg orally once every day, continue patient on metoprolol and increase the dose to 50 mg orally once every day monitor the patient blood pressure very closely. 7. Mixed hyperlipidemia. Continue atorvastatin 80 mg once every day monitor the patient lipid panel, keep LDL 55-70. 8. Diabetes mellitus type 2 on insulin pump- on hold. Continue patient on Levemir 11 units twice every day along with a sliding scale insulin. 9. History of CVA . Continue patient on clopidogrel 75 mg once every day as well as atorvastatin for secondary stroke prevention. 10. Obstructive sleep apnea w/o CPAP, improved w weight loss following gastric bypass surgery. 11. History of pulmonary embolism. Continue patient on Eliquis 2.5 mg orally twice every day. 11. History of CAD post PCI. Continue patient on clopidogrel 75 mg once every day, metoprolol 50 mg orally once every day. Continue atorvastatin 80 mg once every day. 12. Recurrent depression. Continue duloxetine 20 mg once every day. 13. Diabetic neuropathy. Continue gabapentin 300 mg at bedtime. 14. History of vulvar cancer post surgery and relation therapy. 15. GERD with esophagitis. Continue PPI. 16. Physical therapy evaluation. 17. Hopefully subacute rehabilitation or home in the next 1 or 2 days. Objective - Vital Signs Vital signs: Vital Signs Temp 98.4 F 11/27/23 07:40 Pulse 85 11/27/23 07:40 Resp 16 11/27/23 07:40 BP 109/54 11/27/23 09:31 Pulse Ox 95 11/27/23 07:40 FiO2 Intake & Output 11/26/23 11/27/23 11/27/23 18:59 06:59 18:59 Intake Total 1640 1260 Balance 1640 1260 Intake: Intake, IV Titration 1200 900 Amount Sodium Chloride 0.45% 1, 1200 000 ml @ 100 mls/hr IV . Q10H JEN Rx#:[id number] Sodium Chloride 0.9% 1, 900 000 ml @ 75 mls/hr IV . [id number] JEN Rx#:[id number] Oral 440 360 Other: Voiding Method Bedside Commode Bedside Commode Bedside Commode Incontinent Diaper Diaper Incontinent Incontinent # Voids 1 - Labs CBC & Chem 7: 11/28/23 06:06 11/28/23 06:06 Labs: Abnormal Lab Results - Last 24 Hours (Table) 11/25/23 11/26/23 11/26/23 Range/Units 06:37 12:06 17:04 POC Glucose (mg/dL) 245 H 185 H (70-110) mg/dL Tacrolimus 4.3 L (5.0-20.0) ng/mL 11/26/23 11/27/23 11/27/23 Range/Units 21:05 07:38 10:11 POC Glucose (mg/dL) 39 L 377 H 439 H (70-110) mg/dL Tacrolimus (5.0-20.0) ng/mL
--- NOTE | 2023-11-29 18:57 | P.PN ---
Subjective Progress Note Date: 11/28/23 HISTORY OF PRESENT ILLNESS: 63-year-old female, history of hypertension, hyperlipidemia, diabetes mellitus, CAD, CVA/TIA, pulmonary embolism, end-stage renal disease, patient is status post renal transplant who initially presented for low blood sugar and altered mental status blood sugar readings from family were noted to be low unsure of the appetite., Patient comes to the ER today for evaluation in regards to low blood sugar and altered mental status which was found on EMS arrival to the patient's house. Patient does appear to be significantly confused and presents confused here in the emergency department Blood work completed in ED reveals a WBC of 19.4, hemoglobin of 14.2 and platelet count of 118, sodium 139, potassium 4.3, BUN/creatinine of 19/1.35 and blood glucose of 423 with CO2 of 12, lactic acid of 11.7, ammonia level of less than 9 EKG is sinus tachycardia 116 LA 151 QRS 91 QTc 399 Patient is admitted for further treatment of DKA 11/26/2023 Patient is seen and evaluated in room at bedside; no complaint of shortness of breath or abdominal pain Vital signs are reviewed and are stable Patient continues to have wide fluctuations in blood glucose level; she had to be placed on dextrose containing IV fluid due to episodes of hypoglycemia and worsening acidosis --Blood work is stable with a WBC of 10.5, hemoglobin of 11.8 and platelet count of 89, sodium 140, potassium 3.9, CO2 of 23 -- Case management is consulted for evaluation of malfunctioning pump 11/26: Patient is lying down in bed in no apparent distress, she is feeling a bit better today than she was yesterday, she denies any chest pain, she is eating a bit better today, she denies any nausea or vomiting at this point, her brother was at the bedside, he was updated about her current condition, patient is currently not in DKA anymore, she did have episode of hypoglycemia, I adjusted her Levemir to 11 units twice every day, and I continued the patient on her Humalog at 5 units before each meal 3 times every day, we will continue to monitor the patient very closely for the next 24 hours, repeat her labs again, patient is requesting to go to subacute rehabilitation, we will ask physical therapy to evaluate the patient as well as the hospice case manager for possible insurance prior authorization. 11/27: Patient is sitting up in bed in no apparent distress, she is eating her lunch, she denies any chest pain, shortness of breath, she has no abdominal pain, she complains of her urine is smelly, we will check her urinalysis at this time to rule out any urinary tract infection, patient was seen by physical therapy, she was ambulating very well, I do not believe that the patient is qualified for subacute rehabilitation would likely weaken the let the patient go home in the next 24 hours if the authorization does not go through her blood glucose level is better, she had 1 episode of hypoglycemia in the morning, we adjusted her insulin dose to 12 units in the morning and 8 units at night of Levemir, continue with the sliding scale insulin along with diet, monitor the patient very closely, if the patient goes home she can go back on her insulin pump if she goes to subacute rehabilitation she will stay on Levemir and sliding scale insulin. REVIEW OF SYSTEMS: Constitutional: No documented fever, no chills, no night sweats. No weight change. No weakness, fatigue or lethargy. No daytime sleepiness. EENT: No headache. No blurred vision or double vision, no loss of vision. No loss of Hearing, no ringing in the ears, no dizziness. No nasal drainage or congestion. No epistaxis. No sore throat. Lungs: No shortness of breath, no cough, no sputum production. No wheezing. Reports dyspnea with activity. Cardiovascular: No chest pain, no lower extremity edema. No palpitations. No paroxysmal nocturnal dyspnea. No orthopnea. No lightheadedness or dizziness. No syncopal episodes. Abdominal: Reports abdominal pain. No nausea, vomiting. No diarrhea. No constipation. No bloody or tarry stools reports loss of appetite. Genitourinary: No dysuria, increased frequency, urgency. No urinary retention. Musculoskeletal: No myalgias. No muscle weakness, no gait dysfunction, no frequent falls. No back pain. No neck pain. Integumentary: No wounds, no lesions. No rash or pruritus. No unusual bruising. No change in hair or nails. Neurologic: No aphasia. No facial droop. No change in mentation. No head injury. No headache. No paralysis. No paresthesia. Psychiatric: No depression. No anxiety. No mood swings. Endocrine: No abnormal blood sugars. No weight change. PHYSICAL EXAMINATION: General: 63-year-old female laying down in bed in no apparent distress. HEENT: Head is atraumatic, normocephalic, pupils were equal round reactive to light and recommendation, extraocular muscle movement were intact, sclera nonicteric, conjunctivae were pale, mucous membranes of the mouth are somewhat dry. Neck: Supple, no JVP, normal carotid upstroke bilaterally, no lymphadenopathy. Chest: Decreased breath sounds at the bases, few rhonchi, no expiratory wheezes, no chest wall tenderness, no intercostal retractions. Heart: First heart sound is normal, second heart sounds normal there is ISHA 2/6 located at the left sternal border Abdomen: Soft, nontender, nondistended, positive bowel sounds. Extremities: There is no edema no calf tenderness DP +2 bilaterally. Neurologic examination: Patient is awake alert and oriented X 3, cranial nerves II-12 appear grossly intact, muscle power were 5 out of 5 in upper extremities and 5 out of 5 in bilateral lower extremities, deep tendon reflexes normal bilaterally. ASSESSMENT AND PLAN: 1. Diabetic ketoacidosis. Has resolved patient was taken off IV fluid resuscitation in the form of normal saline at this time, we will switch the patient to Levemir 11 units subcutaneously twice every day, along with Humalog 5 units before each meal 3 times every day, monitor the patient electrolytes very closely, increase activity, likely the patient will require subacute rehabilitation if she got authorization by her insurance and if the patient physical therapy recommended that. 2. Metabolic encephalopathy secondary to DKA resolved. Patient is back to baseline. 3. Chronic kidney disease stage IIIa. Continue to monitor the patient very closely at this time, patient is status post kidney transplantation, resumed her antirejection medications. 4. Status post living related kidney transplant in 2001 secondary to diabetic kidney disease. Stable at this time nephrology is following. 5. Anion gap metabolic acidosis due to diabetic ketoacidosis and lactic acidosis. Has resolved. 6. Hypertension and hypertensive cardiovascular disease. Started the patient on amlodipine 10 mg orally once every day, continue patient on metoprolol and increase the dose to 50 mg orally once every day monitor the patient blood pressure very closely. 7. Mixed hyperlipidemia. Continue atorvastatin 80 mg once every day monitor the patient lipid panel, keep LDL 55-70. 8. Diabetes mellitus type 2 on insulin pump- on hold. Continue patient on Levemir 11 units twice every day along with a sliding scale insulin. 9. History of CVA . Continue patient on clopidogrel 75 mg once every day as well as atorvastatin for secondary stroke prevention. 10. Obstructive sleep apnea w/o CPAP, improved w weight loss following gastric bypass surgery. 11. History of pulmonary embolism. Continue patient on Eliquis 2.5 mg orally twice every day. 11. History of CAD post PCI. Continue patient on clopidogrel 75 mg once every day, metoprolol 50 mg orally once every day. Continue atorvastatin 80 mg once every day. 12. Recurrent depression. Continue duloxetine 20 mg once every day. 13. Diabetic neuropathy. Continue gabapentin 300 mg at bedtime. 14. History of vulvar cancer post surgery and relation therapy. 15. GERD with esophagitis. Continue PPI. 16. Physical therapy evaluation. 17. Hopefully subacute rehabilitation or home in the next 1 or 2 days. Objective - Vital Signs Vital signs: Vital Signs Temp 98.1 F 11/29/23 12:11 Pulse 72 11/29/23 12:11 Resp 16 11/29/23 12:11 BP 149/70 11/29/23 12:11 Pulse Ox 98 11/29/23 12:11 FiO2 Intake & Output 11/28/23 11/29/23 11/29/23 18:59 06:59 18:59 Intake Total 120 120 Balance 120 120 Weight 54.5 kg Intake: Oral 120 120 Other: Voiding Method Bedside Commode Bedside Commode Bedside Commode Diaper Diaper Diaper Incontinent Incontinent Incontinent # Voids 4 3 - Labs CBC & Chem 7: 11/28/23 06:06 11/28/23 06:06 Labs: Abnormal Lab Results - Last 24 Hours (Table) 11/29/23 11/29/23 11/29/23 Range/Units 07:18 11:34 12:13 POC Glucose (mg/dL) 57 L 202 H (70-110) mg/dL Urine Appearance Turbid H (Clear) Urine Protein 1+ H (Negative) Urine Blood Small H (Negative) Ur Leukocyte Esterase Large H (Negative) Urine RBC 11 H (0-5) /hpf Urine WBC >182 H (0-5) /hpf Ur Squamous Epith Cells 16 H (0-4) /hpf Urine Bacteria Moderate H (None) /hpf Urine Mucus Rare H (None) /hpf
== END 2023-11-29 17:20 | disposition home health service (06) | DRG 637 ==
LOC: EC 14:17 → 3SCARD 18:09 → 5NMEDONC 11-24 14:22
PROVIDERS: ADMIT Internal Medicine; ATTEND Internal Medicine
DX: E10.10 Type 1 diabetes mellitus with ketoacidosis without coma (principal); G93.41 Metabolic encephalopathy; N18.6 End stage renal disease; I12.0 Hypertensive chronic kidney disease with stage 5 chronic kidney disease or end stage renal disease; N17.9 Acute kidney failure, unspecified; F33.9 Major depressive disorder, recurrent, unspecified; T86.19 Other complication of kidney transplant; E10.649 Type 1 diabetes mellitus with hypoglycemia without coma; E10.22 Type 1 diabetes mellitus with diabetic chronic kidney disease; E78.5 Hyperlipidemia, unspecified; E83.39 Other disorders of phosphorus metabolism; E83.42 Hypomagnesemia; Z96.41 Presence of insulin pump (external) (internal); E10.42 Type 1 diabetes mellitus with diabetic polyneuropathy; E78.2 Mixed hyperlipidemia; G47.33 Obstructive sleep apnea (adult) (pediatric); Z98.84 Bariatric surgery status; M89.8X9 Other specified disorders of bone, unspecified site; K21.00 Gastro-esophageal reflux disease with esophagitis, without bleeding; I25.2 Old myocardial infarction; I25.10 Atherosclerotic heart disease of native coronary artery without angina pectoris; Y83.0 Surgical operation with transplant of whole organ as the cause of abnormal reaction of the patient, or of later complication, without mention of misadventure at the time of the procedure; Z79.02 Long term (current) use of antithrombotics/antiplatelets; Z79.4 Long term (current) use of insulin; Z79.624 Long term (current) use of inhibitors of nucleotide synthesis; Z79.899 Other long term (current) drug therapy; Z82.49 Family history of ischemic heart disease and other diseases of the circulatory system; Z85.828 Personal history of other malignant neoplasm of skin; Z85.44 Personal history of malignant neoplasm of other female genital organs; Z86.711 Personal history of pulmonary embolism; Z86.73 Personal history of transient ischemic attack (TIA), and cerebral infarction without residual deficits; Z92.3 Personal history of irradiation; Z95.5 Presence of coronary angioplasty implant and graft; Z79.01 Long term (current) use of anticoagulants; Z88.0 Allergy status to penicillin; Z88.8 Allergy status to other drugs, medicaments and biological substances; Z91.011 Allergy to milk products
CPT/HCPCS: 36415; 51702; 80048; 80051; 80053; 80197; 80320; 81001; 82140; 82550; 82565; 82947; 83605; 83735; 83880; 84100; 84484; 84520; 85025; 85610; 85730; 87077; 87086; 87186; 93005; 96361; 96365; 96366; 96367; 96368; 99291

== ENCOUNTER → 2024-03-21 | Outpatient (CLI) | payer MEDICARE ==
--- NOTE | 2024-03-21 16:13 | CT ---
EXAMINATION TYPE: CT brain wo con DATE OF EXAM: 03/21/2024 COMPARISON: 04/12/2023 HISTORY: 63-year-old female I63.49, Patient states that she has had arm numbness x 2 weeks TECHNIQUE: Examination was done in axial plane without intravenous contrast. Coronal and sagittal r econstructions performed. CT DLP: 1047.1 mGycm Automated exposure control for dose reduction was used. FINDINGS: There is no evidence of acute intracranial hemorrhage, acute ischemic changes, mass, mass-effect, or extra-axial fluid collection. There is no effacement of cerebral sulci or basal subarachnoid cister ns. There is mild hydrocephalus, Geoff's ratio calculated at 0.34. Confluent white matter hypodensities in both cerebral hemispheres, some of these changes, such as in the anterior left frontal lobe seen to have progressed from prior. Old lacunar infarcts left basal ga nglia. Prominent atherosclerotic calcifications in the carotid siphons and proximal V4 segments verte bral arteries. There is no midline shift. Powers-white matter distinction is preserved. Normal anatomic variation torus palatinus. Paranasal sinuses and mastoid air cells well pneumatized. Orbits and globes are intact. IMPRESSION: 1. Confluent white matter hypodensities likely moderate to severe burden of chronic small vessel isch emic disease. There appears to have been slight progression from 04/12/2023. No acute intracranial abn ormality seen. 2. There is similar mild hydrocephalus. Possibly due to central cerebral atrophy. Correlate to exclud e a component of NPH.
== END | disposition home or self-care (01) ==
LOC: RADCTMAIN 15:09
PROVIDERS: ATTEND Internal Medicine
DX: I63.49 Cerebral infarction due to embolism of other cerebral artery (principal); G91.9 Hydrocephalus, unspecified
CPT/HCPCS: 70450

== ENCOUNTER → 2024-07-08 | Outpatient (CLI) | payer MEDICARE ==
[2024-07-08 13:56] VITALS: BP 185/82; PULSE 57; RESP 18; TEMP 97.9
[2024-07-08] MEDS: DENOSUMAB 60 MG/ML 1 ML SYRINGE SQ NR (13:57)
== END ==
LOC: PROCWHC3 13:34
PROVIDERS: ATTEND Internal Medicine
DX: M81.0 Age-related osteoporosis without current pathological fracture (principal)
CPT/HCPCS: 96372

== ENCOUNTER 2024-10-21 21:11 | Inpatient (IN) | payer MEDICARE ==
--- NOTE | 2024-10-21 21:20 | P.CRDCN ---
History of Present Illness History of present illness: HISTORY OF PRESENTING ILLNESS This is a pleasant 64-year-old with past medical history significant for hypertension, hyperlipidemia, CAD with prior PCI of LAD in 2015, diabetes mellitus type 1, chronic kidney disease, with renal transplant, CVA, TIA, pulmonary embolism, hyperglycemia. Patient had recent hospitalization approximately 3 weeks ago for hyperglycemia. She had been doing well however developed right shoulder that started today around 3 PM and gradually got worse. She believes her prior ME was with left shoulder pain. She denies nausea or vomiting. She has a history of priorshe has a history of prior PCI in 2015 to the LAD and otherwise PCI in 2015 that LAD and otherwise mild disease. Her last echocardiogram from 2020 showed preserved EF. she did have prior shoulder pain with her prior ME. She usually follows with Dr Brown however has been a while. Does not smoke. Kidney transplant was 22 yrs ago. No hematochezia Blood work shows sodium 146, potassium 3.2, creatinine 1.3 which is at her baseline, leuko-56, troponin 2500, hemoglobin 11.6, platelets 159. EKG showing normal sinus rhythm with small Q-wave in lead [address] elevation 2, 3, aVF with reciprocal ST depressions. Initial blood pressure 175/88 with heart rate 90 bpm. Patient was initially evaluated at [facility] and then transferred to [facility]. REVIEW OF SYSTEMS At the time of my exam: CONSTITUTIONAL: Denies fever or chills. CARDIOVASCULAR: Denies chest pain, + mild shortness of breath, no orthopnea, PND or palpitations. +shoulder pain RESPIRATORY: Denies cough. GASTROINTESTINAL: Denies abdominal pain, diarrhea, constipation, nausea or vomiting. MUSCULOSKELETAL: Denies myalgias. NEUROLOGIC: Denies numbness, tingling or weakness. ENDOCRINE: Denies fatigue, weight change, polydipsia or polyurina. GENITOURINARY: Denies burning, hematuria or urgency with micturation. HEMATOLOGIC: Denies history of anemia or bleeding. PHYSICAL EXAMINATION Vital signs reviewed. CONSTITUTIONAL: No apparent distress. HEENT: Head is normocephalic. Pupils are equal, round. Sclerae anicteric. Mucous membranes of the mouth are moist. No JVD. No carotid bruit. CHEST EXAMINATION: Lungs are clear to auscultation. No chest wall tenderness is noted on palpation or with deep breathing. HEART EXAMINATION: Regular rate and rhythm. S1, S2 heard. No murmurs, gallops or rub. ABDOMEN: Soft, nontender. Positive bowel sounds. EXTREMITIES: 2+ peripheral pulses, no lower extremity edema and no calf tenderness. NEUROLOGIC EXAMINATION: Patient is awake, alert and oriented x3. ASSESSMENT Inferior STEMI CAD with history of PCI of LAD 2014 Hypertension Hyperlipidemia C daily with prior renal transplant History of cancer Diabetes mellitus History of CVA history of PE on anticoagulation PLAN Discussed emergency heart catheterization patient is agreeable. Check 2-D echo. Beta xiomara as tolerated. Further recommendations to follow. Past Medical History Past Medical History: Blood Disorder, Coronary Artery Disease (CAD), Cancer, CV A/TIA, Diabetes Mellitus, Dialysis, GERD/Reflux, Hyperlipidemia, Hypertension, Myocardial Infarction (non Q-wave), Osteoarthritis (OA), Pneumonia, Pulmonary Embolus (PE), Renal Disease, Sleep Apnea/CPAP/BIPAP, Thyroid Disorder Additional Past Medical History / Comment(s): Leiden Factor V, basal cell carcinoma, Vulvar cancer, CVA 2015, CVA 2013, CVA 2016 est - sl weakness Lt side, Dialysis 2001 for 2 months, enlarged thyroid w/ nodules. PE 2011, Kidney transplant 2001. No tx for sleep apnea. Neuropathy in feet/legs. Last Myocardial Infarction Date:: 2014 History of Any Multi-Drug Resistant Organisms: None Reported Past Surgical History: Bariatric Surgery, Section, Cholecystectomy, Heart Catheterization, Heart Catheterization With Stent, Tonsillectomy, Tubal Ligation Additional Past Surgical History / Comment(s): jose oophrectomy, kidney transplant, surgery to remove CA. PTCA w/ Stent 2001, 2014. Colonoscopy, EGD.Gastric Sleeve 05/04/20. Past Anesthesia/Blood Transfusion Reactions: No Reported Reaction, Motion Sickness Additional Past Anesthesia/Blood Transfusion Reaction / Comment(s): no hx blood transfusion Date of Last Stent Placement:: 2014 Smoking Status: Former smoker - Past Family History Sister(s) Family Medical History: Hypertension Father Family Medical History: Myocardial Infarction (ME) Mother Family Medical History: Pulmonary Embolus Additional Family Medical History / Comment(s): Occluded carotid artery, carotid endartectomy Son(s) Family Medical History: Diabetes Mellitus Additional Family Medical History / Comment(s): DM type 1 Medications and Allergies Home Medications Medication Instructions Recorded Confirmed Type mycophenolate mofetiL [Cellcept] 500 mg PO BID 12/12/14 07/08/24 History Tacrolimus [Prograf] 2 mg PO DAILY 06/06/16 07/08/24 History DULoxetine HCL [Cymbalta] 20 mg PO DAILY 11/10/18 07/08/24 History Apixaban [Eliquis] 5 mg PO BID 11/04/19 07/08/24 History Clopidogrel [Plavix] 75 mg PO DAILY 11/04/19 07/08/24 History Atorvastatin [Lipitor] 80 mg PO HS 09/10/21 07/08/24 History Metoclopramide [Reglan] 5 mg PO DAILY 09/10/21 07/08/24 History Metoprolol Succinate (ER) [Toprol 25 mg PO DAILY 09/10/21 07/08/24 History XL] calcitrioL 0.5 mcg PO DAILY 09/10/21 07/08/24 History Omeprazole [PriLOSEC] 20 mg PO DAILY 04/12/23 07/08/24 History Tacrolimus [Prograf] 1 mg PO HS 04/12/23 07/08/24 History Acetaminophen Tab [Tylenol] 650 mg PO Q6HR PRN tab 11/28/23 07/08/24 Rx Gabapentin [Neurontin] 300 mg PO HS #3 cap 11/28/23 07/08/24 Rx INSULIN ASPART (NovoLOG) [NovoLOG 4 unit SQ AC-TID each 11/28/23 07/08/24 Rx (formulary)] Insulin Detemir (Levemir) [Levemir] 8 unit SQ HS #10 ml 11/28/23 07/08/24 Rx Insulin Detemir (Levemir) [Levemir] 12 unit SQ 0700 each 11/28/23 07/08/24 Rx Cefuroxime [Ceftin] 250 mg PO BID 7 Days #14 tab 11/29/23 07/08/24 Rx amLODIPine [Norvasc] 10 mg PO DAILY #30 tablet 11/29/23 07/08/24 Rx Allergies Allergy/AdvReac Type Severity Reaction Status Date / Time Milk Containing Products Allergy Diarrhea Verified 07/08/24 13:48 (Dairy) [Dairy] Penicillins Allergy Rash/Hives Verified 07/08/24 13:48 trandolapril [From [facility]] Allergy SEVERE Verified 07/08/24 13:48 HYPOTENSION verapamil HCl [From [facility]a] Allergy SEVERE Verified 07/08/24 13:48 HYPOTENSION
[2024-10-21] MEDS: MIDAZOLAM 2 MG/2 ML VIAL IVP ONE (21:23)
[2024-10-21] MEDS: fentaNYL (PF) 50 MCG/ML 2 ML AMP IVP ONE (21:23)
[2024-10-21] MEDS: LIDOCAINE 1% INJ 10MG/ML (20 ML MDV) SQ ONE (21:24)
[2024-10-21] MEDS: VERAPAMIL SYRINGE (5 MG/10 ML) INTRAARTER ONE (21:26)
[2024-10-21] MEDS: CLOPIDOGREL 75 MG TAB PO ONE (21:33)
[2024-10-21] MEDS: DEXTROSE 50% SYRINGE 50 ML IVP ONE (21:41)
[2024-10-21 21:43] LABS: Glucose,Whole Blood 46 mg/dL (70-110)
[2024-10-21] MEDS: HEPARIN SODIUM 1,000 UN/ML (10ML VL) IVP ONE (21:43)
[2024-10-21] MEDS: NITROGLYCERIN 1000MCG/10ML SYRINGE INTRACORON ONE ×2 (21:47→21:55)
[2024-10-21 22:05] LABS: Glucose,Whole Blood 212 mg/dL (70-110)
[2024-10-21] MEDS ORDERED: NITROGLYCERIN SL TABS 0.4 MG TAB SUBLINGUAL PRN (22:08)
[2024-10-21] MEDS ORDERED: ZOLPIDEM 5 MG TAB PO PRN (22:08)
[2024-10-21] MEDS ORDERED: ATROPINE SULFATE 0.1 MG/ML 10ML SYRINGE IV PRN (22:08)
[2024-10-21] MEDS ORDERED: RX INFO: IV CONTRAST WAS GIVEN 1 EACH MISC MISCELLANE PRN (22:08)
--- NOTE | 2024-10-21 22:08 | P.PRCINT ---
Percutaneous Coronary Int. - Percutaneous Coronary Intervention Percutaneous Coronary Intervention: PROCEDURES PERFORMED: Left heart catheterization, bilateral coronary angiography, ultrasound guided arterial access, PCI of mid RCA with a 3.25 x 8mm Xience MICHA, IVUS RCA INDICATION: Inferior STEMI CONSENT:I have discussed the risks, benefits and alternative therapies for the above-mentioned procedure and for both sedation/analgesia as well as necessary blood product administration, if indicated, as they pertain to this patient. The patient has indicated understanding and acceptance of the risks and procedures discussed. PROCEDURE: After the risks, benefits and alternatives of the above mentioned procedure explained in detail with the patient, informed consent was obtained. Patient was taken to the catheterization lab and prepped and draped in usual fashion. Ultrasound guidance was used to assess for arterial access. 1% lidocaine was used to anesthetize the right radial artery. A 6-Kyrgyz sheath was placed in the right radial artery using modified Seldinger technique and ultrasound guidance. Left coronary angiography was performed with a 5-Kyrgyz JL 3.0 catheter and right coronary angiography was performed with a 6-Kyrgyz AL 0.75 guide catheter in various views. A 6-Kyrgyz AL 0.75 catheter was inserted into the left ventricle and pressure measurements were obtained. The decision was made to perform PCI of the RCA. A 6-Kyrgyz AL 0.75 guide was used to engage RCA. A 0.014 BMW wire was advanced to the distal RCA. Predilation was performed with a 2.5 mm balloon. There was diffuse disease with heavy calcification throughout the entire artery. Decision made to perform or focal stenting around the area of the lesion. A 3.25 x 8 mm drug-eluting stent was placed in the mid RCA. Unable to advance ELIU catheter despite guideline or secondary to heavy calcification however no proximal dissection. The stent was postdilated with a 3.0 mm noncompliant balloon. Final angiograms were performed. Preintervention there was 99% stenosis with PUMA 2 flow and postintervention there was less than 10% stenosis with PUMA 3 flow. The right radial sheath was removed and a TR band was placed with hemostasis achieved. The patient tolerated the procedure well. Patient was transported back to the post catheterization holding area in stable condition. Conscious Sedation: Patient was monitored under the direct supervision of myself for conscious sedation using Versed and fentanyl for a total duration of 36 minutes HEMODYNAMICS: Aorta: 167/85 LV: 164/8, LVEDP 16 SELECTIVE CORONARY ARTERIOGRAPHY: LEFT MAIN: The left main is a large caliber vessel which bifurcates into the LAD and circumflex. There is no significant stenosis. LEFT ANTERIOR DESCENDING CORONARY ARTERY: LAD is a large caliber vessel which wraps around to the apex. There is diffuse heavy calcification of the entire proximal to the distal LAD with mid LAD stents. There is diffuse 30-40% stenosis of the LAD. There are very small caliber diagonal 1 and 2 vessels with diffuse 50-60% stenosis.. LEFT CIRCUMFLEX CORONARY ARTERY: Left circumflex is a small to moderate caliber vessel with diffuse 20-30% stenosis. RIGHT CORONARY ARTERY: The right coronary artery is a small to moderate caliber vessel which gives off a PDA and PLV branch and is the dominant vessel. There is diffuse heavy calcification of the entire RCA with more focal mid RCA 99% stenosis. FINAL IMPRESSION: 1. CAD as described above including LAD 30-40% stenosis, circumflex 20-30% stenosis and RCA 99% stenosis 2. High normal left sided filling pressures 3. S/p PCI of mid RCA with a 3.25 x 8mm Xience MICHA PLAN: 1. Aggressive risk factor modification per most recent ACC/AHA guidelines. 2. Continue aspirin, Plavix and Eliquis for 1 week then transition to Plavix and Eliquis for 12 months.
[2024-10-21] MEDS: HEPARIN SODIUM,PORCINE 10,000 UNIT in SODIUM CHLORIDE 0.9% 1,000 ML IRRIGATION ONE (22:17)
[2024-10-21] MEDS: HEPARIN SODIUM,PORCINE (1 ML) 2,500 UNIT in SODIUM CHLORIDE 0.9% 250 ML IRRIGATION ONE (22:17)
[2024-10-21] MEDS: SODIUM CHLORIDE 0.9% 500 ML 500 ML IV ONE (22:17)
[2024-10-21] MEDS: IOPAMIDOL-370 100ML BTL INJ ONE (22:17)
[2024-10-21 22:28] LABS: Glucose,Whole Blood 120 mg/dL (70-110)
[2024-10-21] MEDS: SODIUM CHLORIDE 0.9% 1,000 ML in EMPTY BAG 1 BAG IV SCH (22:45)
[2024-10-22 03:23] LABS: Glucose,Whole Blood 82 mg/dL (70-110)
[2024-10-22 03:39] LABS: Glucose,Whole Blood 84 mg/dL (70-110)
[2024-10-22] MEDS: ACETAMINOPHEN TAB 325 MG TAB PO PRN (04:23)
[2024-10-22 06:04] LABS: Basophils % (A) 1 %; Eosinophils # (A) 0.1 k/uL (0-0.7); Eosinophils % (A) 2 %; HCT 33.6 % (34.0-46.0); Lymphocytes # (A) 1.2 k/uL (1.0-4.8); Lymphocytes % (A) 20 %; MCH 28.5 pg (25.0-35.0); MCHC 32.6 g/dL (31.0-37.0); MCV 87.4 fL (80.0-100.0); Mean Platelet Volume 9.1; Monocytes # (A) 0.3 k/uL (0-1.0); Monocytes % (A) 5 %; Neutrophils # (A) 4.3 k/uL (1.3-7.7); Neutrophils % (A) 71 %; Platelet Count 139 k/uL (150-450); RBC 3.84 m/uL (3.80-5.40); WBC 6.1 k/uL (3.8-10.6)
[2024-10-22 06:17] LABS: African American GFR (CKD) 73 (>60 ml/min/1.73 sqM); Anion Gap 4 mmol/L; Blood Urea Nitrogen 13 mg/dL (7-17); Calcium 8.1 mg/dL (8.4-10.2); Carbon Dioxide 26 mmol/L (22-30); Chloride 106 mmol/L (98-107); Glucose 190 mg/dL (74-99); Magnesium 1.8 mg/dL (1.6-2.3); Non-African American GFR(CKD) 63 (>60 ml/min/1.73 sqM); Potassium 4.1 mmol/L (3.5-5.1); Sodium 136 mmol/L (137-145)
[2024-10-22] MEDS: CLOPIDOGREL 75 MG TAB PO SCH (08:46)
[2024-10-22] MEDS: ASPIRIN 81 MG PO SCH (08:46)
[2024-10-22] MEDS: METOPROLOL SUCCINATE (ER) 25 MG TAB.ER.24H PO SCH (08:46)
[2024-10-22] MEDS: ATORVASTATIN 80 MG TAB PO SCH (08:46)
[2024-10-22] MEDS: LOSARTAN 25 MG TAB PO SCH (08:55)
--- NOTE | 2024-10-22 09:33 | P.PN ---
Subjective Progress Note Date: 10/22/24 Patient is a 64-year-old female with multiple comorbid conditions. She presented to the hospital with worsening shoulder discomfort. She was found to have an inferior wall myocardial infarction and underwent stenting of the mid RCA with Dr. Gonzalez. Echocardiogram results are currently pending Patient interviewed and examined resting comfortably in bed. No chest pain or difficulty breathing overnight. According to nursing staff she has a poor historian GENERAL: Well-appearing, well-nourished and in no acute distress. NECK: Supple without JVD or thyromegaly. LUNGS: Breath sounds clear to auscultation bilaterally. Respiration equal and unlabored. No wheezes, rales or rhonchi. HEART: Regular rate and rhythm without murmurs, rubs or gallops. S1 and S2 heard. EXTREMITIES: Normal range of motion, no edema. No clubbing or cyanosis. Peripheral pulses intact and strong TELEMETRY: Sinus rhythm overnight LABS: WBC 6.1, hemoglobin 11.0, HCT 33.6, platelet 139, sodium 136, potassium 4.1, BUN 13, creatinine 0.97, magnesium 1.8 IMPRESSION: ST elevated myocardial infarction, inferior wall Status to post stenting to the mid RCA Coronary artery disease, prior stenting to LAD in 2014 Hypertension Hyperlipidemia History of CVA History of PE on anticoagulation Diabetes mellitus PLAN: Resume home dose of metoprolol Start losartan for hypertension, as well as the patient is diabetic Resume anticoagulation for history of PE Awaiting echocardiogram results Further recommendations to be based upon clinical course I am dictating on behalf of Dr Bernardino Bonner's history/physical and assessment /plan. Objective - Vital Signs Vital signs: Vital Signs Temp 98.3 F 10/22/24 04:00 Pulse 83 10/22/24 07:00 Resp 0 L 10/22/24 07:00 BP 149/79 10/22/24 07:00 Pulse Ox 98 10/22/24 06:00 FiO2 Intake & Output 10/21/24 10/22/24 10/22/24 18:59 06:59 18:59 Intake Total 1692 Output Total 950 Balance 742 Weight 56.5 kg Intake: IV 1100 Sodium Chloride 0.9% 1, 600 000 ml In Empty Bag 1 bag @ 1 ML/KG/HR 59.4 mls/hr IV .[id number] [facility] Rx#: [id number] Oral 592 Output: Urine 950 Other: Voiding Method External Catheter # Voids 2 - Labs CBC & Chem 7: 10/22/24 05:27 10/22/24 05:27 Labs: Abnormal Lab Results - Last 24 Hours (Table) 10/21/24 10/21/24 10/21/24 Range/Units 21:37 21:53 22:26 Hgb (11.4-16.0) gm/dL Hct (34.0-46.0) % Plt Count (150-450) k/uL Sodium (137-145) mmol/L Glucose (74-99) mg/dL POC Glucose (mg/dL) 46 L* 212 H 120 H (70-110) mg/dL Calcium (8.4-10.2) mg/dL 10/22/24 10/22/24 Range/Units 05:27 05:27 Hgb 11.0 L (11.4-16.0) gm/dL Hct 33.6 L (34.0-46.0) % Plt Count 139 L (150-450) k/uL Sodium 136 L (137-145) mmol/L Glucose 190 H (74-99) mg/dL POC Glucose (mg/dL) (70-110) mg/dL Calcium 8.1 L (8.4-10.2) mg/dL
[2024-10-22] MEDS ORDERED: APIXABAN 2.5 MG TABLET PO SCH (09:45)
[2024-10-22] MEDS ORDERED: NITROGLYCERIN SL TABS 0.4 MG TAB SUBLINGUAL PRN (10:47)
--- NOTE | 2024-10-22 11:14 | CA ---
Transthoracic Echo Report Name: Carli Hoffman Age: 64 Gender: F : 1960 Exam Date: 10/22/2024 08:09 Exam Location: [facility] Ht (in): 59 Wt (lb): 116 Ordering Physician: Cedrick Gonzalez DO ([email or web address]) Attending/Referring Phys: Program Attendant Lovely Matt RDCS Procedure CPT: Indications: stemi Cardiac Hx: 2 stents Technical Quality: Fair Contrast 1: Total Dose (mL): Contrast 2: Total Dose (mL): MEASUREMENTS (Male / Female) Normal Values 2D ECHO LV Diastolic Diameter PLAX 3.9 cm 4.2 - 5.9 / 3.9 - 5.3 cm LV Systolic Diameter PLAX 2.7 cm IVS Diastolic Thickness 1.1 cm 0.6 - 1.0 / 0.6 - 0.9 cm LVPW Diastolic Thickness 1.1 cm 0.6 - 1.0 / 0.6 - 0.9 cm LV Relative Wall Thickness 0.6 RV Internal Dim ED PLAX 2.6 cm LA Systolic Diameter LX 3.6 cm 3.0 - 4.0 / 2.7 - 3.8 cm LV Diastolic Volume MOD 4C 67.3 cm??? LV Systolic Volume MOD 4C 33.0 cm??? LV Ejection Fraction MOD 4C 50.9 % LV Cardiac Index MOD 4C 1909.6 cm???/min???m??? LV Diastolic Length 4C 7.9 cm LV Systolic Length 4C 7.0 cm LV Diastolic Volume MOD 2C 63.1 cm??? LV Systolic Volume MOD 2C 30.2 cm??? LV Ejection Fraction MOD 2C 52.2 % LV Cardiac Index MOD 2C 1832.8 cm???/min???m??? LV Diastolic Length 2C 7.5 cm LV Systolic Length 2C 6.4 cm LA Volume 39.8 cm??? 18 - 58 / 22 - 52 cm??? LA Volume Index 26.7 cm???/m??? 16 - 28 cm???/m??? M-MODE Aortic Root Diameter MM 2.9 cm AV Cusp Separation MM 1.6 cm DOPPLER AV Peak Velocity 147.4 cm/s AV Peak Gradient 8.7 mmHg MV Area PHT 2.9 cm??? Mitral E Point Velocity 83.1 cm/s Mitral A Point Velocity 104.7 cm/s Mitral E to A Ratio 0.8 MV Deceleration Time 260.4 ms FINDINGS Left Ventricle Left ventricular ejection fraction is estimated at 50-55 %. Mildly increased septal wall thickness. Mildly increased posterior wall thickness.Left ventricular cavity size normal. No obvious regional wall motion abnormalities. Right Ventricle Normal right ventricular size. Unable to estimate the right ventricular systolic pressure. Right Atrium Normal right atrial size. No right atrial thrombus or mass seen. Left Atrium Normal left atrial size. No left atrial thrombus or mass present. Mitral Valve Mitral valve thickened. Mild mitral annular calcification. No mitral regurgitation. Aortic Valve Trileaflet aortic valve. No aortic valve stenosis or regurgitation. Tricuspid Valve Structurally normal tricuspid valve. No tricuspid stenosis, regurgitation or prolapse. Pulmonic Valve Structurally normal pulmonic valve. No pulmonic regurgitation. Pericardium No pericardial effusion. Aorta Normal size aortic root and proximal ascending aorta. CONCLUSIONS Normal LV size fair systolic function. Mild mitral annular calcification without significant regurgitation. No pericardial effusion. Right-sided pressures are not well quantified Previewed by: Dr. Farida Walters MD (Electronically Signed) Final Date: 22 October 2024 11:13
[2024-10-22] MEDS: INSULIN LISPRO (For Pump) 100 UNIT/ML VIAL SQ-PUMP SCH (11:21)
[2024-10-22] MEDS: DULoxetine HCL 20 MG CAPSULE.DR PO SCH (11:22)
[2024-10-22] MEDS: TACROLIMUS 1 MG CAP PO SCH ×2 (11:22→21:01)
[2024-10-22 11:30] LABS: Glucose,Whole Blood 151 mg/dL (70-110)
[2024-10-22] MEDS: HYDROcodone/APAP 5-325MG 1 EACH TAB PO PRN (13:58)
--- NOTE | 2024-10-22 14:27 | P.HPIM ---
History of Present Illness H&P Date: 10/22/24 Chief Complaint: ST elevation OK HISTORY OF PRESENT ILLNESS This is a 64-year-old female patient with past medical history of hypertension with hypertensive cardiovascular disease, hyperlipidemia, diabetes mellitus type 2 on insulin pump, CVA, coronary artery disease status post PCI and stent placement of the LAD in 2014 has not been seeing Dr. Bonner for quite some time,, history of renal disease status post renal transplant, vulvar cancer status post radiation treatment, obesity status post sleeve gastrectomy, patient was complaining of increased right-sided chest pain rating to the right side of her neck yesterday she went to [facility] yesterday for evaluation, she had a twelve-lead EKG that showed evidence of ST elevation OK, patient was transferred to [facility] into the [facility], underwent left heart catheterization by Dr. Gonzalez, underwent left heart catheterization that showed evidence of 99% stenosis of the RCA, underwent PCI, was admitted to ICU for further evaluation and treatment, patient was started on aspirin 81 mg once every day, Plavix 75 mg once every day, Eliquis 5 mg orally twice every day, ag gressive risk factor modification, REVIEW OF SYSTEMS Constitutional: No fever, no chills, no night sweats. No weight change. Reported weakness, fatigue positive for lethargy. EENT: No headache. No blurred vision or double vision, no loss of vision. No loss of Hearing, no ringing in the ears, no dizziness. No nasal drainage or congestion. No epistaxis. No sore throat. Lungs: Positive for shortness of breath, cough, no sputum production. No wheezing. Cardiovascular: Positive for right-sided chest pain, no lower extremity edema. No palpitations. No paroxysmal nocturnal dyspnea. No orthopnea. No lightheadedness or dizziness. No syncopal episodes. Abdominal: Reported abdominal pain. Reported nausea, no vomiting. No diarrhea. No constipation. No bloody or tarry stools. Reported loss of appetite. Genitourinary: No dysuria, increased frequency, urgency. No urinary retention. Musculoskeletal: No myalgias. Reported muscle weakness, no gait dysfunction, no frequent falls. No back pain. No neck pain. Integumentary: No wounds, no lesions. No rash or pruritus. No unusual bruising. No change in hair or nails. Neurologic: No aphasia. No facial droop. Reported change in mentation. No head injury. No headache. No paralysis. No paresthesia. Psychiatric: No depression. No anxiety. No mood swings. Endocrine: Noted abnormal blood sugars. No weight change. No excessive sweating or thirst. No cold intolerance. MEDICAL HISTORY Hypertension with hypertensive cardiovascular disease Hyperlipidemia Diabetes mellitus type 2 on insulin pump Diabetic peripheral neuropathy Coronary artery disease CVA Coronary artery disease status post PCI and stent placement Renal disease status post renal transplant Vulvar cancer status post radiation Obesity status post sleeve gastrectomy Gastroesophageal reflux disease Obstructive sleep apnea Latent factor V deficiency Chronic pulmonary embolism Basal cell carcinoma Recurrent depression SURGICAL HISTORY Cardiac catheterization and PCI and stent placement Renal transplant Sleeve gastrectomy Cholecystectomy Tonsillectomy Tubal ligation Colonoscopy ADD Bilateral oophorectomy SOCIAL HISTORY Patient was a smoker of one pack per day for 15 years and quit in 1998. Patient uses CBD cream. No illicit drug use. She lives at home with her FAMILY HISTORY Father at age 56 from myocardial infarction. Mother is alive at age 82 with history of hypertension, carotid artery disease, PE, factor V leiden, hyperlipidemia. Patient has 3 sisters one from renal failure and also had history of ureteral atresia, one sister with obesity status post sleeve gastrectomy and hypertension and hyperlipidemia. Patient has one son with diabetes mellitus type 1. PHYSICAL EXAMINATION Gen: This is a 64-year-old female who is laying down in bed appears in no distress. HEENT: head is atraumatic normocephalic pupils were equal round reactive to light and accommodations extra ocular muscle movements were intact, mucous membranes of the mouth are somewhat dry. Neck: supple no JVP. Chest: decrease breath sounds at the bases with no ronchi or expiratory wheezes. Heart : first heart sound is depressed, second heart sound is normal there is ISHA 2/6 located at the left sternal border. Abdomen: soft , mild tenderness, there is no rebound or guarding positive bowel sounds. Extremities: there is no edema or calf tenderness, DP +1 bilaterally. Neurologic examinations; patient is stuporous, opens her eyes in response to the wrist; she is moving all her extreme disease, she does appear to have a significant metabolic encephalopathy. ASSESSMENT AND PLAN 1. ST elevation inferior wall OK. Status post left heart catheterization with PCI of the RCA. Continue aspirin 80 mg once every day, Plavix 75 mg once every day, atorvastatin 80 mg once every day. Continue risk factor modification into the lifestyle changes. 2. Hypertension and hypertensive cardiovascular disease. .Continue metoprolol 25 mg orally once every day. 3. Mixed hyperlipidemia. we will continue with Lipitor 80 mg po daily. Plan, keep LDL 55-70. 4. Diabetes mellitus type 2 on insulin pump. Will continue with that. 5. history of CVA . Continue Lipitor 80 mg orally once every day, continue aspirin 80 mg once every day, Plavix 75 mg once every day. 6. history of renal transplant. we will need to resume her Tacrolimus and cellcept. 7. Obstructive sleep apnea. Patient does not have CPAP. she has lost a lot of weight with a gastric bypass surgery. 8. History of pulmonary embolism. Continue patient on eliquis 2.5 mg twice daily. 9. History of CAD post PCI. we will continue with Lipitor 80 mg orally daily. 10. Recurrent depression. We will continue with cynbalta 20 mg orally daily. 11. Diabetic neuropathy. Continue gabapentin 300 mg daily. 12. History of vulvar cancer post surgery and radiation therapy. 13. GERD with esophagitis. we will continue with PPI. 14. Admit to inpatient. Estimated length of stay 2 midnights for 15. Patient is full code. Past Medical History Past Medical History: Blood Disorder, Coronary Artery Disease (CAD), Cancer, CVA/TIA, Diabetes Mellitus, Dialysis, GERD/Reflux, Hyperlipidemia, Hypertension, Myocardial Infarction (non Q-wave), Osteoarthritis (OA), Pneumonia, Pulmonary Embolus (PE), Renal Disease, Sleep Apnea/CPAP/BIPAP, Thyroid Disorder Additional Past Medical History / Comment(s): Leiden Factor V, basal cell carcinoma, Vulvar cancer, CVA 2015, CVA 2013, CVA 2016 est - sl weakness Lt side, Dialysis 2001 for 2 months, enlarged thyroid w/ nodules. PE 2001, Kidney transplant 2001. No tx for sleep apnea. Neuropathy in feet/legs. Last Myocardial Infarction Date:: 2024 History of Any Multi-Drug Resistant Organisms: None Reported Past Surgical History: Bariatric Surgery, Section, Cholecystectomy, Heart Catheterization, Heart Catheterization With Stent, Tonsillectomy, Tubal Ligation Additional Past Surgical History / Comment(s): jose oophorectomy, kidney transplant, surgery to remove CA. PTCA w/ Stent 2001, 2014, 2024. Colonoscopy, EGD, Gastric Sleeve 05/04/20. Past Anesthesia/Blood Transfusion Reactions: No Reported Reaction Additional Past Anesthesia/Blood Transfusion Reaction / Comment(s): no hx blood transfusion Date of Last Stent Placement:: 2024 Past Psychological History: Depression Smoking Status: Former smoker Past Alcohol Use History: None Reported Additional Past Alcohol Use History / Comment(s): QUIT SMOKING 1998, SMOKED FOR 15YRS, 1PPD Past Drug Use History: Marijuana Additional Drug Use History / Comment(s): uses marijuana gummies at night for sleep - Past Family History Sister(s) Family Medical History: Hypertension Father Family Medical History: Myocardial Infarction ([place]) Mother Family Medical History: Pulmonary Embolus Additional Family Medical History / Comment(s): Occluded carotid artery, carotid endartectomy Son(s) Family Medical History: Diabetes Mellitus Additional Family Medical History / Comment(s): DM type 1 Medications and Allergies Home Medications Medication Instructions Recorded Confirmed Type mycophenolate mofetiL [Cellcept] 500 mg PO BID 12/12/14 10/22/24 History Tacrolimus [Prograf] 2 mg PO HS 06/06/16 10/22/24 History DULoxetine HCL [Cymbalta] 20 mg PO DAILY 11/10/18 10/22/24 History Apixaban [Eliquis] 5 mg PO BID 11/04/19 10/22/24 History Clopidogrel [Plavix] 75 mg PO DAILY 11/04/19 10/22/24 History Atorvastatin [Lipitor] 80 mg PO HS 09/10/21 10/22/24 History Metoclopramide [Reglan] 5 mg PO DAILY 09/10/21 10/22/24 History Metoprolol Succinate (ER) [Toprol 25 mg PO DAILY 09/10/21 10/22/24 History XL] calcitrioL 0.5 mcg PO DAILY 09/10/21 10/22/24 History Omeprazole [PriLOSEC] 40 mg PO DAILY 04/12/23 10/22/24 History Tacrolimus [Prograf] 1 mg PO DAILY 04/12/23 10/22/24 History Gabapentin [Neurontin] 300 mg PO HS #3 cap 11/28/23 10/22/24 Rx Cholecalciferol (Vitamin D3) 1,250 mcg PO WEEKLY 10/22/24 10/22/24 History [Vitamin D3 (1250 Mcg = 50,000 Iu)] Cyanocobalamin (Vitamin B-12) 1,000 mcg PO DAILY 10/22/24 10/22/24 History [Vitamin B-12] Ferrous Sulfate [Iron] 325 mg PO DAILY 10/22/24 10/22/24 History HYDROcodone/APAP 5-325MG [[place] 1 - 2 tab PO Q6HR PRN 10/22/24 10/22/24 History 5-325] INSULIN LISPRO (For Pump) [humaLOG 0.01 units SQ-PUMP CONTINUOUS 10/22/24 10/22/24 History (For Pump)] Nitroglycerin Sl Tabs [Nitrostat] 0.4 mg SUBLINGUAL Q5M PRN 10/22/24 10/22/24 History Allergies Allergy/AdvReac Type Severity Reaction Status Date / Time Milk Containing Products Allergy Diarrhea Verified 10/22/24 00:09 (Dairy) [Dairy] Penicillins Allergy Rash/Hives Verified 10/22/24 00:09 trandolapril [From [facility]] Allergy SEVERE Verified 10/22/24 00:09 HYPOTENSION verapamil HCl [From [place]arka] Allergy SEVERE Verified 10/22/24 00:09 HYPOTENSION Physical Exam Vitals: Vital Signs Temp Pulse Resp BP Pulse Ox 10/22/24 10:00 82 16 174/99 10/22/24 09:00 98.6 F 97 14 166/111 98 10/22/24 08:00 89 21 166/82 98 10/22/24 07:00 83 0 L 149/79 10/22/24 06:00 84 9 L 151/79 98 10/22/24 05:00 86 0 L 175/95 98 10/22/24 04:00 98.3 F 98 25 H 91 L 10/22/24 03:00 155/78 97 10/22/24 02:00 84 5 L 98 10/22/24 01:45 80 4 L 98 10/22/24 01:30 80 6 L 141/71 97 10/22/24 01:15 92 23 140/67 92 L 10/22/24 01:00 84 10 L 138/65 94 L 10/22/24 00:45 87 7 L 132/66 96 10/22/24 00:30 80 5 L 153/78 95 10/22/24 00:15 79 21 152/79 94 L 10/22/24 00:00 98.1 F 84 16 166/86 100 10/21/24 23:45 84 20 144/93 99 10/21/24 23:30 85 15 148/83 98 10/21/24 23:15 86 6 L 147/86 96 10/21/24 23:00 98 14 99 10/21/24 22:48 100 12 174/84 99 10/21/24 22:45 101 H 20 167/115 99 10/21/24 22:30 105 H 8 L 96 10/21/24 22:26 98 12 149/102 Intake and Output 10/21/24 10/22/24 10/22/24 22:59 06:59 14:59 Intake Total 560 1132 380 Output Total 950 400 Balance 560 182 -20 Intake: IV 560 540 180 Sodium Chloride 0.9% 1, 60 540 180 000 ml In Empty Bag 1 bag @ 1 ML/KG/HR 59.4 mls/hr IV .[id number] [facility] Rx#: [id number] Oral 592 200 Output: Urine 950 400 Other: Voiding Method External Catheter External Catheter # Voids 2 Weight 59.4 kg 56.5 kg Results CBC & Chem 7: 10/22/24 05:27 10/22/24 05:27 Labs: Abnormal Lab Results - Last 24 Hours (Table) 10/21/24 10/21/24 10/21/24 Range/Units 21:37 21:53 22:26 Hgb (11.4-16.0) gm/dL Hct (34.0-46.0) % Plt Count (150-450) k/uL Sodium (137-145) mmol/L Glucose (74-99) mg/dL POC Glucose (mg/dL) 46 L* 212 H 120 H (70-110) mg/dL Calcium (8.4-10.2) mg/dL 10/22/24 10/22/24 Range/Units 05:27 05:27 Hgb 11.0 L (11.4-16.0) gm/dL Hct 33.6 L (34.0-46.0) % Plt Count 139 L (150-450) k/uL Sodium 136 L (137-145) mmol/L Glucose 190 H (74-99) mg/dL POC Glucose (mg/dL) (70-110) mg/dL Calcium 8.1 L (8.4-10.2) mg/dL Thrombosis Risk Factor Assmnt - Choose All That Apply Any of the Below Risk Factors Present?: Yes Each Factor Represents 1 point: Acute OK Other Risk Factors: Yes Each Risk Factor Represents 2 Points: Age 61-74 years Each Risk Factor Represents 3 Points: Positive Factor V Leiden Thrombosis Risk Factor Assessment Total Risk Factor Score: 6 Thrombosis Risk Factor Assessment Level: High Risk
[2024-10-22 14:56] VITALS: BMI 25.1
[2024-10-22 16:19] LABS: Glucose,Whole Blood 151 mg/dL (70-110)
[2024-10-22 17:33] LABS: Chol/HDL Ratio 2.41 Ratio; LDL Cholesterol,Calculated 48.1 mg/dL (0.0-131.0)
[2024-10-22] MEDS: LOSARTAN 25 MG TAB PO STA (18:29)
[2024-10-22] MEDS: carvediloL 6.25 MG TAB PO SCH (18:29)
[2024-10-22 20:13] LABS: Glucose,Whole Blood 74 mg/dL (70-110)
[2024-10-22] MEDS: GABAPENTIN 300 MG CAP PO SCH (21:00)
[2024-10-22] MEDS: APIXABAN 2.5 MG TABLET PO SCH (21:00)
[2024-10-22 21:05] LABS: Glucose,Whole Blood 54 mg/dL (70-110)
[2024-10-22] MEDS ORDERED: DEXTROSE 50% SYRINGE 50 ML IVP PRN (21:05)
[2024-10-22] MEDS: DEXTROSE 50% SYRINGE 50 ML IVP PRN (21:14)
[2024-10-22] MEDS: LOSARTAN 50 MG TAB PO STA (23:33)
[2024-10-23] MEDS: PANTOPRAZOLE 40 MG TABLET PO SCH (06:16)
[2024-10-23 06:28] LABS: Glucose,Whole Blood 203 mg/dL (70-110)
--- NOTE | 2024-10-23 09:41 | P.PN ---
Subjective Progress Note Date: 10/23/24 The patient is a 64-year-old female with multiple comorbid conditions. She presented to the hospital with worsening shoulder discomfort. She was found to have an inferior wall myocardial infarction and underwent stenting of the mid RCA with Dr. Gonzalez. Echocardiogram revealed preserved LV function. Overnight the patient was hypertensive. She received additional doses of her losartan. The patient interviewed and examined resting comfortably in bed. No chest pain or difficulty breathing overnight. Overall she states she feels well and was up to the recliner chair yesterday without dizziness or lightheadedness. GENERAL: Well-appearing, well-nourished and in no acute distress. NECK: Supple without JVD or thyromegaly. LUNGS: Breath sounds clear to auscultation bilaterally. Respiration equal and unlabored. No wheezes, rales or rhonchi. HEART: Regular rate and rhythm without murmurs, rubs or gallops. S1 and S2 heard. EXTREMITIES: Normal range of motion, no edema. No clubbing or cyanosis. Peripheral pulses intact and strong TELEMETRY: Sinus rhythm overnight IMPRESSION: ST elevated myocardial infarction, inferior wall Status to post stenting to the mid RCA Coronary artery disease, prior stenting to LAD in 2014 Hypertension Hyperlipidemia History of CVA History of PE on anticoagulation Diabetes mellitus PLAN: Increase losartan to 50mg BID Continue current dose of beta-xiomara as heart rates are in the 60s Patient can be downgraded to 3 S. Possible discharge tomorrow I am dictating on behalf of Dr Bernardino Bonner's history/physical and assessment/plan. Objective - Vital Signs Vital signs: Vital Signs Temp 97.7 F 10/23/24 00:00 Pulse 77 10/23/24 08:00 Resp 16 10/23/24 08:00 BP 120/78 10/23/24 08:00 Pulse Ox 96 10/23/24 04:00 FiO2 Intake & Output 10/22/24 10/23/24 10/23/24 18:59 06:59 18:59 Intake Total 1120 Output Total 1000 1250 Balance 120 -1250 Weight 56.5 kg 52.3 kg Intake: IV 420 Sodium Chloride 0.9% 1, 420 000 ml In Empty Bag 1 bag @ 1 ML/KG/HR 59.4 mls/hr IV .[id number] [facility] Rx#: [id number] Oral 700 Output: Urine 1000 1250 Other: Voiding Method External Catheter External Catheter # Voids 2 - Labs CBC & Chem 7: 10/22/24 05:27 10/22/24 05:27 Labs: Abnormal Lab Results - Last 24 Hours (Table) 10/22/24 10/22/24 10/22/24 Range/Units 05:27 11:28 16:17 POC Glucose (mg/dL) 151 H 151 H (70-110) mg/dL Hemoglobin A1c 7.0 H (<=6.0) % 10/22/24 10/23/24 Range/Units 21:03 06:26 POC Glucose (mg/dL) 54 L 203 H (70-110) mg/dL Hemoglobin A1c (<=6.0) %
[2024-10-23] MEDS: FERROUS SULFATE 325 MG TAB PO SCH (09:48)
[2024-10-23] MEDS: CYANOCOBALAMIN 500 MCG TAB PO SCH (09:48)
[2024-10-23] MEDS: LOSARTAN 50 MG TAB PO SCH ×2 (09:48→20:37)
[2024-10-23 11:43] LABS: Glucose,Whole Blood 165 mg/dL (70-110)
[2024-10-23] MEDS ORDERED: DEXTROSE 50% SYRINGE 50 ML IVP PRN ×4 (12:20→12:58)
[2024-10-23] MEDS: INSULIN ASPART (NovoLOG) 100 UNIT/ML VIAL SQ SCH (13:13)
[2024-10-23 15:30] LABS: Basophils # (A) 0.1 k/uL (0-0.2); Basophils % (A) 1 %; Eosinophils # (A) 0.1 k/uL (0-0.7); Eosinophils % (A) 1 %; HCT 39.1 % (34.0-46.0); HGB 12.5 gm/dL (11.4-16.0); Hypochromasia Slight; Lymphocytes # (A) 1.1 k/uL (1.0-4.8); Lymphocytes % (A) 17 %; MCH 28.6 pg (25.0-35.0); MCHC 31.9 g/dL (31.0-37.0); MCV 89.7 fL (80.0-100.0); Mean Platelet Volume 9.9; Monocytes # (A) 0.3 k/uL (0-1.0); Monocytes % (A) 5 %; Neutrophils # (A) 4.8 k/uL (1.3-7.7); Neutrophils % (A) 75 %; Platelet Count 155 k/uL (150-450); RBC 4.36 m/uL (3.80-5.40); WBC 6.4 k/uL (3.8-10.6)
[2024-10-23 16:03] LABS: ALT 32 U/L (4-34); AST 53 U/L (14-36); African American GFR (CKD) 78 (>60 ml/min/1.73 sqM); Albumin 3.1 g/dL (3.5-5.0); Alkaline Phosphatase 77 U/L (38-126); Anion Gap 6 mmol/L; Blood Urea Nitrogen 14 mg/dL (7-17); Calcium 8.2 mg/dL (8.4-10.2); Carbon Dioxide 24 mmol/L (22-30); Chloride 102 mmol/L (98-107); Glucose 283 mg/dL (74-99); Non-African American GFR(CKD) 68 (>60 ml/min/1.73 sqM); Potassium 4.4 mmol/L (3.5-5.1); Sodium 132 mmol/L (137-145); Total Bilirubin 1.9 mg/dL (0.2-1.3); Total Protein 5.9 g/dL (6.3-8.2)
[2024-10-23 16:05] LABS: Glucose,Whole Blood 301 mg/dL (70-110)
[2024-10-23] MEDS ORDERED: INSULIN ASPART (NovoLOG) 100 UNIT/ML VIAL SQ SCH (17:30)
[2024-10-23 20:10] LABS: Glucose,Whole Blood 350 mg/dL (70-110)
[2024-10-23] MEDS: INSULIN DETEMIR (LEVEMIR) 100 UNIT/ML SYR SQ SCH (20:37)
[2024-10-24 06:10] LABS: Glucose,Whole Blood 270 mg/dL (70-110)
[2024-10-24 07:50] VITALS: RESP 16
--- NOTE | 2024-10-24 10:21 | P.PN ---
Subjective Progress Note Date: 10/23/24 HISTORY OF PRESENT ILLNESS This is a 64-year-old female patient with past medical history of hypertension with hypertensive cardiovascular disease, hyperlipidemia, diabetes mellitus type 2 on insulin pump, CVA, coronary artery disease status post PCI and stent placement of the LAD in 2014 has not been seeing Dr. Bonner for quite some time,, history of renal disease status post renal transplant, vulvar cancer status post radiation treatment, obesity status post sleeve gastrectomy, patient was complaining of increased right-sided chest pain rating to the right side of her neck yesterday she went to [facility] yesterday for evaluation, she had a twelve-lead EKG that showed evidence of ST elevation ND, patient was transferred to [facility] into the [facility], underwent left heart catheterization by Dr. Gonzalez, underwent left heart catheterization that sh owed evidence of 99% stenosis of the RCA, underwent PCI, was admitted to ICU for further evaluation and treatment, patient was started on aspirin 81 mg once every day, Plavix 75 mg once every day, Eliquis 5 mg orally twice every day, aggressive risk factor modification, 10/23: Patient is doing better today, she is sitting up in bed in no apparent distress, she was switched to Levemir 8 units at bedtime along with a sliding scale insulin, she is eating better, she denies any chest pain, shortness of breath, she has no abdominal pain, nausea vomiting or diarrhea, she would moved out of the ICU to a telemetry unit. REVIEW OF SYSTEMS Constitutional: No fever, no chills, no night sweats. No weight change. Reported weakness, fatigue positive for lethargy. EENT: No headache. No blurred vision or double vision, no loss of vision. No loss of Hearing, no ringing in the ears, no dizziness. No nasal drainage or congestion. No epistaxis. No sore throat. Lungs: Positive for shortness of breath, cough, no sputum production. No wheezing. Cardiovascular: Positive for right-sided chest pain, no lower extremity edema. No palpitations. No paroxysmal nocturnal dyspnea. No orthopnea. No lightheadedness or dizziness. No syncopal episodes. Abdominal: Reported abdominal pain. Reported nausea, no vomiting. No diarrhea. No constipation. No bloody or tarry stools. Reported loss of appetite. Genitourinary: No dysuria, increased frequency, urgency. No urinary retention. Musculoskeletal: No myalgias. Reported muscle weakness, no gait dysfunction, no frequent falls. No back pain. No neck pain. Integumentary: No wounds, no lesions. No rash or pruritus. No unusual bruising. No change in hair or nails. Neurologic: No aphasia. No facial droop. Reported change in mentation. No head injury. No headache. No paralysis. No paresthesia. Psychiatric: No depression. No anxiety. No mood swings. Endocrine: Noted abnormal blood sugars. No weight change. No excessive sweating or thirst. No cold intolerance. PHYSICAL EXAMINATION Gen: This is a 64-year-old female who is laying down in bed appears in no distress. HEENT: head is atraumatic normocephalic pupils were equal round reactive to light and accommodations extra ocular muscle movements were intact, mucous membranes of the mouth are somewhat dry. Neck: supple no JVP. Chest: decrease breath sounds at the bases with no ronchi or expiratory wheezes. Heart : first heart sound is depressed, second heart sound is normal there is ISHA 2/6 located at the left sternal border. Abdomen: soft , mild tenderness, there is no rebound or guarding positive bowel sounds. Extremities: there is no edema or calf tenderness, DP +1 bilaterally. Neurologic examinations; patient is stuporous, opens her eyes in response to the wrist; she is moving all her extreme disease, she does appear to have a significant metabolic encephalopathy. ASSESSMENT AND PLAN 1. ST elevation inferior wall ND. Status post left heart catheterization with PCI of the RCA. Continue aspirin 80 mg once every day, Plavix 75 mg once every day, atorvastatin 80 mg once every day. Continue risk factor modification into the lifestyle changes. 2. Hypertension and hypertensive cardiovascular disease. .Continue metoprolol 25 mg orally once every day. 3. Mixed hyperlipidemia. we will continue with Lipitor 80 mg po daily. Plan, keep LDL 55-70. 4. Diabetes mellitus type 2 on insulin pump. Discontinue insulin pump start the patient on Levemir 8 units at bedtime along with a sliding scale insulin. 5. history of CVA . Continue Lipitor 80 mg orally once every day, continue a spirin 80 mg once every day, Plavix 75 mg once every day. 6. history of renal transplant. we will need to resume her Tacrolimus and cellcept. 7. Obstructive sleep apnea. Patient does not have CPAP. she has lost a lot of weight with a gastric bypass surgery. 8. History of pulmonary embolism. Continue patient on eliquis 2.5 mg twice daily. 9. History of CAD post PCI. we will continue with Lipitor 80 mg orally daily. 10. Recurrent depression. We will continue with cynbalta 20 mg orally daily. 11. Diabetic neuropathy. Continue gabapentin 300 mg daily. 12. History of vulvar cancer post surgery and radiation therapy. 13. GERD with esophagitis. we will continue with PPI. 13. Transfer to telemetry unit. Objective - Vital Signs Vital signs: Vital Signs Temp 98 F 10/23/24 08:00 Pulse 63 10/23/24 08:00 Resp 16 10/23/24 08:00 BP 120/78 10/23/24 08:00 Pulse Ox 98 10/23/24 08:00 FiO2 Intake & Output 10/22/24 10/23/24 10/23/24 18:59 06:59 18:59 Intake Total 1120 Output Total 1000 1250 Balance 120 -1250 Weight 56.5 kg 52.3 kg Intake: IV 420 Sodium Chloride 0.9% 1, 420 000 ml In Empty Bag 1 bag @ 1 ML/KG/HR 59.4 mls/hr IV .[id number] [facility] Rx#: [id number] Oral 700 Output: Urine 1000 1250 Other: Voiding Method External Catheter External Catheter Bedside Commode # Voids 2 2 - Labs CBC & Chem 7: 10/23/24 15:13 10/23/24 15:13 Labs: Abnormal Lab Results - Last 24 Hours (Table) 10/22/24 10/22/24 10/22/24 Range/Units 05:27 16:17 21:03 POC Glucose (mg/dL) 151 H 54 L (70-110) mg/dL Hemoglobin A1c 7.0 H (<=6.0) % 10/23/24 10/23/24 Range/Units 06:26 11:41 POC Glucose (mg/dL) 203 H 165 H (70-110) mg/dL Hemoglobin A1c (<=6.0) %
--- NOTE | 2024-10-24 10:22 | P.PN ---
Subjective Progress Note Date: 10/24/24 HISTORY OF PRESENT ILLNESS This is a 64-year-old female patient with past medical history of hypertension with hypertensive cardiovascular disease, hyperlipidemia, diabetes mellitus type 2 on insulin pump, CVA, coronary artery disease status post PCI and stent placement of the LAD in 2014 has not been seeing Dr. Bonner for quite some time,, history of renal disease status post renal transplant, vulvar cancer status post radiation treatment, obesity status post sleeve gastrectomy, patient was complaining of increased right-sided chest pain rating to the right side of her neck yesterday she went to [facility] yesterday for evaluation, she had a twelve-lead EKG that showed evidence of ST elevation [place], patient was transferred to [facility] into the [facility], underwent left heart catheterization by Dr. Gonzalez, underwent left heart catheterization that sh owed evidence of 99% stenosis of the RCA, underwent PCI, was admitted to ICU for further evaluation and treatment, patient was started on aspirin 81 mg once every day, Plavix 75 mg once every day, Eliquis 5 mg orally twice every day, aggressive risk factor modification, 10/23: Patient is doing better today, she is sitting up in bed in no apparent distress, she was switched to Levemir 8 units at bedtime along with a sliding scale insulin, she is eating better, she denies any chest pain, shortness of breath, she has no abdominal pain, nausea vomiting or diarrhea, she would moved out of the ICU to a telemetry unit. 10/24: Patient sitting up in recliner chair, she is moving using a walker to the bathroom, I asked the patient to move outside in the hallway, keep her in the hospital for another 24 hours, since this is her third day after ST elevation VT, will continue current treatment plan, continue Lipitor 80 mg once every day, monitor the patient symptoms very closely, continue aspirin 81 mg once every day and Plavix 75 mg once every day continue risk factor modification, the patient was given a brochure about Mediterranean diet as well, hopefully she will be discharged home tomorrow morning. REVIEW OF SYSTEMS Constitutional: No fever, no chills, no night sweats. No weight change. Reported weakness, fatigue positive for lethargy. EENT: No headache. No blurred vision or double vision, no loss of vision. No loss of Hearing, no ringing in the ears, no dizziness. No nasal drainage or congestion. No epistaxis. No sore throat. Lungs: Positive for shortness of breath, cough, no sputum production. No wheezing. Cardiovascular: Positive for right-sided chest pain, no lower extremity edema. No palpitations. No paroxysmal nocturnal dyspnea. No orthopnea. No lightheadedness or dizziness. No syncopal episodes. Abdominal: Reported abdominal pain. Reported nausea, no vomiting. No diarrhea. No constipation. No bloody or tarry stools. Reported loss of appetite. Genitourinary: No dysuria, increased frequency, urgency. No urinary retention. Musculoskeletal: No myalgias. Reported muscle weakness, no gait dysfunction, no frequent falls. No back pain. No neck pain. Integumentary: No wounds, no lesions. No rash or pruritus. No unusual bruis ing. No change in hair or nails. Neurologic: No aphasia. No facial droop. Reported change in mentation. No head injury. No headache. No paralysis. No paresthesia. Psychiatric: No depression. No anxiety. No mood swings. Endocrine: Noted abnormal blood sugars. No weight change. No excessive swea ting or thirst. No cold intolerance. PHYSICAL EXAMINATION Gen: This is a 64-year-old female who is laying down in bed appears in no distress. HEENT: head is atraumatic normocephalic pupils were equal round reactive to light and accommodations extra ocular muscle movements were intact, mucous membranes of the mouth are somewhat dry. Neck: supple no JVP. Chest: decrease breath sounds at the bases with no ronchi or expiratory wheezes. Heart : first heart sound is depressed, second heart sound is normal there is ISHA 2/6 located at the left sternal border. Abdomen: soft , mild tenderness, there is no rebound or guarding positive bowel sounds. Extremities: there is no edema or calf tenderness, DP +1 bilaterally. Neurologic examinations; patient is stuporous, opens her eyes in response to the wrist; she is moving all her extreme disease, she does appear to have a significant metabolic encephalopathy. ASSESSMENT AND PLAN 1. ST elevation inferior wall VT. Status post left heart catheterization with PCI of the RCA. Continue aspirin 80 mg once every day, Plavix 75 mg once every day, atorvastatin 80 mg once every day. Continue risk factor modification into the lifestyle changes. 2. Hypertension and hypertensive cardiovascular disease. .Continue metoprolol 25 mg orally once every day. 3. Mixed hyperlipidemia. we will continue with Lipitor 80 mg po daily. Plan, keep LDL 55-70. 4. Diabetes mellitus type 2 on insulin pump. Continue the patient on Levemir 11 units at bedtime along with a sliding scale insulin, added 4 units SC AC Meals 5. history of CVA . Continue Lipitor 80 mg orally once every day, continue aspirin 80 mg once every day, Plavix 75 mg once every day. 6. history of renal transplant. we will need to resume her Tacrolimus and cellcept. 7. Obstructive sleep apnea. Patient does not have CPAP. she has lost a lot of weight with a gastric bypass surgery. 8. History of pulmonary embolism. Continue patient on eliquis 2.5 mg twice daily. 9. History of CAD post PCI. we will continue with Lipitor 80 mg orally daily. 10. Recurrent depression. We will continue with cynbalta 20 mg orally daily. 11. Diabetic neuropathy. Continue gabapentin 300 mg daily. 12. History of vulvar cancer post surgery and radiation therapy. 13. GERD with esophagitis. we will continue with PPI. 13. Home tomorrow morning. Objective - Vital Signs Vital signs: Vital Signs Temp 99.0 F 10/24/24 07:49 Pulse 83 10/24/24 07:49 Resp 16 10/24/24 07:49 BP 94/52 10/24/24 09:20 Pulse Ox 96 10/24/24 07:49 FiO2 Intake & Output 10/23/24 10/24/24 10/24/24 18:59 06:59 18:59 Intake Total 200 190 250 Output Total 450 200 Balance -250 -10 250 Weight 53.1 kg Intake: IV 10 10 Invasive Line 2 10 10 Oral 200 180 240 Output: Urine 450 200 Other: Voiding Method Bedside Commode Bedside Commode Bedside Commode External Catheter External Catheter # Voids 2 - Labs CBC & Chem 7: 10/23/24 15:13 10/23/24 15:13 Labs: Abnormal Lab Results - Last 24 Hours (Table) 10/23/24 10/23/24 10/23/24 Range/Units 11:41 15:13 16:04 Sodium 132 L (137-145) mmol/L Glucose 283 H (74-99) mg/dL POC Glucose (mg/dL) 165 H 301 H (70-110) mg/dL Calcium 8.2 L (8.4-10.2) mg/dL Total Bilirubin 1.9 H (0.2-1.3) mg/dL AST 53 H (14-36) U/L Total Protein 5.9 L (6.3-8.2) g/dL Albumin 3.1 L (3.5-5.0) g/dL 10/23/24 10/24/24 Range/Units 20:08 06:08 Sodium (137-145) mmol/L Glucose (74-99) mg/dL POC Glucose (mg/dL) 350 H 270 H (70-110) mg/dL Calcium (8.4-10.2) mg/dL Total Bilirubin (0.2-1.3) mg/dL AST (14-36) U/L Total Protein (6.3-8.2) g/dL Albumin (3.5-5.0) g/dL
[2024-10-24 11:26] LABS: Glucose,Whole Blood 371 mg/dL (70-110)
[2024-10-24] MEDS: INSULIN ASPART (NovoLOG) 100 UNIT/ML VIAL SQ SCH (11:49)
--- NOTE | 2024-10-24 13:57 | P.PN ---
Subjective Progress Note Date: 10/24/24 Patient is a 64-year-old female with multiple comorbid conditions. She presented to the hospital with worsening shoulder discomfort. She was found to have an inferior wall myocardial infarction and underwent stenting of the mid RCA with Dr. Gonzalez. Echocardiogram reveals normal LV size fair systolic function with EF 50 to 55%, mild mitral annular calcification without significant regurgitation. No pericardial effusion. Right sided pressures are not well quantified. Patient has been transferred from the intensive care unit to the cardiac stepdown unit. This morning, blood pressures have been low with systolic of 90 and losartan was held. Patient denies having chest pain, no shortness of breath. No repeat blood work this morning. Telemetry sinus rhythm. GENERAL: Well-appearing, well-nourished and in no acute distress. NECK: Supple without JVD or thyromegaly. LUNGS: Breath sounds clear to auscultation bilaterally. Respiration equal and unlabored. No wheezes, rales or rhonchi. HEART: Regular rate and rhythm without murmurs, rubs or gallops. S1 and S2 heard. EXTREMITIES: Normal range of motion, no edema. No clubbing or cyanosis. Peripheral pulses intact and strong IMPRESSION: ST elevated myocardial infarction, inferior wall Status to post stenting to the mid RCA Coronary artery disease, prior stenting to LAD in 2014 Hypertension Hyperlipidemia History of CVA History of PE on anticoagulation Diabetes mellitus PLAN: Decrease Coreg to 3.125 mg twice daily Decrease losartan 25 mg daily starting tomorrow Continue patient on aspirin for 2 weeks only Continue patient on Eliquis 2.5 mg twice daily and Plavix 75 mg daily Monitor blood pressure closely Monitor patient overnight and possible discharge home tomorrow I am dictating on behalf of Dr Bernardino Bonner's history/physical and assessment/plan. Objective - Vital Signs Vital signs: Vital Signs Temp 98.5 F 10/24/24 11:20 Pulse 59 L 10/24/24 11:20 Resp 16 10/24/24 11:20 BP 128/60 10/24/24 11:20 Pulse Ox 100 10/24/24 11:20 FiO2 Intake & Output 10/23/24 10/24/24 10/24/24 18:59 06:59 18:59 Intake Total 200 190 250 Output Total 450 200 0 Balance -250 -10 250 Weight 53.1 kg Intake: IV 10 10 Invasive Line 2 10 10 Oral 200 180 240 Output: Urine 450 200 0 Other: Voiding Method Bedside Commode Bedside Commode Bedside Commode External Catheter External Catheter # Voids 2 0 - Labs CBC & Chem 7: 10/23/24 15:13 10/23/24 15:13 Labs: Abnormal Lab Results - Last 24 Hours (Table) 10/23/24 10/23/24 10/23/24 Range/Units 15:13 16:04 20:08 Sodium 132 L (137-145) mmol/L Glucose 283 H (74-99) mg/dL POC Glucose (mg/dL) 301 H 350 H (70-110) mg/dL Calcium 8.2 L (8.4-10.2) mg/dL Total Bilirubin 1.9 H (0.2-1.3) mg/dL AST 53 H (14-36) U/L Total Protein 5.9 L (6.3-8.2) g/dL Albumin 3.1 L (3.5-5.0) g/dL 10/24/24 10/24/24 Range/Units 06:08 11:25 Sodium (137-145) mmol/L Glucose (74-99) mg/dL POC Glucose (mg/dL) 270 H 371 H (70-110) mg/dL Calcium (8.4-10.2) mg/dL Total Bilirubin (0.2-1.3) mg/dL AST (14-36) U/L Total Protein (6.3-8.2) g/dL Albumin (3.5-5.0) g/dL
[2024-10-24] MEDS: carvediloL 3.125 MG TAB PO SCH (16:37)
[2024-10-24] MEDS: MAG HYDROX/AL HYDROX/SIMETH 30 ML CUP PO PRN (16:37)
[2024-10-24 16:38] LABS: Glucose,Whole Blood 297 mg/dL (70-110)
[2024-10-24 20:21] LABS: Glucose,Whole Blood 264 mg/dL (70-110)
[2024-10-24] MEDS: INSULIN DETEMIR (LEVEMIR) 100 UNIT/ML SYR SQ SCH (20:57)
[2024-10-25 05:47] LABS: Glucose,Whole Blood 260 mg/dL (70-110)
[2024-10-25 06:44] LABS: Basophils % (A) 1 %; Eosinophils % (A) 1 %; HCT 34.5 % (34.0-46.0); Hypochromasia Slight; Lymphocytes # (A) 1.2 k/uL (1.0-4.8); Lymphocytes % (A) 34 %; MCH 28.2 pg (25.0-35.0); MCHC 31.8 g/dL (31.0-37.0); MCV 88.5 fL (80.0-100.0); Mean Platelet Volume 9.8; Monocytes # (A) 0.3 k/uL (0-1.0); Monocytes % (A) 8 %; Neutrophils # (A) 1.8 k/uL (1.3-7.7); Neutrophils % (A) 54 %; Platelet Count 139 k/uL (150-450); WBC 3.4 k/uL (3.8-10.6)
[2024-10-25 06:58] LABS: Glucose,Whole Blood 276 mg/dL (70-110)
[2024-10-25 07:16] LABS: ALT 23 U/L (4-34); AST 32 U/L (14-36); African American GFR (CKD) 52 (>60 ml/min/1.73 sqM); Albumin 2.9 g/dL (3.5-5.0); Alkaline Phosphatase 66 U/L (38-126); Anion Gap 5 mmol/L; Blood Urea Nitrogen 31 mg/dL (7-17); Carbon Dioxide 26 mmol/L (22-30); Chloride 102 mmol/L (98-107); Glucose 232 mg/dL (74-99); Non-African American GFR(CKD) 45 (>60 ml/min/1.73 sqM); Potassium 4.3 mmol/L (3.5-5.1); Sodium 133 mmol/L (137-145); Total Bilirubin 0.9 mg/dL (0.2-1.3); Total Protein 5.5 g/dL (6.3-8.2)
[2024-10-25 07:59] VITALS: TEMP 98.6
[2024-10-25] MEDS: LOSARTAN 25 MG TAB PO SCH (08:12)
[2024-10-25 10:56] VITALS: BP 137/72; PULSE 76
[2024-10-25 11:35] LABS: Glucose,Whole Blood 265 mg/dL (70-110)
--- NOTE | 2024-10-25 11:42 | P.PN ---
Subjective Progress Note Date: 10/25/24 Patient is a 64-year-old female with multiple comorbid conditions. She presented to the hospital with worsening shoulder discomfort. She was found to have an inferior wall myocardial infarction and underwent stenting of the mid RCA with Dr. Gonzalez. Echocardiogram reveals normal LV size fair systolic function with EF 50 to 55%, mild mitral annular calcification without significant regurgitation. No pericardial effusion. Right sided pressures are not well quantified. Patient has been transferred from the intensive care unit to the cardiac stepdown unit. This morning, blood pressures have been low with systolic of 90 and losartan was held. Patient denies having chest pain, no shortness of breath. No repeat blood work this morning. Telemetry sinus rhythm. 10/25 Yesterday medication changes were made due to fluctuating blood pressure with low readings in the morning. Her blood pressure readings are improved today at 558412/72, heart rate is in the 70s, pulse ox 98% on room air. Repeat blood work reveals BUN 31 creatinine 1.27, sodium 133, potassium 4.3, WBC 3.4 and hemoglobin 11, platelet count 139. Telemetry is sinus rhythm. GENERAL: Well-appearing, well-nourished and in no acute distress. NECK: Supple without JVD or thyromegaly. LUNGS: Breath sounds clear to auscultation bilaterally. Respiration equal and unlabored. No wheezes, rales or rhonchi. HEART: Regular rate and rhythm without murmurs, rubs or gallops. S1 and S2 heard. EXTREMITIES: Normal range of motion, no edema. No clubbing or cyanosis. Peripheral pulses intact and strong IMPRESSION: ST elevated myocardial infarction, inferior wall Status to post stenting to the mid RCA Coronary artery disease, prior stenting to LAD in 2014 Hypertension Hyperlipidemia History of CVA History of PE on anticoagulation Diabetes mellitus PLAN: Continue Coreg to 3.125 mg twice daily Continue losartan 25 mg daily starting Continue patient on aspirin for 2 weeks only Continue patient on Eliquis 2.5 mg twice daily and Plavix 75 mg daily Patient is cleared for discharge from cardiology and will follow-up in the office with Dr. Bonner in 1 week. I am dictating on behalf of Dr Bernardino Bonner's history/physical and ass essment/plan. Objective - Vital Signs Vital signs: Vital Signs Temp 98.6 F 10/25/24 07:25 Pulse 78 10/25/24 07:25 Resp 16 10/25/24 07:25 BP 129/69 10/25/24 07:25 Pulse Ox 96 10/25/24 07:25 FiO2 Intake & Output 10/24/24 10/25/24 10/25/24 18:59 06:59 18:59 Intake Total 370 20 Output Total 0 450 Balance 370 -430 Weight 51 kg Intake: IV 10 20 Invasive Line 2 10 20 Oral 360 Output: Urine 0 450 Other: Voiding Method Bedside Commode Indwelling Catheter Indwelling Catheter External Catheter # Voids 0 - Labs CBC & Chem 7: 10/25/24 06:01 10/25/24 06:01 Labs: Abnormal Lab Results - Last 24 Hours (Table) 10/24/24 10/24/24 10/24/24 Range/Units 11:25 16:37 20:18 WBC (3.8-10.6) k/uL Hgb (11.4-16.0) gm/dL Plt Count (150-450) k/uL Sodium (137-145) mmol/L BUN (7-17) mg/dL Creatinine (0.52-1.04) mg/dL Glucose (74-99) mg/dL POC Glucose (mg/dL) 371 H 297 H 264 H (70-110) mg/dL Calcium (8.4-10.2) mg/dL Total Protein (6.3-8.2) g/dL Albumin (3.5-5.0) g/dL 10/25/24 10/25/24 10/25/24 Range/Units 05:46 06:01 06:01 WBC 3.4 L (3.8-10.6) k/uL Hgb 11.0 L (11.4-16.0) gm/dL Plt Count 139 L (150-450) k/uL Sodium 133 L (137-145) mmol/L BUN 31 H (7-17) mg/dL Creatinine 1.27 H (0.52-1.04) mg/dL Glucose 232 H (74-99) mg/dL POC Glucose (mg/dL) 260 H (70-110) mg/dL Calcium 8.0 L (8.4-10.2) mg/dL Total Protein 5.5 L (6.3-8.2) g/dL Albumin 2.9 L (3.5-5.0) g/dL 10/25/24 Range/Units 06:56 WBC (3.8-10.6) k/uL Hgb (11.4-16.0) gm/dL Plt Count (150-450) k/uL Sodium (137-145) mmol/L BUN (7-17) mg/dL Creatinine (0.52-1.04) mg/dL Glucose (74-99) mg/dL POC Glucose (mg/dL) 276 H (70-110) mg/dL Calcium (8.4-10.2) mg/dL Total Protein (6.3-8.2) g/dL Albumin (3.5-5.0) g/dL
--- NOTE | 2024-10-25 15:29 | P.DS ---
Providers Date of admission: 10/21/24 21:24 Expected date of discharge: 10/25/24 Attending physician: Katina Benson Consults: 10/21/24 22:08 Consult Physician Routine Consulting Provider: [facility] Consult Reason/Comments: Post Interventional Patient Do you want consulting provider notified?: Already Contacted Primary care physician: Katina Benson [facility] Course: HISTORY OF PRESENT ILLNESS This is a 64-year-old female patient with past medical history of hypertension with hypertensive cardiovascular disease, hyperlipidemia, diabetes mellitus type 2 on insulin pump, CVA, coronary artery disease status post PCI and stent placement of the LAD in 2014 has not been seeing Dr. Bonner for quite some time,, history of renal disease status post renal transplant, vulvar cancer status post radiation treatment, obesity status post sleeve gastrectomy, patient was complaining of increased right-sided chest pain rating to the right side of her neck yesterday she went to [facility] yesterday for evaluation, she had a twelve-lead EKG that showed evidence of ST elevation [place], patient was transferred to [facility] into the Car Stower, underwent left heart catheterization by Dr. Gonzalez, underwent left heart catheterization that showed evidence of 99% stenosis of the RCA, underwent PCI, was admitted to ICU for further evaluation and treatment, patient was started on aspirin 81 mg once every day, Plavix 75 mg once every day, Eliquis 5 mg orally twice every day, aggressive risk factor modification, 10/23: Patient is doing better today, she is sitting up in bed in no apparent distress, she was switched to Levemir 8 units at bedtime along with a sliding scale insulin, she is eating better, she denies any chest pain, shortness of breath, she has no abdominal pain, nausea vomiting or diarrhea, she would moved out of the ICU to a telemetry unit. 10/24: Patient sitting up in recliner chair, she is moving using a walker to the bathroom, I asked the patient to move outside in the hallway, keep her in the hospital for another 24 hours, since this is her third day after ST elevation [place], will continue current treatment plan, continue Lipitor 80 mg once every day, monitor the patient symptoms very closely, continue aspirin 81 mg once every day and Plavix 75 mg once every day continue risk factor modification, the patient was given a brochure about Mediterranean diet as well, hopefully she will be discharged home tomorrow morning. 10/25: Patient is doing fine today, she denies any chest pain, shortness of breath, she is ambulating very well using a walker, yesterday she did have episode of urinary retention for which she had a Hernandez catheter placement with 200 cc of urine out, patient is ambulating well today she had via voided today, Hernandez catheter is out, she has no fever or chills at this time she has no dysuria or hematuria, she has no chest pain with ambulation, patient will be discharged home today and follow-up with me as an outpatient next week. Discharge diagnoses: 1. ST elevation inferior wall GA. Status post left heart catheterization with PCI of the RCA. 2. Hypertension and hypertensive cardiovascular disease. 3. Mixed hyperlipidemia. 4. Diabetes mellitus type 2 on insulin pump. 5. history of CVA . 6. history of renal transplant. 7. Obstructive sleep apnea. 8. History of pulmonary embolism. 9. History of CAD post PCI. 10. Recurrent depression. 11. Diabetic neuropathy. 12. History of vulvar cancer post surgery and radiation therapy. 13. GERD with esophagitis. Patient Condition at Discharge: Stable Plan - Discharge Summary Discharge Rx Participant: Yes New Discharge Prescriptions: New Aspirin 81 mg PO DAILY #10 tab carvediloL [Coreg] 3.125 mg PO BID-W/MEALS #180 tab Losartan [Cozaar] 25 mg PO DAILY #90 tab Apixaban [Eliquis] 2.5 mg PO BID #180 tab Continue mycophenolate mofetiL [Cellcept] 500 mg PO BID Tacrolimus [Prograf] 2 mg PO HS DULoxetine HCL [Cymbalta] 20 mg PO DAILY Clopidogrel [Plavix] 75 mg PO DAILY calcitrioL 0.5 mcg PO DAILY Omeprazole [PriLOSEC] 40 mg PO DAILY Tacrolimus [Prograf] 1 mg PO DAILY Nitroglycerin Sl Tabs [Nitrostat] 0.4 mg SUBLINGUAL Q5M PRN PRN Reason: Chest Pain INSULIN LISPRO (For Pump) [humaLOG (For Pump)] 0.01 units SQ-PUMP CONTINUOUS Ferrous Sulfate [Iron] 325 mg PO DAILY Cyanocobalamin (Vitamin B-12) [Vitamin B-12] 1,000 mcg PO DAILY Acetaminophen Tab [Tylenol] 500 mg PO Q6H PRN PRN Reason: Pain Ergocalciferol [Vitamin D2 (1250 Mcg = 14880 Iu)] 1,250 mcg PO ROMANO Atorvastatin [Lipitor] 80 mg PO HS Metoclopramide [Reglan] 5 mg PO BID Gabapentin [Neurontin] 300 mg PO HS #3 cap Discontinued Apixaban [Eliquis] 5 mg PO BID Metoprolol Succinate (ER) [Toprol XL] 25 mg PO DAILY Discharge Medication List mycophenolate mofetiL [Cellcept] 500 mg PO BID 12/12/14 [History] Tacrolimus [Prograf] 2 mg PO HS 06/06/16 [History] DULoxetine HCL [Cymbalta] 20 mg PO DAILY 11/10/18 [History] Clopidogrel [Plavix] 75 mg PO DAILY 11/04/19 [History] Atorvastatin [Lipitor] 80 mg PO HS 09/10/21 [History] Metoclopramide [Reglan] 5 mg PO BID 09/10/21 [History] calcitrioL 0.5 mcg PO DAILY 09/10/21 [History] Omeprazole [PriLOSEC] 40 mg PO DAILY 04/12/23 [History] Tacrolimus [Prograf] 1 mg PO DAILY 04/12/23 [History] Gabapentin [Neurontin] 300 mg PO HS #3 cap 11/28/23 [Rx] Acetaminophen Tab [Tylenol] 500 mg PO Q6H PRN 10/22/24 [History] Cyanocobalamin (Vitamin B-12) [Vitamin B-12] 1,000 mcg PO DAILY 10/22/24 [History] Ergocalciferol [Vitamin D2 (1250 Mcg = 05386 Iu)] 1,250 mcg PO ROMANO 10/22/24 [History] Ferrous Sulfate [Iron] 325 mg PO DAILY 10/22/24 [History] INSULIN LISPRO (For Pump) [humaLOG (For Pump)] 0.01 units SQ-PUMP CONTINUOUS 10/22/24 [History] Nitroglycerin Sl Tabs [Nitrostat] 0.4 mg SUBLINGUAL Q5M PRN 10/22/24 [History] Apixaban [Eliquis] 2.5 mg PO BID #180 tab 10/25/24 [Rx] Aspirin 81 mg PO DAILY #10 tab 10/25/24 [Rx] Losartan [Cozaar] 25 mg PO DAILY #90 tab 10/25/24 [Rx] carvediloL [Coreg] 3.125 mg PO BID-W/MEALS #180 tab 10/25/24 [Rx] Follow up Appointment(s)/Referral(s): Bernardino Bonner MD [STAFF PHYSICIAN] - 11/06/24 10:00 am (MONDAY With [facility] [employer]) Katina Benson MD [Primary Care Provider] - 11/01/24 1:30 pm (MONDAY) Hyacinth Girard,Home Care [NON-STAFF] - 1 Week Patient Instructions/Handouts: Heart Attack (DC), After Radial Heart Catheterization (GEN) Discharge Disposition: HOME WITH HOME HEALTH SERVICES
[2024-10-28 11:39] LABS: Glucose,Whole Blood 127 mg/dL (70-110)
[2024-11-03] MEDS ORDERED: ERGOCALCIFEROL 1,250 MCG (50,000 IU) CAPSULE PO SCH (09:00)
== END 2024-10-25 13:33 | disposition home or self-care (01) | DRG 322 ==
LOC: EC 21:11 → 2SICU 21:24 → 3SCARD 10-23 18:20
PROVIDERS: ADMIT Internal Medicine; ATTEND Internal Medicine
PROC: 027034Z Dilation of Coronary Artery, One Artery with Drug-eluting Intraluminal Device, Percutaneous Approach (ICD-10-PCS; principal; 2024-10-21 21:00)
PROC: 4A023N7 Measurement of Cardiac Sampling and Pressure, Left Heart, Percutaneous Approach (ICD-10-PCS; principal; 2024-10-21 21:00)
PROC: B240ZZ3 Ultrasonography of Single Coronary Artery, Intravascular (ICD-10-PCS; principal; 2024-10-21 21:00)
PROC: B2111ZZ Fluoroscopy of Multiple Coronary Arteries using Low Osmolar Contrast (ICD-10-PCS; principal; 2024-10-21 21:00)
DX: I21.19 ST elevation (STEMI) myocardial infarction involving other coronary artery of inferior wall (principal); E07.9 Disorder of thyroid, unspecified; Z94.0 Kidney transplant status; F33.9 Major depressive disorder, recurrent, unspecified; E10.22 Type 1 diabetes mellitus with diabetic chronic kidney disease; I13.10 Hypertensive heart and chronic kidney disease without heart failure, with stage 1 through stage 4 chronic kidney disease, or unspecified chronic kidney disease; I34.81 Nonrheumatic mitral (valve) annulus calcification; E10.42 Type 1 diabetes mellitus with diabetic polyneuropathy; N18.9 Chronic kidney disease, unspecified; Z79.4 Long term (current) use of insulin; K21.00 Gastro-esophageal reflux disease with esophagitis, without bleeding; I25.10 Atherosclerotic heart disease of native coronary artery without angina pectoris; E78.2 Mixed hyperlipidemia; G47.33 Obstructive sleep apnea (adult) (pediatric); I25.2 Old myocardial infarction; M19.90 Unspecified osteoarthritis, unspecified site; Z79.01 Long term (current) use of anticoagulants; Z79.02 Long term (current) use of antithrombotics/antiplatelets; Z79.621 Long term (current) use of calcineurin inhibitor; Z79.624 Long term (current) use of inhibitors of nucleotide synthesis; Z79.899 Other long term (current) drug therapy; Z95.5 Presence of coronary angioplasty implant and graft; Z96.41 Presence of insulin pump (external) (internal); Z87.891 Personal history of nicotine dependence; Z86.711 Personal history of pulmonary embolism; Z86.73 Personal history of transient ischemic attack (TIA), and cerebral infarction without residual deficits; Z85.44 Personal history of malignant neoplasm of other female genital organs; Z85.828 Personal history of other malignant neoplasm of skin; Z98.84 Bariatric surgery status; Z92.3 Personal history of irradiation; Z88.0 Allergy status to penicillin; Z88.8 Allergy status to other drugs, medicaments and biological substances
CPT/HCPCS: 80048; 80053; 80061; 83036; 83735; 85025; 92978; 93306; 93458

== ENCOUNTER → 2024-11-22 | Outpatient (CLI) | payer MEDICARE ==
[2024-11-22 16:33] LABS: Basophils # (A) 0.07 X 10*3/uL (0.00-0.10); Basophils % (A) 1.7 %; Eosinophils % (A) 7.1 %; HCT 34.1 % (37.2-46.3); HGB 10.8 g/dL (12.0-15.0); Immature Grans, Automated 0 %; Lymphocytes % (A) 37.9 %; MCH 28.3 pg (27.0-32.0); MCHC 31.7 g/dL (32.0-37.0); MCV 89.5 FL (80.0-97.0); Mean Platelet Volume 12.3 FL (9.5-12.2); Monocytes # (A) 0.31 X 10*3/uL (0.20-1.00); Monocytes % (A) 7.3 %; NRBC Per 100 WBC 0 X 10*3/uL (0.00-0.01); Neutrophils # (A) 1.94 X 10*3/uL (1.80-7.70); Platelet Count 149 X 10*3/uL (140-440); RBC 3.81 X 10*6/uL (4.10-5.20); WBC 4.22 X 10*3/uL (4.50-10.00)
[2024-11-22 17:15] LABS: % Iron Saturation 10.53 (12.00-45.00); Albumin 3.4 g/dL (3.8-4.9); BUN/Creat Ratio 13.64 Ratio (12.00-20.00); Calcium 9.2 mg/dL (8.7-10.3); Carbon Dioxide 27.4 mmol/L (21.6-31.8); Chloride 103 mmol/L (96-109); Ferritin 32.3 ng/mL (10.0-291.0); Glucose 252 mg/dL (70-110); Iron 42 UG/DL (50-170); Magnesium 1.5 mg/dL (1.5-2.4); Phosphorus 3.1 mg/dL (2.4-5.1); Sodium 141 mmol/L (135-145); Total Iron Binding Capacity 399 UG/DL (228-460)
[2024-11-22 20:14] LABS: Urine Creatinine 33.1 mg/dL (28.0-217.0)
== END | disposition home or self-care (01) ==
LOC: LABWHC1 08:55
PROVIDERS: ATTEND Internal Medicine Nephrology
DX: N18.30 Chronic kidney disease, stage 3 unspecified (principal)
CPT/HCPCS: 36415; 80048; 80197; 82040; 82043; 82306; 82570; 82728; 83540; 83550; 83735; 83970; 84100; 84550; 85025

== ENCOUNTER → 2024-12-26 | Outpatient (CLI) | payer MEDICARE ==
--- NOTE | 2024-12-26 13:38 | MM ---
Reason for Exam: Screening (asymptomatic). Last mammogram was performed 1 year(s) and 2 month(s) ago. Patient History: Menarche at age 14. First Full-Term at age 23. Left ovary removed at age 43. Right ovary removed at age 46. Postmenopausal. Other cancer, age 51. Paternal cousin had breast cancer. Paternal cousin had breast cancer. Paternal cousin had breast cancer. Paternal cousin had breast cancer. Risk Values: Taina 5 year model risk: 1.4%. NCI Lifetime model risk: 6.2%. Prior Study Comparison: 10/01/2020 Bilateral Screening Mammogram, [facility]. 05/10/2022 Bilateral MG 3D diag mammo w/cad [facility], [facility]. 11/06/2023 Bilateral MG 3D diag mammo w/cad [facility], [facility]. Tissue Density: The breasts are heterogeneously dense, which may obscure small masses. Findings: Analyzed By CAD. There is no suspicious group of microcalcifications or new suspicious mass in either breast. Overall Assessment: Benign, BI-RAD 2 Management: Screening Mammogram of both breasts in 1 year. . Patient should continue monthly self-breast exams. A clinical breast exam by your physician is recommended on an annual basis. This exam should not preclude additional follow-up of suspicious palpable abnormalities. Note on Taina scores and lifetime risk: 1. A Taina score greater than 3% is considered moderate risk. If this is the case, consider specialist referral to assess eligibility for a risk reducing agent. 2. If overall lifetime risk for the development of breast cancer is 20% or higher, the patient may qualify for future screening with alternating mammogram and breast MRI. [facility], , 12/26/2024 1:35 PM. Electronically signed and approved by: Emilio Kirk M.D. Radiolog[facility]
== END | disposition home or self-care (01) ==
LOC: RADMAMWWP 12:42
PROVIDERS: ATTEND Internal Medicine
DX: Z12.31 Encounter for screening mammogram for malignant neoplasm of breast (principal); R92.333 Mammographic heterogeneous density, bilateral breasts; Z78.0 Asymptomatic menopausal state; Z80.3 Family history of malignant neoplasm of breast
CPT/HCPCS: 77063; 77067

== ENCOUNTER → 2025-04-15 | Outpatient (CLI) | payer MEDICARE ==
--- NOTE | 2025-04-15 15:03 | CT ---
EXAMINATION TYPE: CT brain wo con CT DLP: 1100 mGycm, Automated exposure control for dose reduction was used. 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 . Coronal and sagitta l reformats reviewed. FINDINGS: Brain: Extra-axial spaces: No abnormal extra-axial fluid collections. Ventricular system: Right posterior parietal approach STONE SAWYER shunt catheter with distal tip terminating i n the body of the right lateral ventricle. Mild decreased in mild hydrocephalus from prior examinatio n. Cerebral parenchyma: No acute intraparenchymal hemorrhage or mass effect. The neves-white junction is well differentiated. Scattered hypoattenuating areas are seen within the periventricular and subcort ical white matter. CSF removal injury to the right frontal lobe subcortical white matter. Comment pe rivascular spaces versus remote lacunar injuries involving the bilateral insula. Cerebellum: Unremarkable. Mass effect: No evidence of midline shift. Intracranial vasculature: Atherosclerotic calcifications of the intracranial vessels. Soft tissues: Normal. Calvarium/osseous structures: No depressed skull fracture. Right posterior parietal craniotomy defect . Paranasal sinuses and mastoid air cells: Clear Visualized orbits: Left aphakia IMPRESSION: 1. Post STONE SAWYER shunt catheter is with distal tip in the right lateral ventricle body. There is slight dec rease in mild hydrocephalus from prior exam. Catheter appears intact. 2. Nonspecific white matter changes, likely secondary to chronic small vessel ischemic disease. 3. Remote small injury within the right frontal lobe subcortical white matter with additional bilater al insular regions prominent perivascular spaces versus remote lacunar injuries. [facility], , 04/15/2025 3:01 PM
== END | disposition home or self-care (01) ==
LOC: RADCTMAIN 14:26
PROVIDERS: ATTEND Neurological Surgery
DX: G91.2 (Idiopathic) normal pressure hydrocephalus (principal); R90.82 White matter disease, unspecified; Z98.2 Presence of cerebrospinal fluid drainage device
CPT/HCPCS: 70450